=== PATIENT | male | born 1955 | race Caucasian/White ===

== ENCOUNTER 2018-10-23 10:44 | Outpatient (CLI) | payer MEDICAID, SELFPAY ==
[2018-10-23 11:58] LABS: Anion Gap 6.8 mmol/L (3-11); BUN 15 mg/dL (7-18); CO2 29.2 mmol/L (21.0-32.0); Calcium 9.1 mg/dL (8.5-10.1); Chloride 103 mmol/L (98-107); Cholesterol 147 mg/dL (50-200); Glucose 202 mg/dL (70-100); HDL Cholesterol 81 mg/dL (40-60); LDL CHOLESTEROL 53 mg/dL (<100); Potassium 4.8 mmol/L (3.5-5.1); Sodium 139 mmol/L (136-145); Triglyceride 98 mg/dL (30-150)
[2018-10-23 12:02] LABS: Microalb ug/mg Crea 32.7 ug/mg Cr
== END 2018-10-23 11:04 ==
PROVIDERS: PCP Internal Medicine; Visit Provider Internal Medicine
DX: I10 Essential (primary) hypertension (principal); E11.9 Type 2 diabetes mellitus without complications; E10.49 Type 1 diabetes mellitus with other diabetic neurological complication
CPT/HCPCS: 36415; 80048; 80061; 83721; 82043; 82570

== ENCOUNTER 2020-09-01 01:48 | Outpatient (CLI) | payer MEDICARE, MEDICAID, SELFPAY ==
[2020-09-01 08:40] LABS: COMMENT (LAB VIEW ONLY) 42.53 mg/dL; Microalb ug/mg Crea 20.2 ug/mg Cr
[2020-09-01 09:16] LABS: Anion Gap 5.6 mmol/L (3-11); BUN 16 mg/dL (7-18); CO2 28.4 mmol/L (21.0-32.0); CREATININE 0.9 mg/dL (0.70-1.30); Calcium 9.4 mg/dL (8.5-10.1); Calculated LDL 52 mg/dL (<100); Chloride 101 mmol/L (98-107); Cholesterol 150 mg/dL (<200); Glucose 320 mg/dL (74-106); HDL Cholesterol 84 mg/dL (40-60); Potassium 4.7 mmol/L (3.5-5.1); Sodium 135 mmol/L (136-145); Triglyceride 72 mg/dL (<150)
== END 2020-09-01 01:49 | disposition home or self-care (01) ==
LOC: LBO 01:48
PROVIDERS: PCP Internal Medicine; Visit Provider Internal Medicine
DX: E78.00 Pure hypercholesterolemia, unspecified (principal); E10.39 Type 1 diabetes mellitus with other diabetic ophthalmic complication; E10.49 Type 1 diabetes mellitus with other diabetic neurological complication; I10 Essential (primary) hypertension
CPT/HCPCS: 36415; 80048; 80061; 82043; 82570

== ENCOUNTER 2021-01-26 12:22 | Outpatient (REF) | payer MEDICARE, MEDICAID, SELFPAY | END 2021-01-26 12:23 | disposition home or self-care (01) | LOC: LBN 12:22 | PROVIDERS: PCP Internal Medicine; Visit Provider Family Medicine | DX: E11.621 Type 2 diabetes mellitus with foot ulcer (principal); L97.511 Non-pressure chronic ulcer of other part of right foot limited to breakdown of skin | CPT/HCPCS: 87070 ==

== ENCOUNTER 2021-02-02 11:25 | Inpatient (IN) | payer MEDICARE, MEDICAID, SELFPAY ==
[2021-02-02] VITALS (20 sets, daily range): BP systolic 158–168; BP diastolic 76–98; PULSE 75–86; RESP 18; TEMP 36–36.2; O2SAT 87–98
--- NOTE | 2021-02-02 | DI.MRI_ITS ---
Exam(s) MR LOWER EXTREMITY RT WO/W EXAM: MR LOWER EXTREMITY RT WO/W CLINICAL HISTORY: diabetic foot ulcer, necrotic 2nd digit. TECHNIQUE: Multiplanar multisequence MRI was performed. COMPARISON: CR XR FOOT LT COMPLETE from 02/02/2021 CR XR FOOT LT COMPLETE from 02/02/2021 FINDINGS: MR examination of the forefoot was performed according to the usual protocol with additional multipla jorden pre and post contrast T1 fat sat imaging. The patient reportedly has a necrotic 2nd digit. There is soft tissue edema of the 2nd toe and the distal toe ulceration adjacent to the distal phalan x tip. There is mildly abnormal signal in the distal phalanx on both T1 and PD fat sat imaging. The re is mild enhancement of the distal phalanx of the 2nd toe also noted on post contrast imaging, thes e findings are consistent with osteomyelitis of the distal phalanx of the 2nd toe. There are degenerative changes of the IP joints. No additional findings to suggest osteomyelitis. N o evidence of fracture or dislocation. No gross tendinous or ligamentous abnormality in the region s urveyed. IMPRESSION: Findings consistent with osteomyelitis of the distal phalanx of the 2nd toe as described above. DATA REPOSITORY:
--- NOTE | 2021-02-02 11:42 | DI.RAD_ITS ---
Exam(s) XR FOOT RT COMPLETE EXAM: XR FOOT RT COMPLETE CLINICAL HISTORY: necrotic toe 2nd/3rd. TECHNIQUE: 2D digital imaging was performed. COMPARISON: No exams were available for comparison FINDINGS: BONES: No acute fracture is present. No bony destructive lesion is seen. No radiographic evidence to suggest acute osteomyelitis. JOINTS: No dislocation present. SOFT TISSUE: There is generalized soft tissue swelling of the foot. Atherosclerosis. IMPRESSION: No radiographic findings to suggest acute osteomyelitis. DATA REPOSITORY: RADIATION DOSE DELIVERED:
--- NOTE | 2021-02-02 11:46 | DI.RAD_ITS ---
Exam(s) XR FOOT LT COMPLETE EXAM: XR FOOT LT COMPLETE CLINICAL HISTORY: left 3rd toe ulcer. TECHNIQUE: 2D digital imaging was performed. COMPARISON: No exams were available for comparison FINDINGS: BONES: No acute fracture is present. No bony destructive lesion is seen. No evidence of acute osteomy elitis. JOINTS: No dislocation present. SOFT TISSUE: Generalized soft tissue swelling of the foot. Extensive atherosclerosis. IMPRESSION: No evidence of acute osteomyelitis. DATA REPOSITORY: RADIATION DOSE DELIVERED:
[2021-02-02 12:12] LABS: Abs Immature Grans 0.02 10^3/uL (0.0-0.06); Absolute Basophil Count 0.07 10^3/uL (0.0-0.2); Absolute Eosinophil Count 0.33 10^3/uL (0.0-0.7); Absolute Lymphocyte Count 1.66 10^3/uL (1.2-3.4); Absolute Monocyte Count 0.68 10^3/uL (0.1-0.8); Absolute Neutrophil Count 4.45 10^3/uL (1.2-6.7); BE (Venous) 6 mmol/L (-2-3); Eosinophils % 4.6; HCO3 (Venous) 31 mmol/L (23-28); HCT 42.1 % (40.0-50.0); Immature Grans % 0.3; MCHC 33.3 % (32.0-36.0); MCV 96.1 fL (80-95); MPV 11.5 fL (8.0-11.0); Monocytes % 9.4; Neutrophils % 61.7; Nucleated RBC 0 %; O2 Sat (Venous) 77 %; Platelet Count 235 10^3/uL (130-400); RBC 4.38 10^6/uL (4.36-5.78); RDW 12.1 % (11.8-14.1); RDW-SD 42.9 fL; TCO2 (Venous) 28 mmol/L (24-29); WBC 7.21 10^3/uL (4.4-10.8); pCO2 (Venous) 52 mmHg (41-51); pH (Venous) 7.39 (7.31-7.41); pO2 (Venous) 41 mmHg
[2021-02-02 12:25] LABS: C-Reactive Protein 0.18 mg/dL (0.0-0.3)
--- NOTE | 2021-02-02 12:27 | ED.GENADUL_ITS ---
Discharge Plan Discharge Details Chief Complaint: Cellulitis Primary Care Provider: Gaby Ma ED Provider: Elis Dawn Home Meds and New Rx's Prescriptions: No Action losartan 100 mg tablet 100 mg PO DAILY Qty: 90 RF: 3 triamcinolone acetonide 0.1 % cream 1 applic topical TID PRN (Reason: itchy bite) Qty: 15 RF: 0 hydroxyzine HCl 10 mg tablet 10 - 20 mg PO BID PRN (Reason: itching) Qty: 10 RF: 0 Glucagon Emergency Kit (human) 1 mg recon soln 1 mg SC Q20M PRN (Reason: hypoglycemia) Qty: 1 RF: 2 Lac-Hydrin Five 5 % lotion 1 applic TP BID PRN (Reason: diabetic foot care) Qty: 226 RF: 5 sildenafil [Viagra] 100 mg tablet 100 mg PO DAILY PRN (Reason: sexual activity) Qty: 6 RF: 12 aspirin [Ecotrin Low Strength] 81 MG tablet,delayed release (DR/EC) 81 mg PO DAILY RF: 0 multivitamin [Daily Vitamin] 1 EACH tablet 1 ea PO DAILY RF: 0 docusate sodium 100 MG capsule 100 mg PO DAILY PRNRF: 0 polyethylene glycol 3350 [Miralax] 17 gram/dose powder 17 gm PO DAILY PRN (Reason: constipation) Qty: 1700 RF: 3 dorzolamide-timolol 22.3-6.8 mg/mL drops 1 drp ophthalmic (eye) BID RF: 0 Novolin N NPH U-100 Insulin 100 unit/mL suspension See Rx Instructions subcut .COMPLEX Qty: 6 RF: 4 Novolin R Regular U-100 Insuln 100 unit/mL solution See Rx Instructions Sub-Q .COMPLEX Qty: 6 RF: 4 (DME) BD Insulin Syringe 1 mL 26 x 1/2 syringe 1 syr Sub-Q 5x/day Qty: 300 RF: 4 (DME) OneTouch Ultra Blue Test Strip Strip See Dose Instructions .ROUTE .MEDSUPPLY Qty: 150 RF: 5 Medical Decision Making Patient is alert and oriented, quite pleasant, blood pressure stable and vitals otherwise stable, does not meet sepsis criteria Will need to be admitted for IV antibiotics and likely surgical intervention, discussed with Dr. Dos Santos, aerospace products sales engineer who will consult Discussed with admitting hospitalist, Dr. Bass No leukocytosis Also discussed with Dr. Mariscal, [facility] internal medicine who actually transfer the patient to the emergency room appropriately Patient agreeable to admission at this time Of note, he did become hypoglycemic at 53, he was given glucose and we will recheck blood sugar Mentating fine throughout this encounter and agreeable to plan for admission at this time Medical Records Medical records reviewed: Yes I reviewed the patient's medical records. Lab Data Lab results reviewed: Yes I reviewed the patient's lab results. HPI General Mode of arrival: ambulatory . Date/Time Provider Initiated Documentation: 02/02/21 11:42 . Limitations to Documentation: no limitations . Information obtained by: patient . HPI Narrative: This 65-year-old gentleman, poorly controlled diabetes history of insulin-dependent diabetic neuropathy and retinopathy presents with reported cellulitis and necrotic toe. Patient denies fever or chills. He states that he is on Augmentin for the past week and his symptoms have worsened. He states his A1c is 9. Blood sugar was 200 prior to arrival. He states he does not have any pain in the affected extremity but does have reported neuropathy. Denies chest pain, shortness of breath, nausea, vomiting, or any additional complaints at this time. Has been taking the Augmentin previously prescribed by his primary care physician as instructed Related Data Home Medications Medication Instructions Recorded Confirmed aspirin [Ecotrin] 81 mg PO DAILY tab-cap 09/21/12 02/02/21 multivitamin [Daily Vitamin] 1 ea PO DAILY 09/22/12 02/02/21 docusate sodium 100 mg PO DAILY PRN tab-cap 04/02/16 02/02/21 polyethylene glycol 3350 17 17 gm PO DAILY PRN #1700 gm 03/02/19 02/02/21 gram/dose oral powder dorzolamide 22.3 mg-timolol 6.8 1 drp OPHTHALMIC (EYE) BID 08/17/19 02/02/21 mg/mL eye drops glucagon (human recombinant) 1 mg 1 mg SC Q20M PRN #1 each 09/21/19 02/02/21 solution for injection ammonium lactate 5 % lotion 1 applic TP BID PRN #226 gm 12/28/19 02/02/21 sildenafil 100 mg tablet 100 mg PO DAILY PRN #6 t 12/28/19 02/02/21 losartan 100 mg tablet 100 mg PO DAILY #90 tab 09/19/20 02/02/21 blood sugar diagnostic #150 strip 11/06/20 02/02/21 insulin NPH isoph U-100 human 100 See Rx Instructions SUBCUT 11/06/20 02/02/21 unit/mL subcutaneous suspension .COMPLEX #6 vial insulin regular human 100 unit/mL See Rx Instructions SUB-Q .COMPLEX 11/06/20 02/02/21 injection solution #6 vial insulin syringe-needle U-100 1 mL #300 syringe 11/06/20 02/02/21 26 x 1/2 hydroxyzine HCl 10 mg tablet 10 - 20 mg PO BID PRN #10 tab 12/01/20 02/02/21 triamcinolone acetonide 0.1 % 1 applic TOPICAL TID PRN #15 g 12/01/20 02/02/21 topical cream Previous Rx's Medication Instructions Recorded polyethylene glycol 3350 17 17 gm PO DAILY PRN #1700 gm 03/02/19 gram/dose oral powder glucagon (human recombinant) 1 mg 1 mg SC Q20M PRN #1 each 09/21/19 solution for injection ammonium lactate 5 % lotion 1 applic TP BID PRN #226 gm 12/28/19 sildenafil 100 mg tablet 100 mg PO DAILY PRN #6 t 12/28/19 losartan 100 mg tablet 100 mg PO DAILY #90 tab 09/19/20 blood sugar diagnostic #150 strip 11/06/20 insulin NPH isoph U-100 human 100 See Rx Instructions SUBCUT 11/06/20 unit/mL subcutaneous suspension .COMPLEX #6 vial insulin regular human 100 unit/mL See Rx Instructions SUB-Q .COMPLEX 11/06/20 injection solution #6 vial insulin syringe-needle U-100 1 mL #300 syringe 11/06/20 26 x 1/2 hydroxyzine HCl 10 mg tablet 10 - 20 mg PO BID PRN #10 tab 12/01/20 triamcinolone acetonide 0.1 % 1 applic TOPICAL TID PRN #15 g 12/01/20 topical cream Allergies Allergy/AdvReac Type Severity Reaction Status Date / Time codeine Allergy Mild ITCHING Verified 02/02/21 11:33 lisinopril AdvReac Unknown HEADACHE Verified 02/02/21 11:33 SEXUAL DYS moexipril AdvReac Unknown FELT FUNNY Verified 02/02/21 11:33 General Stated Complaint: Cellulitis LOVE: 3 Review of Systems All systems reviewed & are unremarkable except as noted in HPI and below PFSH Medical History (Updated 01/26/21 @ 11:14 by Tyshawn Chapman DO) Bilateral diabetic retinopathy (09/10/11) 08/16/[address] both eyes. 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 What is your relationship status?: Panel score (0-1 are the most socially isolated patients): 1 What type of physical activity do you participate in: none Seatbelt use: always Drive intox or ride w/intox milk delivery driver: No Working smoke detector in home: Yes Fire extinguisher in home: Yes Carbon monox detector in home: Yes Exam Const General: cooperative and no acute distress HENMT Other: Moist mucous membranes Eyes Pupils: PERRL Chest Chest: normal inspection of the chest Resp Effort & Inspection: normal respiratory effort Auscultation: clear to auscultation bilaterally Cardio Rate: regular rate Rhythm: regular rhythm GI Other: Nontender abdominal exam Skin Other: Right second digit with ulceration and distal necrosis noted to second phalanx on foot with cellulitis extending up the dorsum of the foot without obvious lymphangitis past the ankle 2+ peripheral edema bilaterally, Doppler pulses obtained to the posterior tibialis and dorsalis pedis bilaterally No crepitus, blister noted to right third phalanx plan, blister noted to left s econd phalanx as well Diminished sensation consistent with peripheral neuropathy bilaterally Neuro General: patient alert and patient oriented x3 Extrem Other: Vascularly intact bilateral lower extremities Psych Appearance: well kempt Course Vital Signs Vital signs: Vital Signs Temperature 36.2 C L 02/02/21 11:30 Pulse 86 02/02/21 11:30 Respiratory Rate 18 02/02/21 11:30 Blood Pressure 167/80 H 02/02/21 11:30 Pulse Oximetry 98 02/02/21 11:30 Temperature 36.2 C L 02/02/21 11:30 Temperature Source Temporal Artery Scan 02/02/21 11:30 Pulse 86 02/02/21 11:30 Respiratory Rate 18 02/02/21 11:30 Respiratory Effort Non-Labored 02/02/21 11:38 Blood Pressure 167/80 H 02/02/21 11:30 Blood Pressure Position Sitting 02/02/21 11:30 Pulse Oximetry 98 02/02/21 11:30 Oxygen Delivery Method Room Air 02/02/21 11:30 Oxygen Flow Rate 0 02/02/21 11:30 Pain Level 2 02/02/21 11:30 Lab/Test Results Lab/Test Results: 02/02/21 12:00 Blood Blood Culture - Pending 02/02/21 11:46 Blood Blood Culture - Pending Laboratory Tests Range/Units 02/02/21 02/02/21 02/02/21 11:45 12:00 12:00 WBC (4.4-10.8) 10^3/uL 7.21 RBC (4.36-5.78) 10^6/uL 4.38 Hgb (13.5-17.5) g/dL 14.0 Hct (40.0-50.0) % 42.1 MCV (80-95) fL 96.1 H MCH (27.0-33.0) pg 32.0 MCHC (32.0-36.0) % 33.3 RDW (11.8-14.1) % 12.1 Plt Count (130-400) 10^3/uL 235 MPV (8.0-11.0) fL 11.5 H Immature Gran % 0.3 Neutrophils % 61.7 Lymphocytes % 23.0 Monocytes % 9.4 Eosinophils % 4.6 Basophils % 1.0 Nucleated RBC % % 0 Absolute Neutrophils (1.2-6.7) 10^3/uL 4.45 Absolute Lymphocytes (1.2-3.4) 10^3/uL 1.66 Absolute Monocytes (0.1-0.8) 10^3/uL 0.68 Absolute Eosinophils (0.0-0.7) 10^3/uL 0.33 Absolute Basophils (0.0-0.2) 10^3/uL 0.07 VBG pH (7.31-7.41) VBG pCO2 (41-51) mmHg VBG pO2 mmHg VBG HCO3 (23-28) mmol/L VBG Total CO2 (24-29) mmol/L VBG O2 Saturation % VBG Base Excess (-2-3) mmol/L VBG Lactate (0.6-1.4) mmol/L Magnesium Cancelled Troponin I Cancelled C-Reactive Protein (0.0-0.3) mg/dL 0.18 Range/Units 02/02/21 02/02/21 02/02/21 12:00 12:00 14:45 WBC (4.4-10.8) 10^3/uL RBC (4.36-5.78) 10^6/uL Hgb (13.5-17.5) g/dL Hct (40.0-50.0) % MCV (80-95) fL MCH (27.0-33.0) pg MCHC (32.0-36.0) % RDW (11.8-14.1) % Plt Count (130-400) 10^3/uL MPV (8.0-11.0) fL Immature Gran % Neutrophils % Lymphocytes % Monocytes % Eosinophils % Basophils % Nucleated RBC % % Absolute Neutrophils (1.2-6.7) 10^3/uL Absolute Lymphocytes (1.2-3.4) 10^3/uL Absolute Monocytes (0.1-0.8) 10^3/uL Absolute Eosinophils (0.0-0.7) 10^3/uL Absolute Basophils (0.0-0.2) 10^3/uL VBG pH (7.31-7.41) 7.39 VBG pCO2 (41-51) mmHg 52 H VBG pO2 mmHg 41 VBG HCO3 (23-28) mmol/L 31 H VBG Total CO2 (24-29) mmol/L 28 VBG O2 Saturation % 77 VBG Base Excess (-2-3) mmol/L 6 H VBG Lactate (0.6-1.4) mmol/L 1.0 Magnesium Troponin I Cancelled C-Reactive Protein (0.0-0.3) mg/dL
[2021-02-02 12:30] LABS: ALT 54 U/L (16-63); AST 32 U/L (15-37); Albumin 3.4 g/dL (3.4-5.0); Alkaline Phosphatase 74 U/L (46-116); Anion Gap 5.5 mmol/L (3-11); BUN 18 mg/dL (7-18); Bilirubin, Total 0.6 mg/dL (0.2-1.0); CO2 30.5 mmol/L (21.0-32.0); CREATININE 1.1 mg/dL (0.70-1.30); Calcium 8.9 mg/dL (8.5-10.1); Chloride 106 mmol/L (98-107); Glucose 92 mg/dL (74-106); Potassium 4.4 mmol/L (3.5-5.1); Sodium 142 mmol/L (136-145); Total Protein 7.3 g/dL (6.4-8.2)
[2021-02-02] MEDS: PIPERACILLIN/TAZO 4.5 GM in Normal Saline 100 ML IVPB (12:44)
[2021-02-02] MEDS: VANCOMYCIN/WATER (PEG) 2 GM/400 ML BAG IVPB (13:28)
[2021-02-02 14:11] LABS: Source Nasal/Nares
[2021-02-02 15:06] LABS: COVID-19 PCR Negative (Negative)
[2021-02-02] MEDS: Gadoterate meglumine 20 ML VIAL IVP (15:49)
[2021-02-02] MEDS: Normal Saline Flush 10 ML SYR IVP ×2 (15:49→17:13)
--- NOTE | 2021-02-02 17:10 | W.PM.HP.N ---
Date of service: 02/02/21 Time of Service: 16:45 Assessment and Plan Assessment and plan (1) Diabetic foot ulcer: Status: Acute Assessment and plan: Consult podiatry Admit with empiric vancomycin/zosyn. Anticipate possible surgery tomorrow - NPO after midnight and half the NPH in the morning. 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: Status: Acute Assessment and plan: Continue home regimen except half NPH tomorrow morning in anticipation of his procedure Qualifiers: Diabetes mellitus complication detail: with polyneuropathy Qualified Code(s): E10.42 - Type 1 diabetes mellitus with diabetic polyneuropathy (4) Essential hypertension: Status: Acute Assessment and plan: Continue losartan (5) DVT prophylaxis: Status: Acute Assessment and plan: TEDS/SCDs in anticipation of surgery (6) Discharge planning issues: Status: Acute Assessment and plan: Full code History of Present Illness History of Present Illness Chief Complaint: right 1st and 2nd toe infection Narrative: Mr Fall is a 65 year old male with PMHx of T1DM, as well as h/o diabetic retinopathy, neuropathy, ED, as well as hypertension, who stabbed his R foot onto a fan when walking around his house about a week ago. His PCP's office prescribed augmentin, which the patient took for 1 week, but despite this noticed worsening of the infection on the primarily 2nd but also first digits of his right foot. He saw his PCP today, who referred the patient to the ED. Here, he was felt to have necrotic diabetic foot infection of the 2nd digit of RLE. A blister was also noted on the 2nd digit of his LLE. Hospitalist admission was requested with podiatry seeing the patient in consult. Review of Systems All systems reviewed & are unremarkable except as noted in HPI and below [facility] Medical History (Updated 02/02/21 @ 18:47 by Dominga Bass MD) Bilateral diabetic retinopathy (09/10/11) [address] both eyes[address] 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 What is your relationship status?: Panel score (0-1 are the most socially isolated patients): 1 What type of physical activity do you participate in: none Seatbelt use: always Drive intox or ride w/intox bobtail driver: No Working smoke detector in home: Yes Fire extinguisher in home: Yes Carbon monox detector in home: Yes Meds Allergies and Home Medications Allergies Allergy/AdvReac Type Severity Reaction Status Date / Time codeine Allergy Mild ITCHING Verified 02/02/21 11:33 lisinopril AdvReac Unknown HEADACHE Verified 02/02/21 11:33 SEXUAL DYS moexipril AdvReac Unknown FELT FUNNY Verified 02/02/21 11:33 Home Medications Medication Instructions Recorded Confirmed Type aspirin [Ecotrin] 81 mg PO DAILY tab-cap 09/21/12 02/02/21 History multivitamin [Daily Vitamin] 1 ea PO DAILY 09/22/12 02/02/21 History docusate sodium 100 mg PO DAILY PRN tab-cap 04/02/16 02/02/21 History polyethylene glycol 3350 17 17 gm PO DAILY PRN #1700 gm 03/02/19 02/02/21 Rx gram/dose oral powder dorzolamide 22.3 mg-timolol 6.8 1 drp OPHTHALMIC (EYE) BID 08/17/19 02/02/21 History mg/mL eye drops glucagon (human recombinant) 1 mg 1 mg SC Q20M PRN #1 each 09/21/19 02/02/21 Rx solution for injection ammonium lactate 5 % lotion 1 applic TP BID PRN #226 gm 12/28/19 02/02/21 Rx sildenafil 100 mg tablet 100 mg PO DAILY PRN #6 t 12/28/19 02/02/21 Rx losartan 100 mg tablet 100 mg PO DAILY #90 tab 09/19/20 02/02/21 Rx blood sugar diagnostic #150 strip 11/06/20 02/02/21 Rx insulin NPH isoph U-100 human 100 See Rx Instructions SUBCUT 11/06/20 02/02/21 Rx unit/mL subcutaneous suspension .COMPLEX #6 vial insulin regular human 100 unit/mL See Rx Instructions SUB-Q .COMPLEX 11/06/20 02/02/21 Rx injection solution #6 vial insulin syringe-needle U-100 1 mL #300 syringe 11/06/20 02/02/21 Rx 26 x 1/2 hydroxyzine HCl 10 mg tablet 10 - 20 mg PO BID PRN #10 tab 12/01/20 02/02/21 Rx triamcinolone acetonide 0.1 % 1 applic TOPICAL TID PRN #15 g 12/01/20 02/02/21 Rx topical cream Exam Narrative Exam Narrative: General: Pleasant middle-aged male, ambulating in his room, A&Ox3, does not look toxic Neurological: A&Ox3, no focal deficits, slightly decreased sensation in B feet Psychiatric: Appropriate speech pattern and content Skin: 1st and 2nd digits RLE with areas of necrosis; slight blistering on 2nd digit LLE HEENT: Atraumatic, normocephalic, EOMI, MMM, clear oropharynx, no submandibular or cervical lymphadenopathy, no goiter or JVD Cardiovascular: RRR, no m/r/g Lungs: slight expiratory wheezing B Gastrointestinal: soft, nontender, nondistended Genitourinary: deferred Extremities: 1+ ankle edema BLE's, symmetric, 1+ B pedal pulses, no clubbing or cyanosis; see skin exam above Results Imaging Additional studies: XR B feet: No radiographic findings to suggest acute osteomyelitis. MRI RLE: 1. Findings consistent with cellulitis . 2. Skin ulcer at the tip of the 2nd toe extending to the distal phalanx terminal tuft. 3. Increased signal and enhancement of the 2nd toe distal phalanx consistent with osteomyelitis. Labs Result diagrams: 02/02/21 12:00 02/02/21 12:00 Labs: Laboratory Results - last 24 hr 02/02/21 02/02/21 02/02/21 11:45 12:00 12:00 WBC 7.21 RBC 4.38 Hgb 14.0 Hct 42.1 MCV 96.1 H MCH 32.0 MCHC 33.3 RDW 12.1 Plt Count 235 MPV 11.5 H Immature Gran % 0.3 Neutrophils % 61.7 Lymphocytes % 23.0 Monocytes % 9.4 Eosinophils % 4.6 Basophils % 1.0 Nucleated RBC % 0 Absolute Neutrophils 4.45 Absolute Lymphocytes 1.66 Absolute Monocytes 0.68 Absolute Eosinophils 0.33 Absolute Basophils 0.07 VBG pH VBG pCO2 VBG pO2 VBG HCO3 VBG Total CO2 VBG O2 Saturation VBG Base Excess VBG Lactate Sodium 142 Potassium 4.4 Chloride 106 Carbon Dioxide 30.5 Anion Gap 5.5 BUN 18 Creatinine 1.1 Estimated GFR/1.73 m2 >= 60.00 Glucose 92 Calcium 8.9 Magnesium Cancelled Total Bilirubin 0.6 AST 32 ALT 54 Alkaline Phosphatase 74 Troponin I Cancelled C-Reactive Protein Total Protein 7.3 Albumin 3.4 COVID-19 Source SARS-CoV-2 (PCR) 02/02/21 02/02/21 02/02/21 12:00 12:00 12:00 WBC RBC Hgb Hct MCV MCH MCHC RDW Plt Count MPV Immature Gran % Neutrophils % Lymphocytes % Monocytes % Eosinophils % Basophils % Nucleated RBC % Absolute Neutrophils Absolute Lymphocytes Absolute Monocytes Absolute Eosinophils Absolute Basophils VBG pH 7.39 VBG pCO2 52 H VBG pO2 41 VBG HCO3 31 H VBG Total CO2 28 VBG O2 Saturation 77 VBG Base Excess 6 H VBG Lactate 1.0 Sodium Potassium Chloride Carbon Dioxide Anion Gap BUN Creatinine Estimated GFR/1.73 m2 Glucose Calcium Magnesium Total Bilirubin AST ALT Alkaline Phosphatase Troponin I C-Reactive Protein 0.18 Total Protein Albumin COVID-19 Source SARS-CoV-2 (PCR) 02/02/21 02/02/21 14:05 14:45 WBC RBC Hgb Hct MCV MCH MCHC RDW Plt Count MPV Immature Gran % Neutrophils % Lymphocytes % Monocytes % Eosinophils % Basophils % Nucleated RBC % Absolute Neutrophils Absolute Lymphocytes Absolute Monocytes Absolute Eosinophils Absolute Basophils VBG pH VBG pCO2 VBG pO2 VBG HCO3 VBG Total CO2 VBG O2 Saturation VBG Base Excess VBG Lactate Sodium Potassium Chloride Carbon Dioxide Anion Gap BUN Creatinine Estimated GFR/1.73 m2 Glucose Calcium Magnesium Total Bilirubin AST ALT Alkaline Phosphatase Troponin I Cancelled C-Reactive Protein Total Protein Albumin COVID-19 Source Nasal/Nares SARS-CoV-2 (PCR) Negative Last Vital Signs Temp 36.2 C L 02/02/21 11:30 Pulse 75 02/02/21 15:01 Resp 18 02/02/21 11:30 BP 158/98 H 02/02/21 15:01 Pulse Ox 95 02/02/21 15:01
--- NOTE | 2021-02-02 17:14 | DI.VRAD_ITS ---
PROCEDURE INFORMATION: Exam: MR Right Lower Extremity Without and With Contrast; Forefoot Exam date and time: 02/02/2021 4:13 PM Age: 65 years old Clinical indication: Other: Diabetic foot ulcer, necrotic 2nd digit; Patient HX: Eval 2nd toe, type 1 diabetic TECHNIQUE: Imaging protocol: MR of the Right foot without and with intravenous contrast. Exam focused on the forefoot. Contrast material: DOTAREM; Contrast volume: 20 ml; Contrast route: INTRAVENOUS (IV); COMPARISON: CR XR FOOT RT COMPLETE 02/02/2021 1:08 PM FINDINGS: Swelling and fluid signal throughout the dorsal aspect of the forefoot is consistent with cellulitis in the proper clinical setting. No soft tissue abscess is identified. There is a superficial skin ulcer at the tip of the 2nd toe which extends to the surface of the distal phalanx terminal tuft. There is increased signal and enhancement of the 2nd toe distal phalanx consistent with osteomyelitis. There is severe arthritis of the 3rd distal interphalangeal joint. Bone marrow signal throughout the remainder of the forefoot is unremarkable. IMPRESSION: 1. Findings consistent with cellulitis . 2. Skin ulcer at the tip of the 2nd toe extending to the distal phalanx terminal tuft. 3. Increased signal and enhancement of the 2nd toe distal phalanx consistent with osteomyelitis. Dictated and Authenticated by: Sarkis Clemente MD. Ordering:JENNY Orr MD
[2021-02-02] MEDS: Insulin REGULAR-Human 100 UNITS/ML UNIT 24 UNITS SC (18:57)
[2021-02-02] MEDS: Insulin NPH-Human 300 UNITS/3 ML PEN 36 UNIT SC (22:08)
[2021-02-02] MEDS: Insulin Aspart 300 UNITS/3 ML PEN SC (22:10)
[2021-02-03] VITALS (7 sets, daily range): BP systolic 110–170; BP diastolic 69–95; PULSE 72–84; RESP 14–18; TEMP 35.7–36.6; O2SAT 94–98; BMI 29.0
[2021-02-03] MEDS: VANCOMYCIN/WATER (PEG) 1.25 GM/250 ML BAG IV ×2 (02:43→14:25)
[2021-02-03] MEDS: Normal Saline Flush 10 ML SYR IVP ×2 (02:43→22:44)
[2021-02-03 03:26] LABS: Abs Immature Grans 0.02 10^3/uL (0.0-0.06); Absolute Eosinophil Count 0.33 10^3/uL (0.0-0.7); Absolute Lymphocyte Count 2.13 10^3/uL (1.2-3.4); Absolute Monocyte Count 1.04 10^3/uL (0.1-0.8); Absolute Neutrophil Count 5.17 10^3/uL (1.2-6.7); Basophils % 1.1; Eosinophils % 3.8; HGB 15.1 g/dL (13.5-17.5); Immature Grans % 0.2; Lymphocytes % 24.2; MCH 31.6 pg (27.0-33.0); MCHC 32.8 % (32.0-36.0); MCV 96.2 fL (80-95); Monocytes % 11.8; Neutrophils % 58.9; Nucleated RBC 0 %; Platelet Count 246 10^3/uL (130-400); RBC 4.78 10^6/uL (4.36-5.78); RDW 11.9 % (11.8-14.1); RDW-SD 42.9 fL; WBC 8.79 10^3/uL (4.4-10.8)
[2021-02-03 03:34] LABS: Anion Gap 5.3 mmol/L (3-11); BUN 17 mg/dL (7-18); CO2 30.7 mmol/L (21.0-32.0); CREATININE 1.1 mg/dL (0.70-1.30); Calcium 9.2 mg/dL (8.5-10.1); Chloride 107 mmol/L (98-107); Magnesium 2.2 mg/dL (1.8-2.4); Sodium 143 mmol/L (136-145)
[2021-02-03 03:36] LABS: Glucose 47 mg/dL (74-106)
[2021-02-03 03:53] LABS: Prothrombin Time 10.3 sec (9.3-11.0)
--- NOTE | 2021-02-03 08:02 | POCOE_ITS ---
Date of service: 02/03/21 Time of Service: 08:02 History of Present Illness History of Present Illness Chief Complaint: Necrotic right second toe with osteomyelitis Narrative: 65-year-old white male who states that he stubbed his toe about 2 weeks ago and had progressive redness, necrosis of the second toe that brought him to the emergency room yesterday for evaluation. MRI reveals changes of the distal phalanx of the second toe consistent with osteomyelitis. [facility] Medical History Bilateral diabetic retinopathy (09/10/11) 08/16/[address] both eyes. 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 He responds to questions appropriately and asks proper q uestion. Peripheral pulses at the ankle are diminished but palpable, calves are soft to palpation, popliteal pulsations are noted behind the knee bilaterally. No peripheral edema is seen. He does indicate that he can walk as much as he wants without cramping in his legs. Muscle groups of 5 out of 5 bilaterally lower extremity Skeletal exam is remarkable for necrosis over the dorsal aspect of the right second toe extending from the PIPJ to the distal tip of the digit. Erythema is noted extending nursing home down the proximal phalanx but no active cellulitis noted at this time. He has dry blister formations affecting the distal and medial aspect of the right great toe and to a lesser extent the left first and second toes as well. There is no active sign of infections with those digit. C apillary return to the remaining toes appears physiologic. Neurologically he does display some diabetic neuropathy distally within his foot and he admits to a little tingling. Radiographs of his right foot were remarkable for degenerative joint disease but the MRI clearly identifies skin ulcer at the tip of the toe second digit with enhancement of the distal phalanx consistent with osteomyelitis. His vascular structures within the foot are calcified and easily reviewed on plain radiograph. Impressions: Insulin-dependent diabetic with diabetic ulcer of the right second toe due to trauma with osteomyelitis. Peripheral arterial disease Type 1 diabetes with neuropathy Plan: I reviewed with Tyshawn treatment options consisting of attempted salvage of the toe which would require 6 weeks of IV antibiotics, aggressive wound therapy which in all likelihood based on his diabetes and microvascular disease would ultimately fail and require a amputation of the digit. My recommendation was to debride the digit today back to healthy tissue and make an attempt at salvaging part of the toe to speed his recovery. He understands the permanency of an amputation, the potential risks and complications including pain, scarring, ongoing infection with additional loss of tissue requiring revisional procedures. All questions have been answered in detail he consents to use surgical debridement?amputation of the right second toe level to be determined intraoperatively. Informed consent has been obtained. Results Last Vital Signs Temp 36.3 C L 02/03/21 03:04 Pulse 84 02/03/21 03:04 Resp 14 02/03/21 03:04 BP 170/95 H 02/03/21 03:04 Pulse Ox 98 02/03/21 03:04 Labs Result diagrams: 02/03/21 03:20 02/03/21 03:20 Labs: Laboratory Results - last 24 hr 02/02/21 02/02/21 02/02/21 11:45 12:00 12:00 WBC 7.21 RBC 4.38 Hgb 14.0 Hct 42.1 MCV 96.1 H MCH 32.0 MCHC 33.3 RDW 12.1 Plt Count 235 MPV 11.5 H Immature Gran % 0.3 Neutrophils % 61.7 Lymphocytes % 23.0 Monocytes % 9.4 Eosinophils % 4.6 Basophils % 1.0 Nucleated RBC % 0 Absolute Neutrophils 4.45 Absolute Lymphocytes 1.66 Absolute Monocytes 0.68 Absolute Eosinophils 0.33 Absolute Basophils 0.07 PT INR VBG pH VBG pCO2 VBG pO2 VBG HCO3 VBG Total CO2 VBG O2 Saturation VBG Base Excess VBG Lactate Sodium 142 Potassium 4.4 Chloride 106 Carbon Dioxide 30.5 Anion Gap 5.5 BUN 18 Creatinine 1.1 Estimated GFR/1.73 m2 >= 60.00 Glucose 92 Calcium 8.9 Magnesium Cancelled Total Bilirubin 0.6 AST 32 ALT 54 Alkaline Phosphatase 74 Troponin I Cancelled C-Reactive Protein Total Protein 7.3 Albumin 3.4 COVID-19 Source SARS-CoV-2 (PCR) 02/02/21 02/02/21 02/02/21 12:00 12:00 12:00 WBC RBC Hgb Hct MCV MCH MCHC RDW Plt Count MPV Immature Gran % Neutrophils % Lymphocytes % Monocytes % Eosinophils % Basophils % Nucleated RBC % Absolute Neutrophils Absolute Lymphocytes Absolute Monocytes Absolute Eosinophils Absolute Basophils PT INR VBG pH 7.39 VBG pCO2 52 H VBG pO2 41 VBG HCO3 31 H VBG Total CO2 28 VBG O2 Saturation 77 VBG Base Excess 6 H VBG Lactate 1.0 Sodium Potassium Chloride Carbon Dioxide Anion Gap BUN Creatinine Estimated GFR/1.73 m2 Glucose Calcium Magnesium Total Bilirubin AST ALT Alkaline Phosphatase Troponin I C-Reactive Protein 0.18 Total Protein Albumin COVID-19 Source SARS-CoV-2 (PCR) 02/02/21 02/02/21 02/03/21 14:05 14:45 03:10 WBC RBC Hgb Hct MCV MCH MCHC RDW Plt Count MPV Immature Gran % Neutrophils % Lymphocytes % Monocytes % Eosinophils % Basophils % Nucleated RBC % Absolute Neutrophils Absolute Lymphocytes Absolute Monocytes Absolute Eosinophils Absolute Basophils PT INR VBG pH VBG pCO2 VBG pO2 VBG HCO3 VBG Total CO2 VBG O2 Saturation VBG Base Excess VBG Lactate Sodium Potassium Chloride Carbon Dioxide Anion Gap BUN Creatinine Estimated GFR/1.73 m2 Glucose Cancelled Calcium Magnesium Total Bilirubin AST ALT Alkaline Phosphatase Troponin I Cancelled C-Reactive Protein Total Protein Albumin COVID-19 Source Nasal/Nares SARS-CoV-2 (PCR) Negative 02/03/21 02/03/21 02/03/21 03:20 03:20 03:20 WBC 8.79 RBC 4.78 Hgb 15.1 Hct 46.0 MCV 96.2 H MCH 31.6 MCHC 32.8 RDW 11.9 Plt Count 246 MPV 11.0 Immature Gran % 0.2 Neutrophils % 58.9 Lymphocytes % 24.2 Monocytes % 11.8 Eosinophils % 3.8 Basophils % 1.1 Nucleated RBC % 0 Absolute Neutrophils 5.17 Absolute Lymphocytes 2.13 Absolute Monocytes 1.04 H Absolute Eosinophils 0.33 Absolute Basophils 0.10 PT 10.3 INR 1.0 VBG pH VBG pCO2 VBG pO2 VBG HCO3 VBG Total CO2 VBG O2 Saturation VBG Base Excess VBG Lactate Sodium 143 Potassium 4.0 Chloride 107 Carbon Dioxide 30.7 Anion Gap 5.3 BUN 17 Creatinine 1.1 Estimated GFR/1.73 m2 >= 60.00 Glucose 47 L* Calcium 9.2 Magnesium 2.2 Total Bilirubin AST ALT Alkaline Phosphatase Troponin I C-Reactive Protein Total Protein Albumin COVID-19 Source SARS-CoV-2 (PCR)
--- NOTE | 2021-02-03 08:19 | W.ANESPRE ---
General Info Date of Service Date Performed: 02/03/21 Height: 6 ft 0.05 in Weight: 97.4 kg Body Mass Index (BMI): 29.0 Meds Allergies and Home Medications Allergies Allergy/AdvReac Type Severity Reaction Status Date / Time codeine Allergy Mild ITCHING Verified 02/02/21 11:33 lisinopril AdvReac Unknown HEADACHE Verified 02/02/21 11:33 SEXUAL DYS moexipril AdvReac Unknown FELT FUNNY Verified 02/02/21 11:33 Home Medication Medication Instructions Recorded aspirin [Ecotrin] 81 mg PO DAILY tab-cap 09/21/12 multivitamin [Daily Vitamin] 1 ea PO DAILY 09/22/12 docusate sodium 100 mg PO DAILY PRN tab-cap 04/02/16 polyethylene glycol 3350 17 17 gm PO DAILY PRN #1700 gm 03/02/19 gram/dose oral powder dorzolamide 22.3 mg-timolol 6.8 1 drp OPHTHALMIC (EYE) BID 08/17/19 mg/mL eye drops glucagon (human recombinant) 1 mg 1 mg SC Q20M PRN #1 each 09/21/19 solution for injection ammonium lactate 5 % lotion 1 applic TP BID PRN #226 gm 12/28/19 sildenafil 100 mg tablet 100 mg PO DAILY PRN #6 t 12/28/19 losartan 100 mg tablet 100 mg PO DAILY #90 tab 09/19/20 blood sugar diagnostic #150 strip 11/06/20 insulin NPH isoph U-100 human 100 See Rx Instructions SUBCUT 11/06/20 unit/mL subcutaneous suspension .COMPLEX #6 vial insulin regular human 100 unit/mL See Rx Instructions SUB-Q .COMPLEX 11/06/20 injection solution #6 vial insulin syringe-needle U-100 1 mL #300 syringe 11/06/20 26 x 1/2 hydroxyzine HCl 10 mg tablet 10 - 20 mg PO BID PRN #10 tab 12/01/20 triamcinolone acetonide 0.1 % 1 applic TOPICAL TID PRN #15 g 12/01/20 topical cream Current Visit Medications: Current Medications Generic Name Dose Route Start Last Admin Trade Name Freq PRN Reason Stop Dose Admin Acetaminophen 0 mg 02/02/21 13:45 Acetaminophen 325 Mg Tab PO Q4H PRN PRN Al Hydrox/Mg Hydrox/Simethicone 30 ml 02/02/21 13:45 Mylanta Suspension 30 Ml Cup PO Q2H PRN PRN Albuterol Sulfate 0 puff 02/02/21 18:41 Albuterol Hfa 8 Gm 60 Puff Inh IH Q4H PRN PRN Ammonium Lactate 0 gm 02/02/21 13:54 Lachydrin 12% Lotion 225 Gm Btl TP BID PRN PRN diabetic foot care Aspirin 81 mg 02/03/21 08:30 Aspirin E.C. 81 Mg Tabec PO DAILY JOO Device 1 each 02/02/21 19:00 Inhaler, Assist Device MC DIRECTED JOO Dextrose 0 gm 02/02/21 13:56 02/03/21 02:49 Glucose 40% Oral Solution 15 Gm/37.5 Gm Tube PO 30 gm DIRECTED PRN Administration Dextrose/Water 0 gm 02/02/21 13:56 Dextrose 50%-Water 25 Gm/50 Ml Syr IVP DIRECTED PRN Dimethicone/Zinc Oxide 0 gm 02/02/21 13:45 Alfonso Protect Cream 142 Gm Tube TP PRN PRN Docusate Sodium 100 mg 02/02/21 13:45 Docusate Sodium 100 Mg Cap PO TID PRN PRN Dorzolamide/Timolol 0 ml 02/02/21 20:00 02/02/21 19:38 Dorzolamide/Timolol 10 Ml Btl OP 1 drp BID JOO Administration Gadoterate Meglumine 20 ml 02/02/21 16:00 02/02/21 15:49 Gadoterate Meglumine 20 Ml Vial IVP 03/04/21 23:59 20 ml DIRECTED JOO Administration Vancomycin/PEG/NADA/Lysine/Water 1.25 gm in 250 mls @ 0 mls/hr 02/03/21 02:00 02/03/21 02:43 Vancocin Injection IV 167 mls/hr Q12H JOO Administration Protocol Per Protocol Piperacillin/Tazobactam/Dextrose 3.375 gm in 50 mls @ 100 mls/hr 02/02/21 16:00 02/03/21 04:38 Zosyn IVPB 100 mls/hr Q6H JOO Administration Protocol Insulin Aspart 0 units 02/02/21 17:00 02/03/21 08:01 Insulin Aspart 300 Units/3 Ml Pen SC Not Given 0800,1200,1700,2200 JOO Protocol Insulin Human NPH 13 unit 02/03/21 08:30 Insulin Nph-Human 300 Units/3 Ml Pen SC QAM JOO Insulin Human NPH 36 unit 02/02/21 22:00 02/02/21 22:08 Insulin Nph-Human 300 Units/3 Ml Pen SC 36 units HS JOO Administration Insulin Human Regular 24 units 02/03/21 07:30 02/03/21 08:01 Insulin Regular-Human 100 Units/Ml Unit SC Not Given AC JOO Losartan Potassium 100 mg 02/03/21 08:30 Losartan 50 Mg Tab PO DAILY JOO Magnesium Hydroxide 30 ml 02/02/21 13:45 Milk Of Magnesia 30 Ml Cup PO DAILY PRN PRN Multivitamins 1 tab 02/03/21 08:30 Multivitamin Tab PO DAILY JOO Polyethylene Glycol 17 gm 02/02/21 13:54 Polyethylene Glycol 3350 17 Gm Packet PO DAILY PRN PRN constipation Sodium Chloride 10 ml 02/02/21 15:48 02/03/21 02:43 Normal Saline Flush 10 Ml Syr IVP 20 ml PRN PRN Administration PFSH Active Problems Active Problems: Problem Status Onset Code Discharge planning issues Z02.9 DVT prophylaxis Z29.9 Osteomyelitis of second toe of right foot M86.9 Nocturia more than twice per night R35.1 Essential hypertension 01/19/13 I10 Diabetic foot ulcer E11.621, L97.509 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 Surgical History Surgical History S/P cataract extraction and insertion of intraocular lens Status post glaucoma surgery Vasectomy Tobacco Smoking/Tobacco Use Status: Former Tobacco Use Alcohol Alcohol Intake: current Alcohol intake frequency: holidays/special occasions only Alcohol type: beer Substance Use Substance use: Never Substance use type: does not use Vital Signs and Lab Results Vital Signs Most Recent Vital Signs in EMR: Most Recent Vital Signs Temp Pulse Resp BP Pulse Ox 36.3 C L 84 14 170/95 H 98 02/03/21 03:04 02/03/21 03:04 02/03/21 03:04 02/03/21 03:04 02/03/21 03:04 Point of Care Results Point of Care Results: Finger Stick Blood Glucose 298 02/03/21 07:56 Lab Results Result Diagrams: 02/03/21 03:20 02/03/21 03:20 Blood Type / Crossmatch: No Data to Display Complete Blood Count: White Blood Count 8.79 10^3/uL (4.4-10.8) 02/03/21 03:20 02/03/21 Red Blood Count 4.78 10^6/uL (4.36-5.78) 02/03/21 03:20 02/03/21 Hemoglobin 15.1 g/dL (13.5-17.5) 02/03/21 03:20 02/03/21 Hematocrit 46.0 % (40.0-50.0) 02/03/21 03:20 02/03/21 Platelet Count 246 10^3/uL (130-400) 02/03/21 03:20 02/03/21 Venous Blood Lactate 1.0 mmol/L (0.6-1.4) 02/02/21 12:00 02/02/21 Complete Metabolic Panel: Sodium Level 143 mmol/L (136-145) 02/03/21 03:20 02/03/21 Potassium Level 4.0 mmol/L (3.5-5.1) 02/03/21 03:20 02/03/21 Chloride Level 107 mmol/L (98-107) 02/03/21 03:20 02/03/21 Carbon Dioxide Level 30.7 mmol/L (21.0-32.0) 02/03/21 03:20 02/03/21 Blood Urea Nitrogen 17 mg/dL (7-18) 02/03/21 03:20 02/03/21 Creatinine 1.1 mg/dL (0.70-1.30) 02/03/21 03:20 02/03/21 Estimated GFR/1.73 m2 >= 60.00 (mL/min/1.73m2) 02/03/21 03:20 02/03/21 Magnesium Level 2.2 mg/dL (1.8-2.4) 02/03/21 03:20 02/03/21 Calcium Level 9.2 mg/dL (8.5-10.1) 02/03/21 03:20 02/03/21 Albumin 3.4 g/dL (3.4-5.0) 02/02/21 12:00 02/02/21 Glucose Level 47 mg/dL (74-106) L* 02/03/21 03:20 02/03/21 C-Reactive Protein 0.18 mg/dL (0.0-0.3) 02/02/21 12:00 02/02/21 Liver Function Panel: Alanine Aminotransferase (ALT/SGPT) 54 U/L (16-63) 02/02/21 12:00 02/02/21 Aspartate Amino Transf (AST/SGOT) 32 U/L (15-37) 02/02/21 12:00 02/02/21 Coagulation Panel: INR International Normalized Ratio 1.0 (0.9-1.1) 02/03/21 03:20 02/03/21 Prothrombin Time 10.3 sec (9.3-11.0) 02/03/21 03:20 02/03/21 Cardiac Panel: No Data to Display Arterial Blood Gas: No Data to Display Venous Blood Gas: Venous Blood pH 7.39 (7.31-7.41) 02/02/21 12:00 02/02/21 Venous Blood Partial Pressure O2 41 mmHg 02/02/21 12:00 02/02/21 Venous Blood Partial Pressure CO2 52 mmHg (41-51) H 02/02/21 12:00 02/02/21 Venous Blood Oxygen Saturation 77 % 02/02/21 12:00 02/02/21 Venous Blood HCO3 31 mmol/L (23-28) H 02/02/21 12:00 02/02/21 Venous Blood Base Excess 6 mmol/L (-2-3) H 02/02/21 12:00 02/02/21 Venous Blood Total Carbon Dioxide 28 mmol/L (24-29) 02/02/21 12:00 02/02/21 Pancreas Panel: No Data to Display Thyroid Panel: No Data to Display Infectious Disease: Coronavirus (COVID-19)(PCR) Negative (Negative) 02/02/21 14:05 02/02/21 Coronavirus 2019 Source Nasal/Nares 02/02/21 14:05 02/02/21 Blood Cultures: No Data to Display Toxicology Panel: No Data to Display Anesthesia Assessment and Plan Anesthesia History Personal History: No History of Anesthesia Complications Family History: No Family History of Anesthesia Complications Exercise Tolerance Exercise Tolerance: Metabolic Equivalents>4 Cardiac & Pulmonary Exam Cardiac Exam: Normal S1/S2 Heart Sounds Pulmonary Exam: Clear Bilateral Breath Sounds Airway Exam Known Difficult Airway: No Mallampati Class: 2 Mouth Opening: Normal (> 3cm) Thyromental Distance: Greater than 3 cm Neck Range of Motion: Full ROM Neck Circumference: Normal Teeth Condition: Edentulous ASA Classification ASA Score: ASA 3 Emergency Case?: Yes NPO Status NPO Status: NPO Clear Liquids>2 hours and NPO Small Non-Fatty Meal >6 hours Anesthesia Plan Resuscitation Status: Full Code Anesthesia Technique: MAC Anesthesia Airway Planned: Natural Airway Monitors Used: Standard Monitors Preoperative Comments:: 65 yo male for toe amputation/debriement. Admitted for diabetic ulcer/osteo (on vanco/zosyn). history of DM1 with neuropathy/retinopathy (no insulin this AM, did have a BS of 47 at 03 and was given a small snack currently 290's -will given insulin intraop), HTN (losartan at home). Had zosyn at 0438, and vanco at 0243.
[2021-02-03] MEDS: Insulin REGULAR-Human 100 UNITS/ML UNIT 24 UNITS SC ×3 (09:00→16:55)
[2021-02-03] MEDS: Lactated Ringers 1,000 ML 30 ML IV (09:00)
[2021-02-03] MEDS: Bupivacaine 0.5% Pres-Free 30 ML VIAL (09:19)
[2021-02-03] MEDS: Lidocaine 1% Pres-Free 5 ML VIAL (09:19)
--- NOTE | 2021-02-03 09:30 | AMP_PTH ---
PATIENT: Tyshawn Fall LOC: U#:[id number] AGE/SX: 65/M ROOM: 230 RE02/02/[address]: Dominga Bass : 1955 BED: A DIS: 02/05/2021 SPEC #: [id number] RECD: 02/05/21 12:47 STATUS: JOSE MARIA REQ #: [id number] ESSIE: 02/03/21 09:[address]: Dominga Bass DEPT: Surgical Specimen RECD BY: Elis Sharp ENTERED: 02/05/21 12:48 SP TYPE: Amputation OTHR DR: Gaby Ma MD Tissues: 1 - AMPUTATION FINGERS/TOES(NOT TRAUMA) Procedures: GROSS AND MICRO LEVEL 4 DECALCIFICATION Comments: [id number]
--- NOTE | 2021-02-03 09:49 | W.PM.OP ---
Date of service: 02/03/21 Time of Service: 09:56 Operative Note Operative Note DATE OF PROCEDURE: 02/03/21 PRE-OP DIAGNOSIS: Diabetic ulcer with osteomyelitis right second toe PROCEDURE: Amputation right second toe through the proximal phalanx right second digit SURGEON: Priyank Sandoval ANESTHESIA TYPE: General:No Airway Refer to Anesthesia Record ESTIMATED BLOOD LOSS: 2 PATHOLOGY: other TOURNIQUET TIME: 0 COMPLICATIONS: None Patient was transported to: floor Patient's condition: stable Indications: 65-year-old white male who sustained an injury by tripping several weeks ago subsequently developed the breakdown of skin at the distal tip of the right second toe with MRI and clinical findings consistent with osteomyelitis affecting the distal phalanx soft tissue necrosis is noted dorsally over the toe to the base of the middle phalanx he is being brought to the OR for debridement and amputation of the right second toe he understands that the level of amputation is based on obtaining a level of good bleeding and healthy tissue. He understands that in spite of our best efforts the wound may dehisce the infection may persist requiring additional surgical interventions. No promises were made to the final outcome of surgery Procedure Description: Tyshawn was brought to the operative suite placed in the supine position with the right foot prepped and draped in usual sterile podiatric fashion. Timeout was performed for safe surgery. Anesthesia being achieved attention was directed to the right second toe. Dorsal and plantar flaps were designed so as to afford a primary closure through the proximal phalanx with dorsal incision was made the flap was raised dorsally the extensor tendon and joint capsules were severed no purulence was identified at this level. Bleeding was appreciated. The incision was then carried down medially laterally and plantarly going through the skin going through the flexor tendons and releasing the PIPJ plantarly. The distal portion of the second toe was removed cultures for aerobic and anaerobic specimens were obtained from the distal tip of the toe deep tissue level. A double-action bone cutting forcep was then used and the head of the proximal phalanx removed going back to about the level of the anatomic neck. Once again this bone felt hard white did not look infected at all. Hand rasp was used to remove all rough and bony edges. Copious irrigation with normal saline performed. The extensor and flexor tendons were shortened and repaired end-to-end with 3-0 Vicryl the skin was then coapted with 3-0 nylon with a combination of far near near far suture in simple interrupted suture. This incision was closed a little loose to allow for drainage if needed. No undue stress was noted on the incision good capillary return was noted throughout the tissue. Xeroform gauze fluff compression dressings were applied. Tyshawn left the OR with vital signs stable vascular status intact sharp and sponge counts were correct he will remain in-house for IV antibiotics bedrest today.
[2021-02-03] MEDS: Aspirin E.C. 81 MG TABEC PO (10:16)
[2021-02-03] MEDS: Losartan 50 MG TAB 100 MG PO (10:17)
[2021-02-03] MEDS: Insulin NPH-Human 300 UNITS/3 ML PEN 13 UNIT SC (10:17)
[2021-02-03] MEDS: Multivitamin TAB 1 TAB PO (10:17)
[2021-02-03] MEDS: Insulin Aspart 300 UNITS/3 ML PEN SC (10:19)
--- NOTE | 2021-02-03 11:00 | W.ANESPOSTOP ---
Postoperative Evaluation Date, Time and Location Date Performed: 02/03/21 Time Performed: 11:00 Patient Location: Med/Surg Vital Signs Most Recent Imported Vital Signs: Most Recent Vital Signs Temp Pulse Resp BP Pulse Ox 35.7 C L 78 18 132/72 97 02/03/21 10:02 02/03/21 10:02 02/03/21 10:02 02/03/21 10:02 02/03/21 10:02 Pain Score Most Recent Pain Score: Most Recent Pain Score Pain Level 0 02/03/21 10:02 Assessment Mental Status: Awake (Alert & Oriented to Patient Baseline) Airway and Respiratory Function: Patent airway with normal (patient baseline) respiratory exam Cardiovascular Function: Hemodynamically Stable Hydration Status: Adequately Hydrated Nausea & Vomiting: No Nausea or Vomiting Pain: Pt. Denies Any Pain Peripheral Nerve Block: Patient did not receive a nerve block
--- NOTE | 2021-02-03 16:58 | W.PM.PROGNOT ---
Date of Service Date of service: 02/03/21 Time of Service: 16:58 Assessment and Plan Assessment and plan (1) Osteomyelitis of second toe of right foot: Status: Acute Assessment and plan: cont. Vanco and Zosyn pending bone culture. post op care as per Dr. 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 cont. Regular insulin and Novolog sliding scale coverage Qualifiers: Diabetes mellitus complication detail: with polyneuropathy Qualified Code(s): E10.42 - Type 1 diabetes mellitus with diabetic polyneuropathy (3) Essential hypertension: Status: Acute Assessment and plan: Continue losartan (4) DVT prophylaxis: Status: Acute Assessment and plan: cont. AMILCAR/SCD and will discuss w/ Dr. Sandoval timing postop when he can start Lovenox (5) Discharge planning issues: Status: Acute Assessment and plan: Full code Subjective Subjective Interval history since last seen: Today the patient underwent resection of his right 2nd toe d/t osteomyelitis. This was done by Dr. Sandoval this morning. Patient had hypoglycemia spell last night w/ BS down to 31 after receiving his NPH 36 last night and patient was NPO last night. He is on Regular Insulin 24 units w/ meals and he usually take NPH twice a day w/ breakfast and supper taking 24 units in the morning w/ breakfast and 36 units w/ supper. However he has been getting his NPH at HS. As the patient is on a more regimented diet in the hospital, I think he does not need as aggressive treatment. I will decreae his dose to 24 units twice a day w/ breakfast and supper but continue his Regular insulin of 24 units w/ meals. If he continues w/ low glucose at night I will reduce evening NPH again and he may need reduction in his Regular. He also has Novolog for sliding scale coverage of high readings. He remains on Vancomycin and Zosyn for his osteomyelitis. He is afebrile and has no leukocytosis. Bone cultures were obtained at transection. His superficial wound cultures showed mixed gram positive adn gram negative ivonne. Exam Narrative Exam Narrative: Older white male who is sitting up in bed eating his dinner. No acute complaints. Lungs a few fine end expiratory wheezing; no rhonchi Heart: regular rate and rhythm Abdomen: soft, nontender right foot is dressed post op. I will wait until Dr. Sandoval rounds again to look at the wound. Objective Last Vital Signs Temp 35.7 C L 02/03/21 10:02 Pulse 78 02/03/21 10:02 Resp 18 02/03/21 10:02 BP 132/72 02/03/21 10:02 Pulse Ox 97 02/03/21 10:02 Laboratory Results - last 24 hr 02/03/21 02/03/21 02/03/21 03:10 03:20 03:20 WBC 8.79 RBC 4.78 Hgb 15.1 Hct 46.0 MCV 96.2 H MCH 31.6 MCHC 32.8 RDW 11.9 Plt Count 246 MPV 11.0 Immature Gran % 0.2 Neutrophils % 58.9 Lymphocytes % 24.2 Monocytes % 11.8 Eosinophils % 3.8 Basophils % 1.1 Nucleated RBC % 0 Absolute Neutrophils 5.17 Absolute Lymphocytes 2.13 Absolute Monocytes 1.04 H Absolute Eosinophils 0.33 Absolute Basophils 0.10 PT INR Sodium 143 Potassium 4.0 Chloride 107 Carbon Dioxide 30.7 Anion Gap 5.3 BUN 17 Creatinine 1.1 Estimated GFR/1.73 m2 >= 60.00 Glucose Cancelled 47 L* Calcium 9.2 Magnesium 2.2 02/03/21 03:20 WBC RBC Hgb Hct MCV MCH MCHC RDW Plt Count MPV Immature Gran % Neutrophils % Lymphocytes % Monocytes % Eosinophils % Basophils % Nucleated RBC % Absolute Neutrophils Absolute Lymphocytes Absolute Monocytes Absolute Eosinophils Absolute Basophils PT 10.3 INR 1.0 Sodium Potassium Chloride Carbon Dioxide Anion Gap BUN Creatinine Estimated GFR/1.73 m2 Glucose Calcium Magnesium
[2021-02-03] MEDS: Insulin NPH-Human 300 UNITS/3 ML PEN 24 UNIT SC (17:04)
[2021-02-03] MEDS: Timolol 0.5% 5 ML BTL OP (20:06)
[2021-02-03 21:56] LABS: Glucose 35 mg/dL (74-106)
[2021-02-03] MEDS: Acetaminophen 325 MG TAB PO (22:51)
[2021-02-04] MEDS: VANCOMYCIN/WATER (PEG) 1.25 GM/250 ML BAG IV (02:17)
[2021-02-04] MEDS: Normal Saline Flush 10 ML SYR IVP ×2 (02:17→17:32)
[2021-02-04 05:40] VITALS: TEMP 36.4
[2021-02-04 07:30] VITALS: BP 143/76; PULSE 82; RESP 17; TEMP 36.8; O2SAT 96
[2021-02-04 07:40] LABS: Abs Immature Grans 0.03 10^3/uL (0.0-0.06); Absolute Basophil Count 0.09 10^3/uL (0.0-0.2); Absolute Eosinophil Count 0.28 10^3/uL (0.0-0.7); Absolute Lymphocyte Count 1.48 10^3/uL (1.2-3.4); Absolute Monocyte Count 0.82 10^3/uL (0.1-0.8); Absolute Neutrophil Count 7.65 10^3/uL (1.2-6.7); Basophils % 0.9; Eosinophils % 2.7; HCT 43.9 % (40.0-50.0); HGB 14.7 g/dL (13.5-17.5); Immature Grans % 0.3; Lymphocytes % 14.3; MCH 31.5 pg (27.0-33.0); MCHC 33.5 % (32.0-36.0); MCV 94.2 fL (80-95); MPV 11.4 fL (8.0-11.0); Monocytes % 7.9; Neutrophils % 73.9; Nucleated RBC 0 %; Platelet Count 230 10^3/uL (130-400); RBC 4.66 10^6/uL (4.36-5.78); WBC 10.35 10^3/uL (4.4-10.8)
[2021-02-04 08:03] LABS: Anion Gap 4.5 mmol/L (3-11); BUN 14 mg/dL (7-18); C-Reactive Protein 0.08 mg/dL (0.0-0.3); CO2 31.5 mmol/L (21.0-32.0); Calcium 9.2 mg/dL (8.5-10.1); Chloride 104 mmol/L (98-107); Glucose 185 mg/dL (74-106); Potassium 4.4 mmol/L (3.5-5.1); Sodium 140 mmol/L (136-145)
[2021-02-04] MEDS: Losartan 50 MG TAB 100 MG PO (08:18)
[2021-02-04] MEDS: Acetaminophen 325 MG TAB PO (08:18)
[2021-02-04] MEDS: Multivitamin TAB 1 TAB PO (08:18)
[2021-02-04] MEDS: Aspirin E.C. 81 MG TABEC PO (08:18)
[2021-02-04] MEDS: Insulin NPH-Human 300 UNITS/3 ML PEN 24 UNIT SC (08:19)
[2021-02-04] MEDS: Insulin Aspart 300 UNITS/3 ML PEN SC ×4 (08:20→22:16)
[2021-02-04] MEDS: Timolol 0.5% 5 ML BTL OP ×2 (08:20→22:15)
[2021-02-04] MEDS: Mylanta Suspension 30 ML CUP PO (08:38)
[2021-02-04 13:27] LABS: Vancomycin, Trough 14.3 ug/mL (10.0-20.0)
[2021-02-04 14:49] VITALS: BP 115/68; PULSE 82; RESP 16; TEMP 36.4; O2SAT 94
--- NOTE | 2021-02-04 15:59 | PGE_ITS ---
Date of Service Date of service: 02/04/21 Time of Service: 15:59 Assessment and Plan Assessment and plan (1) Osteomyelitis of second toe of right foot: Status: Acute Assessment and plan: cont. Vanco and Zosyn pending bone culture. post op care as per Dr. 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 Incr. NPH and change Novolog back to R but use 2:10 insulin to carb ratio Qualifiers: Diabetes mellitus complication detail: with polyneuropathy Qualified Co de(s): E10.42 - Type 1 diabetes mellitus with diabetic polyneuropathy (3) Essential hypertension: Status: Acute Assessment and plan: Continue losartan (4) DVT prophylaxis: Status: Acute Assessment and plan: will resume enoxaparin tomorrow (5) Discharge planning issues: Status: Acute Assessment and plan: Full code Subjective Subjective Interval history since last seen: Patient states that he feels lousy. No appetite, nausea but no vomiting and no abdominal pains. He has been having BM's including today. He attributes his symptoms d/t use of Aspart insulin. Glucose readings have been high today despite eating very littel today. I reviewed his glucose readings. His bedtime glucose last night was 140 and he did not get any coverage since his NPH and Regular last night. This mornig I discontinued his scheduled Regular of 24 units w/ each meal but kept his NPH. I put him on CHO coverage along w/ SSI using Novolog w/ both. Since that time he says that he has not felt right d/t nausea and lack of appetite. His glucose at pre breakfast was 154 and he did not get any CHO coverage even though I had ordered it. He did get SSI w/ 2 units of Novolog and his NPH 24 units. At lunch he had glucose of 256 and received 6 units per SSI and 2 units per CHO coverage (1:10 ratio). I am going to change his meal coverage back to Regular but use insulin to CHO ratio of 2:10. We do not have a built sliding scale for R so we will have to continue Novolog to coverage highs. I have raised his NPH to 30 units in a.m. and 20 units in p.m. Exam Narrative Exam Narrative: Alert and oriented x 3, sitting up in bed talking w/ his Lungs: clear Heart: RRR Abdomen: obese, soft, mildly distended w/ normal bowel sounds; nontender Extremities: left great toe and 2nd toe w/ ecchymoses at tip of 2nd toe and under great toenail Right foot is bandaged which I did not unwrap but will wait until Dr. Sandoval follows up tomorrow to look at. Objective Last Vital Signs Temp 36.4 C L 02/04/21 14:49 Pulse 82 02/04/21 14:49 Resp 16 02/04/21 14:49 BP 115/68 02/04/21 14:49 Pulse Ox 94 02/04/21 14:49 Laboratory Results - last 24 hr 02/03/21 02/04/21 02/04/21 21:30 07:05 07:05 WBC 10.35 RBC 4.66 Hgb 14.7 Hct 43.9 MCV 94.2 MCH 31.5 MCHC 33.5 RDW 12.0 Plt Count 230 MPV 11.4 H Immature Gran % 0.3 Neutrophils % 73.9 Lymphocytes % 14.3 Monocytes % 7.9 Eosinophils % 2.7 Basophils % 0.9 Nucleated RBC % 0 Absolute Neutrophils 7.65 H Absolute Lymphocytes 1.48 Absolute Monocytes 0.82 H Absolute Eosinophils 0.28 Absolute Basophils 0.09 Sodium 140 Potassium 4.4 Chloride 104 Carbon Dioxide 31.5 Anion Gap 4.5 BUN 14 Creatinine 1.0 Estimated GFR/1.73 m2 >= 60.00 Glucose 35 L* 185 H D Calcium 9.2 C-Reactive Protein 0.08 Vancomycin Trough 02/04/21 13:07 WBC RBC Hgb Hct MCV MCH MCHC RDW Plt Count MPV Immature Gran % Neutrophils % Lymphocytes % Monocytes % Eosinophils % Basophils % Nucleated RBC % Absolute Neutrophils Absolute Lymphocytes Absolute Monocytes Absolute Eosinophils Absolute Basophils Sodium Potassium Chloride Carbon Dioxide Anion Gap BUN Creatinine Estimated GFR/1.73 m2 Glucose Calcium C-Reactive Protein Vancomycin Trough 14.3
[2021-02-04] MEDS: Insulin NPH-Human 300 UNITS/3 ML PEN 20 UNIT SC (17:25)
[2021-02-04] MEDS: Ondansetron 4 MG/2 ML VIAL IVP (17:28)
[2021-02-04 17:47] LABS: Anion Gap 4.8 mmol/L (3-11); BUN 15 mg/dL (7-18); CO2 30.2 mmol/L (21.0-32.0); Calcium 9.4 mg/dL (8.5-10.1); Chloride 102 mmol/L (98-107); Glucose 251 mg/dL (74-106); Potassium 4.4 mmol/L (3.5-5.1); Sodium 137 mmol/L (136-145)
[2021-02-04] MEDS: Insulin REGULAR-Human 100 UNITS/ML UNIT SC (18:02)
[2021-02-04 22:16] LABS: Bilirubin Negative (Negative); Blood Negative (Negative); Clarity Clear (Clear); Glucose 500 mg/dL (Negative); Ketones Negative (Negative); Leukocyte Esterase Negative (Negative); Nitrite Negative (Negative); Specific Gravity 1.015 (1.005-1.025); Urobilinogen 0.2 EU/dL (Up TO 0.2)
[2021-02-04 23:23] VITALS: BP 105/66; PULSE 77; RESP 19; TEMP 36.5; O2SAT 94
[2021-02-05] MEDS: Normal Saline Flush 10 ML SYR IVP ×3 (02:41→13:18)
[2021-02-05] MEDS: Hyaluronidase 150 UNITS VIAL 15 UNITS IJ (04:03)
--- NOTE | 2021-02-05 07:34 | PGE_ITS ---
Date of Service Date of service: 02/05/21 Time of Service: 07:34 Subjective Subjective Interval history since last seen: 48 hours status post amputation right second toe through the proximal phalanx. He is resting comfortably in bed and states he has no discomfort in his foot. He denies fever, chills or feelings of malaise. Exam Narrative Exam Narrative: Tyshawn is lying in bed comfortably. He is awake and alert responds appropriately. Dressings are intact on his right foot no strikethrough noted. Dressings are removed, the incision is well coapted, sutures are intact, with dorsal and plantar flaps pink with good capillary return. There is no erythema no cellulitis no bleeding or active drainage noted. There were no active signs of infection at this time. His foot is warm, calves are soft to palpation. Morning labs are pending. Impression: 48 hours status post amputation right second toe doing well Plan: The wound was painted with povidone iodine and dressed with Xeroform, fluffs, Kerlix rolls x2, stockinette and Brett wrap. Microbiology cultures have not detected any significant organism at this time and I will cover him with Augmentin 875 mg every 12 hours for the next 2 weeks.. He does understand that the antibiotic may change and the length of time increase depending on his final culture reports and clinical picture. I discussed the case with the hospitalist and Tyshawn will get discharged today and I will follow him in the office thereafter. Objective Last Vital Signs Temp 36.5 C 02/04/21 23:23 Pulse 77 02/04/21 23:23 Resp 19 02/04/21 23:23 BP 105/66 02/04/21 23:23 Pulse Ox 94 02/04/21 23:23 Laboratory Results - last 24 hr 02/04/21 02/04/21 02/04/21 07:05 07:05 13:07 WBC 10.35 RBC 4.66 Hgb 14.7 Hct 43.9 MCV 94.2 MCH 31.5 MCHC 33.5 RDW 12.0 Plt Count 230 MPV 11.4 H Immature Gran % 0.3 Neutrophils % 73.9 Lymphocytes % 14.3 Monocytes % 7.9 Eosinophils % 2.7 Basophils % 0.9 Nucleated RBC % 0 Absolute Neutrophils 7.65 H Absolute Lymphocytes 1.48 Absolute Monocytes 0.82 H Absolute Eosinophils 0.28 Absolute Basophils 0.09 Sodium 140 Potassium 4.4 Chloride 104 Carbon Dioxide 31.5 Anion Gap 4.5 BUN 14 Creatinine 1.0 Estimated GFR/1.73 m2 >= 60.00 Glucose 185 H D Calcium 9.2 C-Reactive Protein 0.08 Urine Color Urine Clarity Urine pH Ur Specific [place] Urine Protein Urine Ketones Urine Blood Urine Nitrite Urine Bilirubin Urine Urobilinogen Ur Leukocyte Esterase Urine Glucose Vancomycin Trough 14.3 02/04/21 02/04/21 17:30 22:00 WBC RBC Hgb Hct MCV MCH MCHC RDW Plt Count MPV Immature Gran % Neutrophils % Lymphocytes % Monocytes % Eosinophils % Basophils % Nucleated RBC % Absolute Neutrophils Absolute Lymphocytes Absolute Monocytes Absolute Eosinophils Absolute Basophils Sodium 137 Potassium 4.4 Chloride 102 Carbon Dioxide 30.2 Anion Gap 4.8 BUN 15 Creatinine 1.0 Estimated GFR/1.73 m2 >= 60.00 Glucose 251 H Calcium 9.4 C-Reactive Protein Urine Color Yellow Urine Clarity Clear Urine pH 7.0 Ur Specific [place] 1.015 Urine Protein Negative Urine Ketones Negative Urine Blood Negative Urine Nitrite Negative Urine Bilirubin Negative Urine Urobilinogen 0.2 Ur Leukocyte Esterase Negative Urine Glucose 500 H Vancomycin Trough
[2021-02-05 07:40] VITALS: BP 125/60; PULSE 76; RESP 12; TEMP 36.4; O2SAT 95
[2021-02-05] MEDS: Losartan 50 MG TAB 100 MG PO (08:22)
[2021-02-05] MEDS: Multivitamin TAB 1 TAB PO (08:22)
[2021-02-05] MEDS: Aspirin E.C. 81 MG TABEC PO (08:22)
[2021-02-05] MEDS: Enoxaparin 40 MG/0.4 ML SYR SC (08:22)
[2021-02-05] MEDS: Insulin REGULAR-Human 100 UNITS/ML UNIT SC ×2 (08:23→11:57)
[2021-02-05] MEDS: Insulin NPH-Human 300 UNITS/3 ML PEN 30 UNIT SC (08:23)
[2021-02-05] MEDS: Insulin Aspart 300 UNITS/3 ML PEN SC ×2 (08:25→11:57)
[2021-02-05] MEDS: Timolol 0.5% 5 ML BTL OP (08:27)
[2021-02-05 08:49] LABS: Hemoglobin A1C 8.5 % (<5.7)
--- NOTE | 2021-02-05 11:45 | W.INDIABCONS ---
Date of service: 02/05/21 Time of Service: 11:45 Diabetes Inpatient Consult DESCRIPTION/ASSESSMENT: 65 year old male admitted with ostomyelitis of second toe of right foot, s/p amputation. Most recent A1c: 8.5% indicating glycemic improvement over last 5 months (A1c: 10% 09/19/20). Tyshawn reports has had DM for last 40 years and has tried varies insulins/continuous glucose monitors and prefers using NPH insulin and finger sticks. Reviewed DM diet principles and provided literature and contact information if needs further information. INTERVENTION: Continue CHO diet Provided Dm literature including sick day management, CGM options/benefits, carb counting to insulin ratios PLAN: Tyshawn to follow up in outpatient setting if A1C goes > 8.5%. Time Spent in Nutritional Counseling and Treatment: 15
--- NOTE | 2021-02-05 15:00 | W.PM.DS.N ---
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 Patient advised to resume his home Regular and NPH and to follow up w/ Dr. Ma for further management (3) Essential hypertension: Status: Chronic Asessment and Plan: no change in BP meds. BP controlled at time of discharge (125/60) (4) Discharge planning issues: Status: Resolved Asessment and Plan: patient was ambulating w/ a postoperative shoe without loss of balance. he did not require any outpatient P.T. services or home nursing at this time. Discharge Plan Disposition Patient Disposition: HOME Condition: Improving Discharge Details Reason For Visit: Infected Diabetic Foot Ulcer, Celluitis R Foot Admit Date/Time: 02/02/21 16:27 Admit Provider: Dominga Bass Attending Provider: Dominga Bass Primary Care Provider: Gaby Ma Hospital Course Hospital Course: 65-year-old male with past medical history of type 1 diabetes mellitus complicated by diabetic retinopathy and peripheral neuropathy who is been dealing with diabetic wound infection involving his right second toe and has been failing outpatient oral antibiotic treatment. 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 He was admitted to the hospitalist service and empirically started on vancomycin and Zosyn. Podiatry consultation was obtained with Dr. Priyank Sandoval. MRI of the right foot showed osteomyelitis of the distal phalanx of the second toe. Patient was kept n.p.o. and on the following morning on February 03, 2021 Dr. Sandoval performed amputation of the right second toe through the proximal phalanx. Patient did well with surgery. Following morning he did have some nausea but no vomiting and no abdominal pain. His nausea was felt to be related to change in his insulin. Patient normally is on NPH and regular at home and was placed on NovoLog. This was changed back to over to NPH and regular insulin. He was placed on a sliding scale along with carbohydrate coverage with regular. Blood sugars were labile through his hospital course. During his first postoperative day he had some low blood sugar readings during the night. His NPH was moved back from bedtime to suppertime which resolved his nocturnal hypoglycemic spells but then he was having hypoglycemia post dinner this was corrected by adjustment in the dose of his regular given at mealtime. On a insulin to carbohydrate ratio of 2:10 blood sugars were still running high on the day of discharge. Fasting glucose was 176 and postprandial he had blood sugars up to 300. On the day of discharge she was feeling much better had no nausea no vomiting and he regained his appetite. He was desiring to return home and Dr. Sandoval felt that he could be discharged on a 2-week course of Augmentin. Patient was prescribed Augmentin 875 mg p.o. every 12 hours x2 weeks. Patient's wound was dressed with Xeroform fluffs and Kerlix rolls and stockinette and Brett wrap after the wound was inspected by Dr. Sandoval and painted with povidone iodine. Home Meds and New Rx's Prescriptions: New amoxicillin-pot clavulanate 875-125 mg tablet 1 ea PO BID AC Qty: 28 RF: 0 Continued losartan 100 mg tablet 100 mg PO DAILY Qty: 90 RF: 3 triamcinolone acetonide 0.1 % cream 1 applic topical TID PRN (Reason: itchy bite) Qty: 15 RF: 0 hydroxyzine HCl 10 mg tablet 10 - 20 mg PO BID PRN (Reason: itching) Qty: 10 RF: 0 Glucagon Emergency Kit (human) 1 mg recon soln 1 mg SC Q20M PRN (Reason: hypoglycemia) Qty: 1 RF: 2 Lac-Hydrin Five 5 % lotion 1 applic TP BID PRN (Reason: diabetic foot care) Qty: 226 RF: 5 sildenafil [Viagra] 100 mg tablet 100 mg PO DAILY PRN (Reason: sexual activity) Qty: 6 RF: 12 aspirin [Ecotrin Low Strength] 81 MG tablet,delayed release (DR/EC) 81 mg PO DAILY RF: 0 multivitamin [Daily Vitamin] 1 EACH tablet 1 ea PO DAILY RF: 0 docusate sodium 100 MG capsule 100 mg PO DAILY PRNRF: 0 polyethylene glycol 3350 [Miralax] 17 gram/dose powder 17 gm PO DAILY PRN (Reason: constipation) Qty: 1700 RF: 3 Novolin N NPH U-100 Insulin 100 unit/mL suspension See Rx Instructions subcut .COMPLEX Qty: 6 RF: 4 Novolin R Regular U-100 Insuln 100 unit/mL solution See Rx Instructions Sub-Q .COMPLEX Qty: 6 RF: 4 (DME) BD Insulin Syringe 1 mL 26 x 1/2 syringe 1 syr Sub-Q 5x/day Qty: 300 RF: 4 (DME) OneTouch Ultra Blue Test Strip Strip See Dose Instructions .ROUTE .MEDSUPPLY Qty: 150 RF: 5 timolol maleate 0.5 % drops 1 drp ophthalmic (eye) BID RF: 0 Discharge Instructions Instructions: Toe Amputation (DC) Additional Instructions: Wear your post operative shoe whenever you are walking or out of bed. When not walking prop your right leg higher than your chest, this will reduce the swelling in the operative site of your toe amputation. Report any fever, chills or wound drainage to Dr. Sandoval. Keep your follow up w/ Dr. Sandoval. Take all of your antibiotics until they are gone or until Dr. Sandoval tells you to discontinue them. Continue to monitor your blood sugars several times per day. If your blood sugar continue to run high i.e. fasting over 120 or other glucose readings over 180, call Dr. Ma to discuss adjustment of your insulin. Stand Alone Forms: Nursing Discharge Form Referrals: Priyank Sandoval DPM [[facility] STAFF PHYSICIAN] - 02/26/21 4:00 pm Activity:: Activity as Tolerated Equipment/Supplies:: No Equipment Needed Diet:: Carb Counting Discharge Orders Discharge Orders: Discharge Order (Routine); Ordered 02/05/21 Ordered By: Bar Moreno DS: Summary Time Spent with Patient providing and/or coordinating discharge services: Less than 30 minutes Status at Discharge Functional status at discharge: independent ambulation Overall status at discharge: patient is back to baseline Mental Status: mental status grossly normal Speech and Movement: speech and movement normal Mood: congruent mood Affect: normal affect Exam Narrative Exam Narrative: Middle aged white male, alert and oriented x 3 No acute complaints Lungs: clear Heart: RRR Abdomen: soft, normal bowel sounds, nondistended, nontender\ Extremities: chronic venous skin discoloration on his legs (bronze discoloration and pebbly skin texture), left foot w/ ecchymoses over great toe and 2nd toe; no petechiae. right foot is bandaged but no redness or swelling over ankle or proximal foot. I could not get a look at the toe amputation site as this had been bandaged by Dr. Sandoval earlier this morning. I did not unwrap it but read Dr. Sandoval's note. Patient says that there is no drainage and no pain. Psych Mental Status: mental status grossly normal Speech and Movement: speech and movement normal Mood: congruent mood Affect: normal affect DS: Data Vitals/I&O Vitals and I&O: Vital Signs Temperature 36.4 C L 02/05/21 07:40 Temperature Source Tympanic 02/05/21 07:40 Pulse 76 02/05/21 07:40 Pulse Rhythm Regular 02/05/21 07:40 Respiratory Rate 12 02/05/21 07:40 Respiratory Effort Non-Labored 02/05/21 07:40 Respiratory Depth Normal 02/05/21 07:40 Respiratory Pattern Normal 02/05/21 07:40 Blood Pressure 125/60 02/05/21 07:40 Blood Pressure Mean 110 02/02/21 15:01 Blood Pressure Position Sitting 02/02/21 11:30 Pulse Oximetry 95 02/05/21 07:40 Oxygen Delivery Method Room Air 02/05/21 07:40 Oxygen Flow Rate 0 02/05/21 07:40 Pain Level 1 02/05/21 07:40 Comment 02/04/21 14:49 Intake & Output 02/04/21 02/05/21 02/05/21 23:59 11:59 23:59 Intake Total 590 / 1190 360 / 720 360 / 720 Balance 590 / -935 360 / 720 360 / 720 Intake: IV 350 / 710 Oral 240 / 480 360 / 720 360 / 720 Other: Urine Color Yellow Urine Appearance Clear Comment voiding in urinal adequate amounts pt voided unknown amount and flushed. Data Completed and Pending Labs on day of discharge: Labs from last 24 hours 02/05/21 02/04/21 02/04/21 06:50 22:00 17:30 Sodium 137 Potassium 4.4 Chloride 102 Carbon Dioxide 30.2 Anion Gap 4.8 BUN 15 Creatinine 1.0 Estimated GFR/1.73 m2 >= 60.00 Glucose 251 H Hemoglobin A1c 8.5 H Calcium 9.4 Urine Color Yellow Urine Clarity Clear Urine pH 7.0 Ur Specific [place] 1.015 Urine Protein Negative Urine Ketones Negative Urine Blood Negative Urine Nitrite Negative Urine Bilirubin Negative Urine Urobilinogen 0.2 Ur Leukocyte Esterase Negative Urine Glucose 500 H 02/03/21 09:53 Toe - Right Second Digit Anaerobic Culture - Pending Preliminary micro results at discharge 02/02/21 12:15 Blood Culture - Preliminary Blood NO GROWTH 72 HOURS 02/02/21 12:00 Blood Culture - Preliminary Blood NO GROWTH 72 HOURS 02/03/21 09:30 Surgical Culture - Preliminary Toe - Right Second Digit 02/03/21 09:53 Anaerobic Culture - Pending Toe - Right Second Digit [facility] Medical History Bilateral diabetic retinopathy (09/10/11) 08/16/[address] both eyes. 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 Sister Diabetes Social History Smoking/Tobacco Use Status: Former Tobacco Use Smoking risk assessment performed?: Yes Alcohol Intake: current Alcohol Intake frequency: holidays/special occasions only Alcohol type: beer Drug use: Never Substance use type: does not use Household members: spouse Housing: house Communication Needs: None current occupation: [employer] What is your relationship status?: Panel score (0-1 are the most socially isolated patients): 1 What type of physical activity do you participate in: none Seatbelt use: always Drive intox or ride w/intox flatbed company driver: No Working smoke detector in home: Yes Fire extinguisher in home: Yes Carbon monox detector in home: Yes
== END 2021-02-05 15:33 | disposition home or self-care (01) | DRG 617 ==
LOC: ER 14:03 → MS 18:05
PROVIDERS: Family Medicine; Internal Medicine; Podiatrist; Admitting Provider Internal Medicine; Emergency Provider Physician Assistant; PCP Internal Medicine; Visit Provider Internal Medicine
PROC: 0Y6R0Z1 Detachment at Right 2nd Toe, High, Open Approach (ICD-10-PCS; CPT 28825; principal; 2021-02-03 08:20)
DX: E10.69 Type 1 diabetes mellitus with other specified complication (principal); M86.9 Osteomyelitis, unspecified; L97.514 Non-pressure chronic ulcer of other part of right foot with necrosis of bone; I10 Essential (primary) hypertension; R35.1 Nocturia; E10.319 Type 1 diabetes mellitus with unspecified diabetic retinopathy without macular edema; E10.649 Type 1 diabetes mellitus with hypoglycemia without coma; E10.621 Type 1 diabetes mellitus with foot ulcer; E10.42 Type 1 diabetes mellitus with diabetic polyneuropathy; Z87.891 Personal history of nicotine dependence
CPT/HCPCS: 28825; 36415; 36416; 80048; 80053; 82805; 82947; 82962; 87040; 87635; 88305; 96365; 96366; 96367; 99285; J1650; 73630; 73720; 80202; 81003; 83036; 83605; 83735; 84484; 85025; 85610; 86140; 87070; 87075; 87205; 88304; 88311; 99223; 99232; 99238; J2001; J2250; J2405; J2543; J3470

== ENCOUNTER 2022-05-20 16:32 | Outpatient (REF) | payer MEDICARE, MEDICAID, SELFPAY | END 2022-05-20 16:33 | disposition home or self-care (01) | LOC: LBN 16:32 | PROVIDERS: PCP Nurse Practitioner Adult Health; Visit Provider Family Medicine | DX: E11.621 Type 2 diabetes mellitus with foot ulcer (principal); L97.509 Non-pressure chronic ulcer of other part of unspecified foot with unspecified severity | CPT/HCPCS: 87077; 87070; 87186 ==

== ENCOUNTER → 2022-07-18 13:44 | Outpatient (BNVA) | payer MEDICARE, MEDICAID, SELFPAY | PROVIDERS: PCP Nurse Practitioner Adult Health; Referring Provider Nurse Practitioner Adult Health; Visit Provider Physical Therapy Assistant | DX: E13.51 Other specified diabetes mellitus with diabetic peripheral angiopathy without gangrene; L97.518 Non-pressure chronic ulcer of other part of right foot with other specified severity | CPT/HCPCS: 93922; 99202 ==

== ENCOUNTER 2022-08-28 11:44 | Outpatient (CLI) | payer MEDICARE, MEDICAID, SELFPAY ==
[2022-08-28 09:35] LABS: ESR 10 mm/hr (0-20)
[2022-08-28 09:38] LABS: Abs Immature Grans 0.04 10^3/uL (0.0-0.06); Absolute Lymphocyte Count 1.74 10^3/uL (1.2-3.4); Basophils % 0.7; Eosinophils % 2.9; HCT 43.3 % (40.0-50.0); HGB 14.5 g/dL (13.5-17.5); Immature Grans % 0.3; Lymphocytes % 14.2; MCH 31.8 pg (27.0-33.0); MCHC 33.5 % (32.0-36.0); MCV 95 fL (80-95); MPV 11.4 fL (8.0-11.0); Monocytes % 9.9; Platelet Count 243 10^3/uL (130-400); RBC 4.56 10^6/uL (4.36-5.78); RDW 12.4 % (11.8-14.1); RDW-SD 43.8 fL; WBC 12.28 10^3/uL (4.4-10.8)
[2022-08-28 09:40] LABS: Absolute Basophil Count 0.09 10^3/uL (0.0-0.2); Absolute Eosinophil Count 0.36 10^3/uL (0.0-0.7); Absolute Monocyte Count 1.22 10^3/uL (0.1-0.8); Absolute Neutrophil Count 8.84 10^3/uL (1.2-6.7)
[2022-08-28 10:33] LABS: Anion Gap 4.8 mmol/L (3-11); BUN 14 mg/dL (7-18); C-Reactive Protein 2.41 mg/dL (0.0-0.3); CO2 31.2 mmol/L (21.0-32.0); Calcium 9.6 mg/dL (8.5-10.1); Chloride 103 mmol/L (98-107); Estimated GFR 82.49 (mL/min/1.73m2); Glucose 213 mg/dL (74-106); Potassium 4.3 mmol/L (3.5-5.1); Sodium 139 mmol/L (136-145)
== END 2022-08-28 11:45 | disposition home or self-care (01) ==
LOC: LBO 11:46
PROVIDERS: PCP Nurse Practitioner Adult Health; Visit Provider Podiatrist Foot & Ankle Surgery
DX: E11.621 Type 2 diabetes mellitus with foot ulcer (principal); L97.518 Non-pressure chronic ulcer of other part of right foot with other specified severity; R79.82 Elevated C-reactive protein (CRP); M85.9 Disorder of bone density and structure, unspecified
CPT/HCPCS: 36415; 80048; 85652; 85025; 86140

== ENCOUNTER 2022-09-05 13:20 | Emergency (ER) | payer MEDICARE, MEDICAID, SELFPAY ==
[2022-09-05 13:25] VITALS: BP 86/53; PULSE 101; RESP 17; TEMP 36.3; O2SAT 96
--- NOTE | 2022-09-05 14:24 | NUR.NOTE ---
Nursing Note: Access called that the was at the window and wanted to know how long it would be. I stated that I do not have a time frame for when he would be seen but we are doing the best we can do.
--- NOTE | 2022-09-05 17:11 | NUR.NOTE ---
Nursing Note: 1528 pt stated to access that he did not want to wait.
== END 2022-09-05 15:28 | disposition left against medical advice (07) ==
PROVIDERS: PCP Nurse Practitioner Adult Health
DX: Z53.21 Procedure and treatment not carried out due to patient leaving prior to being seen by health care provider (principal)

== ENCOUNTER 2022-09-05 16:38 | Inpatient (IN) | payer MEDICARE, MEDICAID, SELFPAY ==
[2022-09-05] VITALS (28 sets, daily range): BP systolic 126–153; BP diastolic 62–118; PULSE 75–89; RESP 16; TEMP 36.7–37.5; O2SAT 85–100
--- NOTE | 2022-09-05 17:08 | ED.GENADUL_ITS ---
Discharge Plan Disposition Patient Disposition: Admit to [facility] Condition: Stable Discharge Details Chief Complaint: Cellulitis Clinical Impression: Infected blister of third toe of right foot, Osteomyelitis of third toe of right foot Primary Care Provider: Hien Keith ED Provider: Ena Thomas Home Meds and New Rx's Prescriptions: No Action Lac-Hydrin Five 5 % lotion 1 applic TP BID PRN (Reason: diabetic foot care) Qty: 226 5RF Rx Instructions: Apply thin film to affected areas of feet twice a day as needed. (DME) BD Insulin Syringe 1 mL 26 x 1/2 syringe 1 syr Sub-Q 5x/day Qty: 300 4RF Rx Instructions: use one 5 times a day for type 1 diabetes. Request BD Ultra-Fine 1cc syringe w/ 31G 5/16inch (8 mm) needle. dx: E10.39 Novolin N NPH U-100 Insulin 100 unit/mL suspension See Rx Instructions subcut .COMPLEX Qty: 6 4RF Dose Instruction: 26 units in AM; 30 units in PM subcut BID; 26 units in AM; 30 units in PM Rx Instructions: 26 units in AM; 36 units in PM subcut; Novolin R Regular U-100 Insuln 100 unit/mL solution See Rx Instructions Sub-Q .COMPLEX Qty: 6 4RF Rx Instructions: 24 units subcut 4x/day (with meals and at midnight) losartan 100 mg tablet 100 mg PO DAILY Qty: 90 3RF polyethylene glycol 3350 [Miralax] 17 gram/dose powder 17 g PO DAILY PRN (Reason: constipation) Qty: 1700 3RF (DME) Dexcom G6 Sensor Device See Rx Instructions .ROUTE .MEDSUPPLY Qty: 3 0RF Rx Instructions: As directed (DME) Dexcom G6 Car Wash Attendant Automatic Misc See Rx Instructions .Route Qty: 1 0RF Rx Instructions: As directed (DME) Dexcom G6 Transmitter Device See Rx Instructions .ROUTE .MEDSUPPLY Qty: 1 0RF Rx Instructions: As directed mupirocin 2 % ointment 1 applic topical TID Qty: 15 0RF aspirin [Ecotrin Low Strength] 81 MG tablet,delayed release (DR/EC) 81 mg PO DAILY multivitamin [Daily Vitamin] 1 EACH tablet 1 ea PO DAILY levofloxacin 500 mg tablet 500 mg PO DAILY 14 Days Qty: 14 0RF levofloxacin 500 mg tablet 500 mg PO DAILY 14 Days Qty: 14 0RF Medical Decision Making 1714 -- 66-year-old male with a history of type 1 diabetes, diabetic peripheral neuropathy and history of right second toe amputation secondary to osteomyelitis presents for right toe ulcer and infection being watched closely for the last month with podiatry and currently taking Levaquin presents for worsening pain and redness. His vitals are within normal limits. Patient appears comfortable and nontoxic. He has cellulitis of the right third toe with collection of pus at the base. He also has an open wound on the plantar surface of his right foot but this does not appear to be acutely infected. He does have diminished sensation to his right third and fourth toe. His right foot pulses are intact. As patient has clearly failed outpatient antibiotics, I feel that he needs admission for IV ant ibiotics. Will obtain screening labs and right foot x-ray. He has an MRI of the right foot scheduled for later this month. It would be beneficial to obtain this sooner if possible. He endorses nausea and vomiting with penicillin but no history of anaphylaxis. We will give a dose of IV vancomycin and IV ceftriaxone. 1899 -- Labs and imaging reviewed. White blood cell count 17.6. Lactate 1.5. CRP 3.63. Xray reviewed and notes: IMPRESSION: 1. ? Possible impacted fracture at the base of the 3rd digit as described. Correlate with physical examination findings. Of note, this fracture could also be secondary to osteopenia from possible infection in this region. 2. ? No joint dislocation. 3. ? Interval progression of distal interphalangeal joint degenerative changes in the 3rd digit. Case discussed with hospitalist who accepts patient for admission. Would like IV cefepime instead of IV ceftriaxone. 1929 --patient reassessed and he still has some pain. He has history of itching with codeine. We will give a dose of IV Dilaudid and hold on NSAIDs in case of potential surgery. Medical Records Medical records reviewed: Yes I reviewed the patient's medical records. Imaging Data Radiologic Study: Radiologist's impression: XR Right Foot Exam date and time: 09/05/2022 6:16 PM Age: 66 years old Clinical indication: R 3rd toe infected ulcer, R/O osteomyelitis TECHNIQUE: Imaging protocol: Radiologic exam of the right foot. Views: 3 or more views. COMPARISON: MR LOWER EXTREMITY RT WO/W 02/02/2021 3:24 PM FINDINGS: Bones/joints: The patient is status post osteotomy at the proximal phalanx of the 2nd digit. There is concern for an impacted fracture at the base of the proximal phalanx of the 3rd digit (image 1, series 2). There is redemonstration of significant degenerative changes at the distal interphalangeal joint of the 3rd digit with further joint space narrowing compared to the prior examination. Soft tissues: Vascular calcifications noted. IMPRESSION: 1. ? Possible impacted fracture at the base of the 3rd digit as described. Correlate with physical examination findings. Of note, this fracture could also be secondary to osteopenia from possible infection in this region. 2. ? No joint dislocation. 3. ? Interval progression of distal interphalangeal joint degenerative changes in the 3rd digit. Lab Data Lab results reviewed: Yes I reviewed the patient's lab results. Labs: Laboratory Tests Range/Units 09/05/22 09/05/22 09/05/22 18:59 18:59 18:59 WBC (4.4-10.8) 10^3/uL RBC (4.36-5.78) 10^6/uL Hgb (13.5-17.5) g/dL Hct (40.0-50.0) % MCV (80-95) fL MCH (27.0-33.0) pg MCHC (32.0-36.0) % RDW (11.8-14.1) % Plt Count (130-400) 10^3/uL MPV (8.0-11.0) fL Immature Gran % Neutrophils % Lymphocytes % Monocytes % Eosinophils % Basophils % Nucleated RBC % (0.0-0.3) % Absolute Neutrophils (1.2-6.7) 10^3/uL Absolute Lymphocytes (1.2-3.4) 10^3/uL Absolute Monocytes (0.1-0.8) 10^3/uL Absolute Eosinophils (0.0-0.7) 10^3/uL Absolute Basophils (0.0-0.2) 10^3/uL ESR (0-20) mm/hr 21 H VBG Lactate (0.6-1.4) mmol/L 1.5 H Sodium (136-145) mmol/L 138 Potassium (3.5-5.1) mmol/L 3.6 Chloride (98-107) mmol/L 101 Carbon Dioxide (21.0-32.0) mmol/L 27.8 Anion Gap (3-11) mmol/L 9.2 BUN (7-18) mg/dL 14 Creatinine (0.70-1.30) mg/dL 1.1 Est GFR (CKD-EPI 2020) (mL/min/1.73m2) 73.58 Glucose (74-106) mg/dL 149 H Calcium (8.5-10.1) mg/dL 8.5 Total Bilirubin (0.2-1.0) mg/dL 0.6 AST (15-37) U/L 27 ALT (16-63) U/L 32 Alkaline Phosphatase (46-116) U/L 155 H C-Reactive Protein (0.0-0.3) mg/dL 3.63 H Total Protein (6.4-8.2) g/dL 7.3 Albumin (3.4-5.0) g/dL 2.8 L Add-On Test Request Range/Units 09/05/22 09/05/22 18:59 19:14 WBC (4.4-10.8) 10^3/uL 17.61 H RBC (4.36-5.78) 10^6/uL 4.25 L Hgb (13.5-17.5) g/dL 13.3 L Hct (40.0-50.0) % 39.5 L MCV (80-95) fL 93 MCH (27.0-33.0) pg 31.3 MCHC (32.0-36.0) % 33.7 RDW (11.8-14.1) % 12.0 Plt Count (130-400) 10^3/uL 316 MPV (8.0-11.0) fL 10.4 Immature Gran % 0.6 Neutrophils % 83.7 Lymphocytes % 8.1 Monocytes % 6.5 Eosinophils % 0.7 Basophils % 0.4 Nucleated RBC % (0.0-0.3) % 0.0 Absolute Neutrophils (1.2-6.7) 10^3/uL 14.74 H Absolute Lymphocytes (1.2-3.4) 10^3/uL 1.43 Absolute Monocytes (0.1-0.8) 10^3/uL 1.14 H Absolute Eosinophils (0.0-0.7) 10^3/uL 0.12 Absolute Basophils (0.0-0.2) 10^3/uL 0.07 ESR (0-20) mm/hr VBG Lactate (0.6-1.4) mmol/L Sodium (136-145) mmol/L Potassium (3.5-5.1) mmol/L Chloride (98-107) mmol/L Carbon Dioxide (21.0-32.0) mmol/L Anion Gap (3-11) mmol/L BUN (7-18) mg/dL Creatinine (0.70-1.30) mg/dL Est GFR (CKD-EPI 2020) (mL/min/1.73m2) Glucose (74-106) mg/dL Calcium (8.5-10.1) mg/dL Total Bilirubin (0.2-1.0) mg/dL AST (15-37) U/L ALT (16-63) U/L Alkaline Phosphatase (46-116) U/L C-Reactive Protein (0.0-0.3) mg/dL Total Protein (6.4-8.2) g/dL Albumin (3.4-5.0) g/dL Add-On Test Request DONE ECG Data Attestation: I personally reviewed and interpreted this ECG (s) as follows: Interpretation: Sinus. Normal axis. RBBB. No STEMI. HPI General Mode of arrival: wheelchair . Date/Time Provider Initiated Documentation: 09/05/22 16:41 . Limitations to Documentation: no limitations . Information obtained by: patient . HPI Narrative: Patient is a 66-year-old male with a history of type 1 diabetes with peripheral neuropathy and history of right second toe amputation secondary to osteomyelitis in the last year presents for concern for worsening right foot infection. Patient states he has been followed by Dr. Ragland for his right third toe ulcer and infection for which she is currently taking Levaquin. Patient states over the past several days the redness and pain of the right third toe has gotten worse and now he has developed pus underneath the toe. He denies any known fever. He has been taking the Levaquin as prescribed. Patient states he was sent here by his PCP Dr. Keith for evaluation. Patient states he has most pain when ambulating on the foot. He states he has been using orthotic boots as recommended. Related Data Home Medications Medication Instructions Recorded Confirmed aspirin 81 mg tablet,delayed 81 mg PO DAILY 09/21/12 09/05/22 release (Ecotrin Low Strength) multivitamin (Daily Vitamin tablet) 1 ea PO DAILY 09/22/12 09/05/22 ammonium lactate 5 % lotion 1 applic topical BID PRN diabetic 10/17/21 09/05/22 (Lac-Hydrin Five) foot care #226 grams insulin syringe-needle U-100 1 mL #300 SYRGS 10/17/21 09/05/22 26 x 1/2 (BD Insulin Syringe) mupirocin 2 % topical ointment 1 applic topical TID #15 grams 11/06/21 09/05/22 blood-glucose meter,continuous #1 ea 03/18/22 09/05/22 (Dexcom G6 Car Wash Attendant Automatic) blood-glucose sensor (Dexcom G6 #3 ea 03/18/22 09/05/22 Sensor device) blood-glucose transmitter (Dexcom #1 ea 03/18/22 09/05/22 G6 Transmitter device) insulin NPH isoph U-100 human 100 See Rx Instructions subcut 03/18/22 09/05/22 unit/mL subcutaneous suspension .COMPLEX #6 vials (Novolin N NPH U-100 Insulin isophane) insulin regular human 100 unit/mL See Rx Instructions subcut 03/18/22 09/05/22 injection solution (Novolin R .COMPLEX #6 vials Regular U-100 Insulin) losartan 100 mg tablet 100 mg PO DAILY #90 tabs 03/18/22 09/05/22 polyethylene glycol 3350 17 17 g PO DAILY PRN constipation 03/18/22 09/05/22 gram/dose oral powder (Miralax) #1,700 grams levofloxacin 500 mg tablet 500 mg PO DAILY 14 days #14 tabs 08/28/22 09/05/22 levofloxacin 500 mg tablet 500 mg PO DAILY R foot ulcer 14 08/28/22 09/05/22 days #14 tabs Previous Rx's Medication Instructions Recorded ammonium lactate 5 % lotion 1 applic topical BID PRN diabetic 10/17/21 (Lac-Hydrin Five) foot care #226 grams insulin syringe-needle U-100 1 mL #300 SYRGS 10/17/21 26 x 1/2 (BD Insulin Syringe) mupirocin 2 % topical ointment 1 applic topical TID #15 grams 11/06/21 blood-glucose meter,continuous #1 ea 03/18/22 (Dexcom G6 Car Wash Attendant Automatic) blood-glucose sensor (Dexcom G6 #3 ea 03/18/22 Sensor device) blood-glucose transmitter (Dexcom #1 ea 03/18/22 G6 Transmitter device) insulin NPH isoph U-100 human 100 See Rx Instructions subcut 03/18/22 unit/mL subcutaneous suspension .COMPLEX #6 vials (Novolin N NPH U-100 Insulin isophane) insulin regular human 100 unit/mL See Rx Instructions subcut 03/18/22 injection solution (Novolin R .COMPLEX #6 vials Regular U-100 Insulin) losartan 100 mg tablet 100 mg PO DAILY #90 tabs 03/18/22 polyethylene glycol 3350 17 17 g PO DAILY PRN constipation 03/18/22 gram/dose oral powder (Miralax) #1,700 grams levofloxacin 500 mg tablet 500 mg PO DAILY 14 days #14 tabs 08/28/22 levofloxacin 500 mg tablet 500 mg PO DAILY R foot ulcer 14 08/28/22 days #14 tabs Allergies Allergy/AdvReac Type Severity Reaction Status Date / Time codeine Allergy Mild ITCHING Verified 09/05/22 16:53 lisinopril AdvReac Unknown HEADACHE Verified 09/05/22 16:53 SEXUAL DYS moexipril AdvReac Unknown FELT FUNNY Verified 09/05/22 16:53 amoxicillin potassium Allergy Severe Uncoded 09/05/22 16:53 General Stated Complaint: Cellulitis LOVE: 3 Review of Systems All systems reviewed & are unremarkable except as noted in HPI and below Constitutional Constitutional: Reports as per HPI, Denies chills and Denies fever(s) Eyes Eyes: Denies blurry vision ENT Ears, Nose, Mouth, and Throat: Denies dizziness, Denies sore throat and Denies throat swelling Cardiovascular Cardiovascular: Denies chest pain and Denies dyspnea Respiratory Respiratory: Denies cough and Denies dyspnea Gastrointestinal Gastrointestinal: Denies abdominal pain, Denies diarrhea and Denies vomiting Genitourinary Genitourinary: Denies hematuria and Denies dysuria Musculoskeletal Musculoskeletal: Denies back pain and Denies numbness Integumentary/Breasts Skin/Breast: Denies lesions and Denies rash Comments: Right third toe infection. Neurologic Neurologic: Denies dizziness, Denies localized weakness and Denies numbness Allergic/Immunologic Allergic/Immunologic: Denies throat swelling PFSH All Active Problems (Updated 09/05/22 @ 19:45 by Ena Thomas DO) Infected blister of third toe of right foot (Acute) Osteomyelitis of third toe of right foot (Acute) PAD (peripheral artery disease) (Acute) Hyperglycemia due to type 1 diabetes mellitus (Acute) Other specified diabetes mellitus with other circulatory complications (Acute) Type 1 diabetes mellitus with foot ulcer (Acute) Peripheral vascular disease due to secondary diabetes (Acute) 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 What is your relationship status?: Panel score (0-1 are the most socially isolated patients): 1 What type of physical activity do you participate in: none Seatbelt use: always Drive intox or ride w/intox 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 driver: No Working smoke detector in home: Yes Fire extinguisher in home: Yes Carbon monox detector in home: Yes Do you feel safe at home: Yes Do you feel safe in your relationship?: Yes Exam Const General: cooperative and no acute distress Orientation: alert, awake and oriented x3 HENMT Head: normal to inspection Mouth: oral mucosae normal Eyes General: appearance normal, both eyes and all related structures Neck Neck: normal visual inspection Resp Effort & Inspection: normal respiratory effort and able to speak in complete sentences Cardio Rate: regular rate Skin General skin exam: no rashes or lesions noted Neuro General: patient alert, patient awake and patient oriented x3 Motor: muscle tone normal throughout Extrem Ankle/foot/toe images: 1. There is edema and erythema of the right third toe. There is an area of yellow pus underneath the skin located on the medial third toe base. There is no drainage noted. No crepitus noted. 2. 2cm X 4 mm open wound with surrounding pink granulation tissue. There does not appear to be significant surrounding erythema or pus drainage. Psych Appearance: grossly normal Affect: normal affect Course Vital Signs Vital signs: Vital Signs Temperature 98.4 F 09/05/22 16:48 Pulse 89 09/05/22 16:48 Respiratory Rate 16 09/05/22 16:48 Blood Pressure 149/63 H 09/05/22 16:48 Pulse Oximetry 96 09/05/22 16:48 Temperature 98.4 F 09/05/22 16:48 Temperature Source Oral 09/05/22 16:48 Pulse 89 09/05/22 16:48 Respiratory Rate 16 09/05/22 16:48 Respiratory Effort Normal 09/05/22 16:52 Blood Pressure 149/63 H 09/05/22 16:48 Blood Pressure Position Sitting 09/05/22 16:48 Pulse Oximetry 96 09/05/22 16:48 Oxygen Delivery Method Room Air 09/05/22 16:48 Oxygen Flow Rate 0 09/05/22 16:48 Pain Level 7 09/05/22 16:48
--- NOTE | 2022-09-05 17:15 | DI.RAD_ITS ---
Exam(s) XR FOOT RT COMPLETE EXAM: XR FOOT RT COMPLETE CLINICAL HISTORY: R 3rd toe infected ulcer, r/o osteomyelitis. TECHNIQUE: 2D digital imaging was performed. COMPARISON: MR MR LOWER EXTREMITY RT WO/W from 02/02/2021 CR XR FOOT RT COMPLETE from 02/02/2021 CR XR FOOT LT COMPLETE from 02/02/2021 FINDINGS: 3 views Compared to 02/02/2021 there has been interval amputation of the phalanges of the 2nd toe at the leve l of the neck of the proximal phalanx. Vascular calcification in the foot is again noted. Dorsal so ft tissue swelling again noted. There is a fracture of the base of the proximal phalanx of the adjacent 3rd toe, with the fracture li ne involving the articular surface of the metatarsophalangeal joint. No other fractures identified i n the foot. No diastasis of the Lisfranc joint. Chronic degenerative changes in the DIP joint of th e 3rd toe again noted. Great toe metatarsophalangeal joint appears unremarkable. IMPRESSION: Mildly impacted fracture the base of the proximal phalanx of the 3rd toe. There is mild osteopenia a t the fracture site. Cannot exclude the possibly that this may be pathologic fracture secondary to o steomyelitis. No evidence of osteomyelitis at the resection site in the distal proximal phalanx of the 2nd toe. DATA REPOSITORY: RADIATION DOSE DELIVERED:
[2022-09-05] MEDS: cefTRIAXone 2 GM/50 ML BAG IVPB (17:40)
--- NOTE | 2022-09-05 19:01 | DI.VRAD_ITS ---
PROCEDURE INFORMATION: Exam: XR Right Foot Exam date and time: 09/05/2022 6:16 PM Age: 66 years old Clinical indication: R 3rd toe infected ulcer, R/O osteomyelitis TECHNIQUE: Imaging protocol: Radiologic exam of the right foot. Views: 3 or more views. COMPARISON: MR LOWER EXTREMITY RT WO/W 02/02/2021 3:24 PM FINDINGS: Bones/joints: The patient is status post osteotomy at the proximal phalanx of the 2nd digit. There is concern for an impacted fracture at the base of the proximal phalanx of the 3rd digit (image 1, series 2). There is redemonstration of significant degenerative changes at the distal interphalangeal joint of the 3rd digit with further joint space narrowing compared to the prior examination. Soft tissues: Vascular calcifications noted. IMPRESSION: 1. Possible impacted fracture at the base of the 3rd digit as described. Correlate with physical examination findings. Of note, this fracture could also be secondary to osteopenia from possible infection in this region. 2. No joint dislocation. 3. Interval progression of distal interphalangeal joint degenerative changes in the 3rd digit. Dictated and Authenticated by: Mary Alice Brennan MD. Ordering:NEMESIO Sutherland MD
[2022-09-05 19:05] LABS: Lactate 1.5 mmol/L (0.6-1.4)
[2022-09-05 19:06] LABS: Abs Immature Grans 0.11 10^3/uL (0.0-0.06); Absolute Basophil Count 0.07 10^3/uL (0.0-0.2); Basophils % 0.4; Eosinophils % 0.7; HCT 39.5 % (40.0-50.0); HGB 13.3 g/dL (13.5-17.5); Immature Grans % 0.6; Lymphocytes % 8.1; MCH 31.3 pg (27.0-33.0); MCHC 33.7 % (32.0-36.0); MCV 93 fL (80-95); MPV 10.4 fL (8.0-11.0); Monocytes % 6.5; Neutrophils % 83.7; Platelet Count 316 10^3/uL (130-400); RBC 4.25 10^6/uL (4.36-5.78); RDW-SD 41.4 fL; WBC 17.61 10^3/uL (4.4-10.8)
[2022-09-05 19:07] LABS: Absolute Eosinophil Count 0.12 10^3/uL (0.0-0.7); Absolute Lymphocyte Count 1.43 10^3/uL (1.2-3.4); Absolute Monocyte Count 1.14 10^3/uL (0.1-0.8); Absolute Neutrophil Count 14.74 10^3/uL (1.2-6.7); ESR 21 mm/hr (0-20)
[2022-09-05 19:27] LABS: ALT 32 U/L (16-63); AST 27 U/L (15-37); Albumin 2.8 g/dL (3.4-5.0); Alkaline Phosphatase 155 U/L (46-116); Anion Gap 9.2 mmol/L (3-11); BUN 14 mg/dL (7-18); Bilirubin, Total 0.6 mg/dL (0.2-1.0); C-Reactive Protein 3.63 mg/dL (0.0-0.3); CO2 27.8 mmol/L (21.0-32.0); CREATININE 1.1 mg/dL (0.70-1.30); Calcium 8.5 mg/dL (8.5-10.1); Chloride 101 mmol/L (98-107); Estimated GFR 73.58 (mL/min/1.73m2); Glucose 149 mg/dL (74-106); Potassium 3.6 mmol/L (3.5-5.1); Sodium 138 mmol/L (136-145); Total Protein 7.3 g/dL (6.4-8.2)
[2022-09-05 19:35] LABS: Lab Add On Test DONE
[2022-09-05 20:05] LABS: Procalcitonin 0.1 ng/mL
[2022-09-05] MEDS: HYDROmorphone 2 MG/ML SYR 0.5 MG IVP (20:28)
[2022-09-05] MEDS: VANCOMYCIN/WATER (PEG) 2 GM/400 ML BAG IV (20:28)
[2022-09-05] MEDS: Normal Saline 500 ML IV (20:29)
[2022-09-05 20:30] LABS: Source Nasal/Nares
[2022-09-05 21:15] LABS: COVID-19 PCR Negative (Negative)
[2022-09-05] MEDS: Mylanta Suspension 30 ML CUP PO (22:16)
[2022-09-05] MEDS: Mupirocin 2% Oint. 22 GM TUBE TP (22:16)
[2022-09-05] MEDS: Insulin NPH-Human 300 UNITS/3 ML PEN 36 UNIT SC (22:17)
[2022-09-05] MEDS: Insulin Aspart 300 UNITS/3 ML PEN SC (22:19)
[2022-09-05] MEDS: CEFEPIME 2 GM in Normal Saline 100 ML IVPB (22:20)
[2022-09-05] MEDS: Normal Saline Flush 10 ML SYR IVP (22:21)
[2022-09-05] MEDS: Heparin 5,000 UNITS/ML VIAL 5000 UNITS SC (22:23)
--- NOTE | 2022-09-05 23:54 | HPE_ITS ---
Date of service: 09/05/22 Time of Service: 23:54 Assessment and Plan Assessment and plan (1) Osteomyelitis of third toe of right foot: Status: Acute Assessment and plan: Continue empiric vancomycin/cefepime initiated in the ED. Trend CRP. Await podiatry consult. Will not make the patient NPO until firm surgical plans established. (2) Diabetic foot ulcer: Status: Acute Assessment and plan: As above (3) PAD (peripheral artery disease): Status: Acute Assessment and plan: The patient states he was [place] [facility] [place] no procedures were yet recommended. 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 Check A1C. C/s medical educator. Qualifiers: Diabetes mellitus complication detail: with polyneuropathy Qualified Code(s): E10.42 - Type 1 diabetes mellitus with diabetic polyneuropathy (5) GERD (gastroesophageal reflux disease): Status: Chronic Assessment and plan: Continue PPI (6) DVT prophylaxis: Status: Acute Assessment and plan: SC heparin (7) Discharge planning issues: Status: Acute Assessment and plan: Full code Admit to medical surgical status. History of Present Illness History of Present Illness Chief Complaint: Pain/redness/drainage from 3rd digit RLE Narrative: Mr Miller is a 66 year old male with PMHX of T1DM with neuropathy and retinopathy, on basal bolus insulin with NPH/regular insulin, PAD, HTN, who was undergoing outpatient treatment for a diabetic ulcer of right foot/osteomyelitis with levofloxacin per Dr Ragland, who presented to [facility] ED today noting that the 3rd digit of his right foot has gotten red, swollen, appears to be draining pus. He has also been nauseated today. He states his blood sugars have been mostly in 150s. In the ER, XR of his right foot revealed a possible impacted fracture at the base of the 3rd digit. (The Patient denies trauma to the foot). It also showed interval progression of the distal interphalangeal joint degenerative changes in the 3rd digit. He was started on vancomycin/cefepime. Denies fevers, endorses a chronic nonproductive cough, states the swelling in his right ankle is actually better than it used to be. Review of Systems All systems reviewed & are unremarkable except as noted in HPI and below PFSH All Active Problems (Updated 09/06/22 @ 00:48 by Dominga Bass MD) Discharge planning issues (Acute) GERD (gastroesophageal reflux disease) (Chronic) DVT prophylaxis (Acute) Diabetic foot ulcer (Acute) Infected blister of third toe of right foot (Acute) Osteomyelitis of third toe of right foot (Acute) PAD (peripheral artery disease) (Acute) Hyperglycemia due to type 1 diabetes mellitus (Acute) Other specified diabetes mellitus with other circulatory complications (Acute) Type 1 diabetes mellitus with foot ulcer (Acute) Peripheral vascular disease due to secondary diabetes (Acute) 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 [facility] Opthalmology Essential hypertension (Chronic 01/19/13) Primary open angle glaucoma (POAG) of both eyes (Chronic ~03/2015) S/P shunt surgery to reduce pressure OD Diabetic neuropathy (Acute 08/17/13) Medical History (Updated 09/06/22 @ 00:48 by Dominga Bass MD) Glaucoma suspect of left eye (03/21/15) Nocturia more than twice per night Osteomyelitis of second toe of right foot SARS-CoV-2 positive (~02/13/22) Visit for suture removal Surgical History (Updated 03/18/22 @ 13:58 by Hien Keith NP) Amputated toe of right foot (~2020) S/P cataract extraction and insertion of intraocular lens (02/03/21) Status post amputation of toe of right foot (~2020) s/p amputation of distal phalanx of right 2nd toe d/t osteomyelitis Status post glaucoma surgery b/l stents Vasectomy Family History Mother Heart disease Myocardial infarction Stroke Father Diabetes Self No problems noted. 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 What is your relationship status?: Panel score (0-1 are the most socially isolated patients): 1 What type of physical activity do you participate in: none Seatbelt use: always Drive intox or ride w/intox fuel truck driver: No Working smoke detector in home: Yes Fire extinguisher in home: Yes Carbon monox detector in home: Yes Do you feel safe at home: Yes Do you feel safe in your relationship?: Yes Meds Allergies and Home Medications Allergies Allergy/AdvReac Type Severity Reaction Status Date / Time codeine Allergy Mild ITCHING Verified 09/05/22 16:53 lisinopril AdvReac Unknown HEADACHE Verified 09/05/22 16:53 SEXUAL DYS moexipril AdvReac Unknown FELT FUNNY Verified 09/05/22 16:53 amoxicillin potassium Allergy Severe Uncoded 09/05/22 16:53 Home Medications Medication Instructions Recorded Confirmed Type aspirin 81 mg tablet,delayed 81 mg PO DAILY 09/21/12 09/05/22 History release (Ecotrin Low Strength) multivitamin (Daily Vitamin tablet) 1 ea PO DAILY 09/22/12 09/05/22 History ammonium lactate 5 % lotion 1 applic topical BID PRN diabetic 10/17/21 09/05/22 Rx (Lac-Hydrin Five) foot care #226 grams insulin syringe-needle U-100 1 mL #300 SYRGS 10/17/21 09/05/22 Rx 26 x 1/2 (BD Insulin Syringe) mupirocin 2 % topical ointment 1 applic topical TID #15 grams 11/06/21 09/05/22 Rx blood-glucose meter,continuous #1 ea 03/18/22 09/05/22 Rx (Dexcom G6 Jewelry Store Manager) blood-glucose sensor (Dexcom G6 #3 ea 03/18/22 09/05/22 Rx Sensor device) blood-glucose transmitter (Dexcom #1 ea 03/18/22 09/05/22 Rx G6 Transmitter device) insulin NPH isoph U-100 human 100 See Rx Instructions subcut 03/18/22 09/05/22 Rx unit/mL subcutaneous suspension .COMPLEX #6 vials (Novolin N NPH U-100 Insulin isophane) insulin regular human 100 unit/mL See Rx Instructions subcut 03/18/22 09/05/22 Rx injection solution (Novolin R .COMPLEX #6 vials Regular U-100 Insulin) losartan 100 mg tablet 100 mg PO DAILY #90 tabs 03/18/22 09/05/22 Rx polyethylene glycol 3350 17 17 g PO DAILY PRN constipation 03/18/22 09/05/22 Rx gram/dose oral powder (Miralax) #1,700 grams levofloxacin 500 mg tablet 500 mg PO DAILY 14 days #14 tabs 08/28/22 09/05/22 Rx levofloxacin 500 mg tablet 500 mg PO DAILY R foot ulcer 14 08/28/22 09/05/22 Rx days #14 tabs Exam Narrative Exam Narrative: General: Pleasant male who is sitting up at the edge of the bed, A &Ox3, NAD Neurological: A&Ox3, no focal deficits, has sensation to touch in B feet Psychiatric: Appropriate speech pattern/content Skin: R foot with erythema/swelling/purulent drainage R great toe, erythema/drainage of ulcer plantar surface right foot HEENT: Atraumatic, normocephalic, EOMI, dry MM, clear oropharynx, no submandibular or cervical lymphadenopathy, no JVD, ?goiter Cardiovascular: RRR, no m/r/g Lungs: coarse breath sounds clear with coughing; CTAB Gastrointestinal: soft, nontender, nondistended Genitourinary: deferred Extremities: edema R ankle with wrinkling of R foot; see skin exam above; s/p amputation 2nd digit R foot - healed well; L foot without lesions, dry skin, 1 + pedal pulses B feet, no c/c Results Imaging Additional studies: XR R foot: 1. ? Possible impacted fracture at the base of the 3rd digit as described. Correlate with physical examination findings. Of note, this fracture could also be secondary to osteopenia from possible infection in this region. 2. ? No joint dislocation. 3. ? Interval progression of distal interphalangeal joint degenerative changes in the 3rd digit. Labs 09/05/22 18:59 09/05/22 18:59 Labs: Laboratory Results - last 24 hr 09/05/22 09/05/22 09/05/22 18:59 18:59 18:59 WBC RBC Hgb Hct MCV MCH MCHC RDW Plt Count MPV Immature Gran % Neutrophils % Lymphocytes % Monocytes % Eosinophils % Basophils % Nucleated RBC % Absolute Neutrophils Absolute Lymphocytes Absolute Monocytes Absolute Eosinophils Absolute Basophils ESR 21 H VBG Lactate 1.5 H Sodium 138 Potassium 3.6 Chloride 101 Carbon Dioxide 27.8 Anion Gap 9.2 BUN 14 Creatinine 1.1 Est GFR (CKD-EPI 2020) 73.58 Glucose 149 H Calcium 8.5 Total Bilirubin 0.6 AST 27 ALT 32 Alkaline Phosphatase 155 H C-Reactive Protein 3.63 H Total Protein 7.3 Albumin 2.8 L Procalcitonin COVID-19 Source SARS-CoV-2 (PCR) Add-On Test Request 09/05/22 09/05/22 09/05/22 18:59 18:59 19:14 WBC 17.61 H RBC 4.25 L Hgb 13.3 L Hct 39.5 L MCV 93 MCH 31.3 MCHC 33.7 RDW 12.0 Plt Count 316 MPV 10.4 Immature Gran % 0.6 Neutrophils % 83.7 Lymphocytes % 8.1 Monocytes % 6.5 Eosinophils % 0.7 Basophils % 0.4 Nucleated RBC % 0.0 Absolute Neutrophils 14.74 H Absolute Lymphocytes 1.43 Absolute Monocytes 1.14 H Absolute Eosinophils 0.12 Absolute Basophils 0.07 ESR VBG Lactate Sodium Potassium Chloride Carbon Dioxide Anion Gap BUN Creatinine Est GFR (CKD-EPI 2020) Glucose Calcium Total Bilirubin AST ALT Alkaline Phosphatase C-Reactive Protein Total Protein Albumin Procalcitonin 0.1 COVID-19 Source SARS-CoV-2 (PCR) Add-On Test Request DONE 09/05/22 20:17 WBC RBC Hgb Hct MCV MCH MCHC RDW Plt Count MPV Immature Gran % Neutrophils % Lymphocytes % Monocytes % Eosinophils % Basophils % Nucleated RBC % Absolute Neutrophils Absolute Lymphocytes Absolute Monocytes Absolute Eosinophils Absolute Basophils ESR VBG Lactate Sodium Potassium Chloride Carbon Dioxide Anion Gap BUN Creatinine Est GFR (CKD-EPI 2020) Glucose Calcium Total Bilirubin AST ALT Alkaline Phosphatase C-Reactive Protein Total Protein Albumin Procalcitonin COVID-19 Source Nasal/Nares SARS-CoV-2 (PCR) Negative Add-On Test Request Last Vital Signs Temp 36.7 C 09/05/22 23:01 Pulse 79 09/05/22 23:01 Resp 16 09/05/22 23:01 BP 126/69 09/05/22 23:01 Pulse Ox 97 09/05/22 23:01 Time Spent Time spent with Patient: 40-54 minutes Time was spent: preparing to see the patient(eg.review tests), obtaining and/or reviewing separately otained hiistory, ordering medications,tests, procedures, r eferring, communicating with other health ambulatory care coordinator, indepentently interpreting results, counseling the patient and care coordination
[2022-09-06] MEDS: Pantoprazole 40 MG VIAL IVP (00:35)
[2022-09-06] MEDS: Melatonin 3 MG TAB PO ×2 (00:36→21:41)
[2022-09-06] MEDS: Normal Saline Flush 10 ML SYR IVP ×3 (00:36→21:42)
[2022-09-06 02:51] VITALS: BP 122/67; PULSE 72; RESP 16; TEMP 37; O2SAT 94
[2022-09-06] MEDS: Lactated Ringers 1,000 ML 150 ML IV (05:00)
[2022-09-06] MEDS: CEFEPIME 2 GM in Normal Saline 100 ML IVPB ×3 (05:12→21:45)
[2022-09-06] MEDS: Heparin 5,000 UNITS/ML VIAL 5000 UNITS SC ×3 (05:36→21:46)
[2022-09-06] MEDS: VANCOMYCIN/WATER (PEG) 1.25 GM/250 ML BAG IV ×2 (06:01→17:54)
[2022-09-06 06:47] LABS: Abs Immature Grans 0.09 10^3/uL (0.0-0.06); Absolute Basophil Count 0.06 10^3/uL (0.0-0.2); Absolute Eosinophil Count 0.16 10^3/uL (0.0-0.7); Absolute Lymphocyte Count 0.95 10^3/uL (1.2-3.4); Absolute Monocyte Count 1.28 10^3/uL (0.1-0.8); Absolute Neutrophil Count 12.33 10^3/uL (1.2-6.7); Basophils % 0.4; Eosinophils % 1.1; HCT 40.6 % (40.0-50.0); HGB 13.8 g/dL (13.5-17.5); Immature Grans % 0.6; Lymphocytes % 6.4; MCH 31.4 pg (27.0-33.0); MCV 92 fL (80-95); MPV 10.9 fL (8.0-11.0); Monocytes % 8.6; Neutrophils % 82.9; Platelet Count 293 10^3/uL (130-400); RDW 12.2 % (11.8-14.1); WBC 14.87 10^3/uL (4.4-10.8)
[2022-09-06 07:13] LABS: Anion Gap 9.1 mmol/L (3-11); BUN 14 mg/dL (7-18); C-Reactive Protein 3.62 mg/dL (0.0-0.3); CO2 23.9 mmol/L (21.0-32.0); CREATININE 0.9 mg/dL (0.70-1.30); Calcium 8.6 mg/dL (8.5-10.1); Chloride 103 mmol/L (98-107); Estimated GFR 93.61 (mL/min/1.73m2); Glucose 142 mg/dL (74-106); Magnesium 1.7 mg/dL (1.8-2.4); Potassium 3.9 mmol/L (3.5-5.1); Sodium 136 mmol/L (136-145)
[2022-09-06 07:36] LABS: Hemoglobin A1C 8.1 % (<5.7)
[2022-09-06] MEDS: Pantoprazole 40 MG TABCR PO (07:37)
[2022-09-06] MEDS: Aspirin E.C. 81 MG TABEC PO (07:38)
[2022-09-06] MEDS: Losartan 50 MG TAB 100 MG PO (07:38)
[2022-09-06] MEDS: Multivitamin TAB 1 TAB PO (07:38)
[2022-09-06] MEDS: Insulin REGULAR-Human 100 UNITS/ML UNIT 24 UNITS SC ×2 (07:39→13:11)
[2022-09-06] MEDS: Mupirocin 2% Oint. 22 GM TUBE TP ×3 (08:15→20:52)
[2022-09-06] MEDS: Insulin NPH-Human 300 UNITS/3 ML PEN 26 UNIT SC (08:16)
[2022-09-06] MEDS: Mylanta Suspension 30 ML CUP PO (08:20)
--- NOTE | 2022-09-06 08:40 | INITIAL_ITS ---
- If Service Date Differs Date of service: 09/06/22 Time of Service: 08:40 Care Management Initial Assess REASON FOR HOSPITALIZATION:: osteomyelitis of third toe of right foot PAST MEDICAL HISTORY/PAST SURGICAL HISTORY:: All Active Problems (Updated 09/06/22 @ 00:48 by Dominga Bass MD). Discharge planning issues (Acute). GERD (gastroesophageal reflux disease) (Chronic). DVT prophylaxis (Acute). Diabetic foot ulcer (Acute). Infected blister of third toe of right foot (Acute). Osteomyelitis of third toe of right foot (Acute). PAD (peripheral artery disease) (Acute). Hyperglycemia due to type 1 diabetes mellitus (Acute). Other specified diabetes mellitus with other circulatory complications (Acute). Type 1 diabetes mellitus with foot ulcer (Acute). Peripheral vascular disease due to secondary diabetes (Acute). 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 Type 1 diabetes mellitus with ophthalmic manifestation (Acute 12/23/12). Bilateral diabetic retinopathy (Acute 09/10/11). 08/16/[address] both eyes. [facility] Opthalmology. Essential hypertension (Chronic 01/19/13). Primary open angle glaucoma (POAG) of both eyes (Chronic ~03/2015). S/P shunt surgery to reduce pressure OD. Diabetic neuropathy (Acute 08/17/13). Medical History (Updated 09/06/22 @ 00:48 by Dominga Bass MD). Glaucoma suspect of left eye (03/21/15). Nocturia more than twice per night. Osteomyelitis of second toe of right foot. SARS-CoV-2 positive (~02/13/22). Visit for suture removal. Surgical History (Updated 03/18/22 @ 13:58 by Hien Keith NP). Amputated toe of right foot (~2020). S/P cataract extraction and insertion of intraocular lens (02/03/21). Status post amputation of toe of right foot (~2020). s/p amputation of distal phalanx of right 2nd toe d/t osteomyelitis. Status post glaucoma surgery. b/l stents. Vasectomy PREVIOUS FUNCTIONAL STATUS/SOCIAL/FAMILY SUPPORTS:: Chemo lives in a single family home in [facility] with his Mihaela. They have 4 children, all of whom live locally. Chemo is mostly retired. 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 Chemo is independent at baseline and does not receive any community services or use any assistive devices. CURRENT FUNCTIONAL STATUS:: Chemo was sitting up in bed when CM met with him. He was polite but not very talkative. When asked about his plan of care, Chemo expressed that he really is not sure. He understands that he may lose his toe, but does not know much beyond that. CM broached the subject of nursing home IV antibiotics and explained the various options for administration. At this point it is unknown if that will even be necessary. Chemo stated that if he does need prolonged therapy he would like to [facility] if that is an option. As more information becomes available and his treatment plan is further develpoped, additional discussions will be held. ADVANCE DIRECTIVES:: none on file Has patient been provided with info about the portal/API?: Yes Did the patient sign up for the portal?: No CODE STATUS:: Full Code INSURANCE COVERAGE / FINANCIAL ISSUES:: Medicare. Medicaid CURRENT HOME/COMMUNITY SERVICES/EQUIPMENT:: none currently PRIMARY CARE PHYSICIAN:: Hien Keith POTENTIAL DISCHARGE NEEDS:: follow up with Podiatry and PCP and plan of care PATIENT/FAMILY EDUCATION NEEDS:: Review of discharge instructions, limitations, activity, follow up plan, Ask Me Three TRANSPORTATION:: via private vehicle with family PLAN:: Anticipate Chemo will be discharged home when medically cleared by provider. If water filtration technician IV antibiotics are necessary, Chemo expressed a preferenc for coming to the [facility]. He will follow up with podiatry, his PCP and plan of care as prescribed and will transport with family. CM will support Chemo and assess for discharge needs.
[2022-09-06 08:45] VITALS: BP 164/76; PULSE 86; RESP 18; TEMP 37.2; O2SAT 97
[2022-09-06 11:56] VITALS: BP 143/78; PULSE 93; RESP 18; TEMP 38.5; O2SAT 98
--- NOTE | 2022-09-06 13:11 | W.INDIABCONS ---
Date of service: 09/06/22 Time of Service: 13:11 Diabetes Inpatient Consult Reason for Visit: dm1 DESCRIPTION/ASSESSMENT: Unable to meet with Tyshawn today as nursing was with him. Have been Tyshawn at previous admission. Admitted with osteo to 3rd right toe with PAD and neuropathy. He has had Dm1 x 40 years and monitors his blood sugars at times with a Dexcom 6 CGM and other times with finger sticks. Prefers using NPH. A1C: 8.1% at target. In view of comorbidities and age, A1C of less than 8.5% recommended. INTERVENTION: Will be available prn Time Spent in Nutritional Counseling and Treatment: 0
[2022-09-06] MEDS: Acetaminophen 325 MG TAB PO ×2 (14:18→14:42)
[2022-09-06] MEDS: Ibuprofen 600 MG TAB PO (14:42)
[2022-09-06 15:04] LABS: Lactate 1.3 mmol/L (0.6-1.4)
--- NOTE | 2022-09-06 16:47 | PGE_ITS ---
Date of Service Date of service: 09/06/22 Time of Service: 16:47 Assessment and Plan Assessment and plan (1) Osteomyelitis of third toe of right foot: Status: Acute Assessment and plan: Continue empiric vancomycin/cefepime initiated in the ED. Trend CRP. Await podiatry consult which will occur next week. (2) Diabetic foot ulcer: Status: Acute Assessment and plan: As above (3) PAD (peripheral artery disease): Status: Acute Assessment and plan: The patient states he was evaluated at [facility] and no procedures were yet recommended. 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 A1C 8.1 simulation educator consultation. Qualifiers: Diabetes mellitus complication detail: with polyneuropathy Qualified Code(s): E10.42 - Type 1 diabetes mellitus with diabetic polyneuropathy (5) GERD (gastroesophageal reflux disease): Status: Chronic Assessment and plan: Continue PPI (6) DVT prophylaxis: Status: Acute Assessment and plan: SC heparin (7) Discharge planning issues: Status: Acute Assessment and plan: Full code no anticipated discharge needs. discussed with DR Moreno Subjective Subjective Patient reports: tolerating liquids well, tolerating a regular diet and fever; denies shortness of breath Exam Const General: cooperative and no acute distress Orientation: alert, awake and oriented x3 HENMT Head: normal to inspection Mouth: oral mucosae normal Eyes General: appearance normal, both eyes and all related structures Neck Neck: normal visual inspection Resp Effort & Inspection: normal respiratory effort and able to speak in complete sentences Cardio Rate: regular rate Skin Lesions: lesion noted (dorsal aspect of 3rd toe, ulcer plantar aspect of right third) Rashes: rashes noted (righ 3rd toe, 2nd toe stump and part of forefoot. does not extend proximal) Neuro General: patient alert, patient awake and patient oriented x3 Motor: muscle tone normal throughout Psych Appearance: grossly normal Affect: normal affect Objective Last Vital Signs Temp 38.5 C H 09/06/22 11:56 Pulse 93 H 09/06/22 11:56 Resp 18 09/06/22 11:56 BP 143/78 H 09/06/22 11:56 Pulse Ox 98 09/06/22 11:56 Laboratory Results - last 24 hr 09/05/22 09/05/22 09/05/22 18:59 18:59 18:59 WBC RBC Hgb Hct MCV MCH MCHC RDW Plt Count MPV Immature Gran % Neutrophils % Lymphocytes % Monocytes % Eosinophils % Basophils % Nucleated RBC % Absolute Neutrophils Absolute Lymphocytes Absolute Monocytes Absolute Eosinophils Absolute Basophils ESR 21 H VBG Lactate 1.5 H Sodium 138 Potassium 3.6 Chloride 101 Carbon Dioxide 27.8 Anion Gap 9.2 BUN 14 Creatinine 1.1 Est GFR (CKD-EPI 2020) 73.58 Glucose 149 H Hemoglobin A1c Calcium 8.5 Magnesium Total Bilirubin 0.6 AST 27 ALT 32 Alkaline Phosphatase 155 H C-Reactive Protein 3.63 H Total Protein 7.3 Albumin 2.8 L Procalcitonin COVID-19 Source SARS-CoV-2 (PCR) Add-On Test Request 09/05/22 09/05/22 09/05/22 18:59 18:59 19:14 WBC 17.61 H RBC 4.25 L Hgb 13.3 L Hct 39.5 L MCV 93 MCH 31.3 MCHC 33.7 RDW 12.0 Plt Count 316 MPV 10.4 Immature Gran % 0.6 Neutrophils % 83.7 Lymphocytes % 8.1 Monocytes % 6.5 Eosinophils % 0.7 Basophils % 0.4 Nucleated RBC % 0.0 Absolute Neutrophils 14.74 H Absolute Lymphocytes 1.43 Absolute Monocytes 1.14 H Absolute Eosinophils 0.12 Absolute Basophils 0.07 ESR VBG Lactate Sodium Potassium Chloride Carbon Dioxide Anion Gap BUN Creatinine Est GFR (CKD-EPI 2020) Glucose Hemoglobin A1c Calcium Magnesium Total Bilirubin AST ALT Alkaline Phosphatase C-Reactive Protein Total Protein Albumin Procalcitonin 0.1 COVID-19 Source SARS-CoV-2 (PCR) Add-On Test Request DONE 09/05/22 09/06/22 09/06/22 20:17 06:30 06:30 WBC 14.87 H RBC 4.40 Hgb 13.8 Hct 40.6 MCV 92 MCH 31.4 MCHC 34.0 RDW 12.2 Plt Count 293 MPV 10.9 Immature Gran % 0.6 Neutrophils % 82.9 Lymphocytes % 6.4 Monocytes % 8.6 Eosinophils % 1.1 Basophils % 0.4 Nucleated RBC % 0.0 Absolute Neutrophils 12.33 H Absolute Lymphocytes 0.95 L Absolute Monocytes 1.28 H Absolute Eosinophils 0.16 Absolute Basophils 0.06 ESR VBG Lactate Sodium 136 Potassium 3.9 Chloride 103 Carbon Dioxide 23.9 Anion Gap 9.1 BUN 14 Creatinine 0.9 Est GFR (CKD-EPI 2020) 93.61 Glucose 142 H Hemoglobin A1c Calcium 8.6 Magnesium 1.7 L Total Bilirubin AST ALT Alkaline Phosphatase C-Reactive Protein 3.62 H Total Protein Albumin Procalcitonin COVID-19 Source Nasal/Nares SARS-CoV-2 (PCR) Negative Add-On Test Request 09/06/22 09/06/22 06:30 14:50 WBC RBC Hgb Hct MCV MCH MCHC RDW Plt Count MPV Immature Gran % Neutrophils % Lymphocytes % Monocytes % Eosinophils % Basophils % Nucleated RBC % Absolute Neutrophils Absolute Lymphocytes Absolute Monocytes Absolute Eosinophils Absolute Basophils ESR VBG Lactate 1.3 Sodium Potassium Chloride Carbon Dioxide Anion Gap BUN Creatinine Est GFR (CKD-EPI 2020) Glucose Hemoglobin A1c 8.1 H Calcium Magnesium Total Bilirubin AST ALT Alkaline Phosphatase C-Reactive Protein Total Protein Albumin Procalcitonin COVID-19 Source SARS-CoV-2 (PCR) Add-On Test Request Time Spent with Patient Time Spent with Patient: 35-49 minutes Time was spent: preparing to see the patient(eg.review tests), obtaining and/or reviewing separately otained hiistory, ordering medications,tests, procedures, referring, communicating with other health acute care certified nursing assistant, indepentently interpreting results and counseling the patient
[2022-09-06] MEDS: Insulin NPH-Human 300 UNITS/3 ML PEN 36 UNIT SC (20:52)
[2022-09-06 21:01] VITALS: BP 130/86; PULSE 74; RESP 18; TEMP 36.2; O2SAT 96
[2022-09-06] MEDS: Insulin Aspart 300 UNITS/3 ML PEN SC (21:46)
[2022-09-06 23:45] VITALS: BP 158/69; PULSE 74; RESP 19; TEMP 36.4; O2SAT 97
[2022-09-07 03:31] VITALS: BP 160/80; PULSE 87; RESP 19; TEMP 36.3; O2SAT 96
[2022-09-07] MEDS: Heparin 5,000 UNITS/ML VIAL 5000 UNITS SC ×3 (05:20→21:05)
[2022-09-07] MEDS: CEFEPIME 2 GM in Normal Saline 100 ML IVPB ×3 (05:20→21:06)
[2022-09-07] MEDS: Acetaminophen 325 MG TAB PO (05:20)
[2022-09-07] MEDS: Normal Saline Flush 10 ML SYR IVP (05:21)
[2022-09-07] MEDS: Mylanta Suspension 30 ML CUP PO ×2 (05:23→22:10)
[2022-09-07] MEDS: VANCOMYCIN/WATER (PEG) 1.25 GM/250 ML BAG IV ×2 (06:21→16:58)
[2022-09-07 06:36] LABS: Abs Immature Grans 0.08 10^3/uL (0.0-0.06); Absolute Basophil Count 0.07 10^3/uL (0.0-0.2); Absolute Lymphocyte Count 1.22 10^3/uL (1.2-3.4); Absolute Monocyte Count 1.54 10^3/uL (0.1-0.8); Basophils % 0.5; Eosinophils % 0.9; HCT 40.2 % (40.0-50.0); HGB 13.4 g/dL (13.5-17.5); Immature Grans % 0.6; Lymphocytes % 8.9; MCHC 33.3 % (32.0-36.0); MCV 93 fL (80-95); MPV 11.7 fL (8.0-11.0); Monocytes % 11.2; Neutrophils % 77.9; Platelet Count 254 10^3/uL (130-400); RBC 4.32 10^6/uL (4.36-5.78); WBC 13.74 10^3/uL (4.4-10.8)
[2022-09-07 06:50] LABS: Absolute Eosinophil Count 0.12 10^3/uL (0.0-0.7)
[2022-09-07 06:55] LABS: Anion Gap 8.7 mmol/L (3-11); BUN 14 mg/dL (7-18); CO2 23.3 mmol/L (21.0-32.0); CREATININE 0.9 mg/dL (0.70-1.30); Calcium 8.6 mg/dL (8.5-10.1); Chloride 104 mmol/L (98-107); Estimated GFR 93.61 (mL/min/1.73m2); Glucose 187 mg/dL (74-106); Sodium 136 mmol/L (136-145)
[2022-09-07 06:57] LABS: Diff Comment Agrees w/ Instrument; RBC Morphology Normal
[2022-09-07 07:01] LABS: Vancomycin, Trough 12.2 ug/mL (10.0-20.0)
[2022-09-07] MEDS: Losartan 50 MG TAB 100 MG PO (08:01)
[2022-09-07] MEDS: Pantoprazole 40 MG TABCR PO (08:01)
[2022-09-07] MEDS: Aspirin E.C. 81 MG TABEC PO (08:01)
[2022-09-07] MEDS: Multivitamin TAB 1 TAB PO (08:01)
[2022-09-07] MEDS: Insulin Aspart 300 UNITS/3 ML PEN SC ×3 (08:02→21:04)
[2022-09-07] MEDS: Insulin NPH-Human 300 UNITS/3 ML PEN 26 UNIT SC (08:03)
[2022-09-07] MEDS: Insulin REGULAR-Human 100 UNITS/ML UNIT 24 UNITS SC ×2 (08:04→12:17)
[2022-09-07] MEDS: Mupirocin 2% Oint. 22 GM TUBE TP ×2 (08:12→15:18)
--- NOTE | 2022-09-07 15:07 | PGE_ITS ---
Date of Service Date of service: 09/07/22 Time of Service: 15:07 Assessment and Plan Assessment and plan (1) Osteomyelitis of third toe of right foot: Status: Acute Assessment and plan: Continue empiric vancomycin/cefepime initiated in the ED. Trend CRP. Await podiatry consult which will occur next week. (2) Diabetic foot ulcer: Status: Acute Assessment and plan: As above (3) PAD (peripheral artery disease): Status: Acute Assessment and plan: The patient states he was evaluated at [facility] and no procedures were yet recommended. 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 A1C 8.1 breastfeeding educator consultation. Qualifiers: Diabetes mellitus complication detail: with polyneuropathy Qualified Code(s): E10.42 - Type 1 diabetes mellitus with diabetic polyneuropathy (5) GERD (gastroesophageal reflux disease): Status: Chronic Assessment and plan: Continue PPI (6) DVT prophylaxis: Status: Acute Assessment and plan: SC heparin (7) Discharge planning issues: Status: Acute Assessment and plan: Full code no anticipated discharge needs. discussed with DR Moreno Subjective Subjective Patient reports: no new complaints, tolerating liquids well, tolerating a regular diet and fever (max temp overnight 38.5) Exam Const General: cooperative and no acute distress Orientation: alert, awake and oriented x3 HENMT Head: normal to inspection Mouth: oral mucosae normal Eyes General: appearance normal, both eyes and all related structures Neck Neck: normal visual inspection Resp Effort & Inspection: normal respiratory effort and able to speak in complete sentences Cardio Rate: regular rate Skin Lesions: lesion noted (dorsal aspect of 3rd toe, ulcer plantar aspect of right third) Rashes: rashes noted (righ 3rd toe, 2nd toe stump and part of forefoot. does not extend proximal) Neuro General: patient alert, patient awake and patient oriented x3 Motor: muscle tone normal throughout Psych Appearance: grossly normal Affect: normal affect Objective Last Vital Signs Temp 36.3 C L 09/07/22 03:31 Pulse 87 09/07/22 03:31 Resp 19 09/07/22 03:31 BP 160/80 H 09/07/22 03:31 Pulse Ox 96 09/07/22 03:31 Laboratory Results - last 24 hr 09/07/22 09/07/22 09/07/22 05:51 05:51 05:51 WBC 13.74 H RBC 4.32 L Hgb 13.4 L Hct 40.2 MCV 93 MCH 31.0 MCHC 33.3 RDW 12.0 Plt Count 254 MPV 11.7 H Immature Gran % 0.6 Neutrophils % 77.9 Lymphocytes % 8.9 Monocytes % 11.2 Eosinophils % 0.9 Basophils % 0.5 Nucleated RBC % 0.0 Absolute Neutrophils 10.70 H Absolute Lymphocytes 1.22 Absolute Monocytes 1.54 H Absolute Eosinophils 0.12 Absolute Basophils 0.07 RBC Morphology Normal Sodium 136 Potassium 4.0 Chloride 104 Carbon Dioxide 23.3 Anion Gap 8.7 BUN 14 Creatinine 0.9 Est GFR (CKD-EPI 2020) 93.61 Glucose 187 H Calcium 8.6 Vancomycin Trough 12.2 Time Spent with Patient Time Spent with Patient: 25-34 minutes Time was spent: preparing to see the patient(eg.review tests), obtaining and/or reviewing separately otained hiistory, ordering medications,tests, procedures, indepentently interpreting results and care coordination (wound care)
--- NOTE | 2022-09-07 16:09 | WOUNDCONS ---
- If Service Date Differs Date of service: 09/07/22 Time of Service: 16:30 Wound Initial Evaluation Narrative: Patient is a 66 year old diabetic pt with a right foot ulcer lasting more than a month. States that Dr. Ragland has been following him in the office and treating him with po antibiotics, but she recommended that he come to the hospital for IV antibiotics. I was asked to consult on the pt in the absence of Dr. Ragland. Due to patient's diabetic status, I am limited to cleaning and dressing of the wound with recommendations. The patient has had the 2nd toe on the right foot amputated in the past. The stump does appear reddened. Xray of right foot Compared to 02/02/2021 there has been interval amputation of the phalanges of the 2nd toe at the level of the neck of the proximal phalanx. Vasc: lar calciCication in the foot is again noted. Dorsal soft tissue swelling again noted. There is a fracture of the base of the proximal phalanx of the adjacent 3rd toe, with the fracture line involving the articular surface of the metatarsophalangeal joint. No other fractures identified in the foot. No diastasis of the Lisfranc joint. Chronic degenerative changes in the DIP joint of the 3rd toe again noted. Great toe metatarsophalangeal joint appears unremarkable. IMPRESSION: Mildly impacted fracture the base of the proximal phalanx of the 3rd toe. There is mild osteopenia at the fracture site. Cannot exclude the possibly that this may be pathologic fracture secondary to osteomyelitis. No evidence of osteomyelitis at the resection site in the distal proximal phalanx of the 2nd toe. 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 Initial WBC 17.61 down to 13.74 lactate 1.5 down to 1.3 crp 3.63 down to 3.62 Blood cultures are pending. Pt's medications include Cefepime and Vancomycin, insulin, heparin. Body Four View: 1 - 3rd right toe. 2 - right plantar foot callous with open center - Wound Right plantar foot Wound Type: Maceration, Diabetic Ulcer Pressure Ulcer Stage: Eschar/Unstageable Wound General Appearance: Unapproximated, Other (Covered with slough) Wound Bed Greatest Portion: Yellow (Slough) Wound Surrounding Tissue Appearance: Blanched/Dull, Edges Rolled, Macerated, Other (calloused) Percent of Wound Bed Granulated/Red: 0 Percent of Wound Bed Slough/Yellow: 100 Percent of Wound Bed Eschar/Black: 0 Wound Length: 1.18 in (3cm) Wound Width: 0.79 in (2cm) Wound Depth: 0.16 in (0.4cm) Wound Drainage Amount: None Wound Drainage Odor: None/Absent Wound Drainage Description: No drainage Wound Topical Solution/Irrigant: Other (Anasept cleanser) Wound Debridement Method: Gauze Wound Debridement Result: Yellow Sloughing Remains Wound Debridement Amount of Tissue Removed: Minimal Right 3rd toe Wound Type: Diabetic Ulcer Pressure Ulcer Stage: Eschar/Unstageable Wound General Appearance: Reddened, Blackened, Draining, Bleeding, Unapproximated, Tunneling (At the base of the toe.) Wound Bed Greatest Portion: Shiny, Black (Eschar) Wound Bed Lesser Portion: Shiny, Dusky Red Wound Surrounding Tissue Appearance: Bright Red Percent of Wound Bed Granulated/Red: 5 Percent of Wound Bed Slough/Yellow: 35 Percent of Wound Bed Eschar/Black: 60 Wound Length: 1.38 in (3.5cm) Wound Width: 0.79 in (2cm) Wound Depth: 0.12 in (0.3cm) Wound Drainage Amount: Large Wound Drainage Odor: Foul Odor Wound Drainage Description: Bloody, Purulent, Brown Wound Topical Solution/Irrigant: Other (Anasept cleanser) Wound Debridement Method: Gauze, Other (debrisoft lolly) Wound Debridement Result: Yellow Sloughing Remains Wound Debridement Amount of Tissue Removed: Moderate - Circulation, Sensation, Motion Edema Degree: 2+ Peripheral Pulse Strength: Normal Capillary Refill: Greater than 3 seconds Sensation Description: Numbness Skin Temperature: Warm Skin Color: Chris - ROBERTO Comment:: Pt had vascular workup at [facility] [place]. - Pain Pain Level: 0 (Denies during wound care.) Pain Scale Used: Adult Pain Description: Achy Pain Duration/Frequency: With Weight Bearing The plantar portion of the fore-foot is calloused with and open area in the center that is covered with yellow slough. Slough is well adhered to the area. The surrounding area is macerated from all the drainage from the third toe. Area needs sharp debridement of non-viable tissue. May consider using Santyl if Dr. Ragland will be out for an extended period of time once the maceration is improved and the drainage from the toe decreases. This will help with enzymatic debridement. The base of the right 3rd toe is cracked open which is where the drainage is coming from. Slough was removed using a debrisoft lolly. - Photo Photo: - Treatment/Dressing Change Topicals/Ointments: Other (plantar foot painted with betadine 4x4 gauze for padding) Cleanse With: Anasept Dressing Types: Kerlix (Gauze Roll), Sterile Gauze, Other Dressing Comment: Actisorb Silver wrapped around 3rd toe. Then wrapped with 4x4 gauze, then weaved between remaining toes. Wrapped with kerlix gauze, covered with Elastic rentention netting. - Nutrition Education Reviewed Nutrition Education: Yes Note: Protein for wound healing. - Recomendation Recomendation:: Right foot 1. Cleanse the foot with Anasept wound cleanser, allow to dwell for 2 minutes. 2. Pat dry. 3. [place] the plantar area with betadine. Apply 2- 4x4 gauze to area for padding. 4. Wrap the 3rd toe with Actisorb Silver dressing. 5. Wrap 4x4 gauze around the 3rd toe. 6. Also use a 4x4 gauze to weave between the toes to aid in drainage containment and help prevent further maceration. 7. Wrap the entire area with a bulk kerlix dressing. 8. Cover with elastic retention netting. 9. Change daily and prn. Keep right foot elevated on pillows. Pt also instructed to use the walker for ambulation to help with balance and to decrease weight bearing on the right foot. Physcian/Nurse Practioner Notified: Yes Referrals: Dietary (for protein intake for wound healing) Treatment Time - Time Total Time Spent with Patient: 50 minutes - Patient Will be Seen Weekly Treatment: daily - For: For:: 3 weeks
[2022-09-07 19:20] VITALS: BP 113/66; PULSE 92; RESP 18; TEMP 37.5; O2SAT 94
[2022-09-07] MEDS: Melatonin 3 MG TAB PO (21:05)
[2022-09-07] MEDS: Insulin NPH-Human 300 UNITS/3 ML PEN 20 UNIT SC (21:42)
[2022-09-07 23:05] VITALS: BP 144/71; PULSE 77; RESP 18; TEMP 36.5; O2SAT 95
[2022-09-08] MEDS: VANCOMYCIN/WATER (PEG) 1.25 GM/250 ML BAG IV ×3 (01:04→21:35)
[2022-09-08] MEDS: Normal Saline Flush 10 ML SYR IVP ×4 (01:05→21:52)
[2022-09-08 03:00] VITALS: BP 154/73; PULSE 81; RESP 17; TEMP 36.3; O2SAT 97
[2022-09-08] MEDS: Acetaminophen 325 MG TAB PO ×2 (03:49→20:59)
[2022-09-08] MEDS: Mylanta Suspension 30 ML CUP PO ×2 (03:50→21:51)
[2022-09-08] MEDS: Heparin 5,000 UNITS/ML VIAL 5000 UNITS SC ×3 (05:07→21:24)
[2022-09-08] MEDS: CEFEPIME 2 GM in Normal Saline 100 ML IVPB ×3 (05:07→20:54)
[2022-09-08 06:20] VITALS: BP 113/70; PULSE 65; RESP 18; TEMP 36.6; O2SAT 96
[2022-09-08] MEDS: Pantoprazole 40 MG TABCR PO (07:17)
[2022-09-08] MEDS: Insulin Aspart 300 UNITS/3 ML PEN SC ×4 (08:02→21:25)
[2022-09-08] MEDS: Losartan 50 MG TAB 100 MG PO (08:02)
[2022-09-08] MEDS: Aspirin E.C. 81 MG TABEC PO (08:02)
[2022-09-08] MEDS: Multivitamin TAB 1 TAB PO (08:02)
[2022-09-08] MEDS: Insulin NPH-Human 300 UNITS/3 ML PEN 15 UNIT SC (08:03)
--- NOTE | 2022-09-08 09:46 | W.PM.PROGNOT ---
Date of Service Date of service: 09/08/22 Time of Service: 09:46 Assessment and Plan Assessment and plan (1) Osteomyelitis of third toe of right foot: Status: Acute Assessment and plan: Continue empiric vancomycin/cefepime initiated in the ED. Trend CRP. Await podiatry consult which will occur next week. (2) Diabetic foot ulcer: Status: Acute Assessment and plan: As above wound care was consulted, see daily dressing change instructions. (3) PAD (peripheral artery disease): Status: Acute Assessment and plan: The patient states he [place] [facility] no procedures were yet recommended. 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 blood sugar dropped yesterday afternoon to 44 but due to poor po intake a lunch. his insulin doses were adjusted last night and now that he's eating appropriately he's running in the 200's. will give extra 9 units of nph and 10 of aspart and resume home nph doses. increase sliding scale to resistant. he had a CGM and follows closely. will make further adjustments as needed. A1C 8.1 lead customer service representative consultation. Qualifiers: Diabetes mellitus complication detail: with polyneuropathy Qualified Code(s): E10.42 - Type 1 diabetes mellitus with diabetic polyneuropathy (5) GERD (gastroesophageal reflux disease): Status: Chronic Assessment and plan: Continue PPI (6) DVT prophylaxis: Status: Acute Assessment and plan: SC heparin (7) Discharge planning issues: Status: Acute Assessment and plan: Full code no anticipated discharge needs. discussed with DR Moreno Subjective Subjective Patient reports: tolerating liquids well, tolerating a regular diet, voiding w/o difficulty and afebrile Interval history since last seen: blood sugars running higher this morning after insulin doses decreased yesterday afternoon when blood sugar dropped to 44. states he hadn't eaten lunch cause he was interrupted so hes now not getting enough insulin. other no new c/o Exam Const General: cooperative and no acute distress Orientation: alert, awake and oriented x3 HENMT Head: normal to inspection Mouth: oral mucosae normal Eyes General: appearance normal, both eyes and all related structures Neck Neck: normal visual inspection Resp Effort & Inspection: normal respiratory effort and able to speak in complete sentences Cardio Rate: regular rate Skin Lesions: lesion noted and other (right foot, see wound care consult, bulky dressing intact, no red prox.) Neuro General: patient alert, patient awake and patient oriented x3 Motor: muscle tone normal throughout Psych Appearance: grossly normal Affect: normal affect Objective Last Vital Signs Temp 36.6 C 09/08/22 06:20 Pulse 65 09/08/22 06:20 Resp 18 09/08/22 06:20 BP 113/70 09/08/22 06:20 Pulse Ox 96 09/08/22 06:20 Time Spent with Patient Time Spent with Patient: 35-49 minutes Time was spent: preparing to see the patient(eg.review tests), obtaining and/or reviewing separately otained hiistory, ordering medications,tests, procedures, referring, communicating with other health skin care technician, indepentently interpreting results and counseling the patient
[2022-09-08] MEDS: Insulin NPH-Human 300 UNITS/3 ML PEN 9 UNIT SC (10:00)
[2022-09-08] MEDS: Insulin Aspart 300 UNITS/3 ML PEN 10 UNITS SC (10:01)
[2022-09-08 11:47] VITALS: BP 145/73; PULSE 73; RESP 18; TEMP 36.5; O2SAT 97
[2022-09-08] MEDS: Mupirocin 2% Oint. 22 GM TUBE TP (14:41)
[2022-09-08 15:56] VITALS: BP 154/74; PULSE 75; RESP 18; TEMP 36.6; O2SAT 98
[2022-09-08 19:30] VITALS: BP 148/73; PULSE 86; RESP 18; TEMP 37.3; O2SAT 95
[2022-09-08] MEDS: Insulin NPH-Human 300 UNITS/3 ML PEN 36 UNIT SC (21:26)
[2022-09-08] MEDS: Melatonin 3 MG TAB PO (21:27)
--- NOTE | 2022-09-08 22:19 | NUR.NOTE ---
Nursing Note: Pt alert, answering questions appropriately. Assessment completed meds given, New tubing set for vanc and Flush, new tubing will be needed for 6am cefepime. Pt requested mylanta-feeling kind of bloated , states he had this at home some and being on ABX makes it worse. All requests completed, pt repositioned, all meds given. Pt will ring for anything else needed.
[2022-09-08 23:00] VITALS: BP 146/76; PULSE 68; RESP 18; TEMP 36.6; O2SAT 98
--- NOTE | 2022-09-09 | DI.MRI_ITS ---
Exam(s) MR LOWER EXTREMITY RT WO/W EXAM: MR LOWER EXTREMITY RT WO/W CLINICAL HISTORY: osteomyelitis R foot. TECHNIQUE: Multiplanar multisequence MRI was performed. CONTRAST MATERIAL: IV Contrast: 18 mL of Dotarem contrast administered. COMPARISON: Plain films September 26 FINDINGS: There is been prior amputation at the midportion of the proximal phalanx of the 2nd toe. There is ab normal edema as well as post gadolinium enhancement with in the proximal phalangeal remnant. There i s also mild amount of increased signal within the head of the 2nd metatarsal. Abnormal Merry and enha ncement is also noted in the 3rd metatarsal head and the proximal and middle phalanges of the 3rd toe . Fracture is noted of the proximal phalanx of the 3rd toe. The 1st, 4th and 5th metatarsals and ph alanges show no abnormal signal. There is a large around of edema and fluid within the soft tissues surrounding the 2nd and 3rd toes as well as metatarsal heads. A few air bubbles are seen. IMPRESSION: Findings consistent with osteomyelitis involving the stump of the proximal phalanx of the 2nd toes, 2 nd metatarsal head, 3rd metatarsal head and 3rd toe. DATA REPOSITORY:
--- NOTE | 2022-09-09 | DI.US_ITS ---
Exam(s) US ABDOMEN LIMITED EXAM: US ABDOMEN LIMITED CLINICAL HISTORY: transamititis TECHNIQUE: Ultrasound abdomen performed using standard protocol. COMPARISON: No exams were available for comparison FINDINGS: GALLBLADDER: No evidence of cholelithiasis. No evidence of wall thickening. No pericholecystic fluid identified. MCKINLEY'S SIGN: Negative. BILIARY SYSTEM: No intrahepatic or extrahepatic biliary ductal dilation. RIGHT KIDNEY: Normal size. No evidence of renal calculi. No evidence of hydronephrosis. No suspicious renal mass. No cyst identified. PANCREAS: Normal where visualized. ABDOMINAL AORTA AND IVC: Visualized portions normal caliber. ASCITES: None seen. LIVER: Enlarged at 20 cm in length. Mild hepatic steatosis. No focal liver lesions are seen.. IMPRESSION: Enlarged liver with mild hepatic steatosis. DATA REPOSITORY:
[2022-09-09 03:15] VITALS: BP 144/76; PULSE 68; RESP 18; TEMP 36.7; O2SAT 97
[2022-09-09] MEDS: CEFEPIME 2 GM in Normal Saline 100 ML IVPB ×3 (05:33→21:17)
[2022-09-09] MEDS: Heparin 5,000 UNITS/ML VIAL 5000 UNITS SC ×3 (05:33→21:18)
[2022-09-09 06:43] LABS: ESR 25 mm/hr (0-20)
[2022-09-09 06:44] LABS: Abs Immature Grans 0.06 10^3/uL (0.0-0.06); Absolute Basophil Count 0.07 10^3/uL (0.0-0.2); Absolute Eosinophil Count 0.22 10^3/uL (0.0-0.7); Absolute Lymphocyte Count 1.64 10^3/uL (1.2-3.4); Absolute Neutrophil Count 6.97 10^3/uL (1.2-6.7); Basophils % 0.7; Eosinophils % 2.1; HCT 38.8 % (40.0-50.0); HGB 13.2 g/dL (13.5-17.5); Immature Grans % 0.6; MCH 31.6 pg (27.0-33.0); MCV 93 fL (80-95); MPV 10.1 fL (8.0-11.0); Monocytes % 12.7; Neutrophils % 67.9; Platelet Count 335 10^3/uL (130-400); RBC 4.18 10^6/uL (4.36-5.78); RDW 12.1 % (11.8-14.1); RDW-SD 40.8 fL; WBC 10.26 10^3/uL (4.4-10.8)
[2022-09-09 07:00] VITALS: BP 166/87; PULSE 72; RESP 18; TEMP 36.5; O2SAT 98
[2022-09-09] MEDS: Pantoprazole 40 MG TABCR PO (07:01)
[2022-09-09 07:15] LABS: Vancomycin, Trough 18.3 ug/mL (10.0-20.0)
[2022-09-09 07:25] LABS: ALT 102 U/L (16-63); AST 107 U/L (15-37); Albumin 2.5 g/dL (3.4-5.0); Alkaline Phosphatase 452 U/L (46-116); BUN 11 mg/dL (7-18); Bilirubin, Total 0.6 mg/dL (0.2-1.0); CREATININE 0.9 mg/dL (0.70-1.30); Calcium 8.8 mg/dL (8.5-10.1); Chloride 103 mmol/L (98-107); Estimated GFR 93.61 (mL/min/1.73m2); Glucose 123 mg/dL (74-106); Potassium 4.2 mmol/L (3.5-5.1); Sodium 135 mmol/L (136-145); Total Protein 6.9 g/dL (6.4-8.2)
[2022-09-09] MEDS: Aspirin E.C. 81 MG TABEC PO (08:43)
[2022-09-09] MEDS: Losartan 50 MG TAB 100 MG PO (08:44)
[2022-09-09] MEDS: Insulin NPH-Human 300 UNITS/3 ML PEN 26 UNIT SC (08:44)
[2022-09-09] MEDS: Multivitamin TAB 1 TAB PO (08:44)
[2022-09-09] MEDS: Insulin Aspart 300 UNITS/3 ML PEN SC ×4 (08:45→21:17)
[2022-09-09] MEDS: VANCOMYCIN/WATER (PEG) 1.25 GM/250 ML BAG IV ×2 (08:45→18:23)
--- NOTE | 2022-09-09 09:06 | PDOC.CMPRO ---
- If Service Date Differs Date of service: 09/09/22 Time of Service: 09:07 Care Management Progress Note S/O:Chemo was sitting up in a chair when CM met witrh him. He was open to conversation and pleasant in interaction. 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 He stated that when you love what you do you never have to work a day in your life. He went on to explain that one of his daughters, who is a twin, has helped him in the past. He shared that she got away from it for a while but has recently informed him that she may like to start up again. That would be helpful for Chemo as he needs to be off of his feet to allow his wounds to heal. He observed that he and Dr. Ragland did not agree on that point and that he now realizes she was right. Chemo also talked about his other 3 daughters. His youngest is attending [employer] and he admits to being very proud of her. Dr. Ragland has been unavailable for the past few days so Chemo's plan of care is uncertain at this time. It is understood that he will need IV antibiotics but the drug, frequency and duration is yet to be determined. A:Chemo is a 66 year old man admitted on 09/05/22 with osteomyelitis of the 3rd toe RLE P:Anticipate Chemo will be discharged home when medically cleared by provider. 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 He will follow up with podiatry, his PCP and plan of care as prescribed and will transport with family. CM will support Chemo and assess for discharge needs.
--- NOTE | 2022-09-09 12:02 | W.PM.PROGNOT ---
Date of Service Date of service: 09/09/22 Time of Service: 12:02 Assessment and Plan Assessment and plan (1) Osteomyelitis of third toe of right foot: Status: Acute Assessment and plan: Continue empiric vancomycin/cefepime initiated in the ED. Trend CRP. Await podiatry consult this week. (2) Transaminitis: Status: Acute Assessment and plan: liver ultrasound acute hepatitis panel stop apap (3) Diabetic foot ulcer: Status: Acute Assessment and plan: As above wound care was consulted, see daily dressing change instructions. (4) PAD (peripheral artery disease): Status: Acute Assessment and plan: The patient states he was evaluated at [facility] [place] and no procedures were yet recommended. 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 blood sugar dropped yesterday afternoon to 44 but due to poor po intake a lunch. his insulin doses were adjusted last night and now that he's eating appropriately he's running in the 200's. will give extra 9 units of nph and 10 of aspart and resume home nph doses. increase sliding scale to resistant. he had a CGM and follows closely. will make further adjustments as needed. A1C 8.1 special education paraeducator consultation. Qualifiers: Diabetes mellitus complication detail: with polyneuropathy Qualified Code(s): E10.42 - Type 1 diabetes mellitus with diabetic polyneuropathy (6) GERD (gastroesophageal reflux disease): Status: Chronic Assessment and plan: Continue PPI (7) DVT prophylaxis: Status: Acute Assessment and plan: SC heparin (8) Discharge planning issues: Status: Acute Assessment and plan: Full code no anticipated discharge needs. discussed with DR Moreno Objective Last Vital Signs Temp 36.5 C 09/09/22 07:00 Pulse 72 09/09/22 07:00 Resp 18 09/09/22 07:00 BP 166/87 H 09/09/22 07:00 Pulse Ox 98 09/09/22 07:00 Laboratory Results - last 24 hr 09/09/22 09/09/22 09/09/22 06:30 06:30 06:30 WBC 10.26 RBC 4.18 L Hgb 13.2 L Hct 38.8 L MCV 93 MCH 31.6 MCHC 34.0 RDW 12.1 Plt Count 335 MPV 10.1 Immature Gran % 0.6 Neutrophils % 67.9 Lymphocytes % 16.0 Monocytes % 12.7 Eosinophils % 2.1 Basophils % 0.7 Nucleated RBC % 0.0 Absolute Neutrophils 6.97 H Absolute Lymphocytes 1.64 Absolute Monocytes 1.30 H Absolute Eosinophils 0.22 Absolute Basophils 0.07 ESR 25 H Sodium 135 L Potassium 4.2 Chloride 103 Carbon Dioxide 30.0 Anion Gap 2.0 L BUN 11 Creatinine 0.9 Est GFR (CKD-EPI 2020) 93.61 Glucose 123 H Calcium 8.8 Total Bilirubin 0.6 Conjugated Bilirubin AST 107 H ALT 102 H Alkaline Phosphatase 452 H C-Reactive Protein 2.10 H Total Protein 6.9 Albumin 2.5 L Vancomycin Trough 09/09/22 09/09/22 06:30 11:28 WBC RBC Hgb Hct MCV MCH MCHC RDW Plt Count MPV Immature Gran % Neutrophils % Lymphocytes % Monocytes % Eosinophils % Basophils % Nucleated RBC % Absolute Neutrophils Absolute Lymphocytes Absolute Monocytes Absolute Eosinophils Absolute Basophils ESR Sodium Potassium Chloride Carbon Dioxide Anion Gap BUN Creatinine Est GFR (CKD-EPI 2020) Glucose Calcium Total Bilirubin Cancelled Conjugated Bilirubin Cancelled AST Cancelled ALT Cancelled Alkaline Phosphatase Cancelled C-Reactive Protein Total Protein Cancelled Albumin Cancelled Vancomycin Trough 18.3 Time Spent with Patient Time Spent with Patient: 25-34 minutes Time was spent: preparing to see the patient(eg.review tests), obtaining and/or reviewing separately otained hiistory, ordering medications,tests, procedures, indepentently interpreting results and counseling the patient
[2022-09-09] MEDS: Normal Saline Flush 10 ML SYR IVP ×2 (12:24→21:16)
[2022-09-09] MEDS: Gadoterate meglumine 20 ML VIAL 18 ML IVP (12:25)
[2022-09-09 13:44] VITALS: BP 127/72; PULSE 89; RESP 16; TEMP 36.2; O2SAT 99
[2022-09-09 15:35] VITALS: BP 164/72; PULSE 84; RESP 18; TEMP 36; O2SAT 98
--- NOTE | 2022-09-09 17:06 | W.PODCONSULT ---
Date of service: 09/09/22 Time of Service: 16:00 Assessment and Plan Assessment and plan (1) PAD (peripheral artery disease): Status: Acute (2) Osteomyelitis of third toe of right foot: Status: Acute Assessment and plan: The patient was evaluated and treated. MRI results were reviewed with him at bedside. Treatment options were reviewed, including IV Abx and/or surgical intervention (R 2/3 partial ray resections). The risks and possible complications of all treatment options were reviewed and the patient wishes to proceed with surgery, in addition to IV ABx. Surgery will be scheduled, likely Friday or morning, if at all possible, but entirely pending. Recommend cont'ed IV in the meantime. The risks of wound healing difficulty and delay were reviewed in detail with the patient, with his clinical signs of PAD (TBI on the R 0.43 but no intervention recommended by [facility] when evaluated 08/30, just over 1 week ago), and he expresses understanding and agreement. Other risks, including the risk for wounds elsewhere, non healing wounds, loss of more toes or foot were reviewed, as was the absolute need post-operatively for DM shoes and orthotics (Rx written 6 months ago),meticulous wound care, and limited activity. Bone cultures will be obtained intra-operatively to better direct IV Abx mariah-operatively if warranted (proximal margins will be sent for pathological evaluation). (3) Diabetic foot ulcer: Status: Acute (4) Osteomyelitis of second toe of right foot: History of Present Illness History of Present Illness Chief Complaint: R foot wounds, possible osteomyelitis Narrative: Mr. Fall is a 66 year old male with DM whom I've been asked to evaluate for a R foot wound and possible osteomyelitis. Pt was evaluated in my clinic 2 weeks ago, at which time concerns were present for osteomyelitis related to a plantar foot ulcer (elevated CRP, probe to bone, increased drainage, surrounding cellulitis). Labs were ordered, as was an MRI. The patient was prescribed oral Abx, a follow-up consultation scheduled with [facility] and emphasis was placed on DM shoes and limiting activity. Last week, the patient called clinic with concerns of increased green drainage and feeling ill, at which time he was instructed to present to the ED. He was admitted on Friday09/06/22 with concerns present for not only the intial plantar foot ulceration but now a new ulceration on his R 3rd digit with cellulitis and a R foot infection. MRI was obtained today. Pt was evaluated at bedside, and today reports a significant improvement in the redness and swelling since his admission Consults Consult date: 09/09/22 [facility] All Active Problems (Updated 09/09/22 @ 12:27 by Elvira Dowd NP) Transaminitis (Acute) Discharge planning issues (Acute) GERD (gastroesophageal reflux disease) (Chronic) DVT prophylaxis (Acute) Diabetic foot ulcer (Acute) Infected blister of third toe of right foot (Acute) Osteomyelitis of third toe of right foot (Acute) PAD (peripheral artery disease) (Acute) Hyperglycemia due to type 1 diabetes mellitus (Acute) Other specified diabetes mellitus with other circulatory complications (Acute) Type 1 diabetes mellitus with foot ulcer (Acute) Peripheral vascular disease due to secondary diabetes (Acute) 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 [facility] Opthalmology Essential hypertension (Chronic 01/19/13) Primary open angle glaucoma (POAG) of both eyes (Chronic ~03/2015) S/P shunt surgery to reduce pressure OD Diabetic neuropathy (Acute 08/17/13) Medical History (Updated 09/09/22 @ 12:27 by Elvira Dowd NP) Glaucoma suspect of left eye (03/21/15) Nocturia more than twice per night Osteomyelitis of second toe of right foot SARS-CoV-2 positive (~02/13/22) Visit for suture removal Surgical History (Updated 03/18/22 @ 13:58 by Hien Keith NP) Amputated toe of right foot (~2020) S/P cataract extraction and insertion of intraocular lens (02/03/21) Status post amputation of toe of right foot (~2020) s/p amputation of distal phalanx of right 2nd toe d/t osteomyelitis Status post glaucoma surgery b/l stents Vasectomy Family History Mother Heart disease Myocardial infarction Stroke Father Diabetes Self No problems noted. 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 Skin Other: In addition to the full thickness ulceration at the plantar R foot, a new full thickness wound is noted at the proximal medial aspect of the R 3rd digit, with necrotic tissue, serosanguinous drainage, and surrounding erythema R 3rd digit and R forefoot. No lymphangitis currently but with the foot edematous. No purulence drainage noted upon compression of the area, with no crepitus or fluctuance, or clinical signs of deep infection Neuro Other: Protective sensation absent previously via [place]ady Fannie 5.07 monofilament. Negative tinel?s sign. Muscle strength 5/5. No other neurological deficits Extrem Other: R 2nd digital amputation. Lesser digital deformities. Significant gastroc equinus with a decreased ROM of the ankle Results Last Vital Signs Temp 96.8 F L 09/09/22 15:35 Pulse 84 09/09/22 15:35 Resp 18 09/09/22 15:35 BP 164/72 H 09/09/22 15:35 Pulse Ox 98 09/09/22 15:35 Labs 09/09/22 06:30 09/09/22 06:30 Labs: Laboratory Results - last 24 hr 09/09/22 09/09/22 09/09/22 06:30 06:30 06:30 WBC 10.26 RBC 4.18 L Hgb 13.2 L Hct 38.8 L MCV 93 MCH 31.6 MCHC 34.0 RDW 12.1 Plt Count 335 MPV 10.1 Immature Gran % 0.6 Neutrophils % 67.9 Lymphocytes % 16.0 Monocytes % 12.7 Eosinophils % 2.1 Basophils % 0.7 Nucleated RBC % 0.0 Absolute Neutrophils 6.97 H Absolute Lymphocytes 1.64 Absolute Monocytes 1.30 H Absolute Eosinophils 0.22 Absolute Basophils 0.07 ESR 25 H Sodium 135 L Potassium 4.2 Chloride 103 Carbon Dioxide 30.0 Anion Gap 2.0 L BUN 11 Creatinine 0.9 Est GFR (CKD-EPI 2020) 93.61 Glucose 123 H Calcium 8.8 Total Bilirubin 0.6 Conjugated Bilirubin AST 107 H ALT 102 H Alkaline Phosphatase 452 H C-Reactive Protein 2.10 H Total Protein 6.9 Albumin 2.5 L Vancomycin Trough 09/09/22 09/09/22 06:30 11:28 WBC RBC Hgb Hct MCV MCH MCHC RDW Plt Count MPV Immature Gran % Neutrophils % Lymphocytes % Monocytes % Eosinophils % Basophils % Nucleated RBC % Absolute Neutrophils Absolute Lymphocytes Absolute Monocytes Absolute Eosinophils Absolute Basophils ESR Sodium Potassium Chloride Carbon Dioxide Anion Gap BUN Creatinine Est GFR (CKD-EPI 2020) Glucose Calcium Total Bilirubin Cancelled Conjugated Bilirubin Cancelled AST Cancelled ALT Cancelled Alkaline Phosphatase Cancelled C-Reactive Protein Total Protein Cancelled Albumin Cancelled Vancomycin Trough 18.3 Imaging Imaging Studies: R foot MRI: Bone marrow edema R 3rd proximal phalanx, base of the R 2nd proximal phalanx (s/p digital amputation), and 2nd and 3rd metatarsal heads. No evdence of deep abscess
[2022-09-09 19:43] VITALS: BP 156/75; PULSE 77; RESP 17; TEMP 36.5; O2SAT 97
[2022-09-09] MEDS: Mupirocin 2% Oint. 22 GM TUBE TP (19:57)
[2022-09-09] MEDS: Insulin NPH-Human 300 UNITS/3 ML PEN 36 UNIT SC (19:57)
[2022-09-09] MEDS: oxyCODONE 5 MG TAB PO (20:04)
[2022-09-09] MEDS: Melatonin 3 MG TAB PO (21:16)
[2022-09-09 22:05] VITALS: BP 135/71; PULSE 80; RESP 16; TEMP 36.2; O2SAT 97
[2022-09-10 02:44] VITALS: BP 144/67; PULSE 83; RESP 15; TEMP 36.7; O2SAT 97
[2022-09-10] MEDS: Normal Saline Flush 10 ML SYR IVP ×4 (03:35→21:36)
[2022-09-10] MEDS: VANCOMYCIN/WATER (PEG) 1.25 GM/250 ML BAG IV ×3 (03:36→23:33)
[2022-09-10] MEDS: CEFEPIME 2 GM in Normal Saline 100 ML IVPB ×3 (06:17→21:36)
[2022-09-10] MEDS: Heparin 5,000 UNITS/ML VIAL 5000 UNITS SC ×3 (06:18→21:37)
[2022-09-10] MEDS: Mylanta Suspension 30 ML CUP PO (06:22)
[2022-09-10 07:23] VITALS: BP 134/72; PULSE 82; TEMP 35.5; O2SAT 98
[2022-09-10] MEDS: Losartan 50 MG TAB 100 MG PO (07:52)
[2022-09-10] MEDS: Aspirin E.C. 81 MG TABEC PO (07:53)
[2022-09-10] MEDS: Pantoprazole 40 MG TABCR PO (07:53)
[2022-09-10] MEDS: Insulin Aspart 300 UNITS/3 ML PEN SC ×4 (07:54→21:37)
[2022-09-10] MEDS: Multivitamin TAB 1 TAB PO (07:54)
[2022-09-10] MEDS: Insulin NPH-Human 300 UNITS/3 ML PEN 26 UNIT SC (07:57)
[2022-09-10] MEDS: Ondansetron 4 MG/2 ML VIAL IVP (08:50)
[2022-09-10] MEDS: Ibuprofen 600 MG TAB PO ×2 (10:45→22:51)
[2022-09-10 11:25] VITALS: BP 158/79; PULSE 72; TEMP 35.5; O2SAT 98
--- NOTE | 2022-09-10 12:55 | PGE_ITS ---
Date of Service Date of service: 09/10/22 Time of Service: 12:55 Assessment and Plan Assessment and plan (1) Osteomyelitis of third toe of right foot: Status: Acute Assessment and plan: Continue empiric vancomycin/cefepime initiated in the ED. Trend CRP. Podiatry consulted and plan for OR tomorrow. (2) Transaminitis: Status: Acute Assessment and plan: liver ultrasound acute hepatitis panel pending will follow liver function stop apap (3) Diabetic foot ulcer: Status: Acute Assessment and plan: As above wound care was consulted, see daily dressing change instructions. (4) PAD (peripheral artery disease): Status: Acute Assessment and plan: The patient states he was [place] [facility] and no procedures were yet recommended. 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 blood sugar dropped yesterday afternoon to 44 but due to poor po intake a lunch. his insulin doses were adjusted last night and now that he's eating appropriately he's running in the 200's. will give extra 9 units of nph and 10 of aspart and resume home nph doses. increase sliding scale to resistant. he had a CGM and follows closely. will make further adjustments as needed. A1C 8.1 manager psychiatry consultation. Qualifiers: Diabetes mellitus complication detail: with polyneuropathy Qualified Code(s): E10.42 - Type 1 diabetes mellitus with diabetic polyneuropathy (6) GERD (gastroesophageal reflux disease): Status: Chronic Assessment and plan: Continue PPI (7) DVT prophylaxis: Status: Acute Assessment and plan: SC heparin (8) Discharge planning issues: Status: Acute Assessment and plan: Full code no anticipated discharge needs. will be NPO after midnight for OR at 7:30 am tomorrow. discussed with DR Moreno Subjective Subjective Patient reports: no new complaints, tolerating liquids well, tolerating a regular diet, voiding w/o difficulty and afebrile; denies shortness of breath Exam Const General: cooperative and no acute distress Orientation: alert, awake and oriented x3 HENMT Head: normal to inspection Mouth: oral mucosae normal Eyes General: appearance normal, both eyes and all related structures Neck Neck: normal visual inspection Resp Effort & Inspection: normal respiratory effort and able to speak in complete sentences Cardio Rate: regular rate Skin Lesions: lesion noted and other (right foot, see wound care consult, bulky dressing intact, no red prox.) Neuro General: patient alert, patient awake and patient oriented x3 Motor: muscle tone normal throughout Psych Appearance: grossly normal Affect: normal affect Objective Last Vital Signs Temp 35.5 C L 09/10/22 11:25 Pulse 72 09/10/22 11:25 Resp 15 09/10/22 02:44 BP 158/79 H 09/10/22 11:25 Pulse Ox 98 09/10/22 11:25 Time Spent with Patient Time Spent with Patient: 25-34 minutes Time was spent: preparing to see the patient(eg.review tests), obtaining and/or reviewing separately otained hiistory, ordering medications,tests, procedures, referring, communicating with other health home care nurse and indepentently interpreting results
[2022-09-10 13:27] LABS: Absolute Basophil Count 0.07 10^3/uL (0.0-0.2); Absolute Eosinophil Count 0.24 10^3/uL (0.0-0.7); Absolute Lymphocyte Count 1.86 10^3/uL (1.2-3.4); Absolute Monocyte Count 1.14 10^3/uL (0.1-0.8); Absolute Neutrophil Count 6.83 10^3/uL (1.2-6.7); Basophils % 0.7; Eosinophils % 2.3; HCT 38.9 % (40.0-50.0); HGB 13.1 g/dL (13.5-17.5); Lymphocytes % 18.2; MCH 31.4 pg (27.0-33.0); MCHC 33.7 % (32.0-36.0); MCV 93 fL (80-95); MPV 10.2 fL (8.0-11.0); Monocytes % 11.1; Neutrophils % 66.7; Platelet Count 356 10^3/uL (130-400); RBC 4.17 10^6/uL (4.36-5.78); RDW 12.3 % (11.8-14.1); RDW-SD 42.5 fL; WBC 10.24 10^3/uL (4.4-10.8)
[2022-09-10 13:42] LABS: ALT 144 U/L (16-63); AST 165 U/L (15-37); Albumin 2.6 g/dL (3.4-5.0); Alkaline Phosphatase 612 U/L (46-116); Anion Gap 4.1 mmol/L (3-11); BUN 13 mg/dL (7-18); Bilirubin, Total 0.7 mg/dL (0.2-1.0); CO2 28.9 mmol/L (21.0-32.0); Calcium 8.9 mg/dL (8.5-10.1); Chloride 99 mmol/L (98-107); Estimated GFR 82.49 (mL/min/1.73m2); Glucose 285 mg/dL (74-106); Potassium 4.5 mmol/L (3.5-5.1); Sodium 132 mmol/L (136-145); Total Protein 7.2 g/dL (6.4-8.2)
[2022-09-10 14:19] VITALS: BP 169/84; PULSE 77; RESP 18; TEMP 35.7; O2SAT 99
--- NOTE | 2022-09-10 15:48 | PDOC.CMPRO ---
- If Service Date Differs Date of service: 09/10/22 Time of Service: 15:48 Care Management Progress Note S/O: Podiatry consult completed yesterday; please refer to notes for specific information. Chemo will be made NPO after midnight for planned surgery tomorrow, 09/11/22@0730. Hospitalist reports Chemo will likely need IV antibiotics, awaiting cultures and sensitivities to determine but medication, frequency and duration, CM continues to follow. A:Chemo is a 66 year old man admitted on 09/05/22 with osteomyelitis of the 3rd toe RLE P: Surgery planned for tomorrow, 09/11/22@0730. Per Cooler Conveyor Loader anticipate post surgical IV ABX, wound care, DM shoes and orthotics, activity limitations. As well, bone cultures will be obtained intra operatively to inform of IV ABX needs. CM continues to follow. Anticipate Chemo will be discharged home when medically cleared by provider. If retirement IV antibiotics are necessary, Chemo expressed a preference for coming to [facility]. He will follow up with podiatry, his PCP and plan of care as prescribed and will transport with family. CM will support Chemo and assess for discharge needs.
--- NOTE | 2022-09-10 17:05 | POCOE_ITS ---
Date of service: 09/10/22 Time of Service: 16:00 Assessment and Plan Assessment and plan (1) PAD (peripheral artery disease): Status: Acute (2) Osteomyelitis of third toe of right foot: Status: Acute Assessment and plan: The patient was evaluated and treated. MRI results were reviewed with him and today with his Mihaela, as well. Treatment options were reviewed, including IV Abx and/or surgical intervention (R 2/3 partial ray resections). The risks an d possible complications of all treatment options were reviewed and the patient wishes to proceed with surgery, in addition to IV ABx. Surgery scheduled for tomorrow 09/11/22 at 730. The risks of wound healing difficulty and delay were reviewed in detail with the patient and his , with his clinical signs of PAD (TBI on the R 0.43 but no intervention recommended by [facility] when evaluated 08/30, just over 1 week ago), and he expresses understanding and agreement. Other risks, including the risk for wounds elsewhere, non healing wounds, loss of more toes or foot were reviewed, as was the absolute need post- operatively for DM shoes and orthotics,meticulous wound care, and limited activity. Bone cultures will be obtained intra-operatively to better direct IV Abx mariah-operatively if warranted (proximal margins will be sent for pathological evaluation). Call with any questions or concerns, (3) Diabetic foot ulcer: Status: Acute (4) Osteomyelitis of second toe of right foot: History of Present Illness History of Present Illness Chief Complaint: R foot osteomyelitis Narrative: Pt is a 66 year old male evaluated at bedside, with his Mihaela, for R foot osteomyelitis. MRI yesterday confirms osteomyelitis and surgery scheduled for tomorrow. He denies any changes since yesterday [facility] All Active Problems (Updated 09/09/22 @ 12:27 by Elvira Dowd NP) Transaminitis (Acute) Discharge planning issues (Acute) GERD (gastroesophageal reflux disease) (Chronic) DVT prophylaxis (Acute) Diabetic foot ulcer (Acute) Infected blister of third toe of right foot (Acute) Osteomyelitis of third toe of right foot (Acute) PAD (peripheral artery disease) (Acute) Hyperglycemia due to type 1 diabetes mellitus (Acute) Other specified diabetes mellitus with other circulatory complications (Acute) Type 1 diabetes mellitus with foot ulcer (Acute) Peripheral vascular disease due to secondary diabetes (Acute) 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 [facility] Opthalmology Essential hypertension (Chronic 01/19/13) Primary open angle glaucoma (POAG) of both eyes (Chronic ~03/2015) S/P shunt surgery to reduce pressure OD Diabetic neuropathy (Acute 08/17/13) Medical History (Updated 09/09/22 @ 12:27 by Elvira Dowd NP) Glaucoma suspect of left eye (03/21/15) Nocturia more than twice per night Osteomyelitis of second toe of right foot SARS-CoV-2 positive (~02/13/22) Visit for suture removal Surgical History (Updated 03/18/22 @ 13:58 by Hien Keith NP) Amputated toe of right foot (~2020) S/P cataract extraction and insertion of intraocular lens (02/03/21) Status post amputation of toe of right foot (~2020) s/p amputation of distal phalanx of right 2nd toe d/t osteomyelitis Status post glaucoma surgery b/l stents Vasectomy Family History Mother Heart disease Myocardial infarction Stroke Father Diabetes Self No problems noted. 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 Skin Other: In addition to the full thickness ulceration at the plantar R foot, a new full thickness wound is noted at the proximal medial aspect of the R 3rd digit, with necrotic tissue, serosanguinous drainage, and surrounding erythema R 3rd digit and R forefoot. No lymphangitis currently but with the foot edematous. No purulence drainage noted upon compression of the area, with no crepitus or fluctuance, or clinical signs of deep infection Neuro Other: Protective sensation absent previously via [place] Fannie 5.07 monofilament. Negative tinel?s sign. Muscle strength 5/5. No other neurological deficits Extrem Other: R 2nd digital amputation. Lesser digital deformities. Significant gastroc equinus with a decreased ROM of the ankle Results Last Vital Signs Temp 96.3 F L 09/10/22 14:19 Pulse 77 09/10/22 14:19 Resp 18 09/10/22 14:19 BP 169/84 H 09/10/22 14:19 Pulse Ox 99 09/10/22 14:19 Labs 09/10/22 13:20 09/10/22 13:20 Labs: Laboratory Results - last 24 hr 09/10/22 09/10/22 13:20 13:20 WBC 10.24 RBC 4.17 L Hgb 13.1 L Hct 38.9 L MCV 93 MCH 31.4 MCHC 33.7 RDW 12.3 Plt Count 356 MPV 10.2 Immature Gran % 1.0 Neutrophils % 66.7 Lymphocytes % 18.2 Monocytes % 11.1 Eosinophils % 2.3 Basophils % 0.7 Nucleated RBC % 0.0 Absolute Neutrophils 6.83 H Absolute Lymphocytes 1.86 Absolute Monocytes 1.14 H Absolute Eosinophils 0.24 Absolute Basophils 0.07 Sodium 132 L Potassium 4.5 Chloride 99 Carbon Dioxide 28.9 Anion Gap 4.1 BUN 13 Creatinine 1.0 Est GFR (CKD-EPI 2020) 82.49 Glucose 285 H Calcium 8.9 Total Bilirubin 0.7 AST 165 H ALT 144 H Alkaline Phosphatase 612 H Total Protein 7.2 Albumin 2.6 L
[2022-09-10 19:46] VITALS: BP 177/87; PULSE 73; RESP 18; TEMP 36.4; O2SAT 97
[2022-09-10] MEDS: Insulin NPH-Human 300 UNITS/3 ML PEN 36 UNIT SC (21:34)
[2022-09-10] MEDS: Melatonin 3 MG TAB PO (21:35)
[2022-09-10 23:03] VITALS: BP 144/76; PULSE 76; RESP 16; TEMP 36.2; O2SAT 98
[2022-09-11] VITALS (9 sets, daily range): BP systolic 105–182; BP diastolic 62–91; PULSE 71–81; RESP 15–18; TEMP 36–36.9; O2SAT 97–99; BMI 27.8
[2022-09-11] MEDS: CEFEPIME 2 GM in Normal Saline 100 ML IVPB ×3 (05:51→21:11)
--- NOTE | 2022-09-11 07:02 | W.ANESPRE ---
General Info Date of Service Date Performed: 09/11/22 Height: 5 ft 11 in Weight: 90.718 kg Body Mass Index (BMI): 27.8 Surgical Procedure: Operation Date: 09/11/22 07:40 Proposed Procedure Side Surgeon p Toe Amputation, 2nd & 3rd Partial Ray Resections Right Jyothi RaglandJOELLE Meds Allergies and Home Medications Allergies Allergy/AdvReac Type Severity Reaction Status Date / Time codeine Allergy Mild ITCHING Verified 09/05/22 16:53 lisinopril AdvReac Unknown HEADACHE Verified 09/05/22 16:53 SEXUAL DYS moexipril AdvReac Unknown FELT FUNNY Verified 09/05/22 16:53 amoxicillin potassium Allergy Severe Uncoded 09/05/22 16:53 Home Medication Medication Instructions Recorded aspirin 81 mg tablet,delayed 81 mg PO DAILY 09/21/12 release (Ecotrin Low Strength) multivitamin (Daily Vitamin tablet) 1 ea PO DAILY 09/22/12 ammonium lactate 5 % lotion 1 applic topical BID PRN diabetic 10/17/21 (Lac-Hydrin Five) foot care #226 grams insulin syringe-needle U-100 1 mL #300 SYRGS 10/17/21 26 x 1/2 (BD Insulin Syringe) mupirocin 2 % topical ointment 1 applic topical TID #15 grams 11/06/21 blood-glucose meter,continuous #1 ea 03/18/22 (Dexcom G6 [employer] Char[employer] Burner) blood-glucose sensor (Dexcom G6 #3 ea 03/18/22 Sensor device) blood-glucose transmitter (Dexcom #1 ea 03/18/22 G6 Transmitter device) insulin NPH isoph U-100 human 100 See Rx Instructions subcut 03/18/22 unit/mL subcutaneous suspension .COMPLEX #6 vials (Novolin N NPH U-100 Insulin isophane) insulin regular human 100 unit/mL See Rx Instructions subcut 03/18/22 injection solution (Novolin R .COMPLEX #6 vials Regular U-100 Insulin) losartan 100 mg tablet 100 mg PO DAILY #90 tabs 03/18/22 polyethylene glycol 3350 17 17 g PO DAILY PRN constipation 03/18/22 gram/dose oral powder (Miralax) #1,700 grams levofloxacin 500 mg tablet 500 mg PO DAILY 14 days #14 tabs 08/28/22 levofloxacin 500 mg tablet 500 mg PO DAILY R foot ulcer 14 08/28/22 days #14 tabs Current Visit Medications: Current Medications Generic Name Dose Route Start Last Admin Trade Name Freq PRN Reason Stop Dose Admin Al Hydrox/Mg Hydrox/Simethicone 30 ml 09/05/22 19:14 09/10/22 06:22 Mylanta Suspension 30 Ml Cup PO 30 ml Q2H PRN PRN Administration Ammonium Lactate 0 gm 09/06/22 07:30 Lachydrin 12% Lotion 225 Gm Btl TP BID PRN PRN diabetic foot care Aspirin 81 mg 09/06/22 08:30 09/10/22 07:53 Aspirin E.C. 81 Mg Tabec PO 81 mg DAILY JOO Administration Dextrose 0 gm 09/05/22 19:21 Glucose Oral Gel 15 Gm/37.5 Gm Tube PO DIRECTED PRN Dextrose/Water 0 gm 09/05/22 19:21 Dextrose 50%-Water 25 Gm/50 Ml Syr IVP DIRECTED PRN Dimethicone/Zinc Oxide 0 gm 09/05/22 19:14 Alfonso Protect Cream 142 Gm Tube TP PRN PRN Docusate Sodium 100 mg 09/05/22 19:14 Docusate Sodium 100 Mg Cap PO TID PRN PRN Heparin Sodium (Porcine) 5,000 units 09/05/22 22:00 09/10/22 21:37 Heparin 5,000 Units/Ml Vial SC 5,000 units Q8H JOO Administration Cefepime HCl 2 gm/ Sodium 100 mls @ 200 mls/hr 09/06/22 06:00 09/11/22 05:51 Chloride IVPB 200 mls/hr Q8H JOO Administration Vancomycin/PEG/NADA/Lysine/Water 1.25 gm in 250 mls @ 166.667 mls/hr 09/07/22 16:00 09/10/22 23:33 Vancocin Injection IV 166.667 mls/hr Q10H [facility] Administration Protocol IV Miscellaneous Supplies 1 each 09/05/22 17:30 Iv Access IV DIRECTED [facility] Ibuprofen 600 mg 09/06/22 14:33 09/10/22 22:51 Ibuprofen 600 Mg Tab PO 600 mg QID PRN PRN Administration Insulin Aspart 0 units 09/05/22 22:00 09/10/22 21:37 Insulin Aspart 300 Units/3 Ml Pen SC 3 unit 0800,1200,1700,2200 [facility] Administration Protocol Insulin Human NPH 26 unit 09/09/22 08:30 09/10/22 07:57 Insulin Nph-Human 300 Units/3 Ml Pen SC 26 units QAM JOO Administration Insulin Human NPH 36 unit 09/08/22 20:00 09/10/22 21:34 Insulin Nph-Human 300 Units/3 Ml Pen SC 36 units QPM JOO Administration Losartan Potassium 100 mg 09/06/22 08:30 09/10/22 07:52 Losartan 50 Mg Tab PO 100 mg DAILY JOO Administration Magnesium Hydroxide 30 ml 09/05/22 19:14 Milk Of Magnesia 30 Ml Cup PO DAILY PRN PRN Melatonin 3 mg 09/06/22 22:00 09/10/22 21:35 Melatonin 3 Mg Tab PO 3 mg HS [facility] Administration Multivitamins 1 tab 09/06/22 08:30 09/10/22 07:54 Multivitamin Tab PO 1 tab DAILY [facility] Administration Mupirocin 0 gm 09/05/22 20:00 09/10/22 21:34 Mupirocin 2% Oint. 22 Gm Tube TP 1 applic TID [facility] Administration Ondansetron HCl 4 mg 09/06/22 00:14 09/10/22 08:50 Ondansetron 4 Mg/2 Ml Vial IVP 4 mg Q6H PRN PRN Administration Oxycodone HCl 5 mg 09/09/22 17:03 09/09/22 20:04 Oxycodone 5 Mg Tab PO 5 mg Q6H PRN PRN Administration Pantoprazole Sodium 40 mg 09/06/22 07:30 09/10/22 07:53 Pantoprazole 40 Mg Tabcr PO 40 mg DAILY@0730 [facility] Administration Polyethylene Glycol 17 gm 09/06/22 07:30 Polyethylene Glycol 3350 17 Gm Packet PO DAILY PRN PRN constipation Sodium Chloride 0 ml 09/05/22 17:28 09/10/22 21:36 Normal Saline Flush 10 Ml Syr IVP 10 ml PRN PRN Administration PFS Active Problems Active Problems: Problem Status Onset Code Transaminitis R74.01 Discharge planning issues Z02.9 GERD (gastroesophageal reflux disease) K21.9 DVT prophylaxis Z29.9 Diabetic foot ulcer E11.621, L97.509 Infected blister of third toe of right foot S90.424A, L08.9 Osteomyelitis of third toe of right foot M86.9 PAD (peripheral artery disease) I73.9 Hyperglycemia due to type 1 diabetes mellitus E10.65 Other specified diabetes mellitus with other circulatory complications E13.59 Type 1 diabetes mellitus with foot ulcer E10.621, L97.509 Peripheral vascular disease due to secondary diabetes E13.51 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 E10.49 Type 1 diabetes mellitus with ophthalmic manifestation 12/23/12 E10.39 Bilateral diabetic retinopathy 09/10/11 E11.319 Essential hypertension 01/19/13 I10 Primary open angle glaucoma (POAG) of both eyes ~03/2015 H40.1130 Diabetic neuropathy 08/17/13 E11.40 Medical History Medical History (Updated 09/09/22 @ 12:27 by Elvira Dowd NP) Glaucoma suspect of left eye (03/21/15) Nocturia more than twice per night Osteomyelitis of second toe of right foot SARS-CoV-2 positive (~02/13/22) Visit for suture removal Surgical History Surgical History (Updated 03/18/22 @ 13:58 by Hien Keith NP) Amputated toe of right foot (~2020) S/P cataract extraction and insertion of intraocular lens (02/03/21) Status post amputation of toe of right foot (~2020) s/p amputation of distal phalanx of right 2nd toe d/t osteomyelitis Status post glaucoma surgery b/l stents Vasectomy Tobacco Smoking/Tobacco Use Status: Former Tobacco Use Alcohol Alcohol Intake: current Alcohol intake frequency: holidays/special occasions only Alcohol type: beer Substance Use Substance use: Never Substance use type: does not use Vital Signs and Lab Results Vital Signs Most Recent Vital Signs in EMR: Most Recent Vital Signs Temp Pulse Resp BP Pulse Ox 36.0 C L 74 16 154/87 H 97 09/11/22 02:20 09/11/22 02:20 09/11/22 02:20 09/11/22 02:20 09/11/22 02:20 Point of Care Results Point of Care Results: Finger Stick Blood Glucose 162 09/10/22 21:37 Lab Results 09/10/22 13:20 09/10/22 13:20 Blood Type / Crossmatch: No Data to Display Complete Blood Count: White Blood Count 10.24 10^3/uL (4.4-10.8) 09/10/22 13:20 Red Blood Count 4.17 10^6/uL (4.36-5.78) L 09/10/22 13:20 Hemoglobin 13.1 g/dL (13.5-17.5) L 09/10/22 13:20 Hematocrit 38.9 % (40.0-50.0) L 09/10/22 13:20 Platelet Count 356 10^3/uL (130-400) 09/10/22 13:20 Venous Blood Lactate 1.3 mmol/L (0.6-1.4) 09/06/22 14:50 Complete Metabolic Panel: Sodium 132 mmol/L (136-145) L 09/10/22 13:20 Potassium 4.5 mmol/L (3.5-5.1) 09/10/22 13:20 Chloride 99 mmol/L (98-107) 09/10/22 13:20 Carbon Dioxide 28.9 mmol/L (21.0-32.0) 09/10/22 13:20 BUN 13 mg/dL (7-18) 09/10/22 13:20 Creatinine 1.0 mg/dL (0.70-1.30) 09/10/22 13:20 Est GFR (CKD-EPI 2020) 82.49 (mL/min/1.73m2) 09/10/22 13:20 Magnesium 1.7 mg/dL (1.8-2.4) L 09/06/22 06:30 Calcium 8.9 mg/dL (8.5-10.1) 09/10/22 13:20 Albumin 2.6 g/dL (3.4-5.0) L 09/10/22 13:20 Glucose 285 mg/dL (74-106) H 09/10/22 13:20 Hemoglobin A1c 8.1 % (<5.7) H 09/06/22 06:30 C-Reactive Protein 2.10 mg/dL (0.0-0.3) H 09/09/22 06:30 Liver Function Panel: Alanine Aminotransferase (ALT/SGPT) 144 U/L (16-63) H 09/10/22 13:20 Aspartate Amino Transf (AST/SGOT) 165 U/L (15-37) H 09/10/22 13:20 Coagulation Panel: No Data to Display Cardiac Panel: No Data to Display Arterial Blood Gas: No Data to Display Venous Blood Gas: No Data to Display Pancreas Panel: No Data to Display Thyroid Panel: No Data to Display Infectious Disease: Coronavirus (COVID-19)(PCR) Negative (Negative) 09/05/22 20:17 Coronavirus 2019 Source Nasal/Nares 09/05/22 20:17 Hepatitis B Surface Antigen Pending 09/10/22 05:45 Hepatitis C Antibody Pending 09/10/22 05:45 Blood Cultures: No Data to Display Toxicology Panel: No Data to Display Anesthesia Assessment and Plan Anesthesia History Personal History: No History of Anesthesia Complications Family History: No Family History of Anesthesia Complications Exercise Tolerance Exercise Tolerance: Metabolic Equivalents>4 Pertinent Negatives Pertinent Negatives: No Major Cardiovascular Symptoms or Complaints and No Major Pulmonary Symptoms or Complaints Cardiac & Pulmonary Exam Cardiac Exam: Normal S1/S2 Heart Sounds Pulmonary Exam: Clear Bilateral Breath Sounds Implantable Cardiac Device Does patient have a Pacemaker or an ICD?: No Airway Exam Known Difficult Airway: No Mallampati Class: 2 Mouth Opening: Normal (> 3cm) Thyromental Distance: Greater than 3 cm Neck Range of Motion: Full ROM Neck Circumference: Normal Teeth Condition: Edentulous ASA Classification ASA Score: ASA 3 Emergency Case?: No NPO Status NPO Status: NPO Clears >2 hours, Solids >8 hours Anesthesia Plan Resuscitation Status: Full Code Anesthesia Technique: MAC Anesthesia Airway Planned: Natural Airway Monitors Used: Standard Monitors
[2022-09-11] MEDS: Lactated Ringers 1,000 ML 80 ML IV (07:31)
[2022-09-11] MEDS: Bupivacaine 0.5% Pres-Free 30 ML VIAL (07:49)
--- NOTE | 2022-09-11 08:05 | BONE_PTH ---
PATIENT: Tyshawn Fall LOC: U#:[id number] AGE/SX: 67/M ROOM: 226 RE09/05/[address]: Dominga Bass : 1955 BED: A DIS: 09/17/2022 SPEC #: [id number] RECD: 09/11/22 12:47 STATUS: JOSE MARIA REJoseph #: [id number] ESSIE: 09/11/22 08:[address]: Dominga Bass DEPT: Surgical Specimen RECD BY: Elis Sharp ENTERED: 09/11/22 12:48 SP TYPE: Bone OTHR DR: Angelina Pimentel Sabina Esther Barnes Jessica MacLeod, APRN Tissues: 1 - BONE BX/CURRETTE NOT PATH FRACTURE 2 - BONE BX/CURRETTE NOT PATH FRACTURE Procedures: GROSS AND MICRO LEVEL 3 DECALCIFICATION Comments: [id number]
--- NOTE | 2022-09-11 09:12 | W.PM.OP ---
Date of service: 09/11/22 Time of Service: 07:30 Operative Note Operative Note DATE OF PROCEDURE: 09/11/22 PRE-OP DIAGNOSIS: R foot infection, R foot osteomyelitis POST-OP DIAGNOSIS: same R foot I&D, R 2nd partial ray resection, R 3rd partial ray resection, Bone debridement and biopsy SURGEON: Jyothi Ragland ANESTHESIA TYPE: Local By Surgeon and MAC Refer to Anesthesia Record ESTIMATED BLOOD LOSS: 30 PATHOLOGY: other (R 2nd metatarsal and R 3rd metatarsal, assess proximal margin for osteomyelitis. R 2nd toe (remaining) bone also sent for microbiological evaluation to direct IV Abx if warranted) COMPLICATIONS: None Patient was transported to: PACU Indications: R foot infection, R foot osteomyelitis Findings: Purulence noted deep in the R midfoot plantarly, and as such, a decision was made to not close the wound. Pt will require a 2nd surgery, delayed closure with further debridement, if not Friday Procedure Description: The patient was brought into the operating room and placed on the operating table in the supine position. After induction with general anesthesia, the right foot was anesthetized using 20 cc of 0.5% Marcaine plain. The foot was scrubbed, prepped, draped using the usual usual aseptic manner and using Betadine scrub. Attention was then directed to the right foot where immediate identification of the increased purulence and fluctuance was noted, particularly with compression and palpation of the patient's right arch plantarly. Upon compression of this area, a significant amount of purulent drainage was admitted from the plantar foot wound in the area of the third digit wound. Attention was directed to the dorsal aspect of the patient's right foot where a linear longitudinal incision was made about the dorsal right second intermetatarsal space. The incision was deepened through skin and subcutaneous tissue, identification of the second and third metatarsals was achieved. With the incision being deepened to the capsular structures at the area of the metatarsal heads, a large abscess was immediately identified at the 2rd intermetarsal space plantarly. Aerobic and anaerobic cultures were obtained. Care was then taken to disarticulate the right third digit as well as what remained of the right second digit, the residual proximal phalanx. Considering the necrotic grayish discoloration present, and nonviable appearance of the remainder of the right second digit, this was sent for microbiological evaluation and bone cultures. Attention was then directed to the dorsal aspect of the right second and thirdmetatarsals. A sagittal bone saw was used to resect the right second metatarsal head. The viability of the bone at the initial resection was noted to be soft and with questionable integrity and therefore more proximal resection was performed, with approximately 1/2 of the metatarsal being resecting. The proximal bone resection of right second metatarsal was sent for pathological evaluation, with specific instructions to assess the proximal margin for osteomyelitis. Attention was then directed to the right third ray where the right third metatarsal head was resected, again using a sagittal saw, and sent for pathological evaluation, with assessment of the proximal margin for osteomyelitis. The viability of the third ray was better than that of the second. Attempts were made to resect to viable proximal margins. The wound was irrigated with 3 L of sterile normal saline. It must be noted that upon compression the patient's arch, purulence was admitted prior to irrigation. For this reason, the decision was made to not primarily closed the wound today but instead place retention stitches, with the intention for delayed primary closure in 2 to 5 days, depending on the presence or absence of residual purulence. As noted the wound was irrigated with copious amounts of sterile normal saline, and to summarize the right second and third metatarsals were sent for pathological evaluation, specifically the proximal margins, the right second digit bone was sent for microbiological evaluation to direct IV antibiotics if warranted and both aerobic and anaerobic cultures were obtained of the purulence emitted from the patient's foot. Retention sutures were placed about the patient's incision site. Specifically 3-0 nylon was utilized and the skin edges were reapproximated and coapted. A roby drain was placed to allow for continued drainage about the plantar foot wound. The wound was dressed with Xeroform, dry sterile dressing, and well-padded Brett wrap and the patient was transferred to the PACU with vital signs stable and vascular status intact. Following a period of postoperative monitoring he will be discharged to the floor. The dressing is to be left intact and changed only by myself. He is to ambulate with assistance for transferring to the bathroom and shower only and with use of the postop Darco shoe at all times. A second surgery will be scheduled, possibly to if not up to 5 days, depending on the presence or absence of parents postoperatively. He is to continue with medical management and IV antibiotics in the meantime.
[2022-09-11] MEDS: oxyCODONE 5 MG TAB PO (09:26)
--- NOTE | 2022-09-11 10:00 | W.ANESPOSTOP ---
Postoperative Evaluation Date, Time and Location Date Performed: 09/11/22 Time Performed: 08:45 Patient Location: Med/Surg Vital Signs Most Recent Imported Vital Signs: Most Recent Vital Signs Temp Pulse Resp BP Pulse Ox 36.4 C L 72 15 182/91 H 98 09/11/22 09:35 09/11/22 09:35 09/11/22 09:35 09/11/22 09:35 09/11/22 09:35 Pain Score Most Recent Pain Score: Most Recent Pain Score Pain Level [Right Foot] 6 09/10/22 08:30 Pain Level [Generalized] 0 09/06/22 16:41 Pain Level 7 09/11/22 09:26 Assessment Mental Status: Awake (Alert & Oriented to Patient Baseline) Airway and Respiratory Function: Patent airway with normal (patient baseline) respiratory exam Cardiovascular Function: Hemodynamically Stable Hydration Status: Adequately Hydrated Nausea & Vomiting: No Nausea or Vomiting Pain: Pt. Denies Any Pain Peripheral Nerve Block: Regional nerve block not resolved at time of post operative discharge (Per Surgeon)
[2022-09-11] MEDS: Multivitamin TAB 1 TAB PO (10:24)
[2022-09-11] MEDS: Docusate Sodium 100 MG CAP PO (10:24)
[2022-09-11] MEDS: Aspirin E.C. 81 MG TABEC PO (10:24)
[2022-09-11] MEDS: Losartan 50 MG TAB 100 MG PO (10:24)
[2022-09-11] MEDS: Pantoprazole 40 MG TABCR PO (10:25)
[2022-09-11] MEDS: Insulin NPH-Human 300 UNITS/3 ML PEN 26 UNIT SC (10:32)
--- NOTE | 2022-09-11 10:46 | NUR.NOTE ---
Nursing Note: @[id number] spoke with pharmacy for vanc trough. pharmacist states she will place lab order and reschedule antibiotic
[2022-09-11 11:41] LABS: Hepatitis A Antibody IgM Negative (Negative); Hepatitis B Core Antibody Positive (Negative); Hepatitis B surface Ag Negative (Negative); Hepatitis C Ab w Rflx HCV PCR Reactive (Negative)
[2022-09-11 12:00] LABS: Vancomycin, Trough 18.3 ug/mL (10.0-20.0)
--- NOTE | 2022-09-11 12:31 | NUR.NOTE ---
Nursing Note:@ [phone] notified by charge nurse that would like pt to remain in the bed for the next couple days until wound heals slightly. dr mitchell states that she will round to explain more to pt
--- NOTE | 2022-09-11 12:50 | W.PM.PROGNOT ---
Date of Service Date of service: 09/11/22 Time of Service: 12:50 Assessment and Plan Assessment and plan (1) Osteomyelitis of third toe of right foot: Status: Acute Assessment and plan: OR today with Dr Ragland (2) Transaminitis: Status: Acute Assessment and plan: liver ultrasound acute hepatitis panel pending will follow liver function stop apap (3) Diabetic foot ulcer: Status: Acute Assessment and plan: OR today (4) PAD (peripheral artery disease): Status: Acute Assessment and plan: The patient states he was evaluated at [facility] and no procedures were yet recommended. 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 will make further adjustments as needed. A1C 8.1 perioperative educator consultation. Qualifiers: Diabetes mellitus complication detail: with polyneuropathy Qualified Code(s): E10.42 - Type 1 diabetes mellitus with diabetic polyneuropathy (6) GERD (gastroesophageal reflux disease): Status: Chronic Assessment and plan: Continue PPI (7) DVT prophylaxis: Status: Acute Assessment and plan: SC heparin (8) Discharge planning issues: Status: Acute Assessment and plan: Full code no anticipated discharge needs. will be NPO after midnight for OR at 7:30 am tomorrow. discussed with Dr Moreno Subjective Subjective Patient reports: no new complaints, pain is less, tolerating a regular diet, bowel movement and afebrile; denies diarrhea, vomiting or shortness of breath Interval history since last seen: Tyshawn is comfortable, sitting semi-fowlers in bed, wound dsg in place, clean and dry Exam Const General: cooperative and no acute distress Orientation: alert, awake and oriented x3 HENMT Head: normal to inspection Mouth: oral mucosae normal Eyes General: appearance normal, both eyes and all related structures Neck Neck: normal visual inspection Resp Effort & Inspection: normal respiratory effort and able to speak in complete sentences Cardio Rate: regular rate Skin Lesions: lesion noted and other (right foot, see wound care consult, bulky dressing intact, no red prox.) Neuro General: patient alert, patient awake and patient oriented x3 Motor: muscle tone normal throughout Psych Appearance: grossly normal Affect: normal affect Objective Last Vital Signs Temp 36 C L 09/11/22 12:31 Pulse 72 09/11/22 12:31 Resp 16 09/11/22 12:31 BP 115/68 03/08/23 12:31 Pulse Ox 98 09/11/22 12:31 Laboratory Results - last 24 hr 09/10/22 09/10/22 09/11/22 13:20 13:20 11:05 WBC 10.24 RBC 4.17 L Hgb 13.1 L Hct 38.9 L MCV 93 MCH 31.4 MCHC 33.7 RDW 12.3 Plt Count 356 MPV 10.2 Immature Gran % 1.0 Neutrophils % 66.7 Lymphocytes % 18.2 Monocytes % 11.1 Eosinophils % 2.3 Basophils % 0.7 Nucleated RBC % 0.0 Absolute Neutrophils 6.83 H Absolute Lymphocytes 1.86 Absolute Monocytes 1.14 H Absolute Eosinophils 0.24 Absolute Basophils 0.07 Sodium 132 L Potassium 4.5 Chloride 99 Carbon Dioxide 28.9 Anion Gap 4.1 BUN 13 Creatinine 1.0 Est GFR (CKD-EPI 2020) 82.49 Glucose 285 H Calcium 8.9 Total Bilirubin 0.7 AST 165 H ALT 144 H Alkaline Phosphatase 612 H Total Protein 7.2 Albumin 2.6 L Vancomycin Trough 18.3 Time Spent with Patient Time Spent with Patient: 25-34 minutes Time was spent: preparing to see the patient(eg.review tests), obtaining and/or reviewing separately otained hiistory, ordering medications,tests, procedures, referring, communicating with other health career technical education teacher, indepentently interpreting results, counseling the patient and care coordination
[2022-09-11] MEDS: VANCOMYCIN/WATER (PEG) 1.25 GM/250 ML BAG IV (13:24)
[2022-09-11] MEDS: Insulin Aspart 300 UNITS/3 ML PEN SC ×3 (13:41→21:10)
--- NOTE | 2022-09-11 14:37 | PDOC.CMPRO ---
- If Service Date Differs Date of service: 09/11/22 Time of Service: 14:37 Care Management Progress Note S/O: Tyshawn continues to be closely monitored post surgically. Hospitalist reports Chemo will likely need IV antibiotics, awaiting cultures and sensitivities to determine but medication, frequency and duration, CM continues to follow. A:Chemo is a 66 year old man admitted on 09/05/22 with osteomyelitis of the 3rd toe RLE P: Surgery completed 09/11/22@0730. Per Administrative Assistant anticipate post surgical IV ABX, wound care, DM shoes and orthotics, activity limitations. As well, bone cultures will be obtained intra operatively to inform of IV ABX needs. CM continues to follow. Anticipate Chemo will be discharged home when medically cleared by provider. 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 He will follow up with podiatry, his PCP and plan of care as prescribed and will transport with family. CM will support Chemo and assess for discharge needs.
[2022-09-11] MEDS: Ibuprofen 600 MG TAB PO (15:44)
[2022-09-11] MEDS: Insulin NPH-Human 300 UNITS/3 ML PEN 36 UNIT SC (19:46)
[2022-09-11] MEDS: Normal Saline Flush 10 ML SYR IVP (21:11)
[2022-09-11] MEDS: Melatonin 3 MG TAB PO (21:11)
[2022-09-12] MEDS: Docusate Sodium 100 MG CAP PO
[2022-09-12] MEDS: VANCOMYCIN/WATER (PEG) 1.25 GM/250 ML BAG IV ×2 (01:14→15:37)
[2022-09-12] MEDS: Normal Saline Flush 10 ML SYR IVP ×5 (01:14→22:19)
[2022-09-12 03:42] VITALS: BP 144/71; PULSE 72; RESP 17; TEMP 36.5; O2SAT 97
[2022-09-12] MEDS: Ibuprofen 600 MG TAB PO ×2 (03:46→22:17)
[2022-09-12] MEDS: CEFEPIME 2 GM in Normal Saline 100 ML IVPB ×3 (05:39→22:16)
[2022-09-12 06:39] LABS: Abs Immature Grans 0.13 10^3/uL (0.0-0.06); Absolute Monocyte Count 1.31 10^3/uL (0.1-0.8); Absolute Neutrophil Count 8.28 10^3/uL (1.2-6.7); Basophils % 0.6; Eosinophils % 2.8; HCT 38.5 % (40.0-50.0); Immature Grans % 1.1; Lymphocytes % 17.8; MCH 31.6 pg (27.0-33.0); MCHC 33.8 % (32.0-36.0); MCV 94 fL (80-95); MPV 10.9 fL (8.0-11.0); Monocytes % 10.6; Neutrophils % 67.1; Platelet Count 386 10^3/uL (130-400); RBC 4.11 10^6/uL (4.36-5.78); RDW 12.5 % (11.8-14.1); RDW-SD 43.4 fL; WBC 12.34 10^3/uL (4.4-10.8)
[2022-09-12 07:01] LABS: Absolute Basophil Count 0.07 10^3/uL (0.0-0.2); Absolute Eosinophil Count 0.35 10^3/uL (0.0-0.7); Anion Gap 8.1 mmol/L (3-11); BUN 16 mg/dL (7-18); C-Reactive Protein 1.21 mg/dL (0.0-0.3); CO2 27.9 mmol/L (21.0-32.0); CREATININE 0.9 mg/dL (0.70-1.30); Calcium 9.1 mg/dL (8.5-10.1); Chloride 101 mmol/L (98-107); Estimated GFR 93.61 (mL/min/1.73m2); Glucose 146 mg/dL (74-106); Magnesium 2.1 mg/dL (1.8-2.4); Potassium 4.5 mmol/L (3.5-5.1); Sodium 137 mmol/L (136-145)
[2022-09-12 07:48] VITALS: BP 117/67; PULSE 71; RESP 16; TEMP 36.4; O2SAT 97
[2022-09-12] MEDS: Pantoprazole 40 MG TABCR PO (09:09)
[2022-09-12] MEDS: Aspirin E.C. 81 MG TABEC PO (09:10)
[2022-09-12] MEDS: Multivitamin TAB 1 TAB PO (09:10)
[2022-09-12] MEDS: Losartan 50 MG TAB 100 MG PO (09:10)
[2022-09-12] MEDS: Insulin NPH-Human 300 UNITS/3 ML PEN 26 UNIT SC (09:10)
--- NOTE | 2022-09-12 10:54 | PDOC.CMPRO ---
- If Service Date Differs Date of service: 09/12/22 Time of Service: 10:54 Care Management Progress Note S/O: Chemo was sitting up in bed when CM met with him. He expressed concerns about his current blood sugar which was over 200. He he informed CM that he takes more insulin at home and is more active and that his blood sugar is better controlled. He did not understand the sliding scale and parameters used at [facility] and when it was explained to him by his nurse, the issues was resolved. CM met with him again later in the afternoon and he was in much better spirits. He stated that he had a better understanding of our process for glucose management and feels much better about the situation. Chemo has been told that he will need to have another surgical procedure. He expected it to be tomorrow but just learned that it will be on Friday. A:Chemo is a 66 year old man admitted on 09/05/22 with osteomyelitis of the 3rd toe RLE P: Anticipate Chemo will be discharged home when medically cleared by provider. 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 He will follow up with podiatry, his PCP and plan of care as prescribed and will transport with family. CM will support Chemo and assess for discharge needs.
[2022-09-12] MEDS: Insulin Aspart 300 UNITS/3 ML PEN SC ×3 (12:25→22:16)
[2022-09-12 13:59] VITALS: BP 119/61; PULSE 75; RESP 16; TEMP 36.6; O2SAT 96
--- NOTE | 2022-09-12 19:28 | W.PM.PROGNOT ---
Date of Service Date of service: 09/12/22 Time of Service: 11:00 Assessment and Plan Assessment and plan (1) Osteomyelitis of third toe of right foot: Status: Acute Assessment and plan: See Dr Ragland note (2) Transaminitis: Status: Acute Assessment and plan: liver ultrasound acute hepatitis panel Positive hep B core total AB and reactive hepatitis C antibody will follow liver function stop apap refered to GI (3) Diabetic foot ulcer: Status: Acute Assessment and plan: see above (4) PAD (peripheral artery disease): Status: Acute Assessment and plan: The patient [place] [facility] [place] yet [place]. 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 Qualifiers: Diabetes mellitus complication detail: with polyneuropathy Qualified Code(s): E10.42 - Type 1 diabetes mellitus with diabetic polyneuropathy (6) GERD (gastroesophageal reflux disease): Status: Chronic Assessment and plan: Continue PPI (7) DVT prophylaxis: Status: Acute Assessment and plan: SC heparin (8) Discharge planning issues: Status: Acute Assessment and plan: Full code will be discharged to home when medically stable no anticipated discharge needs. discussed with Dr Delgadillo Subjective Subjective Patient reports: no new complaints, feels better, pain is less, tolerating a regular diet, voiding w/o difficulty, bowel movement and afebrile; denies nausea Interval history since last seen: States he is feeling well, continues to have high glucose and is concerned that he is not receiving enough insulin. Exam Const General: cooperative and no acute distress Orientation: alert, awake and oriented x3 HENSC Head: normal to inspection Mouth: oral mucosae normal Eyes General: appearance normal, both eyes and all related structures Neck Neck: normal visual inspection Resp Effort & Inspection: normal respiratory effort and able to speak in complete sentences Cardio Rate: regular rate Skin Lesions: lesion noted and other (right foot, see wound care consult, bulky dressing intact, no red prox.) Neuro General: patient alert, patient awake and patient oriented x3 Motor: muscle tone normal throughout Psych Appearance: grossly normal Affect: normal affect Objective Last Vital Signs Temp 36.6 C 09/12/22 13:59 Pulse 75 09/12/22 13:59 Resp 16 09/12/22 13:59 BP 119/61 09/12/22 13:59 Pulse Ox 96 09/12/22 13:59 Laboratory Results - last 24 hr 09/12/22 09/12/22 05:40 05:40 WBC 12.34 H RBC 4.11 L Hgb 13.0 L Hct 38.5 L MCV 94 MCH 31.6 MCHC 33.8 RDW 12.5 Plt Count 386 MPV 10.9 Immature Gran % 1.1 Neutrophils % 67.1 Lymphocytes % 17.8 Monocytes % 10.6 Eosinophils % 2.8 Basophils % 0.6 Nucleated RBC % 0.0 Absolute Neutrophils 8.28 H Absolute Lymphocytes 2.20 Absolute Monocytes 1.31 H Absolute Eosinophils 0.35 Absolute Basophils 0.07 Sodium 137 Potassium 4.5 Chloride 101 Carbon Dioxide 27.9 Anion Gap 8.1 BUN 16 Creatinine 0.9 Est GFR (CKD-EPI 2020) 93.61 Glucose 146 H Calcium 9.1 Magnesium 2.1 C-Reactive Protein 1.21 H Time Spent with Patient Time Spent with Patient: 25-34 minutes Time was spent: preparing to see the patient(eg.review tests), obtaining and/or reviewing separately otained hiistory, ordering medications,tests, procedures, referring, communicating with other health residential care officer, indepentently interpreting results, counseling the patient and care coordination
[2022-09-12 20:16] VITALS: BP 144/76; PULSE 74; RESP 20; TEMP 36.7; O2SAT 96
[2022-09-12] MEDS: Insulin NPH-Human 300 UNITS/3 ML PEN 36 UNIT SC (20:23)
[2022-09-12] MEDS: Melatonin 3 MG TAB PO (22:19)
[2022-09-12 23:46] VITALS: BP 129/68; PULSE 72; RESP 18; TEMP 36.9; O2SAT 95
[2022-09-13] MEDS: VANCOMYCIN/WATER (PEG) 1.25 GM/250 ML BAG IV ×2 (02:00→13:58)
[2022-09-13 03:35] VITALS: BP 153/74; PULSE 68; RESP 18; TEMP 36.2; O2SAT 94
--- NOTE | 2022-09-13 05:21 | POCOE_ITS ---
Date of service: 09/12/22 Time of Service: 16:00 Assessment and Plan Assessment and plan (1) Osteomyelitis of third toe of right foot: Status: Acute Assessment and plan: The patient was evaluated and treated at bedside. The dressing was changed. Upon compression of the arch and forefoot, no further purulence emitted today. The foot was packed and re-dressed with 4x4s and a kerlix. Recommend continued IV Abx per hospitalist service and surgery (delayed primary closure) on Friday at 9AM. His asks about the [place] [facility] [place] Chemo has been diagnosed with Hepatitis, and recommendations were made for her to relay all questions regarding this to the hospitalist team. Call with any questions, (2) Foot infection: Status: Acute History of Present Illness History of Present Illness Chief Complaint: R foot infection, osteomyelitis Narrative: Pt is a 66 year old male with DM, evaluated at bedside 09/12/22 s/p 1 day R foot I&D and 2nd and 3rd partial ray resections for the management of osteomyelitis. With the extent of purulence observed intra-operatively, the foot was not closed primarily and will require a 2nd surgery (scheduled for Friday, delayed primary closure). He reports he feels better today than yesterday and started feeling better yesterday after his surgery. He notes less arch pain than prior to his surgery, when asked, and denies N/V/C/NS/F. When asked he reports he has been having arch pain for upto 1 week prior to presenting to the ED. He was sitting upright in his chair when evaluated, with his foot propped on 2 pillows. COUNTS INCLUDE 234 BEDS AT THE [facility] All Active Problems (Updated 09/13/22 @ 05:29 by Jyothi Ragland DPM) Foot infection (Acute) Transaminitis (Acute) Discharge planning issues (Acute) GERD (gastroesophageal reflux disease) (Chronic) DVT prophylaxis (Acute) Diabetic foot ulcer (Acute) Infected blister of third toe of right foot (Acute) Osteomyelitis of third toe of right foot (Acute) PAD (peripheral artery disease) (Acute) Hyperglycemia due to type 1 diabetes mellitus (Acute) Other specified diabetes mellitus with other circulatory complications (Acute) Type 1 diabetes mellitus with foot ulcer (Acute) Peripheral vascular disease due to secondary diabetes (Acute) 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 [facility] Opthalmology Essential hypertension (Chronic 01/19/13) Primary open angle glaucoma (POAG) of both eyes (Chronic ~03/2015) S/P shunt surgery to reduce pressure OD Diabetic neuropathy (Acute 08/17/13) Medical History (Updated 09/13/22 @ 05:29 by Jyothi Ragland DPM) Glaucoma suspect of left eye (03/21/15) Nocturia more than twice per night Osteomyelitis of second toe of right foot SARS-CoV-2 positive (~02/13/22) Visit for suture removal Surgical History (Updated 03/18/22 @ 13:58 by Hien Keith NP) Amputated toe of right foot (~2020) S/P cataract extraction and insertion of intraocular lens (02/03/21) Status post amputation of toe of right foot (~2020) s/p amputation of distal phalanx of right 2nd toe d/t osteomyelitis Status post glaucoma surgery b/l stents Vasectomy Family History Mother Heart disease Myocardial infarction Stroke Father Diabetes Self No problems noted. 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 Skin Other: Some strikethrough on the dressing, serosanguinous, both plantarly and dorsally. R foot with sutures in tact, and skin edges well approximated. Upon compression of the arch (area of previous purulence), minimial purulence emitted today, only serous drainage. No futher fluctuance, lymphangitis, crepitus or signs of deep infection. Decreased erythema and edema, but with continued calor. L foot is cool. Neuro Other: Protective sensation absent previously via [place] Fannie 5.07 monofilament. Negative tinel?s sign. Muscle strength 5/5. No other neurological deficits Extrem Other: R 2nd digital amputation. Lesser digital deformities. Significant gastroc equ inus with a decreased ROM of the ankle Results Last Vital Signs Temp 97.2 F L 09/13/22 03:35 Pulse 68 09/13/22 03:35 Resp 18 09/13/22 03:35 BP 153/74 H 09/13/22 03:35 Pulse Ox 94 09/13/22 03:35 Labs 09/12/22 05:40 09/12/22 05:40 Labs: Laboratory Results - last 24 hr 09/12/22 09/12/22 05:40 05:40 WBC 12.34 H RBC 4.11 L Hgb 13.0 L Hct 38.5 L MCV 94 MCH 31.6 MCHC 33.8 RDW 12.5 Plt Count 386 MPV 10.9 Immature Gran % 1.1 Neutrophils % 67.1 Lymphocytes % 17.8 Monocytes % 10.6 Eosinophils % 2.8 Basophils % 0.6 Nucleated RBC % 0.0 Absolute Neutrophils 8.28 H Absolute Lymphocytes 2.20 Absolute Monocytes 1.31 H Absolute Eosinophils 0.35 Absolute Basophils 0.07 Sodium 137 Potassium 4.5 Chloride 101 Carbon Dioxide 27.9 Anion Gap 8.1 BUN 16 Creatinine 0.9 Est GFR (CKD-EPI 2020) 93.61 Glucose 146 H Calcium 9.1 Magnesium 2.1 C-Reactive Protein 1.21 H
[2022-09-13] MEDS: CEFEPIME 2 GM in Normal Saline 100 ML IVPB ×3 (06:02→21:46)
[2022-09-13 06:44] LABS: Abs Immature Grans 0.26 10^3/uL (0.0-0.06); Absolute Basophil Count 0.07 10^3/uL (0.0-0.2); Absolute Lymphocyte Count 1.92 10^3/uL (1.2-3.4); Absolute Monocyte Count 1.06 10^3/uL (0.1-0.8); Absolute Neutrophil Count 7.23 10^3/uL (1.2-6.7); Basophils % 0.6; Eosinophils % 2.8; HCT 38.5 % (40.0-50.0); HGB 12.8 g/dL (13.5-17.5); Immature Grans % 2.4; Lymphocytes % 17.7; MCH 31.1 pg (27.0-33.0); MCHC 33.2 % (32.0-36.0); MCV 94 fL (80-95); Monocytes % 9.8; Neutrophils % 66.7; RBC 4.11 10^6/uL (4.36-5.78); RDW 12.6 % (11.8-14.1); RDW-SD 43.7 fL; WBC 10.84 10^3/uL (4.4-10.8)
[2022-09-13 06:56] LABS: Anion Gap 7.2 mmol/L (3-11); BUN 18 mg/dL (7-18); CO2 25.8 mmol/L (21.0-32.0); CREATININE 0.8 mg/dL (0.70-1.30); Calcium 8.8 mg/dL (8.5-10.1); Chloride 102 mmol/L (98-107); Glucose 136 mg/dL (74-106); Magnesium 1.9 mg/dL (1.8-2.4); Potassium 4.6 mmol/L (3.5-5.1); Sodium 135 mmol/L (136-145)
[2022-09-13 07:14] LABS: Diff Comment Diff Reviewed; RBC Morphology Normal
[2022-09-13 07:53] VITALS: BP 160/84; PULSE 75; RESP 16; TEMP 36.4; O2SAT 98
[2022-09-13] MEDS: Losartan 50 MG TAB 100 MG PO (08:18)
[2022-09-13] MEDS: Pantoprazole 40 MG TABCR PO (08:18)
[2022-09-13] MEDS: Aspirin E.C. 81 MG TABEC PO (08:18)
[2022-09-13] MEDS: Multivitamin TAB 1 TAB PO (08:18)
[2022-09-13] MEDS: Insulin NPH-Human 300 UNITS/3 ML PEN 26 UNIT SC (08:19)
--- NOTE | 2022-09-13 09:50 | CMPROGNOTE_ITS ---
- If Service Date Differs Date of service: 09/13/22 Time of Service: 09:50 Care Management Progress Note S/O: Chemo was sitting up in bed when CM met with him. He appeared to be in good spirits today and stated that he is feeling well. He informed CM that Dr. Ragland told him that she would take him to the OR on Friday to close his wound. Chemo's wound cultures from surgery all grew carloz albicans. The provider informed CM that she planned to discuss the findings with Dr. Ragland to determine the significance of the findings. Chemo remains afebrile and his vital signs are stable. A:Chemo is a 66 year old man admitted on 09/05/22 with osteomyelitis of the 3rd toe RLE P: Anticipate Chemo will be discharged home when medically cleared by provider. If group home IV antibiotics are necessary, Chemo expressed a preference for [facility]. He will follow up with podiatry, his PCP and plan of care as prescribed and will transport with family. CM will support Chemo and assess for discharge needs.
[2022-09-13 11:26] VITALS: BP 152/79; PULSE 69; RESP 16; TEMP 36.3; O2SAT 97
[2022-09-13] MEDS: Insulin Aspart 300 UNITS/3 ML PEN SC ×4 (12:29→17:01)
[2022-09-13 13:47] LABS: Vancomycin, Trough 15.1 ug/mL (10.0-20.0)
--- NOTE | 2022-09-13 14:21 | CHAPLAIN ---
Tyshawn was up in the recliner when I visited yesterday. He was pleasant and reserved. I introduced myself and explained my role. Tyshawn responded that he's fine. He did not seem interested in further conversation.
--- NOTE | 2022-09-13 14:28 | W.PM.PROGNOT ---
Date of Service Date of service: 09/13/22 Time of Service: 14:28 Assessment and Plan Assessment and plan (1) Osteomyelitis of third toe of right foot: Status: Acute Assessment and plan: status post R foot I&D and 2nd and 3rd partial ray resections day 2 by podiatry, plan for OR on Friday For delayed primary closure, Scheduled for 9 AM inflammatory markers being followed and have been slowly trending downward continue antibiotics cefepime and vanco, add diflucan (2) Transaminitis: Status: Acute Assessment and plan: liver ultrasound acute hepatitis panel Positive hep B core total AB and reactive hepatitis C antibody will follow liver function stop apap refer to GI (3) Diabetic foot ulcer: Status: Acute Assessment and plan: see above (4) PAD (peripheral artery disease): Status: Acute Assessment and plan: The patient states [place] [facility] [place] procedures were yet recommended. 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 will make further adjustments as needed. 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 Qualifiers: Diabetes mellitus complication detail: with polyneuropathy Qualified Code(s): E10.42 - Type 1 diabetes mellitus with diabetic polyneuropathy (6) GERD (gastroesophageal reflux disease): Status: Chronic Assessment and plan: Continue PPI (7) DVT prophylaxis: Status: Acute Assessment and plan: SC heparin (8) Discharge planning issues: Status: Acute Assessment and plan: Full code will be discharged to home when medically stable no anticipated discharge needs. discussed with Dr Delgadillo Subjective Subjective Patient reports: no new complaints, tolerating liquids well, tolerating a regular diet and afebrile Interval history since last seen: blood sugars poorly management , was 120 in am and 281 before lunch Exam Const General: cooperative and no acute distress Orientation: alert, awake and oriented x3 HENMT Head: normal to inspection Mouth: oral mucosae normal Eyes General: appearance normal, both eyes and all related structures Neck Neck: normal visual inspection Resp Effort & Inspection: normal respiratory effort and able to speak in complete sentences Cardio Rate: regular rate Skin Lesions: lesion noted and other (right foot, see wound care consult, bulky dressing intact, no red prox.) Neuro General: patient alert, patient awake and patient oriented x3 Motor: muscle tone normal throughout Psych Appearance: grossly normal Affect: normal affect Objective Last Vital Signs Temp 36.3 C L 09/13/22 11:26 Pulse 69 09/13/22 11:26 Resp 16 09/13/22 11:26 BP 152/79 H 09/13/22 11:26 Pulse Ox 97 09/13/22 11:26 Laboratory Results - last 24 hr 09/10/22 09/13/22 09/13/22 05:45 06:25 06:25 WBC 10.84 H RBC 4.11 L Hgb 12.8 L Hct 38.5 L MCV 94 MCH 31.1 MCHC 33.2 RDW 12.6 Plt Count MPV Immature Gran % 2.4 Neutrophils % 66.7 Lymphocytes % 17.7 Monocytes % 9.8 Eosinophils % 2.8 Basophils % 0.6 Nucleated RBC % 0.0 Absolute Neutrophils 7.23 H Absolute Lymphocytes 1.92 Absolute Monocytes 1.06 H Absolute Eosinophils 0.30 Absolute Basophils 0.07 RBC Morphology Normal Sodium 135 L Potassium 4.6 Chloride 102 Carbon Dioxide 25.8 Anion Gap 7.2 BUN 18 Creatinine 0.8 Est GFR (CKD-EPI 2020) 97.00 Glucose 136 H Calcium 8.8 Magnesium 1.9 Vancomycin Trough Hep B Core IgM Ab Cancelled HCV RNA Qual (PCR) Cancelled Hepatitis C RNA Quant Cancelled 09/13/22 13:05 WBC RBC Hgb Hct MCV MCH MCHC RDW Plt Count MPV Immature Gran % Neutrophils % Lymphocytes % Monocytes % Eosinophils % Basophils % Nucleated RBC % Absolute Neutrophils Absolute Lymphocytes Absolute Monocytes Absolute Eosinophils Absolute Basophils RBC Morphology Sodium Potassium Chloride Carbon Dioxide Anion Gap BUN Creatinine Est GFR (CKD-EPI 2020) Glucose Calcium Magnesium Vancomycin Trough 15.1 Hep B Core IgM Ab HCV RNA Qual (PCR) Hepatitis C RNA Quant Time Spent with Patient Time Spent with Patient: 25-34 minutes Time was spent: preparing to see the patient(eg.review tests), obtaining and/or reviewing separately otained hiistory, ordering medications,tests, procedures and indepentently interpreting results
[2022-09-13] MEDS: Fluconazole 100 MG TAB 400 MG PO (14:46)
[2022-09-13 15:57] VITALS: BP 167/88; PULSE 72; RESP 97; TEMP 36.3; O2SAT 16
[2022-09-13 19:32] VITALS: BP 157/79; PULSE 74; RESP 16; TEMP 36.6; O2SAT 99
[2022-09-13] MEDS: Insulin NPH-Human 300 UNITS/3 ML PEN 36 UNIT SC (19:45)
[2022-09-13] MEDS: Ibuprofen 600 MG TAB PO (19:49)
[2022-09-13] MEDS: Melatonin 3 MG TAB PO (21:46)
[2022-09-13] MEDS: Docusate Sodium 100 MG CAP PO (21:46)
[2022-09-13 22:51] VITALS: BP 124/69; PULSE 69; RESP 16; TEMP 36; O2SAT 97
[2022-09-14] VITALS (7 sets, daily range): BP systolic 92–189; BP diastolic 55–94; PULSE 64–76; RESP 16–18; TEMP 36–36.7; O2SAT 96–99
[2022-09-14] MEDS: VANCOMYCIN/WATER (PEG) 1.25 GM/250 ML BAG IV ×2 (01:39→15:23)
[2022-09-14] MEDS: CEFEPIME 2 GM in Normal Saline 100 ML IVPB ×3 (05:25→21:41)
[2022-09-14] MEDS: Pantoprazole 40 MG TABCR PO (08:22)
[2022-09-14] MEDS: Multivitamin TAB 1 TAB PO (08:22)
[2022-09-14] MEDS: Fluconazole 100 MG TAB 400 MG PO (08:22)
[2022-09-14] MEDS: Aspirin E.C. 81 MG TABEC PO (08:22)
[2022-09-14] MEDS: Losartan 50 MG TAB 100 MG PO (08:22)
[2022-09-14] MEDS: Insulin NPH-Human 300 UNITS/3 ML PEN 26 UNIT SC (10:41)
[2022-09-14] MEDS: Insulin Aspart 300 UNITS/3 ML PEN SC ×4 (12:02→17:10)
--- NOTE | 2022-09-14 14:01 | PGE_ITS ---
Date of Service Date of service: 09/14/22 Time of Service: 14:01 Assessment and Plan Assessment and plan (1) Osteomyelitis of third toe of right foot: Status: Acute Assessment and plan: See Dr Ragland note (2) Transaminitis: Status: Acute Assessment and plan: liver ultrasound acute hepatitis panel Positive hep B core total AB and reactive hepatitis C antibody will follow liver function stop apap refered to GI (3) Diabetic foot ulcer: Status: Acute Assessment and plan: see above (4) PAD (peripheral artery disease): Status: Acute Assessment and plan: The patient states [place] [facility] [place] procedures were yet recommended. 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 Qualifiers: Diabetes mellitus complication detail: with polyneuropathy Qualified Code(s): E10.42 - Type 1 diabetes mellitus with diabetic polyneuropathy (6) GERD (gastroesophageal reflux disease): Status: Chronic Assessment and plan: Continue PPI (7) DVT prophylaxis: Status: Acute Assessment and plan: SC heparin (8) Discharge planning issues: Status: Acute Assessment and plan: Full code will be discharged to home when medically stable no anticipated discharge needs. discussed with Dr Delgadillo Subjective Subjective Patient reports: no new complaints, feels better, tolerating a regular diet, voiding w/o difficulty, bowel movement and afebrile; denies flatus, diarrhea, nausea or vomiting Interval history since last seen: No complaints today, states foot is feeling better - glucose continues to be 200's according to his monitor and confirmed with finger sticks. Exam Const General: cooperative and no acute distress Orientation: alert, awake and oriented x3 HENMT Head: normal to inspection Mouth: oral mucosae normal Eyes General: appearance normal, both eyes and all related structures Neck Neck: normal visual inspection Resp Effort & Inspection: normal respiratory effort and able to speak in complete sentences Cardio Rate: regular rate Skin Lesions: lesion noted and other (right foot, see wound care consult, bulky dressing intact, no red prox.) Neuro General: patient alert, patient awake and patient oriented x3 Motor: muscle tone normal throughout Psych Appearance: grossly normal Affect: normal affect Objective Last Vital Signs Temp 36.1 C L 09/14/22 11:45 Pulse 76 03/11/23 11:45 Resp 18 09/14/22 11:45 BP 189/94 H 09/14/22 11:45 Pulse Ox 96 09/14/22 11:45 Time Spent with Patient Time Spent with Patient: 25-34 minutes Time was spent: preparing to see the patient(eg.review tests), obtaining and/or reviewing separately otained hiistory, ordering medications,tests, procedures, referring, communicating with other health nurse behavioral health care, indepentently interpreting results, counseling the patient and care coordination
--- NOTE | 2022-09-14 15:24 | NUR.NOTE ---
Nursing Note: this technical document writer entered pts room and explained that the dressing on his foot was due to be changed today, pt stated that Dr. Ragland said last night that she is the one who will be doing his dressing changes however she wouldn't be in today. pt explained that he feels more comfortable leaving dressing changes to the provider. dressing is c/d/i at this time, no shadowing noted.
--- NOTE | 2022-09-14 18:41 | W.PODCONSULT ---
Date of service: 09/13/22 Time of Service: 17:30 Assessment and Plan Assessment and plan (1) Osteomyelitis of third toe of right foot: Status: Acute Assessment and plan: The patient was evaluated and treated at bedside 09/13/22. The dressing was changed. Upon compression of the arch and forefoot, no further purulence emitted today. The foot was irrgated with sterile normal saline using a 60 cc syrine, packed with 4x4s, and re-dressed with 4x4s and a kerlix. Recommend continued IV Abx per hospitalist service and surgery (delayed primary closure) on Friday at 9AM. Continued IV Abx and diflucan her hospitalist team (cultures + for diflucan). Still awaiting pathology results of 2nd and 3rd metatarsal proximal margins. Call with any questions, (2) Foot infection: Status: Acute History of Present Illness History of Present Illness Chief Complaint: R foot infection, osteomyelitis Narrative: Pt is a 66 year old male with DM, evaluated at bedside 09/13/22 s/p 2 days R foot I&D and 2nd and 3rd partial ray resections for the management of osteomyelitis. He reports he feels better today than yesterday, and better each day. He denies N/V/C/NS/F. He was sitting upright in his bed when evaluated, with his foot propped on 2 pillows. Consults Consult date: 09/13/22 [facility] All Active Problems (Updated 09/13/22 @ 05:29 by Jyothi Ragland DPM) Foot infection (Acute) Transaminitis (Acute) Discharge planning issues (Acute) GERD (gastroesophageal reflux disease) (Chronic) DVT prophylaxis (Acute) Diabetic foot ulcer (Acute) Infected blister of third toe of right foot (Acute) Osteomyelitis of third toe of right foot (Acute) PAD (peripheral artery disease) (Acute) Hyperglycemia due to type 1 diabetes mellitus (Acute) Other specified diabetes mellitus with other circulatory complications (Acute) Type 1 diabetes mellitus with foot ulcer (Acute) Peripheral vascular disease due to secondary diabetes (Acute) 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 [facility] Opthalmology Essential hypertension (Chronic 01/19/13) Primary open angle glaucoma (POAG) of both eyes (Chronic ~03/2015) S/P shunt surgery to reduce pressure OD Diabetic neuropathy (Acute 08/17/13) Medical History (Updated 09/13/22 @ 05:29 by Jyothi Ragland DPM) Glaucoma suspect of left eye (03/21/15) Nocturia more than twice per night Osteomyelitis of second toe of right foot SARS-CoV-2 positive (~02/13/22) Visit for suture removal Surgical History (Updated 03/18/22 @ 13:58 by Hien Keith NP) Amputated toe of right foot (~2020) S/P cataract extraction and insertion of intraocular lens (02/03/21) Status post amputation of toe of right foot (~2020) s/p amputation of distal phalanx of right 2nd toe d/t osteomyelitis Status post glaucoma surgery b/l stents Vasectomy Family History Mother Heart disease Myocardial infarction Stroke Father Diabetes Self No problems noted. 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 Skin Other: Some strikethrough on the dressing, serosanguinous, both plantarly and dorsally, decreased. R foot with sutures in tact, and skin edges well approximated. Upon compression of the arch (area of previous purulence), minimial purulence emitted today, only serous drainage. Nonetheless, the wound was irrigated with sterile normal saline. No futher fluctuance, lymphangitis, crepitus or signs of deep infection. Decreased erythema and edema, but with continued calor. L foot is cool. Neuro Other: Protective sensation absent previously via [place] Fannie 5.07 monofilament. Negative tinel?s sign. Muscle strength 5/5. No other neurological deficits Extrem Other: R 2nd digital amputation. Lesser digital deformities. Significant gastroc equinus with a decreased ROM of the ankle Results Last Vital Signs Temp 97.0 F L 09/14/22 14:26 Pulse 74 09/14/22 14:26 Resp 18 09/14/22 14:26 BP 145/75 H 09/14/22 14:26 Pulse Ox 99 09/14/22 14:26 Labs 09/13/22 06:25 09/13/22 06:25
[2022-09-14] MEDS: Insulin NPH-Human 300 UNITS/3 ML PEN 36 UNIT SC (19:51)
[2022-09-14] MEDS: Ibuprofen 600 MG TAB PO (21:41)
[2022-09-14] MEDS: Melatonin 3 MG TAB PO (21:42)
[2022-09-14] MEDS: Docusate Sodium 100 MG CAP PO (21:42)
[2022-09-15] MEDS: VANCOMYCIN/WATER (PEG) 1.25 GM/250 ML BAG IV ×2 (01:30→15:23)
[2022-09-15 03:15] VITALS: BP 111/60; PULSE 71; RESP 18; TEMP 36; O2SAT 96
[2022-09-15] MEDS: CEFEPIME 2 GM in Normal Saline 100 ML IVPB ×3 (05:09→21:14)
[2022-09-15 07:21] LABS: HCT 37.7 % (40.0-50.0); HGB 12.6 g/dL (13.5-17.5); MCHC 33.4 % (32.0-36.0); MCV 93 fL (80-95); MPV 10.9 fL (8.0-11.0); Platelet Count 425 10^3/uL (130-400); RBC 4.06 10^6/uL (4.36-5.78); RDW-SD 44.2 fL; WBC 11.63 10^3/uL (4.4-10.8)
[2022-09-15 07:28] VITALS: BP 149/75; PULSE 74; RESP 18; TEMP 36.5; O2SAT 98
[2022-09-15] MEDS: Pantoprazole 40 MG TABCR PO (07:29)
[2022-09-15 07:31] LABS: Anion Gap 8.6 mmol/L (3-11); BUN 25 mg/dL (7-18); CO2 24.4 mmol/L (21.0-32.0); Calcium 8.9 mg/dL (8.5-10.1); Chloride 101 mmol/L (98-107); Estimated GFR 81.98 (mL/min/1.73m2); Glucose 290 mg/dL (74-106); Magnesium 2.1 mg/dL (1.8-2.4); Potassium 4.7 mmol/L (3.5-5.1); Sodium 134 mmol/L (136-145)
[2022-09-15] MEDS: Fluconazole 100 MG TAB 400 MG PO (07:55)
[2022-09-15] MEDS: Multivitamin TAB 1 TAB PO (07:56)
[2022-09-15] MEDS: Insulin Aspart 300 UNITS/3 ML PEN SC ×5 (07:56→17:02)
[2022-09-15] MEDS: Aspirin E.C. 81 MG TABEC PO (07:56)
[2022-09-15] MEDS: Insulin NPH-Human 300 UNITS/3 ML PEN 26 UNIT SC (09:00)
[2022-09-15] MEDS: Normal Saline Flush 10 ML SYR IVP (09:00)
[2022-09-15] MEDS: Docusate Sodium 100 MG CAP PO (09:04)
[2022-09-15] MEDS: Polyethylene Glycol 3350 17 GM PACKET PO (09:04)
[2022-09-15 11:23] VITALS: BP 164/90; PULSE 69; RESP 17; TEMP 36.1; O2SAT 99
[2022-09-15 14:53] VITALS: BP 109/65; PULSE 69; RESP 16; TEMP 36.2; O2SAT 96
--- NOTE | 2022-09-15 14:55 | PGE_ITS ---
Date of Service Date of service: 09/15/22 Time of Service: 14:55 Assessment and Plan Assessment and plan (1) Osteomyelitis of third toe of right foot: Status: Acute Assessment and plan: See Dr Ragland note returning to OR tomorrow for closure. ? need for antibiotics if osteo resected. currently on vanco/cefepime and diflucan as cultures grew <10k yeast, ? superinfection. will discuss with podiatry after closure (2) Transaminitis: Status: Acute Assessment and plan: liver ultrasound acute hepatitis panel Positive hep B core total AB and reactive hepatitis C antibody will follow liver function stop apap refered to GI (3) Diabetic foot ulcer: Status: Acute Assessment and plan: see above (4) PAD (peripheral artery disease): Status: Acute Assessment and plan: The patient states he was evaluated at [facility] and no procedures were yet recommen ded. 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 A1C 8.1 sanitation technician consultation. Qualifiers: Diabetes mellitus complication detail: with polyneuropathy Qualified Code(s): E10.42 - Type 1 diabetes mellitus with diabetic polyneuropathy (6) GERD (gastroesophageal reflux disease): Status: Chronic Assessment and plan: Continue PPI (7) DVT prophylaxis: Status: Deleted Assessment and plan: SC heparin (8) Discharge planning issues: Status: Deleted Assessment and plan: Full code will be discharged to home when medically stable no anticipated discharge needs. discussed with Dr Delgadillo Subjective Subjective Patient reports: no new complaints, tolerating liquids well, tolerating a regular diet, voiding w/o difficulty and afebrile Exam Const General: cooperative and no acute distress Orientation: alert, awake and oriented x3 HENMT Head: normal to inspection Mouth: oral mucosae normal Eyes General: appearance normal, both eyes and all related structures Neck Neck: normal visual inspection Resp Effort & Inspection: normal respiratory effort and able to speak in complete sentences Cardio Rate: regular rate Skin Lesions: lesion noted and other (right foot, see wound care consult, bulky dressing intact, no red prox.) Neuro General: patient alert, patient awake and patient oriented x3 Motor: muscle tone normal throughout Psych Appearance: grossly normal Affect: normal affect Objective Last Vital Signs Temp 36.1 C L 09/15/22 11:23 Pulse 69 09/15/22 11:23 Resp 17 09/15/22 11:23 BP 164/90 H 09/15/22 11:23 Pulse Ox 99 09/15/22 11:23 Laboratory Results - last 24 hr 09/15/22 09/15/22 06:35 06:35 WBC 11.63 H RBC 4.06 L Hgb 12.6 L Hct 37.7 L MCV 93 MCH 31.0 MCHC 33.4 RDW 13.0 Plt Count 425 H MPV 10.9 Sodium 134 L Potassium 4.7 Chloride 101 Carbon Dioxide 24.4 Anion Gap 8.6 BUN 25 H Creatinine 1.0 Est GFR (CKD-EPI 2020) 81.98 Glucose 290 H Calcium 8.9 Magnesium 2.1 Time Spent with Patient Time Spent with Patient: 25-34 minutes Time was spent: preparing to see the patient(eg.review tests), ordering medications,tests, procedures, referring, communicating with other health neonatal intensive care nurse, indepentently interpreting results and counseling the patient
--- NOTE | 2022-09-15 17:56 | DM INPTCON_ITS ---
Date of service: 09/15/22 Time of Service: 17:56 Diabetes Inpatient Consult Reason for Visit: diabetes education and management consult DESCRIPTION/ASSESSMENT: Mr. Fall is admitted with a foot ulcer. He has type 1 diabetes with neuropathy, PAD, and HTN. He is on a carbohydrate consistent low sodium nutrition therapy. His PO intake is excellent. His BMI is 27.4 kg/m2 which is WNL for his age. His blood sugars have been above target. He is on NPH day and night and regular insulin on a 1:10 CHO ratio. His A1C is 8.1 which is above target for glycemic management for him. INTERVENTION: Mr. Fall looks to be quite insulin resistant based on his doses of NPH and his need for regular insulin for someone with type 1 diabetes only. I wonder if he has type 1 and is developing type 2. Would there a benefit to adding a GLP- 1 or and SGLT-2 to his regimen for tighter glycemic management. Will offer Mr. Fall some Kings supplements for his foot ulcers. PLAN: 1. Will monitor weight, PO, and blood sugars. 2. Will monitor acceptance of Kings supplements. 3. Will meet with Mr. Fall to assess his diabetes education needs and plan outpatient follow up as well. 3. Will evaluate nutrition and diabetes care plan ongoing and adjust as needed. Time Spent in Nutritional Counseling and Treatment: 0
[2022-09-15 19:45] VITALS: BP 147/89; PULSE 77; RESP 14; TEMP 36; O2SAT 99
[2022-09-15] MEDS: Insulin NPH-Human 300 UNITS/3 ML PEN 36 UNIT SC (21:13)
[2022-09-15] MEDS: Melatonin 3 MG TAB PO (21:17)
[2022-09-15 23:15] VITALS: BP 127/76; PULSE 76; RESP 20; TEMP 36.3; O2SAT 97
[2022-09-16] VITALS (11 sets, daily range): BP systolic 90–166; BP diastolic 53–84; PULSE 64–82; RESP 10–20; TEMP 36–36.9; O2SAT 94–99; BMI 26.8
[2022-09-16] MEDS: VANCOMYCIN/WATER (PEG) 1.25 GM/250 ML BAG IV ×2 (01:59→14:32)
[2022-09-16] MEDS: Ibuprofen 600 MG TAB PO ×3 (03:26→21:41)
[2022-09-16] MEDS: CEFEPIME 2 GM in Normal Saline 100 ML IVPB ×3 (06:30→21:40)
--- NOTE | 2022-09-16 08:39 | ANES.PREOP_ITS ---
General Info Date of Service Date Performed: 09/16/22 Height: 5 ft 11 in Weight: 87.3 kg Body Mass Index (BMI): 26.8 Surgical Procedure: Operation Date: 09/11/22 07:40 Proposed Procedure Side Surgeon p Toe Amputation, 2nd & 3rd Partial Ray Resections Right Jyothi Ragland DPM Actual Procedure Side Surgeon p Toe Amputation, RIGHT 3RD AND REMAINING PART OF 2ND TOE Right Jyothi Ragland DPM Pre-Op Diagnosis Post-Op Diagnosis PAD, OSTEOMYELITIS OF RIGHT 2ND AND 3RD DIGITS, DIABETIC FOOT ULCER PAD, OSTEOMYELITIS OF RIGHT 2ND AND 3RD DIGITS, DIABETIC FOOT ULCER Operation Date: 09/16/22 09:10 Proposed Procedure Side Surgeon p Delayed Primary Closure Rt Foot w/Possible Further Bone Debridement Right Esth er JOELLE Ragland Meds Allergies and Home Medications Allergies Allergy/AdvReac Type Severity Reaction Status Date / Time codeine Allergy Mild ITCHING Verified 09/05/22 16:53 lisinopril AdvReac Unknown HEADACHE Verified 09/05/22 16:53 SEXUAL DYS moexipril AdvReac Unknown FELT FUNNY Verified 09/05/22 16:53 amoxicillin potassium Allergy Severe Uncoded 09/05/22 16:53 Home Medication Medication Instructions Recorded aspirin 81 mg tablet,delayed 81 mg PO DAILY 09/21/12 release (Ecotrin Low Strength) multivitamin (Daily Vitamin tablet) 1 ea PO DAILY 09/22/12 ammonium lactate 5 % lotion 1 applic topical BID PRN diabetic 10/17/21 (Lac-Hydrin Five) foot care #226 grams insulin syringe-needle U-100 1 mL #300 SYRGS 10/17/21 26 x 1/2 (BD Insulin Syringe) mupirocin 2 % topical ointment 1 applic topical TID #15 grams 11/06/21 blood-glucose meter,continuous #1 ea 03/18/22 (Dexcom G6 Circuit Breaker Assembler) blood-glucose sensor (Dexcom G6 #3 ea 03/18/22 Sensor device) blood-glucose transmitter (Dexcom #1 ea 03/18/22 G6 Transmitter device) insulin NPH isoph U-100 human 100 See Rx Instructions subcut 03/18/22 unit/mL subcutaneous suspension .COMPLEX #6 vials (Novolin N NPH U-100 Insulin isophane) insulin regular human 100 unit/mL See Rx Instructions subcut 03/18/22 injection solution (Novolin R .COMPLEX #6 vials Regular U-100 Insulin) losartan 100 mg tablet 100 mg PO DAILY #90 tabs 03/18/22 polyethylene glycol 3350 17 17 g PO DAILY PRN constipation 03/18/22 gram/dose oral powder (Miralax) #1,700 grams levofloxacin 500 mg tablet 500 mg PO DAILY 14 days #14 tabs 08/28/22 levofloxacin 500 mg tablet 500 mg PO DAILY R foot ulcer 14 08/28/22 days #14 tabs Current Visit Medications: Current Medications Generic Name Dose Route Start Last Admin Trade Name Freq PRN Reason Stop Dose Admin Al Hydrox/Mg Hydrox/Simethicone 30 ml 09/05/22 19:14 09/10/22 06:22 Mylanta Suspension 30 Ml Cup PO 30 ml Q2H PRN PRN Administration Ammonium Lactate 0 gm 09/06/22 07:30 Lachydrin 12% Lotion 225 Gm Btl TP BID PRN PRN diabetic foot care Aspirin 81 mg 09/06/22 08:30 09/15/22 07:56 Aspirin E.C. 81 Mg Tabec PO 81 mg DAILY JOO Administration Dextrose 0 gm 09/12/22 18:17 Glucose Oral Gel 15 Gm/37.5 Gm Tube PO DIRECTED PRN Dextrose/Water 0 gm 09/12/22 18:17 Dextrose 50%-Water 25 Gm/50 Ml Syr IVP DIRECTED PRN Dimethicone/Zinc Oxide 0 gm 09/05/22 19:14 Alfonso Protect Cream 142 Gm Tube TP PRN PRN Docusate Sodium 100 mg 09/05/22 19:14 09/15/22 09:04 Docusate Sodium 100 Mg Cap PO 100 mg TID PRN PRN Administration Fluconazole 400 mg 09/13/22 13:55 09/15/22 07:55 Fluconazole 100 Mg Tab PO 400 mg DAILY JOO Administration Heparin Sodium (Porcine) 5,000 units 09/05/22 22:00 09/10/22 21:37 Heparin 5,000 Units/Ml Vial SC 5,000 units Q8H JOO Administration Cefepime HCl 2 gm/ Sodium 100 mls @ 200 mls/hr 09/06/22 06:00 09/16/22 07:08 Chloride IVPB Infused Q8H JOO Infusion Vancomycin/PEG/NADA/Lysine/Water 1.25 gm in 250 mls @ 166.667 mls/hr 09/12/22 02:00 09/16/22 07:08 Vancocin Injection IV Infused Q12H [facility] Infusion Protocol Dextrose/Lactated Ringer's 1,000 mls @ 125 mls/hr 09/16/22 08:45 Dextrose 5%-Lr IV INFUSION [facility] IV Miscellaneous Supplies 1 each 09/05/22 17:30 Iv Access IV DIRECTED [facility] Ibuprofen 600 mg 09/06/22 14:33 09/16/22 03:26 Ibuprofen 600 Mg Tab PO 600 mg QID PRN PRN Administration Insulin Aspart 0 units 09/05/22 22:00 09/16/22 07:54 Insulin Aspart 300 Units/3 Ml Pen SC Not Given 0800,1200,1700,2200 [facility] Protocol Insulin Aspart 0 units 09/12/22 22:00 09/16/22 07:54 Insulin Aspart 300 Units/3 Ml Pen SC Not Given 0800,1200,1700,2200 [facility] Insulin Human NPH 26 unit 09/09/22 08:30 09/15/22 09:00 Insulin Nph-Human 300 Units/3 Ml Pen SC 26 units QAM [facility] Administration Insulin Human NPH 36 unit 09/08/22 20:00 09/15/22 21:13 Insulin Nph-Human 300 Units/3 Ml Pen SC 36 units QPM [facility] Administration Losartan Potassium 100 mg 09/06/22 08:30 09/15/22 07:56 Losartan 50 Mg Tab PO Not Given DAILY [facility] Magnesium Hydroxide 30 ml 09/05/22 19:14 Milk Of Magnesia 30 Ml Cup PO DAILY PRN PRN Melatonin 3 mg 09/06/22 22:00 09/15/22 21:17 Melatonin 3 Mg Tab PO 3 mg HS [facility] Administration Multivitamins 1 tab 09/06/22 08:30 09/16/22 07:55 Multivitamin Tab PO Not Given DAILY [facility] Mupirocin 0 gm 09/05/22 20:00 09/16/22 07:55 Mupirocin 2% Oint. 22 Gm Tube TP Not Given TID [facility] Ondansetron HCl 4 mg 09/06/22 00:14 09/10/22 08:50 Ondansetron 4 Mg/2 Ml Vial IVP 4 mg Q6H PRN PRN Administration Pantoprazole Sodium 40 mg 09/06/22 07:30 09/15/22 07:29 Pantoprazole 40 Mg Tabcr PO 40 mg DAILY@0730 JOO Administration Polyethylene Glycol 17 gm 09/06/22 07:30 09/15/22 09:04 Polyethylene Glycol 3350 17 Gm Packet PO 17 gm DAILY PRN PRN Administration constipation Sodium Chloride 0 ml 09/05/22 17:28 09/15/22 09:00 Normal Saline Flush 10 Ml Syr IVP 20 ml PRN PRN Administration PFSH Active Problems Active Problems: Problem Status Onset Code Foot infection L08.9 Transaminitis R74.01 Discharge planning issues Z02.9 GERD (gastroesophageal reflux disease) K21.9 DVT prophylaxis Z29.9 Diabetic foot ulcer E11.621, L97.509 Infected blister of third toe of right foot S90.424A, L08.9 Osteomyelitis of third toe of right foot M86.9 PAD (peripheral artery disease) I73.9 Hyperglycemia due to type 1 diabetes mellitus E10.65 Other specified diabetes mellitus with other circulatory complications E13.59 Type 1 diabetes mellitus with foot ulcer E10.621, L97.509 Peripheral vascular disease due to secondary diabetes E13.51 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 E10.49 Type 1 diabetes mellitus with ophthalmic manifestation 12/23/12 E10.39 Bilateral diabetic retinopathy 09/10/11 E11.319 Essential hypertension 01/19/13 I10 Primary open angle glaucoma (POAG) of both eyes ~03/2015 H40.1130 Diabetic neuropathy 08/17/13 E11.40 Medical History Medical History (Updated 09/13/22 @ 05:29 by Jyothi Ragland DPM) Glaucoma suspect of left eye (03/21/15) Nocturia more than twice per night Osteomyelitis of second toe of right foot SARS-CoV-2 positive (~02/13/22) Visit for suture removal Surgical History Surgical History (Updated 03/18/22 @ 13:58 by Hien Keith NP) Amputated toe of right foot (~2020) S/P cataract extraction and insertion of intraocular lens (02/03/21) Status post amputation of toe of right foot (~2020) s/p amputation of distal phalanx of right 2nd toe d/t osteomyelitis Status post glaucoma surgery b/l stents Vasectomy Tobacco Smoking/Tobacco Use Status: Former Tobacco Use Alcohol Alcohol Intake: current Alcohol intake frequency: holidays/special occasions only Alcohol type: beer Substance Use Substance use: Never Substance use type: does not use Vital Signs and Lab Results Vital Signs Most Recent Vital Signs in EMR: Most Recent Vital Signs Temp Pulse Resp BP Pulse Ox 36 C L 74 16 138/75 99 09/16/22 07:06 09/16/22 07:06 09/16/22 07:06 09/16/22 07:06 09/16/22 07:06 Point of Care Results Point of Care Results: Finger Stick Blood Glucose 150 09/16/22 07:54 Lab Results 09/15/22 06:35 09/15/22 06:35 Blood Type / Crossmatch: No Data to Display Complete Blood Count: White Blood Count 12.62 10^3/uL (4.4-10.8) H 09/16/22 08:45 Red Blood Count 4.03 10^6/uL (4.36-5.78) L 09/16/22 08:45 Hemoglobin 12.7 g/dL (13.5-17.5) L 09/16/22 08:45 Hematocrit 37.9 % (40.0-50.0) L 09/16/22 08:45 Platelet Count 429 10^3/uL (130-400) H 09/16/22 08:45 Venous Blood Lactate 1.3 mmol/L (0.6-1.4) 09/06/22 14:50 Complete Metabolic Panel: Sodium 134 mmol/L (136-145) L 09/15/22 06:35 Potassium 4.7 mmol/L (3.5-5.1) 09/15/22 06:35 Chloride 101 mmol/L (98-107) 09/15/22 06:35 Carbon Dioxide 24.4 mmol/L (21.0-32.0) 09/15/22 06:35 BUN 25 mg/dL (7-18) H 09/15/22 06:35 Creatinine 1.0 mg/dL (0.70-1.30) 09/15/22 06:35 Est GFR (CKD-EPI 2020) 81.98 (mL/min/1.73m2) 09/15/22 06:35 Magnesium 2.1 mg/dL (1.8-2.4) 09/15/22 06:35 Calcium 8.9 mg/dL (8.5-10.1) 09/15/22 06:35 Albumin 2.6 g/dL (3.4-5.0) L 09/10/22 13:20 Glucose 290 mg/dL (74-106) H 09/15/22 06:35 Hemoglobin A1c 8.1 % (<5.7) H 09/06/22 06:30 C-Reactive Protein 1.21 mg/dL (0.0-0.3) H 09/12/22 05:40 Liver Function Panel: Alanine Aminotransferase (ALT/SGPT) 144 U/L (16-63) H 09/10/22 13:20 Aspartate Amino Transf (AST/SGOT) 165 U/L (15-37) H 09/10/22 13 :20 Coagulation Panel: No Data to Display Cardiac Panel: No Data to Display Arterial Blood Gas: No Data to Display Venous Blood Gas: No Data to Display Pancreas Panel: No Data to Display Thyroid Panel: No Data to Display Infectious Disease: Coronavirus (COVID-19)(PCR) Negative (Negative) 09/05/22 20:17 Coronavirus 2019 Source Nasal/Nares 09/05/22 20:17 Hepatitis B Surface Antigen Negative (Negative) 09/10/22 05:45 Hepatitis C Antibody Reactive (Negative) A 09/10/22 05:45 Blood Cultures: No Data to Display Toxicology Panel: No Data to Display Anesthesia Assessment and Plan Anesthesia History Personal History: No History of Anesthesia Complications Family History: No Family History of Anesthesia Complications Exercise Tolerance Exercise Tolerance: Metabolic Equivalents>4 Pertinent Negatives Pertinent Negatives: No Major Cardiovascular Symptoms or Complaints, No Major Pulmonary Symptoms or Complaints and No History of CVA/TIA Cardiac & Pulmonary Exam Cardiac Exam: Normal S1/S2 Heart Sounds Pulmonary Exam: Clear Bilateral Breath Sounds Implantable Cardiac Device Does patient have a Pacemaker or an ICD?: No Airway Exam Known Difficult Airway: No Mallampati Class: 2 Mouth Opening: Normal (> 3cm) Thyromental Distance: Greater than 3 cm Neck Range of Motion: Full ROM Neck Circumference: Normal Teeth Condition: Edentulous ASA Classification ASA Score: ASA 3 Emergency Case?: No NPO Status NPO Status: NPO Clears >2 hours, Solids >8 hours Anesthesia Plan Resuscitation Status: Full Code Anesthesia Technique: General Anesthesia Airway Planned: Natural Airway Monitors Used: Standard Monitors Preoperative Comments:: Request from hospitalist for patient to remain on D5LR for case, I am concerned this might lead toward higher BGLs and due to short duration and potential for fluid boluses during the anesthetic I am swapping him back to plain LR. Patient appropriate at this time last BGL 150, no insulin given, will reassess BGL in PACU.
--- NOTE | 2022-09-16 08:41 | PDOC.CMPRO ---
- If Service Date Differs Date of service: 09/16/22 Time of Service: 08:41 Care Management Progress Note S/O: Chemo was sitting up in bed when CM met with him. He had just returned from surgery and was still a little sleepy, as he had general anesthesia. He had delayed primary closure of the wound on his right foot with further bone debridement and culture. He informed CM that everything had gone well and that he was not having much pain at that time. Chemo's bone cultures from 09/11/22 grew Nia Albicans and Diflucan P.O. was added to his antimicrobial regimen. It is not clear what will be ordered at discharge or where or how his medications will be administered. CM met with Chemo again this afternoon when his Mihaela was visiting. CM was able to answer questions about discharge planning options and will coordinate any needed services. A:Chemo is a 66 year old man admitted on 09/05/22 with osteomyelitis of the 3rd toe RLE P: Anticipate Chemo will be discharged home when medically cleared by provider. If [facility] IV antibiotics are necessary, Chemo expressed a preference for [facility]. He will follow up with podiatry, his PCP and plan of care as prescribed and will transport with family. CM will support Chemo and assess for discharge needs.
[2022-09-16 08:55] LABS: Absolute Basophil Count 0.13 10^3/uL (0.0-0.2); Absolute Eosinophil Count 0.27 10^3/uL (0.0-0.7); Absolute Monocyte Count 1.09 10^3/uL (0.1-0.8); Absolute Neutrophil Count 9.04 10^3/uL (1.2-6.7); Eosinophils % 2.1; HCT 37.9 % (40.0-50.0); HGB 12.7 g/dL (13.5-17.5); Immature Grans % 3.2; Lymphocytes % 13.5; MCH 31.5 pg (27.0-33.0); MCHC 33.5 % (32.0-36.0); MCV 94 fL (80-95); MPV 10.4 fL (8.0-11.0); Monocytes % 8.6; Neutrophils % 71.6; Platelet Count 429 10^3/uL (130-400); RBC 4.03 10^6/uL (4.36-5.78); RDW 13.2 % (11.8-14.1); RDW-SD 45.3 fL; WBC 12.62 10^3/uL (4.4-10.8)
[2022-09-16 09:03] LABS: Prothrombin Time 9.9 sec (9.3-11.0)
[2022-09-16 09:08] LABS: Anion Gap 5.3 mmol/L (3-11); BUN 27 mg/dL (7-18); C-Reactive Protein 0.28 mg/dL (0.0-0.3); CO2 26.7 mmol/L (21.0-32.0); Calcium 9.3 mg/dL (8.5-10.1); Chloride 102 mmol/L (98-107); Estimated GFR 81.98 (mL/min/1.73m2); Glucose 160 mg/dL (74-106); Magnesium 2.1 mg/dL (1.8-2.4); Potassium 4.9 mmol/L (3.5-5.1); Sodium 134 mmol/L (136-145)
[2022-09-16] MEDS: Lactated Ringers 1,000 ML 30 ML IV (09:20)
[2022-09-16] MEDS: Bupivacaine 0.5% Pres-Free 30 ML VIAL (09:47)
--- NOTE | 2022-09-16 10:37 | ROE_ITS ---
Date of service: 09/16/22 Time of Service: 09:00 Operative Note Operative Note DATE OF PROCEDURE: 09/11/22 PRE-OP DIAGNOSIS: R foot infection, osteomyelitis POST-OP DIAGNOSIS: same PROCEDURE: R foot delayed primary closure with further bone debridement (sent for microbiological evaluation / quantitative culture) SURGEON: Jyothi Ragland ANESTHESIA TYPE: Local By Surgeon and MAC Refer to Anesthesia Record ESTIMATED BLOOD LOSS: 5 PATHOLOGY: other (R 3rd metatarsal bone, proximal margin, sent for microbiological evaluation) COMPLICATIONS: None Patient was transported to: PACU Indications: R foot infection Procedure Description: The patient was brought into the operating room and placed on the operating table in the supine position. Following general anesthesia, local anesthetic block was performed about the patient's right dorsal foot, specifically the right second intermetatarsal space, using 10 cc of 0.5% Marcaine plain. The foot was then scrubbed, prepped, draped using the usual aseptic manner. Attention was directed to the dorsal aspect of the patient's right foot where the retention sutures were removed. Compression of the patient's foot revealed no further purulence, fluctuance, crepitus, or signs of residual deep infection. Some nonviable tissue was excised, specifically the nonfunctional tendinous structures and other nonviable necrotic tissues. The wound was irrigated with copious amounts of sterile normal saline, specifically 3 L. Attention was then directed to the residual aspect of the right third metatarsal with the distal aspect resected and debrided with a bone roungeour and bone cutting forceps and with bone sent for microbiological evaluation. All further nonviable necrotic tissue was sharply excised. Deep tissue was reapproximated coapted utilizing 3- 0 Vicryl and skin was reapproximated coapted combination of 3-0 and 4-0 nylon using simple, as well as horizontal and vertical mattress interrupted suture technique. The wound was dressed with Xeroform, dry sterile dressing, kerlix, the plantar foot wound was packed with 4 x 4's, and a well-padded Brett wrap applied. He is to be transferred to the PACU with vital signs stable and vascular status intact. Following Postoperative monitoring he will be admitted to the floor for continued intravenous antibiotic and for discharge planning. Recommend home health care if patient is not able to perform dressing changes himself, specifically right plantar foot wound packing.
[2022-09-16] MEDS: Losartan 50 MG TAB 100 MG PO (11:04)
[2022-09-16] MEDS: Fluconazole 100 MG TAB 400 MG PO (11:04)
[2022-09-16] MEDS: Pantoprazole 40 MG TABCR PO (11:04)
--- NOTE | 2022-09-16 11:05 | NUR.NOTE ---
pt back from OR. [facility]. Nursing Note:
--- NOTE | 2022-09-16 11:09 | W.PM.PROGNOT ---
Date of Service Date of service: 09/16/22 Time of Service: 11:09 Assessment and Plan Assessment and plan (1) Osteomyelitis of third toe of right foot: Status: Acute Assessment and plan: See Dr Ragland note Message out to Dr Ragland re ? need for antibiotics if osteo resected. currently on vanco/cefepime and diflucan as cultures grew <10k yeast, ? superinfection. Message out to podiatry regarding plan for discharge (2) Transaminitis: Status: Acute Assessment and plan: liver ultrasound acute hepatitis panel Positive hep B core total AB and reactive hepatitis C antibody will follow liver function stop apap refered to GI (3) Diabetic foot ulcer: Status: Acute Assessment and plan: see above (4) PAD (peripheral artery disease): Status: Acute Assessment and plan: The patient states he was evaluated at [facility] and no procedures were yet recommended. 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 A1C 8.1 critical care educator consultation. Qualifiers: Diabetes mellitus complication detail: with polyneuropathy Qualified Code(s): E10.42 - Type 1 diabetes mellitus with diabetic polyneuropathy (6) GERD (gastroesophageal reflux disease): Status: Chronic Assessment and plan: Continue PPI (7) DVT prophylaxis: Status: Acute Assessment and plan: SC heparin (8) Discharge planning issues: Status: Acute Assessment and plan: Full code will be discharged to home when medically stable Discharge needs dependent on Dr Ragland discussed with Dr Bass Subjective Subjective Patient reports: no new complaints, pain is less, tolerating a regular diet, voiding w/o difficulty, bowel movement and afebrile; denies diarrhea, nausea, vomiting or shortness of breath Interval history since last seen: Returned to the OR today for continued surgical intervention - see Dr Ragland note. Tyshawn reports feeling well and anxious to go home. His visited. Exam Narrative Exam Narrative: Semi-fowlers in bed with leg elevated with ice pack on it. Bandage clear, dry, intact. Const General: cooperative and no acute distress Orientation: alert, awake and oriented x3 HENMT Head: normal to inspection Mouth: oral mucosae normal Eyes General: appearance normal, both eyes and all related structures Neck Neck: normal visual inspection Resp Effort & Inspection: normal respiratory effort and able to speak in complete sentences Cardio Rate: regular rate Skin Lesions: lesion noted and other (right foot, see wound care consult, bulky dressing intact, no red prox.) Neuro General: patient alert, patient awake and patient oriented x3 Motor: muscle tone normal throughout Psych Appearance: grossly normal Affect: normal affect Objective Last Vital Signs Temp 36.2 C L 09/16/22 10:56 Pulse 64 09/16/22 10:56 Resp 16 09/16/22 10:56 BP 166/80 H 09/16/22 10:56 Pulse Ox 97 09/16/22 10:56 Laboratory Results - last 24 hr 09/16/22 09/16/22 09/16/22 08:45 08:45 08:45 WBC 12.62 H RBC 4.03 L Hgb 12.7 L Hct 37.9 L MCV 94 MCH 31.5 MCHC 33.5 RDW 13.2 Plt Count 429 H MPV 10.4 Immature Gran % 3.2 Neutrophils % 71.6 Lymphocytes % 13.5 Monocytes % 8.6 Eosinophils % 2.1 Basophils % 1.0 Nucleated RBC % 0.0 Absolute Neutrophils 9.04 H Absolute Lymphocytes 1.70 Absolute Monocytes 1.09 H Absolute Eosinophils 0.27 Absolute Basophils 0.13 PT 9.9 INR 1.0 Sodium 134 L Potassium 4.9 Chloride 102 Carbon Dioxide 26.7 Anion Gap 5.3 BUN 27 H Creatinine 1.0 Est GFR (CKD-EPI 2020) 81.98 Glucose 160 H Calcium 9.3 Magnesium 2.1 C-Reactive Protein 0.28 Time Spent with Patient Time Spent with Patient: 25-34 minutes Time was spent: preparing to see the patient(eg.review tests), obtaining and/or reviewing separately otained hiistory, ordering medications,tests, procedures, referring, communicating with other health director of home care hospice, indepentently interpreting results, counseling the patient and care coordination
--- NOTE | 2022-09-16 11:19 | W.ANESPOSTOP ---
Postoperative Evaluation Date, Time and Location Date Performed: 09/16/22 Time Performed: 11:19 Patient Location: PACU Vital Signs Most Recent Imported Vital Signs: Most Recent Vital Signs Temp Pulse Resp BP Pulse Ox 36.2 C L 64 16 166/80 H 97 09/16/22 10:56 09/16/22 10:56 09/16/22 10:56 09/16/22 10:56 09/16/22 10:56 Most Recent Vital Signs Temp Pulse Resp BP Pulse Ox 36.4 C L 72 15 182/91 H 98 09/11/22 09:35 09/11/22 09:35 09/11/22 09:35 09/11/22 09:35 09/11/22 09:35 Pain Score Most Recent Pain Score: Most Recent Pain Score Pain Level [Lower Back] 2 09/11/22 10:47 Pain Level [Right Foot] 6 09/10/22 08:30 Pain Level [Generalized] 0 09/06/22 16:41 Pain Level 0 09/16/22 10:56 Assessment Mental Status: Awake (Alert & Oriented to Patient Baseline) Airway and Respiratory Function: Patent airway with normal (patient baseline) respiratory exam Cardiovascular Function: Hemodynamically Stable Hydration Status: Adequately Hydrated Nausea & Vomiting: No Nausea or Vomiting Pain: Pt. Denies Any Pain Peripheral Nerve Block: Patient did not receive a nerve block Postoperative Comments:: Seen earlier today and patient was appropriate for discharge
[2022-09-16] MEDS: Insulin Aspart 300 UNITS/3 ML PEN SC ×5 (11:53→21:41)
[2022-09-16] MEDS: Insulin NPH-Human 300 UNITS/3 ML PEN 26 UNIT SC (11:55)
[2022-09-16] MEDS: Normal Saline Flush 10 ML SYR IVP ×2 (13:55→21:40)
[2022-09-16] MEDS: oxyCODONE 5 mg/Acetaminophen 325 mg TAB 1 TAB PO (16:41)
[2022-09-16] MEDS: Insulin NPH-Human 300 UNITS/3 ML PEN 36 UNIT SC (18:57)
[2022-09-16] MEDS: Mupirocin 2% Oint. 22 GM TUBE TP (18:58)
[2022-09-16] MEDS: Melatonin 3 MG TAB PO (21:42)
--- NOTE | 2022-09-16 23:55 | NUR.NOTE ---
Pt asked for something to eat and drink, as he took his blood sugar through his Dexcom and it showed reading of 119. Pt just felt he needed something to eat. This nurse made him a PB&J sandwich and gave him a small grape juice to drink. Will continue to monitor
[2022-09-17] MEDS: Glucose Oral Gel 15 GM/37.5 GM TUBE PO (00:28)
[2022-09-17] MEDS: VANCOMYCIN/WATER (PEG) 1.25 GM/250 ML BAG IV (01:47)
[2022-09-17 03:02] VITALS: BP 122/69; PULSE 72; RESP 20; TEMP 36.8; O2SAT 97
[2022-09-17] MEDS: CEFEPIME 2 GM in Normal Saline 100 ML IVPB ×2 (06:06→14:22)
[2022-09-17 06:16] LABS: Abs Immature Grans 0.21 10^3/uL (0.0-0.06); Absolute Lymphocyte Count 1.67 10^3/uL (1.2-3.4); Absolute Monocyte Count 1.16 10^3/uL (0.1-0.8); Basophils % 0.8; Eosinophils % 2.3; HCT 38.1 % (40.0-50.0); HGB 12.5 g/dL (13.5-17.5); Immature Grans % 1.6; Lymphocytes % 12.5; MCH 31.4 pg (27.0-33.0); MCHC 32.8 % (32.0-36.0); MCV 96 fL (80-95); MPV 10.8 fL (8.0-11.0); Monocytes % 8.7; Neutrophils % 74.1; Platelet Count 410 10^3/uL (130-400); RBC 3.98 10^6/uL (4.36-5.78); RDW 13.2 % (11.8-14.1); RDW-SD 47.1 fL; WBC 13.33 10^3/uL (4.4-10.8)
[2022-09-17 06:23] LABS: Absolute Basophil Count 0.11 10^3/uL (0.0-0.2); Absolute Eosinophil Count 0.31 10^3/uL (0.0-0.7); Absolute Neutrophil Count 9.88 10^3/uL (1.2-6.7)
[2022-09-17 06:34] LABS: Anion Gap 8.7 mmol/L (3-11); BUN 30 mg/dL (7-18); C-Reactive Protein 0.24 mg/dL (0.0-0.3); CO2 24.3 mmol/L (21.0-32.0); CREATININE 1.1 mg/dL (0.70-1.30); Calcium 9.1 mg/dL (8.5-10.1); Chloride 102 mmol/L (98-107); Estimated GFR 73.12 (mL/min/1.73m2); Glucose 271 mg/dL (74-106); Magnesium 2.3 mg/dL (1.8-2.4); Potassium 4.6 mmol/L (3.5-5.1); Sodium 135 mmol/L (136-145)
[2022-09-17 07:49] VITALS: BP 156/84; PULSE 74; RESP 18; TEMP 35.6; O2SAT 99
--- NOTE | 2022-09-17 08:02 | POCOE_ITS ---
Date of service: 09/17/22 Time of Service: 07:15 Assessment and Plan Assessment and plan (1) Osteomyelitis of third toe of right foot: Status: Acute Assessment and plan: The patient was evaluated and treated at bedside. The dressing was changed. No futher purulence needed. Still awaiting pathology results of 2nd and 3rd metatarsal proximal margin. Since undetermined when this would be finalized, re commend IV Abx + diflucan at least under confirmation of clean proximal margins. IV Abx could be discontinued at that time if warranted. Dressings to be left intact, unchanged. Pt to limit activity, use walker for assistance with ambulation (order placed for PT), as well as use of post-op shoe at all times. Pt to follow up with myself 09/23/22 at 845 (call office if this time does not work). Call with any questions, . (2) Foot infection: Status: Acute History of Present Illness History of Present Illness Chief Complaint: s/p 1 day delayed primary closure R foot (R foot infection I&D last week) Narrative: Pt is a 66 year old male with DM, evaluated at bedside 09/13/22 s/p 1 day R delayed closure, and s/p 6 days R foot I&D and 2nd and 3rd partial ray resections for the management of osteomyelitis. He reports he feels better today than yesterday, and better each day. He denies N/V/C/NS/F. He was walking around, using the facilities, without the post-op shoe when I entered the room. He reports that there was significant strike through yesterday and his dressing was reinforced by a nurse Consults Consult date: 09/17/22 [facility] All Active Problems (Updated 09/13/22 @ 05:29 by Jyothi Ragland DPM) Foot infection (Acute) Transaminitis (Acute) Discharge planning issues (Acute) GERD (gastroesophageal reflux disease) (Chronic) DVT prophylaxis (Acute) Diabetic foot ulcer (Acute) Infected blister of third toe of right foot (Acute) Osteomyelitis of third toe of right foot (Acute) PAD (peripheral artery disease) (Acute) Hyperglycemia due to type 1 diabetes mellitus (Acute) Other specified diabetes mellitus with other circulatory complications (Acute) Type 1 diabetes mellitus with foot ulcer (Acute) Peripheral vascular disease due to secondary diabetes (Acute) 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 [facility] Opthalmology Essential hypertension (Chronic 01/19/13) Primary open angle glaucoma (POAG) of both eyes (Chronic ~03/2015) S/P shunt surgery to reduce pressure OD Diabetic neuropathy (Acute 08/17/13) Medical History (Updated 09/13/22 @ 05:29 by Jyothi Ragland DPM) Glaucoma suspect of left eye (03/21/15) Nocturia more than twice per night Osteomyelitis of second toe of right foot SARS-CoV-2 positive (~02/13/22) Visit for suture removal Surgical History (Updated 03/18/22 @ 13:58 by Hien Keith NP) Amputated toe of right foot (~2020) S/P cataract extraction and insertion of intraocular lens (02/03/21) Status post amputation of toe of right foot (~2020) s/p amputation of distal phalanx of right 2nd toe d/t osteomyelitis Status post glaucoma surgery b/l stents Vasectomy Family History Mother Heart disease Myocardial infarction Stroke Father Diabetes Self No problems noted. 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 Skin Other: Some strikethrough on the dressing, hematogenous, both plantarly and dorsally, decreased. R foot with sutures in tact, and skin edges well approximated. No futher fluctuance, lymphangitis, crepitus or signs of deep infection. Decreased erythema, edema, and calor. Full thickness wound remains plantarly, but without purulence. Neuro Other: Protective sensation absent previously via [place] Fannie 5.07 monofilament. Negative tinel?s sign. Muscle strength 5/5. No other neurological deficits Extrem Other: R 2nd digital amputation. Lesser digital deformities. Significant gastroc equinus with a decreased ROM of the ankle Results Last Vital Signs Temp 96.1 F L 09/17/22 07:49 Pulse 74 09/17/22 07:49 Resp 18 09/17/22 07:49 BP 156/84 H 09/17/22 07:49 Pulse Ox 99 09/17/22 07:49 Labs 09/17/22 05:35 09/17/22 05:35 Labs: Laboratory Results - last 24 hr 09/16/22 09/16/22 09/16/22 08:45 08:45 08:45 WBC 12.62 H RBC 4.03 L Hgb 12.7 L Hct 37.9 L MCV 94 MCH 31.5 MCHC 33.5 RDW 13.2 Plt Count 429 H MPV 10.4 Immature Gran % 3.2 Neutrophils % 71.6 Lymphocytes % 13.5 Monocytes % 8.6 Eosinophils % 2.1 Basophils % 1.0 Nucleated RBC % 0.0 Absolute Neutrophils 9.04 H Absolute Lymphocytes 1.70 Absolute Monocytes 1.09 H Absolute Eosinophils 0.27 Absolute Basophils 0.13 PT 9.9 INR 1.0 Sodium 134 L Potassium 4.9 Chloride 102 Carbon Dioxide 26.7 Anion Gap 5.3 BUN 27 H Creatinine 1.0 Est GFR (CKD-EPI 2020) 81.98 Glucose 160 H Calcium 9.3 Magnesium 2.1 C-Reactive Protein 0.28 09/17/22 09/17/22 05:35 05:35 WBC 13.33 H RBC 3.98 L Hgb 12.5 L Hct 38.1 L MCV 96 H MCH 31.4 MCHC 32.8 RDW 13.2 Plt Count 410 H MPV 10.8 Immature Gran % 1.6 Neutrophils % 74.1 Lymphocytes % 12.5 Monocytes % 8.7 Eosinophils % 2.3 Basophils % 0.8 Nucleated RBC % 0.0 Absolute Neutrophils 9.88 H Absolute Lymphocytes 1.67 Absolute Monocytes 1.16 H Absolute Eosinophils 0.31 Absolute Basophils 0.11 PT INR Sodium 135 L Potassium 4.6 Chloride 102 Carbon Dioxide 24.3 Anion Gap 8.7 BUN 30 H Creatinine 1.1 Est GFR (CKD-EPI 2020) 73.12 Glucose 271 H Calcium 9.1 Magnesium 2.3 C-Reactive Protein 0.24
[2022-09-17] MEDS: Aspirin E.C. 81 MG TABEC PO (08:19)
[2022-09-17] MEDS: Fluconazole 100 MG TAB 400 MG PO (08:19)
[2022-09-17] MEDS: Insulin Aspart 300 UNITS/3 ML PEN SC ×4 (08:20→12:39)
[2022-09-17] MEDS: Insulin NPH-Human 300 UNITS/3 ML PEN 26 UNIT SC (08:22)
[2022-09-17] MEDS: Losartan 50 MG TAB 100 MG PO (08:22)
[2022-09-17] MEDS: Multivitamin TAB 1 TAB PO (08:24)
[2022-09-17] MEDS: Pantoprazole 40 MG TABCR PO (08:25)
[2022-09-17] MEDS: Normal Saline Flush 10 ML SYR IVP ×2 (08:26→14:20)
--- NOTE | 2022-09-17 08:48 | PDOC.CMPRO ---
- If Service Date Differs Date of service: 09/17/22 Time of Service: 08:48 Care Management Progress Note Care Management Progress Note S/O: Chemo was sitting up in bed when CM met with him. He remains pleasant and cooperative and engages well with CM. Chemo will transition to SB-1 today to complete his course of IV antibiotics. A:Chemo is a 66 year old man admitted on 09/05/22 with osteomyelitis of the 3rd toe RLE P: Anticipate Chemo will be discharged home when medically cleared by provider. he will transition to SB-1 today to complete the course. He will follow up with podiatry, his PCP and plan of care as prescribed and will transport with family. CM will support Chemo and assess for discharge needs.
[2022-09-17 11:01] VITALS: BP 133/71; PULSE 73; RESP 18; TEMP 35.8; O2SAT 93
[2022-09-17] MEDS: Insulin NPH-Human 300 UNITS/3 ML PEN 6 UNIT SC (12:38)
[2022-09-17 14:15] LABS: Vancomycin, Trough 21.4 ug/mL (10.0-20.0)
[2022-09-17] MEDS: Ibuprofen 600 MG TAB PO (14:20)
--- NOTE | 2022-09-17 14:26 | W.PM.DS.N ---
Date of service: 09/17/22 Time of Service: 14:26 DS: Diagnosis Discharge Diagnosis (1) Osteomyelitis of third toe of right foot: Status: Acute (2) Foot infection: Status: Acute Discharge Plan Disposition Patient Disposition: Swing Bed(Skilled,SB1) Condition: Stable Discharge Details Reason For Visit: Osteomyelitis 3rd Digit RLE Admit Date/Time: 09/05/22 19:15 Admit Provider: Dominga Bass Attending Provider: Dominga Bass Primary Care Provider: Hien Keith Hospital Course Hospital Course: Mr Miller is a 66 year old male with PMHX of T1DM with neuropathy and retinopathy, on basal bolus insulin with NPH/regular insulin,? PAD, HTN, who was undergoing outpatient treatment for a diabetic ulcer of right foot/osteomyelitis with levofloxacin per Dr Ragland, who presented to [facility] ED today noting that the 3rd digit of his right foot has gotten red, swollen, appears to be draining pus. He was started on cefepime and vancomycin and admitted to the medical surgical unit for further management. He was followed by Dr. Ragland while hospitalized and on September 11 underwent a right foot I&D right second partial ray resection right third partial ray resection bone debridement and biopsy. Cultures did grow less than 10,000 colony of Nia. Diflucan was added. He went back to the OR on September 16 for further debridement and closure. His inflammatory markers have normalized and have remained within normal limits. He has been afebrile hemodynamically stable with no complaints. His blood sugars have been poorly managed and we have been adjusting insulin accordingly. We are awaiting final biopsies/pathology to ensure all wound edges have been successfully resected until those results are available he will remain on IV antibiotics. He will be discharged to swing [facility] status for antibiotics until the results are available. Discharge is discussed with Dr. Bass Home Meds and New Rx's Prescriptions: No Action Lac-Hydrin Five 5 % lotion 1 applic TP BID PRN (Reason: diabetic foot care) Qty: 226 5RF Rx Instructions: Apply thin film to affected areas of feet twice a day as needed. (DME) BD Insulin Syringe 1 mL 26 x 1/2 syringe 1 syr Sub-Q 5x/day Qty: 300 4RF Rx Instructions: use one 5 times a day for type 1 diabetes. Request BD Ultra-Fine 1cc syringe w/ 31G 5/16inch (8 mm) needle. dx: E10.39 Novolin N NPH U-100 Insulin 100 unit/mL suspension See Rx Instructions subcut .COMPLEX Qty: 6 4RF Dose Instruction: 26 units in AM; 30 units in PM subcut BID; 26 units in AM; 30 units in PM Rx Instructions: 26 units in AM; 36 units in PM subcut; Novolin R Regular U-100 Insuln 100 unit/mL solution See Rx Instructions Sub-Q .COMPLEX Qty: 6 4RF Rx Instructions: 24 units subcut 4x/day (with meals and at midnight) losartan 100 mg tablet 100 mg PO DAILY Qty: 90 3RF polyethylene glycol 3350 [Miralax] 17 gram/dose powder 17 g PO DAILY PRN (Reason: constipation) Qty: 1700 3RF (DME) Dexcom G6 Sensor Device See Rx Instructions .ROUTE .MEDSUPPLY Qty: 3 0RF Rx Instructions: As directed (DME) Dexcom G6 Balance And Hairspring Assembler Misc See Rx Instructions .Route Qty: 1 0RF Rx Instructions: As directed (DME) Dexcom G6 Transmitter Device See Rx Instructions .ROUTE .MEDSUPPLY Qty: 1 0RF Rx Instructions: As directed mupirocin 2 % ointment 1 applic topical TID Qty: 15 0RF aspirin [Ecotrin Low Strength] 81 MG tablet,delayed release (DR/EC) 81 mg PO DAILY multivitamin [Daily Vitamin] 1 EACH tablet 1 ea PO DAILY levofloxacin 500 mg tablet 500 mg PO DAILY 14 Days Qty: 14 0RF levofloxacin 500 mg tablet 500 mg PO DAILY 14 Days Qty: 14 0RF Discharge Instructions Activity:: Activity as Tolerated Equipment/Supplies:: No Equipment Needed Diet:: Carb Counting Discharge Orders Discharge Orders: Discharge Order (Routine); Ordered 09/17/22 Ordered By: Elvira Dowd Discharge Data Discharge Date/Time-TO BE ENTERED AT DEPARTURE: 09/17/22 15:20 DS: Summary Time Spent with Patient providing and/or coordinating discharge services: Greater than 30 minutes Status at Discharge Functional status at discharge: uses cane/walker Overall status at discharge: patient is not back to baseline Mental Status: mental status grossly normal Speech and Movement: speech and movement normal Mood: congruent mood Affect: normal affect Exam Const General: cooperative and no acute distress Orientation: alert, awake and oriented x3 HENMT Head: normal to inspection Mouth: oral mucosae normal Eyes General: appearance normal, both eyes and all related structures Neck Neck: normal visual inspection Resp Effort & Inspection: normal respiratory effort and able to speak in complete sentences Cardio Rate: regular rate Skin Lesions: lesion noted and other (right foot, see wound care consult, bulky dressing intact, no red prox.) Neuro General: patient alert, patient awake and patient oriented x3 Motor: muscle tone normal throughout Psych Appearance: grossly normal Mental Status: mental status grossly normal Speech and Movement: speech and movement normal Mood: congruent mood Affect: normal affect DS: Data Vitals/I&O Vitals and I&O: Vital Signs Temperature 35.8 C L 09/17/22 11:01 Temperature Source Tympanic 09/17/22 11:01 Pulse 73 09/17/22 11:01 Pulse Rhythm Regular 09/17/22 08:15 Respiratory Rate 18 09/17/22 11:01 Respiratory Effort Normal 09/17/22 08:15 Respiratory Depth Normal 09/17/22 08:15 Respiratory Pattern Normal 09/17/22 08:15 Blood Pressure 133/71 09/17/22 11:01 Blood Pressure Mean 86 09/05/22 20:31 Blood Pressure Position Sitting 09/05/22 16:48 Pulse Oximetry 93 09/17/22 11:01 Respiratory End-tidal CO2 32 09/16/22 10:25 Oxygen Delivery Method Room Air 09/17/22 11:01 Oxygen Flow Rate 0 09/17/22 11:01 Pain Level 3 09/17/22 14:20 Comment RN informed of BP 09/17/22 07:49 Intake & Output 09/16/22 09/17/22 09/17/22 23:59 11:59 23:59 Intake Total 630 / 1500 580 / 1060 480 / 1060 Output Total 1250 / 1950 1100 / 1600 500 / 1600 Balance -620 / -450 -520 / -540 -20 / -540 Weight 88.9 kg Intake: IV 450 / 1100 100 / 100 Oral 180 / 400 480 / 960 480 / 960 Output: Urine 1250 / 1950 1100 / 1600 500 / 1600 Other: Urine Color [place] Light [place] Yellow Diaz Urine Appearance Clear Clear Clear Urine Odor Foul Normal Voiding Methods Urinal Urinal Urinal Data Completed and Pending Labs on day of discharge: Labs from last 24 hours 09/17/22 09/17/22 09/17/22 13:30 05:35 05:35 WBC 13.33 H RBC 3.98 L Hgb 12.5 L Hct 38.1 L MCV 96 H MCH 31.4 MCHC 32.8 RDW 13.2 Plt Count 410 H MPV 10.8 Immature Gran % 1.6 Neutrophils % 74.1 Lymphocytes % 12.5 Monocytes % 8.7 Eosinophils % 2.3 Basophils % 0.8 Nucleated RBC % 0.0 Absolute Neutrophils 9.88 H Absolute Lymphocytes 1.67 Absolute Monocytes 1.16 H Absolute Eosinophils 0.31 Absolute Basophils 0.11 Sodium 135 L Potassium 4.6 Chloride 102 Carbon Dioxide 24.3 Anion Gap 8.7 BUN 30 H Creatinine 1.1 Est GFR (CKD-EPI 2020) 73.12 Glucose 271 H Calcium 9.1 Magnesium 2.3 C-Reactive Protein 0.24 Vancomycin Trough 21.4 H* 09/16/22 09:43 Bone - Right Third Digit Anaerobic Culture - Pending Preliminary micro results at discharge 09/16/22 09:43 Surgical Culture - Preliminary Foot - Right 09/11/22 08:22 Anaerobic Culture - Preliminary Bone - Right Second Digit 09/11/22 07:49 Anaerobic Culture - Preliminary Foot - Right 09/11/22 07:49 Surgical Culture - Preliminary Foot - Right Nia Albicans 09/11/22 08:22 Surgical Culture - Preliminary Bone - Right Second Digit Nia Albicans 09/16/22 09:43 Anaerobic Culture - Pending Bone - Right Third Digit PFSH All Active Problems (Updated 09/18/22 @ 00:11 by MERRICK TERRAZAS) Foot infection (Acute) Transaminitis (Acute) GERD (gastroesophageal reflux disease) (Chronic) Diabetic foot ulcer (Acute) Infected blister of third toe of right foot (Acute) Osteomyelitis of third toe of right foot (Acute) PAD (peripheral artery disease) (Acute) Hyperglycemia due to type 1 diabetes mellitus (Acute) Other specified diabetes mellitus with other circulatory complications (Acute) Type 1 diabetes mellitus with foot ulcer (Acute) Peripheral vascular disease due to secondary diabetes (Acute) 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 [facility] Opthalmology Essential hypertension (Chronic 07/16/13) Primary open angle glaucoma (POAG) of both eyes (Chronic ~03/2015) S/P shunt surgery to reduce pressure OD Diabetic neuropathy (Acute 08/17/13) Medical History (Updated 09/18/22 @ 00:11 by MERRICK TERRAZAS) Glaucoma suspect of left eye (03/21/15) Nocturia more than twice per night Osteomyelitis of second toe of right foot SARS-CoV-2 positive (~02/13/22) Visit for suture removal Surgical History (Updated 03/18/22 @ 13:58 by Hien Keith NP) Amputated toe of right foot (~2020) S/P cataract extraction and insertion of intraocular lens (02/03/21) Status post amputation of toe of right foot (~2020) s/p amputation of distal phalanx of right 2nd toe d/t osteomyelitis Status post glaucoma surgery b/l stents Vasectomy Family History Mother Heart disease Myocardial infarction Stroke Father Diabetes Self No problems noted. 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 What is your relationship status?: Panel score (0-1 are the most socially isolated patients): 1 What type of physical activity do you participate in: none Seatbelt use: always Drive intox or ride w/intox 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
[2022-09-17 14:41] VITALS: BP 189/79; PULSE 77; RESP 18; TEMP 36.2; O2SAT 98
[2022-09-17 15:21] VITALS: BP 138/70
== END 2022-09-17 15:20 | disposition swing bed (61) | DRG 617 ==
LOC: ER 19:45 → MS 20:40
PROVIDERS: Family Medicine; Internal Medicine; Nurse Practitioner Acute Care; Nurse Practitioner Family; Podiatrist Foot & Ankle Surgery; Admitting Provider Internal Medicine; Emergency Provider Physician Assistant; PCP Nurse Practitioner Adult Health; Visit Provider Internal Medicine
PROC: 0Y6R0Z0 Detachment at Right 2nd Toe, Complete, Open Approach (ICD-10-PCS; CPT 28810; principal; 2022-09-11 07:30)
PROC: 0QBN0ZZ Excision of Right Metatarsal, Open Approach (ICD-10-PCS; CPT 13160; principal; 2022-09-16 09:00)
DX: L97.418 Non-pressure chronic ulcer of right heel and midfoot with other specified severity (principal); M86.171 Other acute osteomyelitis, right ankle and foot; E10.69 Type 1 diabetes mellitus with other specified complication; L97.518 Non-pressure chronic ulcer of other part of right foot with other specified severity; E10.621 Type 1 diabetes mellitus with foot ulcer; E10.42 Type 1 diabetes mellitus with diabetic polyneuropathy; K21.9 Gastro-esophageal reflux disease without esophagitis; E10.319 Type 1 diabetes mellitus with unspecified diabetic retinopathy without macular edema; I10 Essential (primary) hypertension; E10.65 Type 1 diabetes mellitus with hyperglycemia; E10.51 Type 1 diabetes mellitus with diabetic peripheral angiopathy without gangrene; Z87.891 Personal history of nicotine dependence; S92.511A Displaced fracture of proximal phalanx of right lesser toe(s), initial encounter for closed fracture; X58.XXXA Exposure to other specified factors, initial encounter; R74.01 Elevation of levels of liver transaminase levels; M89.8X7 Other specified disorders of bone, ankle and foot
CPT/HCPCS: 28810 ×2; 10061; 13160; 11044; 01480; 36415; 80048; 80053; 80076; 84145; 85027; 85652; 86704; 86709; 86803; 87040; 87340; 87522; 87635; 96365; 96375; 99285; 73630; 73720; 76705; 80202; 83036; 83605; 83735; 85025; 85610; 86140; 86705; 87070; 87075; 87205; 88304; 88311; 99223; 99232; 99233; 99239; J1170; J1644; J2250; J2405; J2704; J3490

== ENCOUNTER 2022-09-17 14:30 | Inpatient (IN) | payer MEDICARE, MEDICAID, SELFPAY ==
--- NOTE | 2022-09-17 15:23 | CMSA_ITS ---
- If Service Date Differs Date of service: 09/17/22 Time of Service: 15:23 SB Psychosocial/Act.Assessment - Hospital Admission Admission Date: 09/05/22 Admission From:: ED Diagnosis:: osteomyelitis - Swing Bed Admission Swing Bed Admit Date:: 09/17/22 Swing Bed Level of Care: Level 1/SNF - Social Supports PREVIOUS FUNCTIONAL STATUS/SOCIAL/FAMILY SUPPORTS:: Chemo lives in a single family home in [place] [facility] [place] with his Mihaela. They have 4 children, all of whom live locally. Chemo is mostly retired. 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 Chemo is independent at baseline and does not receive any community services or use any assistive devices. 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 - : No 's Spouse: No - Benefits Financial: Medicare - Sabianist Active Faith Member:: No - Advance Directives for Healthcare If no AD, do you want more information:: Yes - Interests Hobbies:: fishing, painting, mowing lawn Crafts:: painting Sports:: football fan - [employer] Music:: classic rock, newer country and classical music TV/Movies:: action movies and old westerns like [employer] Outdoor Activities:: fishing, swimming and boating Reading:: infformational - Present Functional Status Physical Abilities:: Chemo is generally active and independent but is currently limited by foot infection and surgery Cognitive:: good Communication:: good communication skills Sensory Systems: wears glasses Behavior:: appropriate - Medical History PAST MEDICAL HISTORY/PAST SURGICAL HISTORY:: All Active Problems (Updated 09/06/22 @ 00:48 by Dominga Bass MD). Discharge planning issues (Acute). GERD (gastroesophageal reflux disease) (Chronic). DVT prophylaxis (Acute). Diabetic foot ulcer (Acute). Infected blister of third toe of right foot (Acute). Osteomyelitis of third toe of right foot (Acute). PAD (peripheral artery disease) (Acute). Hyperglycemia due to type 1 diabetes mellitus (Acute). Other specified diabetes mellitus with other circulatory complications (Acute). Type 1 diabetes mellitus with foot ulcer (Acute). Peripheral vascular disease due to secondary diabetes (Acute). 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 Type 1 diabetes mellitus with ophthalmic manifestation (Acute 12/23/12). Bilateral diabetic retinopathy (Acute 09/10/11). 08/16/[address] both eyes. [facility] Opthalmology. Essential hypertension (Chronic 01/19/13). Primary open angle glaucoma (POAG) of both eyes (Chronic ~03/2015). S/P shunt surgery to reduce pressure OD. Diabetic neuropathy (Acute 08/17/13). Medical History (Updated 09/06/22 @ 00:48 by Dominga Bass MD). Glaucoma suspect of left eye (03/21/15). Nocturia more than twice per night. Osteomyelitis of second toe of right foot. SARS-CoV-2 positive (~02/13/22). Visit for suture removal. Surgical History (Updated 03/18/22 @ 13:58 by Hien Keith NP). Amputated toe of right foot (~2020). S/P cataract extraction and insertion of intraocular lens (02/03/21). Status post amputation of toe of right foot (~2020). s/p amputation of distal phalanx of right 2nd toe d/t osteomyelitis. Status post glaucoma surgery. b/l stents. Vasectomy General Health:: good except for diabetes - Admission Data Reason for Swing Bed Admission:: IV antibiotics Discharge Plan:: Anticipate Chemo will be discharged home when his course of IV antibiotics has been completed. He will follow up with podiatry, his PCP and plan of care as prescribed and will transport with family. cc: Assessment: Chemo is a pleasant 67 year old man admitted to [facility] with osteomyelitis of his toe requiring amputation. He will require 6 weeks of IV antibiotics and was transitioned to SB-1 to complete the course. Embossing Calender Operator: Dixie Gomez Date Assessment was completed:: 09/17/22
--- NOTE | 2022-09-17 15:24 | CM.SWINGPC ---
- If Service Date Differs Date of service: 09/17/22 Time of Service: 15:24 Swingbed Plan of Care Plan of care: SWING BED PROGRAM ACTIVITIES/DISCHARGE PLAN OF CARE ACTIVITIES PLAN Date:09/17/22 Identified Need:Individualized activity plan Intervention/Plan:Chemo enjoys watching television and visiting with family and friends. Chemo also likes listening to music and would enjoy music therapy and pet therapy if they are available. Initials [facility] DISCHARGE PLAN Date:09/17/22 Identified Need:Safe discharge plan Intervention/Plan:Chemo will discharge home when his IV antibiotic course is completed. He may benefit from home health services for dressing changes and /or PT, depending on the length of his stay. Chemo will follow up with his community providers and plan of care and transport with his . Initials [facility]
--- NOTE | 2022-09-17 15:31 | HPE_ITS ---
Date of service: 09/17/22 Time of Service: 15:31 Assessment and Plan Assessment and plan (1) Osteomyelitis of third toe of right foot: Status: Acute Assessment and plan: s/p amputation 3rd right toe Currently on vanco/cefepime and diflucan as cultures grew <10k yeast, ? superinfection, awaiting pathology reports. dressing to be changed by podiatry only podiatry following (2) Transaminitis: Status: Acute Assessment and plan: liver ultrasound acute hepatitis panel Positive hep B core total AB and reactive hepatitis C antibody will follow liver function stop apap refered to GI (3) Diabetic foot ulcer: Status: Acute Assessment and plan: see above (4) PAD (peripheral artery disease): Status: Acute Assessment and plan: The patient states he was evaluated at [facility] and no procedures were yet recommended. 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 Qualifiers: Diabetes mellitus complication detail: with polyneuropathy Qualified Code(s): E10.42 - Type 1 diabetes mellitus with diabetic polyneuropathy (6) GERD (gastroesophageal reflux disease): Status: Chronic Assessment and plan: Continue PPI (7) DVT prophylaxis: Status: Deleted Assessment and plan: SC heparin (8) Discharge planning issues: Status: Deleted Assessment and plan: Full code will be discharged to home when medically stable Discharge needs dependent on Dr Ragland discussed with Dr Bass History of Present Illness History of Present Illness Chief Complaint: diabetic foot infection Narrative: This is a 67-year-old diabetic male patient who was followed outpatient with podiatry for a diabetic foot ulcer found to have osteomyelitis of his third right toe. He was brought into the emergency department and admitted to the medical surgical unit for further management. He was initiated on vancomycin and cefepime. Diflucan was added at his cultures did grow Nia. He underwent amputation of his toe and wound was left open. He was brought back to the OR on September 16 for further revision and closure of the area. We are awaiting pathology to determine if his osteomyelitis has been completely resected. He will remain on IV antibiotics until we get these results. He will stay here on the medical surgical unit under swing level status for IV antibiotics Review of Systems All systems reviewed & are unremarkable except as noted in HPI and below PFSH All Active Problems (Updated 09/18/22 @ 00:11 by MERRICK TERRAZAS) Foot infection (Acute) Transaminitis (Acute) GERD (gastroesophageal reflux disease) (Chronic) Diabetic foot ulcer (Acute) Infected blister of third toe of right foot (Acute) Osteomyelitis of third toe of right foot (Acute) PAD (peripheral artery disease) (Acute) Hyperglycemia due to type 1 diabetes mellitus (Acute) Other specified diabetes mellitus with other circulatory complications (Acute) Type 1 diabetes mellitus with foot ulcer (Acute) Peripheral vascular disease due to secondary diabetes (Acute) 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 [facility] Opthalmology Essential hypertension (Chronic 01/19/13) Primary open angle glaucoma (POAG) of both eyes (Chronic ~03/2015) S/P shunt surgery to reduce pressure OD Diabetic neuropathy (Acute 08/17/13) Medical History (Updated 09/18/22 @ 00:11 by MERRICK TERRAZAS) Glaucoma suspect of left eye (03/21/15) Nocturia more than twice per night Osteomyelitis of second toe of right foot SARS-CoV-2 positive (~02/13/22) Visit for suture removal Surgical History (Updated 03/18/22 @ 13:58 by Hien Keith NP) Amputated toe of right foot (~2020) S/P cataract extraction and insertion of intraocular lens (02/03/21) Status post amputation of toe of right foot (~2020) s/p amputation of distal phalanx of right 2nd toe d/t osteomyelitis Status post glaucoma surgery b/l stents Vasectomy Family History Mother Heart disease Myocardial infarction Stroke Father Diabetes Self No problems noted. 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 What is your relationship status?: Panel score (0-1 are the most socially isolated patients): 1 What type of physical activity do you participate in: none Seatbelt use: always Drive intox or ride w/intox airport driver: No Working smoke detector in home: Yes Fire extinguisher in home: Yes Carbon monox detector in home: Yes Do you feel safe at home: Yes Do you feel safe in your relationship?: Yes Meds Allergies and Home Medications Allergies Allergy/AdvReac Type Severity Reaction Status Date / Time codeine Allergy Mild ITCHING Verified 09/05/22 16:53 lisinopril AdvReac Unknown HEADACHE Verified 09/05/22 16:53 SEXUAL DYS moexipril AdvReac Unknown FELT FUNNY Verified 09/05/22 16:53 amoxicillin potassium Allergy Severe Uncoded 09/05/22 16:53 Home Medications Medication Instructions Recorded Confirmed Type aspirin 81 mg tablet,delayed 81 mg PO DAILY 09/21/12 09/17/22 History release (Ecotrin Low Strength) multivitamin (Daily Vitamin tablet) 1 ea PO DAILY 09/22/12 09/17/22 History ammonium lactate 5 % lotion 1 applic topical BID PRN diabetic 10/17/21 09/17/22 Rx (Lac-Hydrin Five) foot care #226 grams insulin syringe-needle U-100 1 mL #300 SYRGS 10/17/21 09/17/22 Rx 26 x 1/2 (BD Insulin Syringe) mupirocin 2 % topical ointment 1 applic topical TID #15 grams 11/06/21 09/17/22 Rx blood-glucose meter,continuous #1 ea 03/18/22 09/17/22 Rx (Dexcom G6 Centerpuncher) blood-glucose sensor (Dexcom G6 #3 ea 03/18/22 09/17/22 Rx Sensor device) blood-glucose transmitter (Dexcom #1 ea 03/18/22 09/17/22 Rx G6 Transmitter device) insulin NPH isoph U-100 human 100 See Rx Instructions subcut 03/18/22 09/17/22 Rx unit/mL subcutaneous suspension .COMPLEX #6 vials (Novolin N NPH U-100 Insulin isophane) insulin regular human 100 unit/mL See Rx Instructions subcut 03/18/22 09/17/22 Rx injection solution (Novolin R .COMPLEX #6 vials Regular U-100 Insulin) losartan 100 mg tablet 100 mg PO DAILY #90 tabs 03/18/22 09/17/22 Rx polyethylene glycol 3350 17 17 g PO DAILY PRN constipation 03/18/22 09/17/22 Rx gram/dose oral powder (Miralax) #1,700 grams levofloxacin 500 mg tablet 500 mg PO DAILY 14 days #14 tabs 08/28/22 09/17/22 Rx levofloxacin 500 mg tablet 500 mg PO DAILY R foot ulcer 14 08/28/22 09/17/22 Rx days #14 tabs Exam Const General: cooperative and no acute distress Orientation: alert, awake and oriented x3 HENMT Head: normal to inspection Mouth: oral mucosae normal Eyes General: appearance normal, both eyes and all related structures Neck Neck: normal visual inspection Resp Effort & Inspection: normal respiratory effort and able to speak in complete sentences Cardio Rate: regular rate Skin Lesions: lesion noted and other (right foot, see wound care consult, bulky dressing intact, no red prox.) Neuro General: patient alert, patient awake and patient oriented x3 Motor: muscle tone normal throughout Psych Appearance: grossly normal Affect: normal affect Results Labs 09/18/22 07:50 09/18/22 07:50 Time Spent Time spent with Patient: 40-54 minutes Time was spent: preparing to see the patient(eg.review tests), obtaining and/or reviewing separately otained hiistory, ordering medications,tests, procedures, referring, communicating with other health wound care rn, indepentently i nterpreting results, counseling the patient and care coordination
[2022-09-17] MEDS: Polyethylene Glycol 3350 17 GM PACKET PO (15:38)
[2022-09-17] MEDS: Docusate Sodium 100 MG CAP PO (15:38)
[2022-09-17] MEDS: VANCOMYCIN/WATER (PEG) 1.25 GM/250 ML BAG IV (15:58)
[2022-09-17] MEDS: Normal Saline Flush 10 ML SYR IVP (16:00)
[2022-09-17] MEDS: Heparin 5,000 UNITS/ML VIAL 5000 UNITS SC ×2 (16:05→23:44)
--- NOTE | 2022-09-17 16:12 | NUR.NOTE ---
Nursing Note: pt transferred to swing bed status.
--- NOTE | 2022-09-17 17:35 | IN_ITS ---
Date of service: 09/17/22 Time of Service: 10:20 PT Notes Visit Reasons: SWING BED Physical Therapy Inpatient Initial Evaluation Date: 09/17/2022 Referring Doctor: Jyothi Ragland DPM PT Orders: PT CONSULT: WB with walker and post-op, up to 40 steps at a time fo llowed by foot elevation Precautions: Fall. Standard. WBAT on R LE with FWW and post-op shoe. Patient Profile/Admitting Diagnosis: Tyshawn is a 61-year-old male with diagnosis of osteomyelitis of the right third toe and is status post right foot I&D, second partial ray resection, and right third partial ray resection with bone debridement and biopsy on postoperative day 5. He is also status post right foot delayed primary closure with further wound debridement on postoperative day 1. PMHX: All Active Problems?(Updated 09/13/22 @ 05:29 by Jyothi Ragland DPM) Foot infection (Acute) Transaminitis (Acute) Discharge planning issues (Acute) GERD (gastroesophageal reflux disease) (Chronic) DVT prophylaxis (Acute) Diabetic foot ulcer (Acute) Infected blister of third toe of right foot (Acute) Osteomyelitis of third toe of right foot (Acute) PAD (peripheral artery disease) (Acute) Hyperglycemia due to type 1 diabetes mellitus (Acute) Other specified diabetes mellitus with other circulatory complications (Acute) Type 1 diabetes mellitus with foot ulcer (Acute) Peripheral vascular disease due to secondary diabetes (Acute) 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 [facility] Opthalmology Essential hypertension (Chronic 01/19/13) Primary open angle glaucoma (POAG) of both eyes (Chronic ~03/2015) S/P shunt surgery to reduce pressure OD Diabetic neuropathy (Acute 08/17/13) Medical History?(Updated 09/13/22 @ 05:29 by Jyothi Ragland DPM) Glaucoma suspect of left eye (03/21/15) Nocturia more than twice per night Osteomyelitis of second toe of right foot SARS-CoV-2 positive (~02/13/22) Visit for suture removal Surgical History?(Updated 03/18/22 @ 13:58 by Hien Keith NP) Amputated toe of right foot (~2020) S/P cataract extraction and insertion of intraocular lens (02/03/21) Status post amputation of toe of right foot (~2020) s/p amputation of distal phalanx of right 2nd toe d/t osteomyelitis Status post glaucoma surgery b/l stents Vasectomy Social History/Home Situation: Independent with all aspects of ADLs prior to surgery. Equipment Owned/DME: None Subjective: Agreeable to use of FWW in order to facilitate healing of R foot surgeries. Reports 3/10 pain in the R foot with weight bearing. States thathe has been walking to and fron the bathroom without an assistive device however he understands the importance of off-loading R LE to allow for healing of wound. Objective: General Observation: Seated on chair. Dressing and KEENA wrap on R foot. Post-op to R foot. Mental Status: Alert and oriented as to person, place, time, and purpose. Able to pay attention, focus, and respond appropriately. Pain: 3-4/10 in R foot with weight bearing Vital Signs: WNL ROM: Right Lower Extremity: Hip flexion WFL. Hip abduction WFL. Knee flexion WFL. Ankle dorsiflexion NT. Ankle plantarflexion WFL. Left Lower Extremity: Hip flexion WFL. Hip abduction WFL. Knee flexion WFL. Ankle dorsiflexion WFL. Ankle plantarflexion WFL. Strength: Right Lower Extremity: Hip flexors 5/5. Hip abductors 5/5. Knee flexors 5/5. Knee extensors 4/5. Ankle dorsiflexors NT. Ankle plantarflexors NT. Left Lower Extremity: Hip flexors 5/5. Hip abductors 5/5. Knee flexors 5/5. Knee extensors 5/5. Ankle dorsiflexors 5/5. Ankle plantarflexors 5/5. Bed Mobility/Transfers: Rolling independent Supine to sit independent Sit to supine independent Sit to stand independent Stand to sit independent Bed to reclining chair independent Reclining chair to bed independent Gait: Instructed patient with level surface ambulation of 20 feet requiring FWW assist. Meg independently. DF on the R decreased. Provided patient with another post-op shoe on the L to prevent leg length discrepancy and undue weight bearing on the R LE. Patient did not bring own footwear and he is unsure when could come to bring his shoes. Balance: Static Sitting: Normla Dynamic Sitting: Normal Static Standing: Fair Dynamic Standing: Fair Special Tests: Mobility Limitations Standardized Measure [facility] AM-PAC 6 clicks Basic Mobility Inpatient Short Form: Raw Score: 23 CMS Score: 11% deficit Informed Consent/Education: Patient was instructed in purpose of PT consult and plan of care. Agreeable to proceed with established PT POC to achieve personal goals. THERA EX: AKTC while reclinde on chair x 10 every 2-3 hours Quads sets x 10 hwile seated on chair every 2-3 hours Assessment: Patient presents with clinical signs and symptoms consistent with current/admitting diagnoses that have resulted to mobility limitations, gait instability, generalized weakness, and overall ADL decline as demonstrated by the following impairment level findings: 1. Decreased strength to R ankel major muscle groups 2. Impaired standing balance 3. Impaired activity tolerance 4. Limitation of joint range of motion in R ankle 5. Pain in R ankle Impairments are contributing to the following functional limitations: 1. Difficulty with ambulation without assistive device 2. Increased completion time for mobility ADL performance Patient is assessed as a [id number] complexity based on the following: History: 67-year-old male with past medical history as indicated above Examination: Demonstrable impairment in strength, balance, and mobility level with underlying impairments and functional limitations as exhibited above as well as deficit score of 11% utilizing the [facility] Mobility Inpatient Short Form Presentation: Stable Decision Makin low complexity Goals: Goals X1 week 1. Patient will present with consistent use of FWW and B post-op shoes for level surface ambulation of up to 40 feet to allow for maximal healing of R foot wound. 2. Patient will negotiate 5 steps while holding onto B rails for support using correct technique with modified independence. 3. Patient will show 100% mastery of strengthening exercise progression to B LE Plan of Care/Treatment Plan: 1x/day, 1-2 days/week x 2 week. Plan of care has been reviewed with the DECATOR OPERATOR providing the service under Physical Therapy direction. Initiate Physical Therapy intervention for pain management as needed, strengthening, bed mobility, transfers, gait, stairs, balance training, and use of assistive device. DISCHARGE RECOMMENDATIONS: [X] Home with no services. [] Home with services [specify] [] Home with outpatient PT [] [] SNF for continued rehabilitation [] [] [facility] [] [] SNF versus LTC based on ability to participate and progress [] TREATMENT CODE/TIME: 30648 x 15 minutes, 27822 x 15 minutes beginning at 10:20 AM. Thank you for the opportunity to participate in the care of this patient. Sammi White PT, DPT, CLT [facility] [place], [place]
[2022-09-17] MEDS: Insulin Aspart 300 UNITS/3 ML PEN SC ×2 (17:41→17:43)
[2022-09-17] MEDS: Insulin NPH-Human 300 UNITS/3 ML PEN 36 UNIT SC (20:02)
[2022-09-17] MEDS: CEFEPIME 2 GM in Normal Saline 100 ML IVPB (22:28)
[2022-09-17] MEDS: Melatonin 3 MG TAB PO (22:29)
[2022-09-17] MEDS: Ibuprofen 600 MG TAB PO (22:29)
[2022-09-17 23:04] VITALS: BP 159/74; PULSE 76; RESP 16; TEMP 36.9; O2SAT 98
[2022-09-18] MEDS: Insulin Aspart 300 UNITS/3 ML PEN SC ×7 (04:55→20:41)
[2022-09-18] MEDS: Normal Saline Flush 10 ML SYR IVP ×3 (05:28→15:51)
[2022-09-18] MEDS: CEFEPIME 2 GM in Normal Saline 100 ML IVPB ×3 (05:29→21:12)
[2022-09-18] MEDS: VANCOMYCIN/WATER (PEG) 1.25 GM/250 ML BAG IV ×2 (06:35→19:31)
[2022-09-18 07:56] VITALS: BP 147/89; PULSE 80; RESP 18; TEMP 35.6; O2SAT 99
[2022-09-18 07:58] LABS: Abs Immature Grans 0.14 10^3/uL (0.0-0.06); Absolute Basophil Count 0.12 10^3/uL (0.0-0.2); Absolute Eosinophil Count 0.25 10^3/uL (0.0-0.7); Absolute Lymphocyte Count 2.15 10^3/uL (1.2-3.4); Absolute Monocyte Count 0.88 10^3/uL (0.1-0.8); Absolute Neutrophil Count 5.64 10^3/uL (1.2-6.7); Basophils % 1.3; Eosinophils % 2.7; HCT 41.9 % (40.0-50.0); HGB 13.4 g/dL (13.5-17.5); Immature Grans % 1.5; Lymphocytes % 23.4; MCH 30.9 pg (27.0-33.0); MCV 97 fL (80-95); MPV 10.6 fL (8.0-11.0); Monocytes % 9.6; Neutrophils % 61.5; Platelet Count 387 10^3/uL (130-400); RBC 4.34 10^6/uL (4.36-5.78); RDW 13.1 % (11.8-14.1); RDW-SD 46.9 fL; WBC 9.18 10^3/uL (4.4-10.8)
[2022-09-18] MEDS: Fluconazole 100 MG TAB 400 MG PO (08:01)
[2022-09-18] MEDS: Losartan 50 MG TAB 100 MG PO (08:02)
[2022-09-18] MEDS: Pantoprazole 40 MG TABCR PO (08:03)
[2022-09-18] MEDS: Aspirin E.C. 81 MG TABEC PO (08:03)
[2022-09-18] MEDS: Multivitamin TAB 1 TAB PO (08:03)
[2022-09-18] MEDS: Insulin NPH-Human 300 UNITS/3 ML PEN 36 UNIT SC (08:06)
[2022-09-18] MEDS: Heparin 5,000 UNITS/ML VIAL 5000 UNITS SC ×3 (08:07→23:04)
[2022-09-18 08:08] LABS: Anion Gap 5.5 mmol/L (3-11); BUN 31 mg/dL (7-18); CO2 25.5 mmol/L (21.0-32.0); Calcium 9.2 mg/dL (8.5-10.1); Chloride 99 mmol/L (98-107); Estimated GFR 81.98 (mL/min/1.73m2); Glucose 259 mg/dL (74-106); Magnesium 2.1 mg/dL (1.8-2.4); Sodium 130 mmol/L (136-145)
[2022-09-18 08:11] LABS: C-Reactive Protein 0.24 mg/dL (0.0-0.3)
[2022-09-18] MEDS: Docusate Sodium 100 MG CAP PO (10:11)
[2022-09-18] MEDS: Polyethylene Glycol 3350 17 GM PACKET PO (10:11)
[2022-09-18 15:12] VITALS: BP 148/82; PULSE 79; RESP 17; TEMP 36.3; O2SAT 97
[2022-09-18] MEDS: Ibuprofen 600 MG TAB PO ×2 (15:24→21:11)
[2022-09-18] MEDS: Insulin NPH-Human 300 UNITS/3 ML PEN 42 UNIT SC (20:41)
[2022-09-18] MEDS: Melatonin 3 MG TAB PO (21:11)
[2022-09-18 22:45] VITALS: BP 145/85; PULSE 80; RESP 16; TEMP 36.7; O2SAT 98
[2022-09-19] MEDS: CEFEPIME 2 GM in Normal Saline 100 ML IVPB ×3 (05:44→21:13)
[2022-09-19 06:19] LABS: Abs Immature Grans 0.08 10^3/uL (0.0-0.06); Absolute Basophil Count 0.11 10^3/uL (0.0-0.2); Absolute Lymphocyte Count 1.87 10^3/uL (1.2-3.4); Absolute Monocyte Count 0.94 10^3/uL (0.1-0.8); Absolute Neutrophil Count 5.24 10^3/uL (1.2-6.7); Basophils % 1.3; Eosinophils % 2.4; HCT 38.4 % (40.0-50.0); HGB 12.3 g/dL (13.5-17.5); Immature Grans % 0.9; Lymphocytes % 22.2; MCH 30.6 pg (27.0-33.0); MCV 96 fL (80-95); MPV 10.7 fL (8.0-11.0); Monocytes % 11.1; Neutrophils % 62.1; Platelet Count 402 10^3/uL (130-400); RBC 4.02 10^6/uL (4.36-5.78); RDW 12.9 % (11.8-14.1); RDW-SD 45.2 fL; WBC 8.44 10^3/uL (4.4-10.8)
[2022-09-19 06:42] LABS: Anion Gap 6.9 mmol/L (3-11); BUN 36 mg/dL (7-18); C-Reactive Protein 0.17 mg/dL (0.0-0.3); CO2 24.1 mmol/L (21.0-32.0); Calcium 9.5 mg/dL (8.5-10.1); Chloride 103 mmol/L (98-107); Estimated GFR 81.98 (mL/min/1.73m2); Glucose 164 mg/dL (74-106); Magnesium 2.1 mg/dL (1.8-2.4); Potassium 4.7 mmol/L (3.5-5.1); Sodium 134 mmol/L (136-145)
[2022-09-19 07:31] VITALS: BP 132/76; PULSE 77; RESP 16; TEMP 36; O2SAT 98
[2022-09-19] MEDS: Losartan 50 MG TAB 100 MG PO (08:04)
[2022-09-19] MEDS: Fluconazole 100 MG TAB 400 MG PO (08:04)
[2022-09-19] MEDS: Pantoprazole 40 MG TABCR PO (08:05)
[2022-09-19] MEDS: Aspirin E.C. 81 MG TABEC PO (08:05)
[2022-09-19] MEDS: Multivitamin TAB 1 TAB PO (08:06)
[2022-09-19] MEDS: Insulin Aspart 300 UNITS/3 ML PEN SC ×8 (08:07→22:12)
[2022-09-19] MEDS: Normal Saline Flush 10 ML SYR IVP ×2 (08:08→13:53)
[2022-09-19] MEDS: Heparin 5,000 UNITS/ML VIAL 5000 UNITS SC ×3 (08:09→23:36)
[2022-09-19] MEDS: Insulin NPH-Human 300 UNITS/3 ML PEN 46 UNIT SC (08:09)
[2022-09-19 09:36] LABS: Vancomycin, Trough 17.1 ug/mL (10.0-20.0)
[2022-09-19] MEDS: VANCOMYCIN/WATER (PEG) 1.25 GM/250 ML BAG IV ×2 (10:29→23:36)
[2022-09-19 15:22] VITALS: BP 136/75; PULSE 75; RESP 14; TEMP 36.2; O2SAT 98
[2022-09-19] MEDS: Insulin NPH-Human 300 UNITS/3 ML PEN 42 UNIT SC (19:00)
[2022-09-19] MEDS: Ibuprofen 600 MG TAB PO (22:11)
[2022-09-19] MEDS: Melatonin 3 MG TAB PO (22:12)
[2022-09-19 23:47] VITALS: BP 117/69; PULSE 77; RESP 16; TEMP 36.7; O2SAT 97
[2022-09-20] MEDS: CEFEPIME 2 GM in Normal Saline 100 ML IVPB ×3 (05:37→22:06)
[2022-09-20] MEDS: Pantoprazole 40 MG TABCR PO (07:00)
[2022-09-20 07:34] VITALS: BP 118/72; PULSE 74; RESP 16; TEMP 36.3; O2SAT 98
[2022-09-20] MEDS: Fluconazole 100 MG TAB 400 MG PO (08:37)
[2022-09-20] MEDS: Insulin Aspart 300 UNITS/3 ML PEN SC ×6 (08:37→17:24)
[2022-09-20] MEDS: Aspirin E.C. 81 MG TABEC PO (08:37)
[2022-09-20] MEDS: Multivitamin TAB 1 TAB PO (08:37)
[2022-09-20] MEDS: Losartan 50 MG TAB 100 MG PO (08:37)
[2022-09-20] MEDS: Insulin NPH-Human 300 UNITS/3 ML PEN 46 UNIT SC (08:39)
[2022-09-20] MEDS: Heparin 5,000 UNITS/ML VIAL 5000 UNITS SC ×3 (08:40→23:02)
--- NOTE | 2022-09-20 09:59 | CMPROGNOTE_ITS ---
- If Service Date Differs Date of service: 09/20/22 Time of Service: 09:59 Care Management Progress Note S/O:Chemo was sitting up in a chair when CM met with him. He verbalized that he remains concerned about his high blood sugars but understands that the [facility] protocols are different than what he is used to. Clinically he is doing well and has no other issues. Chemo has been up in the chair watching TV and visiting with staff and family. He had a PT evaluation and was given exercises for strengt hening, which he has been doing. A: Chemo is a 67 year old man admitted with osteomyelitis on 09/05/22 P:Anticipate Chemo will discharge home when medically cleared by provider. He will follow up with Podiatry and his PCP and plan of care. CM will follow and support discharge needs.
[2022-09-20] MEDS: VANCOMYCIN/WATER (PEG) 1.25 GM/250 ML BAG IV (14:56)
[2022-09-20 15:21] VITALS: BP 119/72; PULSE 69; RESP 14; TEMP 36.4; O2SAT 96
[2022-09-20] MEDS: Normal Saline Flush 10 ML SYR IVP (17:25)
--- NOTE | 2022-09-20 20:55 | PGE_ITS ---
Date of Service Date of service: 09/20/22 Time of Service: 20:55 Subjective Subjective Interval history since last seen: Discussed pathology results with Dr Ragland. Pathology from 09/11/22 demonstrates that the right 3rd metatarsal and t ransmetatarsal amputation specimen shows acute osteomyelitis involving resection margin. Discussed antibiotic plan: will continue IV abx + fluconazole x 2 weeks from resection, then continue 4 weeks of PO abx (plan is for levafloxacin + fluconazole). ID consult was recommended. Bone culture is showed a few GPCs on gram stain. Objective Last Vital Signs Temp 36.4 C L 09/20/22 15:21 Pulse 69 09/20/22 15:21 Resp 14 09/20/22 15:21 BP 119/72 09/20/22 15:21 Pulse Ox 96 09/20/22 15:21 Time Spent with Patient Time Spent with Patient: <25 minutes Time was spent: obtaining and/or reviewing separately otained hiistory, referring, communicating with other health child care provider, indepentently interpreting results and care coordination
[2022-09-20] MEDS: Ibuprofen 600 MG TAB PO (22:06)
[2022-09-20] MEDS: Melatonin 3 MG TAB PO (22:06)
[2022-09-20 23:05] VITALS: BP 118/69; PULSE 87; RESP 20; TEMP 36.8; O2SAT 96
[2022-09-21] MEDS: VANCOMYCIN/WATER (PEG) 1.25 GM/250 ML BAG IV ×2 (03:32→18:36)
[2022-09-21] MEDS: CEFEPIME 2 GM in Normal Saline 100 ML IVPB ×3 (05:14→21:02)
[2022-09-21 06:45] VITALS: BP 135/73; PULSE 69; RESP 21; TEMP 36.2; O2SAT 99
[2022-09-21] MEDS: Insulin NPH-Human 300 UNITS/3 ML PEN 46 UNIT SC (08:07)
[2022-09-21] MEDS: Insulin Aspart 300 UNITS/3 ML PEN SC ×7 (08:08→21:04)
[2022-09-21] MEDS: Multivitamin TAB 1 TAB PO (08:11)
[2022-09-21] MEDS: Fluconazole 100 MG TAB 400 MG PO (08:11)
[2022-09-21] MEDS: Losartan 50 MG TAB 100 MG PO (08:12)
[2022-09-21] MEDS: Pantoprazole 40 MG TABCR PO (08:12)
[2022-09-21] MEDS: Heparin 5,000 UNITS/ML VIAL 5000 UNITS SC ×3 (08:12→23:10)
[2022-09-21] MEDS: Aspirin E.C. 81 MG TABEC PO (08:16)
[2022-09-21 17:11] LABS: Glucose 547 mg/dL (74-106)
[2022-09-21] MEDS: Insulin NPH-Human 300 UNITS/3 ML PEN 50 UNIT SC (17:50)
[2022-09-21 17:58] LABS: Anion Gap 7.4 mmol/L (3-11); BUN 39 mg/dL (7-18); C-Reactive Protein 0.14 mg/dL (0.0-0.3); CO2 23.6 mmol/L (21.0-32.0); CREATININE 1.2 mg/dL (0.70-1.30); Calcium 9.4 mg/dL (8.5-10.1); Chloride 95 mmol/L (98-107); Estimated GFR 65.87 (mL/min/1.73m2); Sodium 126 mmol/L (136-145)
[2022-09-21 18:01] LABS: Potassium 5.8 mmol/L (3.5-5.1)
[2022-09-21 18:05] LABS: Abs Immature Grans 0.02 10^3/uL (0.0-0.06); Absolute Basophil Count 0.08 10^3/uL (0.0-0.2); Absolute Lymphocyte Count 1.43 10^3/uL (1.2-3.4); Absolute Monocyte Count 0.63 10^3/uL (0.1-0.8); Absolute Neutrophil Count 4.11 10^3/uL (1.2-6.7); Basophils % 1.2; Eosinophils % 3.1; HGB 12.3 g/dL (13.5-17.5); Immature Grans % 0.3; Lymphocytes % 22.1; MCH 31.1 pg (27.0-33.0); MCHC 32.4 % (32.0-36.0); MCV 96 fL (80-95); MPV 11.3 fL (8.0-11.0); Monocytes % 9.7; Neutrophils % 63.6; Platelet Count 329 10^3/uL (130-400); RBC 3.96 10^6/uL (4.36-5.78); RDW 12.8 % (11.8-14.1); RDW-SD 45.4 fL; WBC 6.47 10^3/uL (4.4-10.8)
[2022-09-21 18:38] LABS: Procalcitonin 0.2 ng/mL
--- NOTE | 2022-09-21 19:21 | NUR.NOTE ---
Clarified with pharmacy on vanco trough prior to administration of vancomycin. Plan for vanc trough tomorrow. Nursing note
[2022-09-21] MEDS: Lactated Ringers 1,000 ML 1000 ML IV (19:35)
[2022-09-21 20:28] LABS: Anion Gap 5.3 mmol/L (3-11); BUN 43 mg/dL (7-18); CO2 24.7 mmol/L (21.0-32.0); CREATININE 1.1 mg/dL (0.70-1.30); Calcium 9.1 mg/dL (8.5-10.1); Chloride 96 mmol/L (98-107); Estimated GFR 73.12 (mL/min/1.73m2); Glucose 435 mg/dL (74-106); Sodium 126 mmol/L (136-145)
--- NOTE | 2022-09-21 20:30 | PGE_ITS ---
Date of Service Date of service: 09/21/22 Time of Service: 20:30 Assessment and Plan Assessment and plan (1) Osteomyelitis of third toe of right foot: Status: Acute Assessment and plan: s/p amputation 3rd right toe Currently on vanco/cefepime and diflucan as cultures grew <10k yeast, ? superinfection, awaiting pathology reports. dressing to be changed by podiatry only podiatry following (2) Transaminitis: Status: Acute Assessment and plan: liver ultrasound acute hepatitis panel Positive hep B core total AB and reactive hepatitis C antibody will follow liver function stop apap refered to GI (3) Diabetic foot ulcer: Status: Acute Assessment and plan: see above (4) PAD (peripheral artery disease): Status: Acute Assessment and plan: The patient states he was evaluated at [facility] and no procedures were yet recommended. 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 Qualifiers: Diabetes mellitus complication detail: with polyneuropathy Qualified Code(s): E10.42 - Type 1 diabetes mellitus with diabetic polyneuropathy (6) GERD (gastroesophageal reflux disease): Status: Chronic Assessment and plan: Continue PPI (7) DVT prophylaxis: Status: Deleted Assessment and plan: SC heparin (8) Discharge planning issues: Status: Deleted Assessment and plan: Full code will be discharged to home when medically stable Discharge needs dependent on Dr Ragland discussed with Dr Moreno Subjective Subjective Patient reports: no new complaints Interval history since last seen: Refused NPH insulin last sterling; today glucose has been very high and we discussed that he has to take his NPH and explained how it is not short acting, he said he understands and will not refuse his insulin again. Exam Const General: cooperative and no acute distress Orientation: alert, awake and oriented x3 HENMT Head: normal to inspection Mouth: oral mucosae normal Eyes General: appearance normal, both eyes and all related structures Neck Neck: normal visual inspection Resp Effort & Inspection: normal respiratory effort and able to speak in complete sentences Cardio Rate: regular rate Skin Lesions: lesion noted and other (right foot, see wound care consult, bulky dressing intact, no red prox.) Neuro General: patient alert, patient awake and patient oriented x3 Motor: muscle tone normal throughout Psych Appearance: grossly normal Affect: normal affect Objective Last Vital Signs Temp 36.2 C L 09/21/22 06:45 Pulse 69 09/21/22 06:45 Resp 21 09/21/22 06:45 BP 135/73 09/21/22 06:45 Pulse Ox 99 09/21/22 06:45 Laboratory Results - last 24 hr 09/21/22 09/21/22 09/21/22 16:47 16:47 16:47 WBC RBC Hgb Hct MCV MCH MCHC RDW Plt Count MPV Immature Gran % Neutrophils % Lymphocytes % Monocytes % Eosinophils % Basophils % Nucleated RBC % Absolute Neutrophils Absolute Lymphocytes Absolute Monocytes Absolute Eosinophils Absolute Basophils Sodium 126 L Potassium 5.8 H D Chloride 95 L Carbon Dioxide 23.6 Anion Gap 7.4 BUN 39 H Creatinine 1.2 Est GFR (CKD-EPI 2020) 65.87 Glucose 547 H* Calcium 9.4 C-Reactive Protein 0.14 Procalcitonin 0.2 09/21/22 17:54 WBC 6.47 RBC 3.96 L Hgb 12.3 L Hct 38.0 L MCV 96 H MCH 31.1 MCHC 32.4 RDW 12.8 Plt Count 329 MPV 11.3 H Immature Gran % 0.3 Neutrophils % 63.6 Lymphocytes % 22.1 Monocytes % 9.7 Eosinophils % 3.1 Basophils % 1.2 Nucleated RBC % 0.0 Absolute Neutrophils 4.11 Absolute Lymphocytes 1.43 Absolute Monocytes 0.63 Absolute Eosinophils 0.20 Absolute Basophils 0.08 Sodium Potassium Chloride Carbon Dioxide Anion Gap BUN Creatinine Est GFR (CKD-EPI 2020) Glucose Calcium C-Reactive Protein Procalcitonin Time Spent with Patient Time Spent with Patient: 25-34 minutes Time was spent: ordering medications,tests, procedures, indepentently interpreting results and counseling the patient
[2022-09-21 20:47] VITALS: BP 168/87; PULSE 82; RESP 18; TEMP 36.6; O2SAT 97
[2022-09-21] MEDS: Melatonin 3 MG TAB PO (21:03)
[2022-09-21] MEDS: Ibuprofen 600 MG TAB PO (21:03)
[2022-09-21] MEDS: Lactated Ringers 1,000 ML 125 ML IV (21:56)
[2022-09-22 03:38] VITALS: BP 116/63; PULSE 73; RESP 20; TEMP 36.2; O2SAT 97
[2022-09-22] MEDS: CEFEPIME 2 GM in Normal Saline 100 ML IVPB ×3 (05:10→21:18)
[2022-09-22] MEDS: Normal Saline Flush 10 ML SYR IVP (05:16)
[2022-09-22 06:39] VITALS: BP 128/70; PULSE 69; RESP 19; TEMP 36.2; O2SAT 98
[2022-09-22 06:42] LABS: Abs Immature Grans 0.04 10^3/uL (0.0-0.06); Absolute Basophil Count 0.09 10^3/uL (0.0-0.2); Absolute Eosinophil Count 0.27 10^3/uL (0.0-0.7); Absolute Lymphocyte Count 1.54 10^3/uL (1.2-3.4); Absolute Monocyte Count 0.85 10^3/uL (0.1-0.8); Absolute Neutrophil Count 4.81 10^3/uL (1.2-6.7); Basophils % 1.2; Eosinophils % 3.6; HCT 33.6 % (40.0-50.0); HGB 11.3 g/dL (13.5-17.5); Immature Grans % 0.5; Lymphocytes % 20.3; MCH 31.2 pg (27.0-33.0); MCHC 33.6 % (32.0-36.0); MCV 93 fL (80-95); MPV 11.1 fL (8.0-11.0); Monocytes % 11.2; Neutrophils % 63.2; Platelet Count 302 10^3/uL (130-400); RBC 3.62 10^6/uL (4.36-5.78); RDW 12.4 % (11.8-14.1); RDW-SD 42.7 fL
[2022-09-22 06:58] LABS: Estimated GFR 81.98 (mL/min/1.73m2)
[2022-09-22 07:03] LABS: Anion Gap 7.3 mmol/L (3-11); BUN 36 mg/dL (7-18); CO2 24.7 mmol/L (21.0-32.0); CREATININE 0.9 mg/dL (0.70-1.30); Calcium 9.6 mg/dL (8.5-10.1); Chloride 104 mmol/L (98-107); Estimated GFR 93.03 (mL/min/1.73m2); Glucose 93 mg/dL (74-106); Magnesium 2.3 mg/dL (1.8-2.4); Potassium 4.6 mmol/L (3.5-5.1); Sodium 136 mmol/L (136-145)
[2022-09-22 07:12] LABS: Vancomycin, Trough 21.8 ug/mL (10.0-20.0)
[2022-09-22] MEDS: Losartan 50 MG TAB 100 MG PO (08:06)
[2022-09-22] MEDS: Fluconazole 100 MG TAB 400 MG PO (08:06)
[2022-09-22] MEDS: Multivitamin TAB 1 TAB PO (08:06)
[2022-09-22] MEDS: Aspirin E.C. 81 MG TABEC PO (08:06)
[2022-09-22] MEDS: Pantoprazole 40 MG TABCR PO (08:06)
[2022-09-22] MEDS: Insulin NPH-Human 300 UNITS/3 ML PEN 50 UNIT SC ×2 (08:07→21:18)
[2022-09-22] MEDS: Insulin Aspart 300 UNITS/3 ML PEN SC ×5 (08:15→16:56)
[2022-09-22] MEDS: Heparin 5,000 UNITS/ML VIAL 5000 UNITS SC ×2 (08:15→16:54)
[2022-09-22] MEDS: Lactated Ringers 1,000 ML 125 ML IV (08:34)
[2022-09-22] MEDS: VANCOMYCIN/WATER (PEG) 1 GM/200 ML BAG IV (12:35)
--- NOTE | 2022-09-22 14:18 | PHA.REVIEW2 ---
Pharmacy Admission Review - Admission Clinical Review (Last Updated 06/26/22 @ 15:03 by Henrietta Boyd) Transaminitis (Acute) Diabetic foot ulcer (Acute) Osteomyelitis of third toe of right foot (Acute) PAD (peripheral artery disease) (Acute) codeine Allergy (Mild, Verified 09/05/22 16:53) ITCHING lisinopril Adverse Reaction (Unknown, Verified 09/05/22 16:53) HEADACHE SEXUAL DYS moexipril Adverse Reaction (Unknown, Verified 09/05/22 16:53) FELT FUNNY amoxicillin potassium Allergy (Severe, Uncoded 09/05/22 16:53) Resuscitation Status Full Code Height 5 ft 11 in Weight 88.9 kg - Renal Dosing Renal Dosing: BUN 36 mg/dL (7-18) H 09/22/22 06:25 Creatinine 0.9 mg/dL (0.70-1.30) 09/22/22 06:25 Creatinine 1.0 mg/dL (0.70-1.30) 09/22/22 06:25 Medications needing adjustments: Reviewed - Anticoagulation Anticoagulation: Hgb 11.3 g/dL (13.5-17.5) L 09/22/22 06:25 Hct 33.6 % (40.0-50.0) L 09/22/22 06:25 Plt Count 302 10^3/uL (130-400) 09/22/22 06:25 Creatinine 0.9 mg/dL (0.70-1.30) 09/22/22 06:25 Creatinine 1.0 mg/dL (0.70-1.30) 09/22/22 06:25 DVT Prophylaxis: Reviewed Medications: Enoxaparin - Opiate Usage Evaluate Pain Scale/Pains Meds: N/A - Relevant Labs Sodium 136 mmol/L (136-145) D 09/22/22 06:25 Potassium 4.6 mmol/L (3.5-5.1) 09/22/22 06:25 Chloride 104 mmol/L (98-107) 09/22/22 06:25 Magnesium 2.3 mg/dL (1.8-2.4) 09/22/22 06:25 C-Reactive Protein 0.14 mg/dL (0.0-0.3) 09/21/22 16:47 Electrolytes, C-Reactive P, ESR: Reviewed - DM Control DM Control: Glucose 93 mg/dL (74-106) 09/22/22 06:25 Finger Stick Blood Glucose 231 Finger Stick Blood Glucose 231 Finger Stick Blood Glucose 231 Finger Stick Blood Glucose 231 Finger Stick Blood Glucose 64 Finger Stick Blood Glucose 64 Finger Stick Blood Glucose 64 Finger Stick Blood Glucose 64 Finger Stick Blood Glucose 64 DM Control: Reviewed (Current regimen = NPH 50u BID plus aspart per a sliding scale, patient has been refusing some preet doses) - Cardiac Review BP, HR, EF%: Reviewed - Qtc Review QTc: N/A - IV to PO Switch IV Medications: Reviewed - Home Meds Home Med List reviewed: Reviewed Relevent Home Meds Not ordered & why?: all ordered - Current meds Current Medication Order Review: Reviewed
[2022-09-22 16:47] VITALS: BP 135/75; PULSE 75; RESP 16; TEMP 36.5; O2SAT 98
[2022-09-22] MEDS: Melatonin 3 MG TAB PO (21:17)
[2022-09-22] MEDS: Ibuprofen 600 MG TAB PO (21:17)
[2022-09-22 23:08] VITALS: BP 132/78; PULSE 70; RESP 16; TEMP 36.8; O2SAT 97
[2022-09-23] MEDS: VANCOMYCIN/WATER (PEG) 1 GM/200 ML BAG IV ×2 (01:12→16:14)
[2022-09-23] MEDS: Heparin 5,000 UNITS/ML VIAL 5000 UNITS SC ×4 (01:12→23:34)
[2022-09-23] MEDS: CEFEPIME 2 GM in Normal Saline 100 ML IVPB ×3 (06:00→22:39)
[2022-09-23 06:40] VITALS: BP 134/77; PULSE 72; RESP 16; TEMP 36.6; O2SAT 97
[2022-09-23 07:13] VITALS: BP 108/68; PULSE 85; RESP 17; TEMP 35.8; O2SAT 98
[2022-09-23] MEDS: Losartan 50 MG TAB 100 MG PO (08:19)
[2022-09-23] MEDS: Pantoprazole 40 MG TABCR PO (08:19)
[2022-09-23] MEDS: Aspirin E.C. 81 MG TABEC PO (08:19)
[2022-09-23] MEDS: Fluconazole 100 MG TAB 400 MG PO (08:19)
[2022-09-23] MEDS: Multivitamin TAB 1 TAB PO (08:19)
[2022-09-23] MEDS: Insulin Aspart 300 UNITS/3 ML PEN SC ×5 (08:21→17:19)
[2022-09-23] MEDS: Insulin NPH-Human 300 UNITS/3 ML PEN 50 UNIT SC (08:25)
--- NOTE | 2022-09-23 08:38 | POCOE_ITS ---
Date of service: 09/23/22 Time of Service: 07:30 Assessment and Plan Assessment and plan (1) Osteomyelitis of third toe of right foot: Status: Acute Assessment and plan: The patient was evaluated and treated at bedside. The dressing was changed. No further purulence noted. Pathology confirms the presence of proximal margin + for osteomyelitis R 3rd metatarsal (negative 2nd). Treatment options were reviewed in detail with the patient, including further resection and/or [place] [facility] (at least 6 weeks) Abx. Considering the viability noted with surgical resection of the bone (hard bone at margin), [place] [facility] Abx an option. The risks of both were reviewed, including the risk of a minimally functional and high risk foot with further resection (high likelihood of ulcerations elsewhere), and the risks of infection spreading, risk for further surgery, and/or further amputation, with both options. The patient wishes to proceed with antibiotic management. In the meantime, the dressing was changed. A DSD was reapplied. Dressings to be left intact, unchanged. Pt to limit activity, use walker for assistance with ambulation (order placed for PT), as well as use of post-op shoe at all times. Recommend ID consult but if not possible, at least 2 weeks IV Abx followed by 4 weeks oral Abx, as well as continued diflucan. Recommend pt keep follow up appt with vascular as directed by vascular, and if any intervention should be warranted, to follow through with this as if any further amputation is necessary in the future (TMA if not more proximal), maximal perfusion would be ideal. I will follow up in 1 week, in clinic if pt d/c'ed and in house if still in house. Call with any questions, . (2) Foot infection: Status: Acute History of Present Illness History of Present Illness Chief Complaint: R foot infection, osteomyelitis, s/p 12 days R I&D and s/p 7 d ays R DPC Narrative: Chemo Fall is a 67 year old male who was evaluated at bedside today s/p 12 days R foot I&D for severe foot infection and s/p 7 days for delayed primary closure with bone biopsy. Pathology results on 09/20 confirmed a clean proximal margin on the 2nd metatarsal but confirmed presence of findings consistent with acute osteomyelitiis on the R 3rd metatarsal proximal margin. Cultures (most recently with bone culture, delayed primary closure performed on 09/16 positive for Carloz, as have all other cultures. The patient reports to feeling much better and trying to limit activity as directed, transferring to the bathroom only, he reports. He reports that the dried blood noted on the dressing he observed on Friday, a day after his dressing was changed. He has been trying to limit activity since Consults Consult date: 09/23/22 [facility] All Active Problems Foot infection (Acute) Transaminitis (Acute) GERD (gastroesophageal reflux disease) (Chronic) Diabetic foot ulcer (Acute) Infected blister of third toe of right foot (Acute) Osteomyelitis of third toe of right foot (Acute) PAD (peripheral artery disease) (Acute) Hyperglycemia due to type 1 diabetes mellitus (Acute) Other specified diabetes mellitus with other circulatory complications (Acute) Type 1 diabetes mellitus with foot ulcer (Acute) Peripheral vascular disease due to secondary diabetes (Acute) 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 [facility] Opthalmology Essential hypertension (Chronic 01/19/13) Primary open angle glaucoma (POAG) of both eyes (Chronic ~03/2015) S/P shunt surgery to reduce pressure OD Diabetic neuropathy (Acute 08/17/13) Medical History Glaucoma suspect of left eye (03/21/15) Nocturia more than twice per night Osteomyelitis of second toe of right foot SARS-CoV-2 positive (~02/13/22) Visit for suture removal Surgical History Amputated toe of right foot (~2020) S/P cataract extraction and insertion of intraocular lens (02/03/21) Status post amputation of toe of right foot (~2020) s/p amputation of distal phalanx of right 2nd toe d/t osteomyelitis 09/2022-s/p amputation third toe R foot d/t osteomyelitis-Dr Ragland Status post glaucoma surgery b/l stents Vasectomy Family History Mother Heart disease Myocardial infarction Stroke Father Diabetes Self No problems noted. 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 Skin Other: Some strikethrough on the dressing, hematogenous, both plantarly and dorsally, decreased. R foot with sutures intact, and skin edges well approximated. No futher fluctuance, lymphangitis, crepitus or signs of deep infection. Resolution of previously present erythema, edema, and calor. Full thickness wound remains plantarly, but without purulence. Surrounding hyperkeratotic skin noted. Neuro Other: Protective sensation absent previously via [place] Fanine 5.07 monofilament. Negative tinel?s sign. Muscle strength 5/5. No other neurological deficits Extrem Other: R 2nd digital amputation. Lesser digital deformities. Significant gastroc equinus with a decreased ROM of the ankle Results Last Vital Signs Temp 96.4 F L 09/23/22 07:13 Pulse 85 09/23/22 07:13 Resp 17 09/23/22 07:13 BP 108/68 09/23/22 07:13 Pulse Ox 98 09/23/22 07:13 Labs 09/22/22 06:25 09/22/22 06:25 Imaging Additional studies: Pathology: 3rd metatarsal with signs of acute osteomyelitis Microbiology: + rare GPC and carloz, bone, proximal margin R 3rd metatarsal
[2022-09-23 11:42] LABS: ESR 34 mm/hr (0-20)
[2022-09-23 12:06] LABS: C-Reactive Protein 0.21 mg/dL (0.0-0.3)
[2022-09-23] MEDS: Normal Saline Flush 10 ML SYR IVP ×2 (14:35→16:15)
[2022-09-23 15:02] VITALS: BP 143/78; PULSE 71; RESP 17; TEMP 35.6; O2SAT 97
[2022-09-23] MEDS: Ibuprofen 600 MG TAB PO ×2 (15:06→23:34)
[2022-09-23 15:59] VITALS: BP 151/73; PULSE 71; RESP 18; TEMP 35.6; O2SAT 99
--- NOTE | 2022-09-23 17:35 | PT.INDS ---
Date of service: 09/23/22 PT Notes Visit Reasons: osteomyelitis Physical Therapy Inpatient Initial Evaluation Date: 09/18/2022 Referring Doctor:? Jyothi Ragland DPM PT Orders: PT CONSULT: WB with walker and post-op, up to 40 steps at a time followed by foot elevation Precautions: Fall. Standard. WBAT on R LE with FWW and post-op shoe. Patient Profile/Admitting Diagnosis:? Patient converted to swing bed level I as of 09/18/2022. Tyshawn is a 61-year-old male with diagnosis of osteomyelitis of the right third toe and is status post right foot I&D, second partial ray resection, and right third partial ray resection with bone debridement and biopsy on postoperative day 5.? He is also status post right foot delayed primary closure with further wound debridement on postoperative day 2. PMHX: All Active Problems?(Updated 09/13/22 @ 05:29 by Jyothi Ragland DPM) Foot infection (Acute) Transaminitis (Acute) Discharge planning issues (Acute) GERD (gastroesophageal reflux disease) (Chronic) DVT prophylaxis (Acute) Diabetic foot ulcer (Acute) Infected blister of third toe of right foot (Acute) Osteomyelitis of third toe of right foot (Acute) PAD (peripheral artery disease) (Acute) Hyperglycemia due to type 1 diabetes mellitus (Acute) Other specified diabetes mellitus with other circulatory complications (Acute) Type 1 diabetes mellitus with foot ulcer (Acute) Peripheral vascular disease due to secondary diabetes (Acute) 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 [facility] Opthalmology Essential hypertension (Chronic 01/19/13) Primary open angle glaucoma (POAG) of both eyes (Chronic ~03/2015) S/P shunt surgery to reduce pressure OD Diabetic neuropathy (Acute 08/17/13) Medical History?(Updated 09/13/22 @ 05:29 by Jyothi Ragland DPM) Glaucoma suspect of left eye (03/21/15) Nocturia more than twice per night Osteomyelitis of second toe of right foot SARS-CoV-2 positive (~02/13/22) Visit for suture removal Surgical History?(Updated 03/18/22 @ 13:58 by Hien Keith NP) Amputated toe of right foot (~2020) S/P cataract extraction and insertion of intraocular lens (02/03/21) Status post amputation of toe of right foot (~2020) s/p amputation of distal phalanx of right 2nd toe d/t osteomyelitis Status post glaucoma surgery b/l stents Vasectomy Social History/Home Situation: Independent with all aspects of ADLs prior to surgery. Equipment Owned/DME: None Subjective: NT. See most recent DEDICATED TRUCK DRIVER notes. Objective: General Observation: NT. See most recent DEDICATED TRUCK DRIVER notes. Mental Status: NT. See most recent DEDICATED TRUCK DRIVER notes. Pain: NT. See most recent DEDICATED TRUCK DRIVER notes. Vital Signs: NT. See most recent DEDICATED TRUCK DRIVER notes. ROM: Right Lower Extremity: Hip flexion WFL. Hip abduction WFL. Knee flexion WFL. Ankle dorsiflexion NT. Ankle plantarflexion WFL. Left Lower Extremity: Hip flexion WFL. Hip abduction WFL. Knee flexion WFL. Ankle dorsiflexion WFL. Ankle plantarflexion WFL. Strength: Right Lower Extremity: Hip flexors 5/5. Hip abductors 5/5. Knee flexors 5/5. Knee extensors 4/5. Ankle dorsiflexors NT. Ankle plantarflexors NT. Left Lower Extremity: Hip flexors 5/5. Hip abductors 5/5. Knee flexors 5/5. Knee extensors 5/5. Ankle dorsiflexors 5/5. Ankle plantarflexors 5/5. Bed Mobility/Transfers: Rolling independent Supine to sit independent Sit to supine independent Sit to stand independent Stand to sit independent Bed to reclining chair independent Reclining chair to bed independent Gait: Instructed patient with level surface ambulation of 20 feet requiring FWW assist, modified independent. Meg independently. DF on the R decreased.? Provided patient with another post-op shoe on the L to prevent leg length discrepancy and undue weight bearing on the R LE.? Patient did not bring own footwear and he is unsure when could come to bring his shoes.? Balance: Static Sitting: Normal Dynamic Sitting: Normal Static Standing: Fair Dynamic Standing: Fair Special Tests: Mobility Limitations Standardized Measure [facility] 6 clicks Basic Mobility Inpatient Short Form: Raw Score: 23? CMS Score: 11% deficit? ? ? THERA EX: AKTC while reclined on chair x 10 every 2-3 hours Quads sets x 10 hwile seated on chair every 2-3 hours Assessment: Patient understands the improtance of usinf FWW for up to 40 feet in order o promote healing of foot wound. No skilled services are needed at this time as patient is independent with all mobility ADLs using his FWW. Goals: Goals X1 week 1.? Patient will present with consistent use of FWW and B post-op shoes for level surface ambulation of up to 40 feet? to allow for maximal healing of R foot wound. MET 2.? Patient will negotiate 5 steps while holding onto B rails for support using correct technique with modified independence. MET 3.? Patient will show 100% mastery of strengthening exercise progression to B LE MET DISCHARGE RECOMMENDATIONS: [X] ? Home with no services. [] ? Home with services [specify] [] ? Home with outpatient PT [] [] ? SNF for continued rehabilitation [] [] ? Assisted Living Coordinator Care [] [] ? SNF versus LTC based on ability to participate and progress [] TREATMENT CODE/TIME: GA Thank you for the opportunity to participate in the care of this patient. Sammi White PT, DPT, CLT [facility] [place], [place]
--- NOTE | 2022-09-23 19:11 | PGE_ITS ---
Date of Service Date of service: 09/23/22 Time of Service: 14:00 Assessment and Plan Assessment and plan (1) Osteomyelitis of third toe of right foot: Status: Acute Assessment and plan: s/p amputation 3rd right toe Currently on vanco/cefepime and diflucan as cultures grew <10k yeast, ? superinfection, awaiting pathology reports. dressing to be changed by podiatry only podiatry following - OK to discharge per Dr Ellyn bowers follow up in 1 week at her office Will need ID consult @ [facility] prior to discharge to determine length/method of continued abx tx. He has chosen abx tx at this time vs more surgery. (2) Transaminitis: Status: Acute Assessment and plan: liver ultrasound acute hepatitis panel Positive hep B core total AB and reactive hepatitis C antibody will follow liver function stop apap refered to GI (3) Diabetic foot ulcer: Status: Acute Assessment and plan: see above (4) PAD (peripheral artery disease): Status: Acute Assessment and plan: The patient states he was evaluated at [facility] and no procedures were yet recommended. He does have a follow up appt (5) 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: Status: Chronic Assessment and plan: Continue home basal bolus insulin w/ NPH + regular insulin, changed carb coverage to 2:10 will make further adjustments as needed, increasing NPH in am to 50 units and PM down to 30 units A1C 8.1 elementary educator consultation. Qualifiers: Diabetes mellitus complication detail: with polyneuropathy Qualified Code(s): E10.42 - Type 1 diabetes mellitus with diabetic polyneuropathy (6) GERD (gastroesophageal reflux disease): Status: Chronic Assessment and plan: Continue PPI (7) DVT prophylaxis: Status: Deleted Assessment and plan: SC heparin (8) Discharge planning issues: Status: Deleted Assessment and plan: Full code will be discharged to home when medically stable - will need further abx tx Discharge OK per Dr Ragland discussed with Dr Moreno Subjective Subjective Patient reports: no new complaints, pain is less, tolerating a regular diet, voiding w/o difficulty, bowel movement and afebrile; denies diarrhea, nausea, vomiting or shortness of breath Interval history since last seen: Tyshawn is awake, alert sitting in a chair with both lower extr elevated. Seen by Dr Ragland today. Exam Const General: cooperative and no acute distress Orientation: alert, awake and oriented x3 HENMT Head: normal to inspection Mouth: oral mucosae normal Eyes General: appearance normal, both eyes and all related structures Neck Neck: normal visual inspection Resp Effort & Inspection: normal respiratory effort and able to speak in complete sentences Cardio Rate: regular rate Skin Lesions: lesion noted and other (right foot, see wound care consult, bulky dres sing intact, no red prox.) Neuro General: patient alert, patient awake and patient oriented x3 Motor: muscle tone normal throughout Psych Appearance: grossly normal Affect: normal affect Objective Last Vital Signs Temp 35.6 C L 09/23/22 15:59 Pulse 71 09/23/22 15:59 Resp 18 09/23/22 15:59 BP 151/73 H 09/23/22 15:59 Pulse Ox 99 09/23/22 15:59 Laboratory Results - last 24 hr 09/23/22 09/23/22 11:25 11:25 ESR 34 H C-Reactive Protein 0.21 Time Spent with Patient Time Spent with Patient: 25-34 minutes Time was spent: preparing to see the patient(eg.review tests), ordering medications,tests, procedures, referring, communicating with other health healthcare market consultant, indepentently interpreting results, counseling the patient and care coordination
[2022-09-23] MEDS: Insulin NPH-Human 300 UNITS/3 ML PEN 30 UNIT SC (20:34)
[2022-09-23 23:14] VITALS: BP 144/77; PULSE 77; RESP 21; TEMP 36.2; O2SAT 97
[2022-09-23] MEDS: Melatonin 3 MG TAB PO (23:34)
[2022-09-24] MEDS: CEFEPIME 2 GM in Normal Saline 100 ML IVPB ×3 (05:23→23:10)
[2022-09-24] MEDS: VANCOMYCIN/WATER (PEG) 1 GM/200 ML BAG IV ×2 (06:16→19:28)
[2022-09-24 07:02] LABS: Abs Immature Grans 0.02 10^3/uL (0.0-0.06); Absolute Basophil Count 0.07 10^3/uL (0.0-0.2); Absolute Eosinophil Count 0.28 10^3/uL (0.0-0.7); Absolute Lymphocyte Count 1.42 10^3/uL (1.2-3.4); Absolute Monocyte Count 0.68 10^3/uL (0.1-0.8); Absolute Neutrophil Count 3.38 10^3/uL (1.2-6.7); Basophils % 1.2; Eosinophils % 4.8; HCT 34.8 % (40.0-50.0); HGB 11.6 g/dL (13.5-17.5); Immature Grans % 0.3; Lymphocytes % 24.3; MCH 31.4 pg (27.0-33.0); MCHC 33.3 % (32.0-36.0); MCV 94 fL (80-95); MPV 11.3 fL (8.0-11.0); Monocytes % 11.6; Neutrophils % 57.8; Platelet Count 246 10^3/uL (130-400); RDW 12.7 % (11.8-14.1); RDW-SD 44.2 fL; WBC 5.85 10^3/uL (4.4-10.8)
[2022-09-24 07:11] LABS: Anion Gap 5.9 mmol/L (3-11); BUN 27 mg/dL (7-18); C-Reactive Protein 0.22 mg/dL (0.0-0.3); CO2 26.1 mmol/L (21.0-32.0); CREATININE 0.8 mg/dL (0.70-1.30); Calcium 9.2 mg/dL (8.5-10.1); Chloride 104 mmol/L (98-107); Glucose 165 mg/dL (74-106); Magnesium 2.1 mg/dL (1.8-2.4); Potassium 4.6 mmol/L (3.5-5.1); Sodium 136 mmol/L (136-145)
[2022-09-24 07:13] VITALS: BP 133/74; PULSE 71; RESP 16; TEMP 35.3; O2SAT 96
[2022-09-24] MEDS: Normal Saline Flush 10 ML SYR IVP ×2 (08:06→14:50)
[2022-09-24] MEDS: Heparin 5,000 UNITS/ML VIAL 5000 UNITS SC ×3 (08:08→23:09)
[2022-09-24] MEDS: Pantoprazole 40 MG TABCR PO (08:10)
[2022-09-24] MEDS: Aspirin E.C. 81 MG TABEC PO (08:11)
[2022-09-24] MEDS: Multivitamin TAB 1 TAB PO (08:11)
[2022-09-24] MEDS: Losartan 50 MG TAB 100 MG PO (08:11)
[2022-09-24] MEDS: Fluconazole 100 MG TAB 400 MG PO (08:12)
[2022-09-24] MEDS: Insulin NPH-Human 300 UNITS/3 ML PEN 50 UNIT SC (08:15)
[2022-09-24] MEDS: Insulin Aspart 300 UNITS/3 ML PEN SC ×6 (08:17→23:17)
[2022-09-24 14:24] VITALS: BP 157/84; PULSE 74; RESP 16; TEMP 36.3; O2SAT 99
[2022-09-24] MEDS: Insulin NPH-Human 300 UNITS/3 ML PEN 30 UNIT SC (19:28)
[2022-09-24] MEDS: Ibuprofen 600 MG TAB PO (23:09)
[2022-09-24] MEDS: Melatonin 3 MG TAB PO (23:09)
[2022-09-24 23:12] VITALS: BP 162/76; PULSE 79; RESP 18; TEMP 36.6; O2SAT 96
[2022-09-25] MEDS: CEFEPIME 2 GM in Normal Saline 100 ML IVPB ×2 (05:43→15:04)
[2022-09-25] MEDS: Normal Saline Flush 10 ML SYR IVP (05:44)
[2022-09-25 07:23] VITALS: BP 148/80; PULSE 75; RESP 18; TEMP 35.9; O2SAT 99
[2022-09-25] MEDS: Losartan 50 MG TAB 100 MG PO (07:45)
[2022-09-25] MEDS: Aspirin E.C. 81 MG TABEC PO (07:45)
[2022-09-25] MEDS: Multivitamin TAB 1 TAB PO (07:45)
[2022-09-25] MEDS: Heparin 5,000 UNITS/ML VIAL 5000 UNITS SC ×3 (07:45→23:38)
[2022-09-25] MEDS: Fluconazole 100 MG TAB 400 MG PO (07:45)
[2022-09-25] MEDS: Pantoprazole 40 MG TABCR PO (07:45)
[2022-09-25] MEDS: Insulin Aspart 300 UNITS/3 ML PEN SC ×6 (07:59→17:08)
[2022-09-25] MEDS: Insulin NPH-Human 300 UNITS/3 ML PEN 50 UNIT SC (08:04)
--- NOTE | 2022-09-25 08:50 | PDOC.CMPRO ---
- If Service Date Differs Date of service: 09/25/22 Time of Service: 08:50 Care Management Progress Note S/O: A: Chemo is a 67 year old man admitted with osteomyelitis on 09/05/22 P:Anticipate Chemo will discharge home when medically cleared by provider. He will follow up with Podiatry and his PCP and plan of care. CM will follow and support discharge needs.
[2022-09-25] MEDS: VANCOMYCIN/WATER (PEG) 1 GM/200 ML BAG IV (09:56)
[2022-09-25] MEDS: Milk of Magnesia 30 ML CUP PO (10:18)
[2022-09-25] MEDS: Docusate Sodium 100 MG CAP PO (10:18)
--- NOTE | 2022-09-25 11:45 | PGE_ITS ---
Date of Service Date of service: 09/25/22 Time of Service: 12:00 Assessment and Plan Assessment and plan (1) Osteomyelitis of third toe of right foot: Status: Acute Assessment and plan: s/p amputation 3rd right toe Currently on vanco/cefepime and diflucan as cultures grew <10k yeast, ? superinfection, awaiting pathology reports. dressing to be changed by podiatry only podiatry following - OK to discharge per Dr Ellyn bowers follow up in 1 week at her office Consult with ID; Dr Horvath recommends Ertapenem 1 gm daily for at least 2 weeks and Diflucan 400 mg daily also for at least 2 weeks then review with them at that point to determine continuation. We will keep him one more night and give him Ertapenem in the morning tomorrow; schedule outpt infusions - he will follow up with Dr Ragland, Podiatry for his foot wound. (2) Transaminitis: Status: Acute Assessment and plan: liver ultrasound acute hepatitis panel Positive hep B core total AB and reactive hepatitis C antibody will follow liver function stop apap refered to GI (3) Diabetic foot ulcer: Status: Acute Assessment and plan: see above (4) PAD (peripheral artery disease): Status: Acute Assessment and plan: The patient states he was evaluated at [facility] and no procedures were yet recommended. 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 Qualifiers: Diabetes mellitus complication detail: with polyneuropathy Qualified Code(s): E10.42 - Type 1 diabetes mellitus with diabetic polyneuropathy (6) GERD (gastroesophageal reflux disease): Status: Chronic Assessment and plan: Continue PPI (7) DVT prophylaxis: Status: Deleted Assessment and plan: SC heparin (8) Discharge planning issues: Status: Deleted Assessment and plan: Full code Will be discharged to home when medically stable - will need further abx tx; set up with outpt infusion clinic for at least 2 weeks to be reevaluated by ID and PCP will follow labs Discharge OK per Dr Ragland, she will follow wound discussed with Dr Moreno Subjective Subjective Patient reports: no new complaints, pain is less, tolerating a regular diet, voiding w/o difficulty, bowel movement and afebrile; denies nausea, vomiting or shortness of breath Interval history since last seen: Tyshawn is doing well, eager to go home. He agrees with out patient infusion and to a PICC line. Exam Const General: cooperative and no acute distress Orientation: alert, awake and oriented x3 HENMT Head: normal to inspection Mouth: oral mucosae normal Eyes General: appearance normal, both eyes and all related structures Neck Neck: normal visual inspection Resp Effort & Inspection: normal respiratory effort and able to speak in complete sentences Cardio Rate: regular rate Skin Lesions: lesion noted and other (right foot, see wound care consult, bulky dressing intact, no red prox.) Neuro General: patient alert, patient awake and patient oriented x3 Motor: muscle tone normal throughout Psych Appearance: grossly normal Affect: normal affect Objective Last Vital Signs Temp 36.5 C 09/26/22 07:27 Pulse 70 09/26/22 07:27 Resp 18 09/26/22 07:27 BP 118/75 09/26/22 07:27 Pulse Ox 100 09/26/22 07:27 Laboratory Results - last 24 hr 09/26/22 09/26/22 09/26/22 05:30 05:30 05:30 WBC 7.19 RBC 3.59 L Hgb 11.4 L Hct 34.0 L MCV 95 MCH 31.8 MCHC 33.5 RDW 12.9 Plt Count 252 MPV 12.8 H Immature Gran % 0.3 Neutrophils % 61.9 Lymphocytes % 22.4 Monocytes % 10.6 Eosinophils % 3.8 Basophils % 1.0 Nucleated RBC % 0.0 Absolute Neutrophils 4.46 Absolute Lymphocytes 1.61 Absolute Monocytes 0.76 Absolute Eosinophils 0.27 Absolute Basophils 0.07 Sodium 135 L Potassium 4.9 Chloride 103 Carbon Dioxide 25.6 Anion Gap 6.4 BUN 31 H Creatinine 1.1 Est GFR (CKD-EPI 2020) 73.12 Glucose 285 H Calcium 9.4 Magnesium 2.2 Total Bilirubin Conjugated Bilirubin AST ALT Alkaline Phosphatase Total Protein Albumin Add-On Test Request DONE 09/26/22 05:30 WBC RBC Hgb Hct MCV MCH MCHC RDW Plt Count MPV Immature Gran % Neutrophils % Lymphocytes % Monocytes % Eosinophils % Basophils % Nucleated RBC % Absolute Neutrophils Absolute Lymphocytes Absolute Monocytes Absolute Eosinophils Absolute Basophils Sodium Potassium Chloride Carbon Dioxide Anion Gap BUN Creatinine Est GFR (CKD-EPI 2020) Glucose Calcium Magnesium Total Bilirubin 0.8 Conjugated Bilirubin 0.5 H AST 139 H ALT 202 H Alkaline Phosphatase 689 H Total Protein 7.1 Albumin 2.8 L Add-On Test Request Time Spent with Patient Time Spent with Patient: 35-49 minutes Time was spent: preparing to see the patient(eg.review tests), ordering medications,tests, procedures, referring, communicating with other health cardiac care unit nurse, indepentently interpreting results, counseling the patient and care coordination
[2022-09-25 11:48] VITALS: BP 155/75; PULSE 74; RESP 18; TEMP 36; O2SAT 99
--- NOTE | 2022-09-25 12:43 | W.PODCONSULT ---
Date of service: 09/25/22 Time of Service: 12:10 Assessment and Plan Assessment and plan (1) Osteomyelitis of third toe of right foot: Status: Acute Assessment and plan: The patient was evaluated and treated at bedside, alongside nurse Rossana and student Hien, as concerns were expressed to me by the PHARMACEUTICAL ENGINEER of the foot appearing lawson. No further purulence or signs of infection noted. As noted previously, Pathology confirms the presence of proximal margin + for osteomyelitis R 3rd metatarsal (negative 2nd). Treatment options were reviewed in detail with the patient, including further resection and/or retirement (at least 6 weeks) Abx / Antifungal. Considering the viability noted with surgical resection of the bone (hard bone at margin), retirement Abx / antifungal an option. The risks of both were reviewed, including the risk of a minimally functional and high risk foot with further resection (high likelihood of ulcerations elsewhere), and the risks of infection spreading, risk for further surgery, and/or further amputation, with both options. The patient wishes to proceed with antibiotic / antifungal management. In the meantime, the dressing was changed. A DSD was reapplied. Dressings to be left intact, unchanged. Pt to limit activity, use walker for assistance with ambulation (order placed for PT), as well as use of post-op shoe at all times. Time was taken the last 2 days to request consultation with [facility]. Appts have been made for ID consultation as well as vascular (pt seen previously). Recommend pt keep follow up appt with vascular as directed by vascular, and if any intervention should be warranted, to follow through with this as if any further amputation is necessary in the future (TMA if not more proximal), maximal perfusion would be ideal. In the meantime, the hyperkeratotic skin at the plantar foot surrounding the area of the initial ulceration was pared with a 15-blade, and the dressing was changed and incision site is clean with skin edges well approximated. I will follow up in 1 week, in clinic if pt d/c'ed and in house if still in house. Call with any questions, ; I will be happy to organize a dressing change with anyone interested. (2) Foot infection: Status: Acute History of Present Illness History of Present Illness Chief Complaint: R foot infection, osteomyelitis, s/p 14 days R I&D and s/p 9 days R DPC Narrative: Chemo Fall is a 67 year old male who was evaluated at bedside today, alongside nurse Rossana and student Hien, s/p 14 days R foot I&D for severe foot infection and s/p 9 days for delayed primary closure with bone biopsy. Pt reports that the dressing has remained intact since it was changed by myself on Friday. Pathology results on 09/20 confirmed a clean proximal margin on the 2nd metatarsal but confirmed presence of findings consistent with acute osteomyelitiis on the R 3rd metatarsal proximal margin. Cultures (most recently with bone culture, delayed primary closure performed on 09/16 positive for Nia, as have all other cultures. The patient reports to feeling much better and trying to limit activity as directed, transferring to the bathroom only, he reports. He reports that he received a call from [facility] and an appt was scheduled with vascular for 10/04 and ID on 10/23 Consults Consult date: 09/23/22 PFS All Active Problems Foot infection (Acute) Transaminitis (Acute) GERD (gastroesophageal reflux disease) (Chronic) Diabetic foot ulcer (Acute) Infected blister of third toe of right foot (Acute) Osteomyelitis of third toe of right foot (Acute) PAD (peripheral artery disease) (Acute) Hyperglycemia due to type 1 diabetes mellitus (Acute) Other specified diabetes mellitus with other circulatory complications (Acute) Type 1 diabetes mellitus with foot ulcer (Acute) Peripheral vascular disease due to secondary diabetes (Acute) 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 [facility] Opthalmology Essential hypertension (Chronic 01/19/13) Primary open angle glaucoma (POAG) of both eyes (Chronic ~03/2015) S/P shunt surgery to reduce pressure OD Diabetic neuropathy (Acute 08/17/13) Medical History Glaucoma suspect of left eye (03/21/15) Nocturia more than twice per night Osteomyelitis of second toe of right foot SARS-CoV-2 positive (~02/13/22) Visit for suture removal Surgical History Amputated toe of right foot (~2020) S/P cataract extraction and insertion of intraocular lens (02/03/21) Status post amputation of toe of right foot (~2020) s/p amputation of distal phalanx of right 2nd toe d/t osteomyelitis 09/2022-s/p amputation third toe R foot d/t osteomyelitis-Dr Ragland Status post glaucoma surgery b/l stents Vasectomy Family History Mother Heart disease Myocardial infarction Stroke Father Diabetes Self No problems noted. 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 Skin Other: Some strikethrough on the dressing, hematogenous, both plantarly and dorsally, decreased. R foot with sutures intact, and skin edges well approximated. No purulence emitted upon compression of the foot or arch, area of previous concern. Plantar foot wound decreased in size, with surrounding hyperkeratotic skin. No futher fluctuance, lymphangitis, crepitus or signs of deep infection. Resolution of previously present erythema, edema, and calor Neuro Other: Protective sensation absent previously via Jackson Fannie 5.07 monofilament. Negative tinel?s sign. Muscle strength 5/5. No other neurological deficits Extrem Other: R 2nd digital amputation. Lesser digital deformities. Significant gastroc equinus with a decreased ROM of the ankle Results Last Vital Signs Temp 96.8 F L 09/25/22 11:48 Pulse 74 09/25/22 11:48 Resp 18 09/25/22 11:48 BP 155/75 H 09/25/22 11:48 Pulse Ox 99 09/25/22 11:48 Labs 09/24/22 06:50 09/24/22 06:50
[2022-09-25 15:19] VITALS: BP 106/63; PULSE 70; RESP 18; TEMP 36.2; O2SAT 99
--- NOTE | 2022-09-25 19:12 | NUR.NOTE ---
Nursing Note: report to waqas rn for shift change, notified of new midline placement
--- NOTE | 2022-09-25 20:00 | DI.RAD_ITS ---
Exam(s) XR PORTABLE CHEST AP POST LINE EXAM: XR PORTABLE CHEST AP POST LINE CLINICAL HISTORY: picc line placement TECHNIQUE: 2D digital imaging was performed of the chest. One image was obtained. An AP view was ob tained. COMPARISON: No exams were available for comparison FINDINGS: MEDIASTINUM: Normal. HEART: Upper limits of normal. PULMONARY VASCULATURE: Normal. LUNGS: Clear. PLEURAL SPACE: No pleural effusion or pneumothorax. BONE:Within normal limits for the patient's age. OTHER FINDINGS:The tip of the right PICC line is in good position at the cavoatrial junction. IMPRESSION: Tip of the right PICC line is in good position at the cavoatrial junction. DATA REPOSITORY: RADIATION DOSE DELIVERED:
--- NOTE | 2022-09-25 20:45 | DI.VRAD_ITS ---
PROCEDURE INFORMATION: Exam: XR Chest Exam date and time: 09/25/2022 7:53 PM Age: 67 years old Clinical indication: Other: Picc line placement TECHNIQUE: Imaging protocol: Radiologic exam of the chest. Views: 1 view. COMPARISON: No relevant prior studies available. FINDINGS: Right PICC line tip at the cavoatrial junction Lungs: Unremarkable. No consolidation. Pleural spaces: Unremarkable. No pleural effusion. No pneumothorax. Heart/Mediastinum: Mild cardiomegaly. Bones/joints: Unremarkable. IMPRESSION: Right PICC line tip at the cavoatrial junction No acute findings. Dictated and Authenticated by: Scott Seymour MD. Ordering:ACE Vazquez MD
[2022-09-25 22:00] VITALS: BP 132/87; PULSE 72; RESP 16; TEMP 36.6; O2SAT 96
[2022-09-25] MEDS: Melatonin 3 MG TAB PO (22:00)
[2022-09-25] MEDS: Insulin NPH-Human 300 UNITS/3 ML PEN 36 UNIT SC (22:48)
[2022-09-26 06:25] LABS: Abs Immature Grans 0.02 10^3/uL (0.0-0.06); Absolute Basophil Count 0.07 10^3/uL (0.0-0.2); Absolute Eosinophil Count 0.27 10^3/uL (0.0-0.7); Absolute Lymphocyte Count 1.61 10^3/uL (1.2-3.4); Absolute Monocyte Count 0.76 10^3/uL (0.1-0.8); Absolute Neutrophil Count 4.46 10^3/uL (1.2-6.7); Eosinophils % 3.8; HGB 11.4 g/dL (13.5-17.5); Immature Grans % 0.3; Lymphocytes % 22.4; MCH 31.8 pg (27.0-33.0); MCHC 33.5 % (32.0-36.0); MCV 95 fL (80-95); MPV 12.8 fL (8.0-11.0); Monocytes % 10.6; Neutrophils % 61.9; Platelet Count 252 10^3/uL (130-400); RBC 3.59 10^6/uL (4.36-5.78); RDW 12.9 % (11.8-14.1); RDW-SD 44.9 fL; WBC 7.19 10^3/uL (4.4-10.8)
[2022-09-26 06:53] LABS: Anion Gap 6.4 mmol/L (3-11); BUN 31 mg/dL (7-18); CO2 25.6 mmol/L (21.0-32.0); CREATININE 1.1 mg/dL (0.70-1.30); Calcium 9.4 mg/dL (8.5-10.1); Chloride 103 mmol/L (98-107); Estimated GFR 73.12 (mL/min/1.73m2); Glucose 285 mg/dL (74-106); Magnesium 2.2 mg/dL (1.8-2.4); Potassium 4.9 mmol/L (3.5-5.1); Sodium 135 mmol/L (136-145)
[2022-09-26 07:27] VITALS: BP 118/75; PULSE 70; RESP 18; TEMP 36.5; O2SAT 100
[2022-09-26] MEDS: Fluconazole 100 MG TAB 400 MG PO (08:14)
[2022-09-26] MEDS: Aspirin E.C. 81 MG TABEC PO (08:14)
[2022-09-26] MEDS: Heparin 5,000 UNITS/ML VIAL 5000 UNITS SC (08:15)
[2022-09-26] MEDS: Insulin Aspart 300 UNITS/3 ML PEN SC ×2 (08:15→08:16)
[2022-09-26] MEDS: Insulin NPH-Human 300 UNITS/3 ML PEN 50 UNIT SC (08:17)
[2022-09-26] MEDS: Losartan 50 MG TAB 100 MG PO (08:18)
[2022-09-26] MEDS: Normal Saline Flush 10 ML SYR IVP (08:18)
[2022-09-26] MEDS: Multivitamin TAB 1 TAB PO (08:18)
[2022-09-26] MEDS: Pantoprazole 40 MG TABCR PO (08:18)
[2022-09-26] MEDS: ERTAPENEM 1 GM in Normal Saline 50 ML IVPB (08:33)
[2022-09-26 10:06] LABS: Lab Add On Test DONE
[2022-09-26 10:21] LABS: ALT 202 U/L (16-63); AST 139 U/L (15-37); Albumin 2.8 g/dL (3.4-5.0); Alkaline Phosphatase 689 U/L (46-116); Bilirubin, Direct 0.5 mg/dL (0.0-0.2); Bilirubin, Total 0.8 mg/dL (0.2-1.0); Total Protein 7.1 g/dL (6.4-8.2)
--- NOTE | 2022-09-26 11:42 | W.PM.DS.N ---
Date of service: 09/25/22 Time of Service: 11:42 DS: Diagnosis Discharge Diagnosis (1) Osteomyelitis of third toe of right foot: Status: Acute (2) Foot infection: Status: Acute Discharge Plan Disposition Patient Disposition: Home Condition: Improving Discharge Details Reason For Visit: Osteomyelitis Admit Date/Time: 09/17/22 14:30 Admit Provider: Dominga Bass Attending Provider: Dominga Bass Primary Care Provider: Hien Keith Hospital Course Hospital Course: This is a 67-year-old diabetic male patient who was followed outpatient with podiatry for a diabetic foot ulcer found to have osteomyelitis of his third right toe.? He was brought into the emergency department and admitted to the medical surgical unit for further management.? He was initiated on vancomycin and cefepime.? Diflucan was added at his cultures did grow Nia.? He underwent amputation of his toe and wound was left open.? He was brought back to the OR on September 16 for further revision and closure of the area.? He was followed by Podiatry, Dr Ragland.? She did all of the dressing changes. On 09/25/2022 he received a PICC line for outpatient IV antibiotics.? He was cleared by podiatry to go home.? Consult with [facility] ID recommended Ertapenem IV for 2-8 weeks, and Diflucan 400 mg orally per day.? Tyshawn was in agreement of being discharged and following up with podiatry as recommended as well as going to the infusion clinic at the hospital until the antibiotic course is completed (TBA).? He will follow up with Dr Ragland regarding his dressings and his foot in general.? He was discharged to home with stable vital signs.? He may require more surgery, this will be determined by Dr Ragland.? Labs have been ordered with results to PCP and Dr Ragland for review.? Recommend PCP follow up with consult to [facility] ID department for further guidance of treatment. Discussed with Dr. Moreno Home Meds and New Rx's Prescriptions: New fluconazole 100 mg Tablet 400 mg PO DAILY Qty: 20 0RF ertapenem 1 gram Recon Soln 1 g IVPB Q24H Qty: 0 0RF pantoprazole 40 mg Tablet,Delayed Release (Dr/Ec) 40 mg PO DAILY@0730 Qty: 30 0RF Continued Lac-Hydrin Five 5 % lotion 1 applic TP BID PRN (Reason: diabetic foot care) Qty: 226 5RF Rx Instructions: Apply thin film to affected areas of feet twice a day as needed. (DME) BD Insulin Syringe 1 mL 26 x 1/2 syringe 1 syr Sub-Q 5x/day Qty: 300 4RF Rx Instructions: use one 5 times a day for type 1 diabetes. Request BD Ultra-Fine 1cc syringe w/ 31G 5/16inch (8 mm) needle. dx: E10.39 Novolin N NPH U-100 Insulin 100 unit/mL suspension See Rx Instructions subcut .COMPLEX Qty: 6 4RF Dose Instruction: 26 units in AM; 30 units in PM subcut BID; 26 units in AM; 30 units in PM Rx Instructions: 26 units in AM; 36 units in PM subcut; Novolin R Regular U-100 Insuln 100 unit/mL solution See Rx Instructions Sub-Q .COMPLEX Qty: 6 4RF Rx Instructions: 24 units subcut 4x/day (with meals and at midnight) losartan 100 mg tablet 100 mg PO DAILY Qty: 90 3RF polyethylene glycol 3350 [Miralax] 17 gram/dose powder 17 g PO DAILY PRN (Reason: constipation) Qty: 1700 3RF (DME) Dexcom G6 Sensor Device See Rx Instructions .ROUTE .MEDSUPPLY Qty: 3 0RF Rx Instructions: As directed (DME) Dexcom G6 Team Lead Misc See Rx Instructions .Route Qty: 1 0RF Rx Instructions: As directed (DME) Dexcom G6 Transmitter Device See Rx Instructions .ROUTE .MEDSUPPLY Qty: 1 0RF Rx Instructions: As directed mupirocin 2 % ointment 1 applic topical TID Qty: 15 0RF aspirin [Ecotrin Low Strength] 81 MG tablet,delayed release (DR/EC) 81 mg PO DAILY multivitamin [Daily Vitamin] 1 EACH tablet 1 ea PO DAILY Discharge Instructions Instructions: Fluconazole (By mouth), Ertapenem (By injection), PICC (Peripherally Inserted Central Catheter) (DC) Additional Instructions: Daily infusions will be managed with the infusion center @ [facility]; they will contact you with times for your infusion. They will also manage your PICC line. It will stay in place until the end of treatment, which at this point is going to be anywhere from at least two to as long as [address] Ragland will do your dressings and any treatment required related to your osteomyelitis out patient. You have an appointment with her 10/03/2022 at 9:15 am. The infusion center will monitor your labs weekly, with your PCP and infectious disease, they will also change the PICC line dressing. Keep a good eye on your glucose and adjust insulin accordingly. Stand Alone Forms: Nursing Discharge Form Referrals: Chel Gallagher [REGISTERED NURSE] - (INFUSION SERVICES- [phone] Second Floor at [facility]) Jyothi Ragland DPM [DPM [facility] STAFF PHYSICIAN] - 09/30/22 9:30 am Tyshawn Chapman DO [OSTEOPATHIC DOCTOR] - 10/03/22 9:15 am Activity:: Activity as Tolerated Equipment/Supplies:: Blood Glucose Monitor Diet:: Carb Counting Discharge Orders Discharge Orders: Discharge Order (Routine); Ordered 09/26/22 Ordered By: Taylor Samuels Discharge Data Discharge Date/Time-TO BE ENTERED AT DEPARTURE: 09/26/22 13:34 DS: Summary Time Spent with Patient providing and/or coordinating discharge services: Greater than 30 minutes Status at Discharge Functional status at discharge: uses cane/walker Overall status at discharge: patient is progressing back to baseline Mental Status: mental status grossly normal Speech and Movement: speech and movement normal Mood: congruent mood Affect: normal affect Exam Const General: cooperative and no acute distress Orientation: alert, awake and oriented x3 HENMT Head: normal to inspection Mouth: oral mucosae normal Eyes General: appearance normal, both eyes and all related structures Neck Neck: normal visual inspection Resp Effort & Inspection: normal respiratory effort and able to speak in complete sentences Cardio Rate: regular rate Skin Lesions: lesion noted and other (right foot, see wound care consult, bulky dressing intact, no red prox.) Neuro General: patient alert, patient awake and patient oriented x3 Motor: muscle tone normal throughout Psych Appearance: grossly normal Mental Status: mental status grossly normal Speech and Movement: speech and movement normal Mood: congruent mood Affect: normal affect DS: Data Vitals/I&O Vitals and I&O: Vital Signs Temperature 36.5 C 09/26/22 07:27 Temperature Source Tympanic 09/26/22 07:27 Pulse 70 09/26/22 07:27 Pulse Rhythm Regular 09/26/22 08:00 Respiratory Rate 18 09/26/22 07:27 Respiratory Effort Normal 09/26/22 08:00 Respiratory Depth Normal 09/26/22 08:00 Respiratory Pattern Normal 09/26/22 08:00 Blood Pressure 118/75 09/26/22 07:27 Pulse Oximetry 100 09/26/22 07:27 Oxygen Delivery Method Room Air 09/26/22 07:27 Oxygen Flow Rate 0 09/26/22 07:27 Pain Level 0 09/26/22 07:27 Comment RN informed BP 09/24/22 14:24 Intake & Output 09/25/22 09/25/22 09/26/22 11:59 23:59 11:59 Intake Total 400 / 1420 1020 / 1420 Output Total 350 / 1500 1150 / 1500 Balance 50 / -80 -130 / -80 Intake: IV 400 / 700 300 / 700 Oral 720 / 720 Output: Urine 350 / 1500 1150 / 1500 Other: Urine Color Light Farzaneh Yellow Urine Appearance Clear Clear Cloudy Urine Odor Normal None Comment Pt ambulates and voids independently unable to assess Voiding Methods Urinal Urinal Toilet Data Completed and Pending Labs on day of discharge: Labs from last 24 hours 09/26/22 09/26/22 09/26/22 05:30 05:30 05:30 WBC 7.19 RBC 3.59 L Hgb 11.4 L Hct 34.0 L MCV 95 MCH 31.8 MCHC 33.5 RDW 12.9 Plt Count 252 MPV 12.8 H Immature Gran % 0.3 Neutrophils % 61.9 Lymphocytes % 22.4 Monocytes % 10.6 Eosinophils % 3.8 Basophils % 1.0 Nucleated RBC % 0.0 Absolute Neutrophils 4.46 Absolute Lymphocytes 1.61 Absolute Monocytes 0.76 Absolute Eosinophils 0.27 Absolute Basophils 0.07 Sodium Potassium Chloride Carbon Dioxide Anion Gap BUN Creatinine Est GFR (CKD-EPI 2020) Glucose Calcium Magnesium Total Bilirubin 0.8 Conjugated Bilirubin 0.5 H AST 139 H ALT 202 H Alkaline Phosphatase 689 H Total Protein 7.1 Albumin 2.8 L Add-On Test Request DONE 09/26/22 05:30 WBC RBC Hgb Hct MCV MCH MCHC RDW Plt Count MPV Immature Gran % Neutrophils % Lymphocytes % Monocytes % Eosinophils % Basophils % Nucleated RBC % Absolute Neutrophils Absolute Lymphocytes Absolute Monocytes Absolute Eosinophils Absolute Basophils Sodium 135 L Potassium 4.9 Chloride 103 Carbon Dioxide 25.6 Anion Gap 6.4 BUN 31 H Creatinine 1.1 Est GFR (CKD-EPI 2020) 73.12 Glucose 285 H Calcium 9.4 Magnesium 2.2 Total Bilirubin Conjugated Bilirubin AST ALT Alkaline Phosphatase Total Protein Albumin Add-On Test Request [facility] All Active Problems Foot infection (Acute) Transaminitis (Acute) GERD (gastroesophageal reflux disease) (Chronic) Diabetic foot ulcer (Acute) Infected blister of third toe of right foot (Acute) Osteomyelitis of third toe of right foot (Acute) PAD (peripheral artery disease) (Acute) Hyperglycemia due to type 1 diabetes mellitus (Acute) Other specified diabetes mellitus with other circulatory complications (Acute) Type 1 diabetes mellitus with foot ulcer (Acute) Peripheral vascular disease due to secondary diabetes (Acute) 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 [facility] Opthalmology Essential hypertension (Chronic 01/19/13) Primary open angle glaucoma (POAG) of both eyes (Chronic ~03/2015) S/P shunt surgery to reduce pressure OD Diabetic neuropathy (Acute 08/17/13) Medical History Glaucoma suspect of left eye (03/21/15) Nocturia more than twice per night Osteomyelitis of second toe of right foot SARS-CoV-2 positive (~02/13/22) Visit for suture removal Surgical History Amputated toe of right foot (~2020) S/P cataract extraction and insertion of intraocular lens (02/03/21) Status post amputation of toe of right foot (~2020) s/p amputation of distal phalanx of right 2nd toe d/t osteomyelitis 09/2022-s/p amputation third toe R foot d/t osteomyelitis-Dr Ragland Status post glaucoma surgery b/l stents Vasectomy Family History Mother Heart disease Myocardial infarction Stroke Father Diabetes Self No problems noted. 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
--- NOTE | 2022-09-26 14:21 | PDOC.CMDIS ---
- If Service Date Differs Date of service: 09/26/22 Time of Service: 14:21 LACE Index Scoring Tool - Questions: Length of Stay (in days): 14 or more Acuity (Admit via E.D.?): Yes Comorbidities: Diabetes w/o Complication E.D. Visits: 2 - Answers: Total Score: 13 Risk of Readmission: High Risk Care Management Discharge Reason for Hospitalization: osteomyelitis Discharge Plan: Chemo will be discharged home with no new services. He will follow up with Dr. Ragland and his PCP and discharge plan of care as prescribed. Chemo will come to the Infusion Center daily to complete his course of IV antibiotics. It is unclear how long the course will be. That determination will be made in collaboration with [place] at [facility] Chemo will transport with his . Patient/Family Education Needs: Review of discharge instructions, limitations, activity, follow up plan, Ask Me Three Services Needed at Discharge: Infusion Therapy
== END 2022-09-26 13:34 | disposition home or self-care (01) | DRG 560 ==
PROVIDERS: Internal Medicine; Nurse Practitioner Acute Care; Nurse Practitioner Family; Podiatrist Foot & Ankle Surgery; Admitting Provider Internal Medicine; PCP Nurse Practitioner Adult Health; Visit Provider Internal Medicine
DX: Z47.81 Encounter for orthopedic aftercare following surgical amputation (principal); M86.171 Other acute osteomyelitis, right ankle and foot; E10.69 Type 1 diabetes mellitus with other specified complication; E10.621 Type 1 diabetes mellitus with foot ulcer; E10.42 Type 1 diabetes mellitus with diabetic polyneuropathy; I73.9 Peripheral vascular disease, unspecified; E10.65 Type 1 diabetes mellitus with hyperglycemia; E10.51 Type 1 diabetes mellitus with diabetic peripheral angiopathy without gangrene; E10.319 Type 1 diabetes mellitus with unspecified diabetic retinopathy without macular edema; I10 Essential (primary) hypertension; Z89.421 Acquired absence of other right toe(s); H40.1130 Primary open-angle glaucoma, bilateral, stage unspecified; K21.9 Gastro-esophageal reflux disease without esophagitis; R74.01 Elevation of levels of liver transaminase levels
CPT/HCPCS: 36415; 36569; 71045; 80048; 80076; 82947; 84145; 85652; 97110; 97161; 99306; 99307; 99316; 80202; 82565; 83735; 85025; 86140; 99232; 99308; J1335; J1644

== ENCOUNTER 2022-10-05 00:08 | Outpatient (RCR) | payer MEDICARE, MEDICAID, SELFPAY ==
[2022-09-27] MEDS: ERTAPENEM 1 GM in Normal Saline 50 ML IVPB (13:00)
[2022-09-27] MEDS: Normal Saline Flush 10 ML SYR IVP (13:03)
[2022-09-28] MEDS: ERTAPENEM 1 GM in Normal Saline 50 ML IVPB (13:11)
[2022-09-28] MEDS: Normal Saline Flush 10 ML SYR IVP (13:12)
[2022-09-29] MEDS: ERTAPENEM 1 GM in Normal Saline 50 ML IVPB (13:03)
[2022-09-29] MEDS: Normal Saline Flush 10 ML SYR IVP (13:03)
[2022-09-30] MEDS: Normal Saline Flush 10 ML SYR IVP (12:59)
[2022-09-30] MEDS: ERTAPENEM 1 GM in Normal Saline 50 ML IVPB (12:59)
[2022-09-30 13:25] LABS: Abs Immature Grans 0.02 10^3/uL (0.0-0.06); Absolute Basophil Count 0.08 10^3/uL (0.0-0.2); Absolute Eosinophil Count 0.32 10^3/uL (0.0-0.7); Absolute Lymphocyte Count 2.19 10^3/uL (1.2-3.4); Absolute Monocyte Count 0.74 10^3/uL (0.1-0.8); Absolute Neutrophil Count 5.12 10^3/uL (1.2-6.7); Basophils % 0.9; Eosinophils % 3.8; HCT 37.8 % (40.0-50.0); HGB 12.4 g/dL (13.5-17.5); Immature Grans % 0.2; Lymphocytes % 25.9; MCH 31.2 pg (27.0-33.0); MCHC 32.8 % (32.0-36.0); MCV 95 fL (80-95); MPV 11.6 fL (8.0-11.0); Monocytes % 8.7; Neutrophils % 60.5; Platelet Count 308 10^3/uL (130-400); RBC 3.98 10^6/uL (4.36-5.78); RDW 12.8 % (11.8-14.1); RDW-SD 44.8 fL; WBC 8.47 10^3/uL (4.4-10.8)
[2022-09-30 13:28] LABS: ESR 37 mm/hr (0-20)
[2022-09-30 13:42] LABS: ALT 140 U/L (16-63); AST 57 U/L (15-37); Albumin 3.1 g/dL (3.4-5.0); Alkaline Phosphatase 575 U/L (46-116); Anion Gap 5.8 mmol/L (3-11); BUN 21 mg/dL (7-18); Bilirubin, Total 0.6 mg/dL (0.2-1.0); CO2 27.2 mmol/L (21.0-32.0); CREATININE 0.9 mg/dL (0.70-1.30); Calcium 8.8 mg/dL (8.5-10.1); Chloride 104 mmol/L (98-107); Estimated GFR 93.03 (mL/min/1.73m2); Glucose 159 mg/dL (74-106); Sodium 137 mmol/L (136-145); Total Protein 7.5 g/dL (6.4-8.2)
[2022-09-30 13:44] LABS: C-Reactive Protein < 0.05 mg/dL (0.0-0.3)
[2022-10-01] MEDS: ERTAPENEM 1 GM in Normal Saline 50 ML IVPB (12:52)
[2022-10-01] MEDS: Normal Saline Flush 10 ML SYR IVP (12:52)
[2022-10-02] MEDS: Normal Saline Flush 10 ML SYR IVP (13:02)
[2022-10-02] MEDS: ERTAPENEM 1 GM in Normal Saline 50 ML IVPB (13:02)
[2022-10-03] MEDS: ERTAPENEM 1 GM in Normal Saline 50 ML IVPB (12:58)
[2022-10-03] MEDS: Normal Saline Flush 10 ML SYR IVP (13:01)
[2022-10-04] MEDS: ERTAPENEM 1 GM in Normal Saline 50 ML IVPB (12:52)
[2022-10-04] MEDS: Normal Saline Flush 10 ML SYR IVP (12:52)
== END 2022-10-05 23:59 | disposition home or self-care (01) ==
LOC: INF 00:08
PROVIDERS: PCP Nurse Practitioner Adult Health; Visit Provider Nurse Practitioner Family
DX: M86.171 Other acute osteomyelitis, right ankle and foot (principal)
CPT/HCPCS: 36592; 80053; 85652; 96365; 85025; 86140; J1335

== ENCOUNTER 2022-10-10 02:50 | Outpatient (RCR) | payer MEDICARE, MEDICAID, SELFPAY ==
[2022-10-05] MEDS: ERTAPENEM 1 GM in Normal Saline 50 ML IVPB (13:07)
[2022-10-06] MEDS: ERTAPENEM 1 GM in Normal Saline 50 ML IVPB (13:00)
[2022-10-06] MEDS: Normal Saline Flush 10 ML SYR IVP (13:09)
[2022-10-07] MEDS: ERTAPENEM 1 GM in Normal Saline 50 ML IVPB (13:02)
[2022-10-07] MEDS: Normal Saline Flush 10 ML SYR IVP (13:02)
[2022-10-07 13:08] LABS: Abs Immature Grans 0.03 10^3/uL (0.0-0.06); Absolute Eosinophil Count 0.45 10^3/uL (0.0-0.7); Absolute Lymphocyte Count 2.15 10^3/uL (1.2-3.4); Absolute Monocyte Count 0.71 10^3/uL (0.1-0.8); Absolute Neutrophil Count 5.29 10^3/uL (1.2-6.7); Basophils % 1.1; Eosinophils % 5.2; HGB 12.5 g/dL (13.5-17.5); Immature Grans % 0.3; Lymphocytes % 24.6; MCHC 32.9 % (32.0-36.0); MCV 94 fL (80-95); MPV 11.4 fL (8.0-11.0); Monocytes % 8.1; Neutrophils % 60.7; Platelet Count 271 10^3/uL (130-400); RBC 4.03 10^6/uL (4.36-5.78); RDW 12.6 % (11.8-14.1); WBC 8.73 10^3/uL (4.4-10.8)
[2022-10-07 13:11] LABS: ESR 19 mm/hr (0-20)
[2022-10-07 13:24] LABS: ALT 84 U/L (16-63); AST 42 U/L (15-37); Albumin 2.9 g/dL (3.4-5.0); Alkaline Phosphatase 341 U/L (46-116); Anion Gap 5.6 mmol/L (3-11); BUN 17 mg/dL (7-18); Bilirubin, Total 0.4 mg/dL (0.2-1.0); C-Reactive Protein 0.11 mg/dL (0.0-0.3); CO2 27.4 mmol/L (21.0-32.0); CREATININE 0.8 mg/dL (0.70-1.30); Calcium 8.3 mg/dL (8.5-10.1); Chloride 105 mmol/L (98-107); Glucose 214 mg/dL (74-106); Potassium 3.8 mmol/L (3.5-5.1); Sodium 138 mmol/L (136-145); Total Protein 6.8 g/dL (6.4-8.2)
[2022-10-08] MEDS: Normal Saline Flush 10 ML SYR IVP (12:59)
[2022-10-08] MEDS: ERTAPENEM 1 GM in Normal Saline 50 ML IVPB (12:59)
[2022-10-09] MEDS: ERTAPENEM 1 GM in Normal Saline 50 ML IVPB (13:04)
[2022-10-10] MEDS: Normal Saline Flush 10 ML SYR IVP (13:15)
[2022-10-10] MEDS: ERTAPENEM 1 GM in Normal Saline 50 ML IVPB (13:50)
== END 2022-11-03 23:59 | disposition home or self-care (01) ==
LOC: INF 02:50
PROVIDERS: PCP Nurse Practitioner Adult Health; Visit Provider Nurse Practitioner Family
DX: M86.171 Other acute osteomyelitis, right ankle and foot (principal)
CPT/HCPCS: 36592; 80053; 85652; 96365; 85025; 86140; J1335

== ENCOUNTER 2022-10-24 03:25 | Outpatient (CLI) | payer MEDICARE, MEDICAID, SELFPAY ==
[2022-10-24 08:30] LABS: Hemoglobin A1C 8.1 % (<5.7)
[2022-10-24 08:44] LABS: Anion Gap 4.5 mmol/L (3-11); BUN 13 mg/dL (7-18); CO2 32.5 mmol/L (21.0-32.0); Calcium 9.3 mg/dL (8.5-10.1); Calculated LDL 64 mg/dL (<100); Chloride 104 mmol/L (98-107); Cholesterol 160 mg/dL (<200); Estimated GFR 81.98 (mL/min/1.73m2); Glucose 157 mg/dL (74-106); HDL Cholesterol 88 mg/dL (40-60); Potassium 4.2 mmol/L (3.5-5.1); Sodium 141 mmol/L (136-145); Triglyceride 43 mg/dL (<150)
[2022-10-24 10:08] LABS: COMMENT (LAB VIEW ONLY) 32.23 mg/dL; Microalb ug/mg Crea 16.8 ug/mg Cr
== END 2022-10-24 03:26 | disposition home or self-care (01) ==
LOC: LBO 03:25
PROVIDERS: PCP Nurse Practitioner Adult Health; Visit Provider Nurse Practitioner Adult Health
DX: E10.319 Type 1 diabetes mellitus with unspecified diabetic retinopathy without macular edema (principal); E11.9 Type 2 diabetes mellitus without complications; Z79.4 Long term (current) use of insulin; Z13.220 Encounter for screening for lipoid disorders
CPT/HCPCS: 36415; 80048; 80061; 82043; 82570; 83036

== ENCOUNTER → 2022-11-25 10:33 | Outpatient (BNVA) | payer MEDICARE, MEDICAID, SELFPAY | PROVIDERS: PCP Nurse Practitioner Adult Health; Referring Provider Podiatrist Foot & Ankle Surgery; Visit Provider Surgery | DX: Z51.89 Encounter for other specified aftercare (principal); M86.9 Osteomyelitis, unspecified | CPT/HCPCS: 99212; 99213 ==

== ENCOUNTER → 2023-01-09 11:06 | Outpatient (BNVA) | payer MEDICARE, MEDICAID, SELFPAY | PROVIDERS: PCP Nurse Practitioner Adult Health; Referring Provider Nurse Practitioner Adult Health; Visit Provider Physical Therapy Assistant | DX: Z12.11 Encounter for screening for malignant neoplasm of colon (principal) ==

== ENCOUNTER 2023-01-14 08:22 | Day surgery (SDC) | payer MEDICARE, MEDICAID, SELFPAY ==
--- NOTE | 2023-01-13 22:25 | PDOC.DSDIS_ITS ---
Date of service: 01/14/23 Time of Service: 09:58 Discharge Plan Disposition Patient Disposition: Home Discharge Details Attending Provider: Kamla Garcia Primary Care Provider: Hien Keith Home Meds and New Rx's Prescriptions: Continued Lac-Hydrin Five 5 % lotion 1 applic TP BID PRN (Reason: diabetic foot care) Qty: 226 5RF Rx Instructions: Apply thin film to affected areas of feet twice a day as needed. Novolin N NPH U-100 Insulin 100 unit/mL suspension See Rx Instructions subcut .COMPLEX Qty: 6 4RF Dose Instruction: 26 units in AM; 30 units in PM subcut BID; 26 units in AM; 30 units in PM Rx Instructions: 26 units in AM; 36 units in PM subcut; Novolin R Regular U-100 Insuln 100 unit/mL solution See Rx Instructions Sub-Q .COMPLEX Qty: 6 4RF Rx Instructions: 24 units subcut 4x/day (with meals and at midnight) (DME) BD Insulin Syringe 1 mL 26 x 1/2 syringe 1 syr Sub-Q 5x/day Qty: 300 4RF Rx Instructions: use one 5 times a day for type 1 diabetes. Request BD Ultra-Fine 1cc syringe w/ 31G 5/16inch (8 mm) needle. dx: E10.39 famotidine 20 mg tablet 20 mg PO DAILY PRN (Reason: GERD/heartburn) Qty: 90 3RF Rx Instructions: Stop Pantoprazole & replace with Famotidine (this RX) for heartburn mupirocin 2 % ointment 1 applic topical TID Qty: 15 0RF (DME) Dexcom G6 Sensor Device See Rx Instructions .ROUTE .MEDSUPPLY Qty: 3 0RF Rx Instructions: As directed (DME) Dexcom G6 Glass Washer Misc See Rx Instructions .Route Qty: 1 0RF Rx Instructions: As directed (DME) Dexcom G6 Transmitter Device See Rx Instructions .ROUTE .MEDSUPPLY Qty: 1 0RF Rx Instructions: As directed aspirin [Ecotrin Low Strength] 81 MG tablet,delayed release (DR/EC) 81 mg PO DAILY multivitamin [Daily Vitamin] 1 EACH tablet 1 ea PO DAILY dorzolamide-timolol [Cosopt] 22.3-6.8 mg/mL drops 1 drp ophthalmic (eye) BID Rx Instructions: OU PER [facility] [place] DATED 3/31/23 CC Mavyret 100-40 mg tablet 3 tab PO DAILY Rx Instructions: must administer with a meal/food Discontinued polyethylene glycol 3350 [Miralax] 17 gram/dose powder 17 g PO DAILY PRN (Reason: constipation) Qty: 1700 3RF bisacodyl [Dulcolax (bisacodyl)] 5 mg tablet,delayed release (DR/EC) 5 mg PO ONCE Qty: 4 0RF Rx Instructions: Take per colonoscopy instructions provided by ordering providers office polyethylene glycol 3350 17 gram/dose powder 17 g PO ONCE Qty: 238 0RF Rx Instructions: Take per colonoscopy instructions provided by ordering providers office Discharge Instructions Additional Instructions: DSU Colonoscopy Post- Op Instructions Instructions for Everyone who is given Anesthesia: For your safety, please do the following for the next twenty-four (24) hours: *Do Not operate a motor vehicle (car, truck, motorcycle, etc.) *Do Not drink alcoholic beverages or use any recreational drugs for the first 24 hours or while taking pain medications. The medications in your body may have a reaction that can be dangerous. *Do Not make any important decisions or sign any important papers. Findings: prep was incomplete and could not visualize the colon. Would need to do repeat scope or cologuard Follow up: 01/16 1pm 1. No lifting over 20 pounds or strenuous activity for the first 24 hours after your procedure. After 24 hours there are no restrictions on your activity but you may feel fatigued for a few days. 2. After you arrive home you may have a light meal and return to your normal diet as you can tolerate it without feeling sick to your stomach. 3. You may have a bloated, gaseous feeling in your belly (abdomen) after a colonoscopy. Passing gas and belching will help. Walking or lying down on your left side with your knees flexed may relieve the discomfort. Call the office at [phone] (Office) or [phone] (Hospital) right away if you notice any of the following: a.Vomiting of blood or ?coffee ground stools?. b.Rectal bleeding 1Tbsp, blood clots or continuous bleeding. c.Severe belly (abdominal) pain. d.A hard distended belly (abdomen) and an inability to pass gas. 4. Please don?t expect to have a normal BM (bowel movement) for 2-3 days after your procedure. 5. If there are questions regarding the findings of your procedure, please contact your doctor 6. If you are unable to contact your doctor with a problem, contact the hospital at [phone]. 7. Continue all your regular medications unless directed otherwise. I understand the above instructions and have no questions. Signature of Patient or Adult Escort Name of Responsible Adult Escort Signature of Nurse Date/Time Activity:: see above Diet:: As Tolerated Discharge Orders Discharge Orders: Discharge Order (Routine); Ordered 01/14/23 Ordered By: Kamla Garcia
--- NOTE | 2023-01-13 22:27 | W.COLOREPORT ---
Date of service: 01/14/23 Time of Service: 09:53 Colonoscopy Report Date of procedure: 01/14/23 Pre-op diagnosis general: CRC screening Post-op diagnosis procedure note: other (Incomplete prep) Surgeon: Kamla Garcia Anesthesia Type: General:No Airway Estimated blood loss (mL): 0 Pathology: none sent Complications: None Disposition: same day Prep: Miralax/Dulcolax Findings: incomplete prep Procedure Description: After informed consent was obtained the patient was taken to the procedure room and placed in a left decubitous position. Monitors were applied and a time out was done. The patients name, date of , procedure, allergies to medications and metal in their body was reviewed. The patient was then sedated. Once sedated and comfortable a rectal exam was done. External exam was normal, except for a few external hemorrhoidal tags. Internal exam revealed a normal sphincter tone and no palpable masses. The scope was then introduced and retrofelexed. internal hemorrhoids were identified. The scope was then advanced to the cecum without difficulty. The Prep was incomplete; there was thick stool lining the hansen of the colon and clogged the scope. Lesions less than 1 cm would not be identified. He should have the procedure repeated in 1 years time difficulty. The TI and appendiceal orifice were identified. The scope was removed and the patient was woken up and taken back to Same day surgery in stable condition. The patient tolerated the procedure well and there were no immediate complications. Follow up: The patient should follow up in 1 years unless they develop changes in bowel habits or other new gastrointestinal complaints. The patient will follow-up in my office in 1 week's time to discuss alternatives to colon cancer screening.
[2023-01-14 08:45] VITALS: BP 154/97; PULSE 83; RESP 16; TEMP 36.2; O2SAT 98
--- NOTE | 2023-01-14 09:03 | ANES.PREOP_ITS ---
General Info Date of Service Date Performed: 01/14/23 Height: 5 ft 11 in Weight: 97.069 kg Body Mass Index (BMI): 29.8 Surgical Procedure: Operation Date: 01/14/23 09:35 Proposed Procedure Side Surgeon jarad Garcia, Meds Allergies and Home Medications Allergies Allergy/AdvReac Type Severity Reaction Status Date / Time codeine Allergy Mild ITCHING Verified 01/13/23 11:58 lisinopril AdvReac Unknown HEADACHE Verified 01/13/23 11:58 SEXUAL DYS moexipril AdvReac Unknown FELT FUNNY Verified 01/13/23 11:58 amoxicillin potassium Allergy Severe Uncoded 01/13/23 11:58 Home Medication Medication Instructions Recorded aspirin 81 mg tablet,delayed 81 mg PO DAILY 09/21/12 release (Ecotrin Low Strength) multivitamin (Daily Vitamin tablet) 1 ea PO DAILY 09/22/12 blood-glucose meter,continuous #1 ea 03/18/22 (Dexcom G6 Analysis Tester) blood-glucose sensor (Dexcom G6 #3 ea 03/18/22 Sensor device) blood-glucose transmitter (Dexcom #1 ea 03/18/22 G6 Transmitter device) mupirocin 2 % topical ointment 1 applic topical TID #15 grams 10/03/22 dorzolamide 22.3 mg-timolol 6.8 1 drp ophthalmic (eye) BID 10/09/22 mg/mL eye drops (Cosopt) ammonium lactate 5 % lotion 1 applic topical BID PRN diabetic 10/31/22 (Lac-Hydrin Five) foot care #226 grams famotidine 20 mg tablet 20 mg PO DAILY PRN GERD/heartburn 10/31/22 #90 tabs insulin NPH isoph U-100 human 100 See Rx Instructions subcut 10/31/22 unit/mL subcutaneous suspension .COMPLEX #6 vials (Novolin N NPH U-100 Insulin isophane) insulin regular human 100 unit/mL See Rx Instructions subcut 10/31/22 injection solution (Novolin R .COMPLEX #6 vials Regular U-100 Insulin) insulin syringe-needle U-100 1 mL #300 SYRGS 10/31/22 26 x 1/2 (BD Insulin Syringe) polyethylene glycol 3350 17 17 g PO DAILY PRN constipation 10/31/22 gram/dose oral powder (Miralax) #1,700 grams bisacodyl 5 mg tablet,delayed 5 mg PO ONCE #4 tabs 01/09/23 release (Dulcolax (bisacodyl)) polyethylene glycol 3350 17 17 g PO ONCE #238 grams 01/09/23 gram/dose oral powder glecaprevir 100 mg-pibrentasvir 40 3 tab PO DAILY 01/10/23 mg tablet (Mavyret) Current Visit Medications: Current Medications Generic Name Dose Route Start Last Admin Trade Name Irajq PRN Reason Stop Dose Admin Hyoscyamine Sulfate 0.125 mg 01/14/23 10:23 Hyoscyamine 0.125 Mg Sl/Oral/Chew SL 02/13/23 10:22 DIRECTED PRN Hyoscyamine Sulfate 0.125 mg 01/14/23 10:25 Hyoscyamine 0.125 Mg Sl/Oral/Chew SL 02/13/23 10:24 DIRECTED PRN Ringer's Solution 1,000 mls @ 80 mls/hr 01/14/23 06:00 IV 01/14/23 23:59 [facility] IV Miscellaneous Supplies 1 each 01/14/23 06:00 Iv Access IV 01/14/23 23:59 DIRECTED JOO Ondansetron HCl 4 mg 01/14/23 10:23 Ondansetron 4 Mg/2 Ml Vial IVP 02/13/23 10:22 Q4H PRN PRN Nausea / Vomiting Ondansetron HCl 4 mg 01/14/23 10:25 Ondansetron 4 Mg/2 Ml Vial IVP 02/13/23 10:24 Q4H PRN PRN Nausea / Vomiting Sodium Chloride 0 ml 01/14/23 06:00 Normal Saline Flush 10 Ml Syr IV 01/14/23 23:59 PRN PRN Sodium Chloride 0 ml 01/14/23 06:00 Normal Saline 10 Ml Vial IJ 01/14/23 23:59 DIRECTED PRN Sterile Water 0 ml 01/14/23 06:00 Water,Injection,Sterile 10 Ml Vial IJ 01/14/23 23:59 DIRECTED PRN PFSH Active Problems Active Problems: Problem Status Onset Code Hepatitis C virus infection without hepatic coma B19.20 Foot infection L08.9 GERD (gastroesophageal reflux disease) K21.9 Diabetic foot ulcer E11.621, L97.509 Infected blister of third toe of right foot S90.424A, L08.9 Osteomyelitis of third toe of right foot M86.9 PAD (peripheral artery disease) I73.9 Hyperglycemia due to type 1 diabetes mellitus E10.65 Other specified diabetes mellitus with other circulatory complications E13.59 Peripheral vascular disease due to secondary diabetes E13.51 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 E10.49 Type 1 diabetes mellitus with ophthalmic manifestation 12/23/12 E10.39 Bilateral diabetic retinopathy 09/10/11 E11.319 Essential hypertension 01/19/13 I10 Primary open angle glaucoma (POAG) of both eyes ~03/2015 H40.1130 Diabetic neuropathy 08/17/13 E11.40 Medical History Medical History Glaucoma suspect of left eye (03/21/15) Nocturia more than twice per night Osteomyelitis of second toe of right foot SARS-CoV-2 positive (~02/13/22) Visit for suture removal Medical History Comments:: DEXCOMM on L stomach Surgical History Surgical History S/P cataract extraction and insertion of intraocular lens (02/03/21) Status post amputation of toe of right foot (~2020) s/p amputation of distal phalanx of right 2nd toe d/t osteomyelitis 09/2022-s/p amputation third toe R foot d/t osteomyelitis-Dr Ragland Status post glaucoma surgery b/l stents Vasectomy Tobacco Smoking/Tobacco Use Status: Former Tobacco Use Alcohol Alcohol Intake: current Alcohol intake frequency: holidays/special occasions only Alcohol type: beer Substance Use Substance use: Daily Substance use type: marijuana Vital Signs and Lab Results Lab Results Blood Type / Crossmatch: No Data to Display Complete Blood Count: No Data to Display Complete Metabolic Panel: No Data to Display Liver Function Panel: No Data to Display Coagulation Panel: No Data to Display Cardiac Panel: No Data to Display Arterial Blood Gas: No Data to Display Venous Blood Gas: No Data to Display Pancreas Panel: No Data to Display Thyroid Panel: No Data to Display Infectious Disease: No Data to Display Blood Cultures: No Data to Display Toxicology Panel: No Data to Display Anesthesia Assessment and Plan Anesthesia History Personal History: No History of Anesthesia Complications Family History: No Family History of Anesthesia Complications Exercise Tolerance Exercise Tolerance: Metabolic Equivalents>4 Pertinent Negatives Pertinent Negatives: No Symptoms of GERD, No Major Cardiovascular Symptoms or Complaints, No Major Pulmonary Symptoms or Complaints and No History of CVA/TIA Cardiac & Pulmonary Exam Cardiac Exam: Normal S1/S2 Heart Sounds Pulmonary Exam: Clear Bilateral Breath Sounds Implantable Cardiac Device Does patient have a Pacemaker or an ICD?: No Airway Exam Known Difficult Airway: No Mallampati Class: 2 Mouth Opening: Normal (> 3cm) Thyromental Distance: Greater than 3 cm Neck Range of Motion: Full ROM Neck Circumference: Normal Teeth Condition: Edentulous ASA Classification ASA Score: ASA 3 Emergency Case?: No NPO Status NPO Status: NPO Clears >2 hours, Solids >8 hours Anesthesia Plan Resuscitation Status: Full Code Anesthesia Technique: General Anesthesia Airway Planned: Natural Airway Monitors Used: Standard Monitors Preoperative Comments:: 67 yo male for colo. Sig PMHx: HTN, DM, GERD, PVD, hep c, former smoker. Gluc check 176 Previous Anes: - toe amp, midaz, prop, natural airway, no issues. -
[2023-01-14] MEDS: Lactated Ringers 1,000 ML 80 ML IV (09:15)
[2023-01-14 09:28] VITALS: BMI 29.8
[2023-01-14 09:58] VITALS: BP 126/73; PULSE 74; RESP 16; TEMP 36.2; O2SAT 97
[2023-01-14 10:25] VITALS: BP 134/74; PULSE 82; RESP 18; TEMP 36.3; O2SAT 97
--- NOTE | 2023-01-14 10:42 | W.ANESPOSTOP ---
Postoperative Evaluation Date, Time and Location Date Performed: 01/14/23 Time Performed: 10:42 Patient Location: Day Surgery Unit Vital Signs Most Recent Imported Vital Signs: Most Recent Vital Signs Temp Pulse Resp BP Pulse Ox 36.2 C L 74 16 126/73 97 01/14/23 09:58 01/14/23 09:58 01/14/23 09:58 01/14/23 09:58 01/14/23 09:58 Pain Score Most Recent Pain Score: Most Recent Pain Score Pain Level 0 01/14/23 09:58 Assessment Mental Status: Awake (Alert & Oriented to Patient Baseline) Airway and Respiratory Function: Patent airway with normal (patient baseline) respiratory exam Cardiovascular Function: Hemodynamically Stable Hydration Status: Adequately Hydrated Nausea & Vomiting: No Nausea or Vomiting Pain: Pt. Denies Any Pain Peripheral Nerve Block: Patient did not receive a nerve block
--- NOTE | 2023-01-14 11:06 | PDOC.DSDIS_ITS ---
Date of service: 01/14/23 Time of Service: 09:30 Discharge Plan Disposition Patient Disposition: Home Discharge Details Attending Provider: Kamla Garcia Primary Care Provider: Hien Keith Home Meds and New Rx's Prescriptions: Continued Lac-Hydrin Five 5 % lotion 1 applic TP BID PRN (Reason: diabetic foot care) Qty: 226 5RF Rx Instructions: Apply thin film to affected areas of feet twice a day as needed. Novolin N NPH U-100 Insulin 100 unit/mL suspension See Rx Instructions subcut .COMPLEX Qty: 6 4RF Dose Instruction: 26 units in AM; 30 units in PM subcut BID; 26 units in AM; 30 units in PM Rx Instructions: 26 units in AM; 36 units in PM subcut; Novolin R Regular U-100 Insuln 100 unit/mL solution See Rx Instructions Sub-Q .COMPLEX Qty: 6 4RF Rx Instructions: 24 units subcut 4x/day (with meals and at midnight) (DME) BD Insulin Syringe 1 mL 26 x 1/2 syringe 1 syr Sub-Q 5x/day Qty: 300 4RF Rx Instructions: use one 5 times a day for type 1 diabetes. Request BD Ultra-Fine 1cc syringe w/ 31G 5/16inch (8 mm) needle. dx: E10.39 famotidine 20 mg tablet 20 mg PO DAILY PRN (Reason: GERD/heartburn) Qty: 90 3RF Rx Instructions: Stop Pantoprazole & replace with Famotidine (this RX) for heartburn mupirocin 2 % ointment 1 applic topical TID Qty: 15 0RF (DME) Dexcom G6 Sensor Device See Rx Instructions .ROUTE .MEDSUPPLY Qty: 3 0RF Rx Instructions: As directed (DME) Dexcom G6 Linux Solar[employer] Administrator Misc See Rx Instructions .Route Qty: 1 0RF Rx Instructions: As directed (DME) Dexcom G6 Transmitter Device See Rx Instructions .ROUTE .MEDSUPPLY Qty: 1 0RF Rx Instructions: As directed aspirin [Ecotrin Low Strength] 81 MG tablet,delayed release (DR/EC) 81 mg PO DAILY multivitamin [Daily Vitamin] 1 EACH tablet 1 ea PO DAILY dorzolamide-timolol [Cosopt] 22.3-6.8 mg/mL drops 1 drp ophthalmic (eye) BID Rx Instructions: [place] [facility] [place]23 CC Mavyret 100-40 mg tablet 3 tab PO DAILY Rx Instructions: must administer with a meal/food Discontinued polyethylene glycol 3350 [Miralax] 17 gram/dose powder 17 g PO DAILY PRN (Reason: constipation) Qty: 1700 3RF bisacodyl [Dulcolax (bisacodyl)] 5 mg tablet,delayed release (DR/EC) 5 mg PO ONCE Qty: 4 0RF Rx Instructions: Take per colonoscopy instructions provided by ordering providers office polyethylene glycol 3350 17 gram/dose powder 17 g PO ONCE Qty: 238 0RF Rx Instructions: Take per colonoscopy instructions provided by ordering providers office Discharge Instructions Additional Instructions: DSU Colonoscopy Post- Op Instructions Instructions for Everyone who is given Anesthesia: For your safety, please do the following for the next twenty-four (24) hours: *Do Not operate a motor vehicle (car, truck, motorcycle, etc.) *Do Not drink alcoholic beverages or use any recreational drugs for the first 24 hours or while taking pain medications. The medications in your body may have a reaction that can be dangerous. *Do Not make any important decisions or sign any important papers. Findings: prep was incomplete and could not visualize the colon. Would need to do repeat scope or cologuard Follow up: 01/16 1pm 1. No lifting over 20 pounds or strenuous activity for the first 24 hours after your procedure. After 24 hours there are no restrictions on your activity but you may feel fatigued for a few days. 2. After you arrive home you may have a light meal and return to your normal diet as you can tolerate it without feeling sick to your stomach. 3. You may have a bloated, gaseous feeling in your belly (abdomen) after a colonoscopy. Passing gas and belching will help. Walking or lying down on your left side with your knees flexed may relieve the discomfort. Call the office at [phone] (Office) or [phone] (Hospital) right away if you notice any of the following: a.Vomiting of blood or ?coffee ground stools?. b.Rectal bleeding 1Tbsp, blood clots or continuous bleeding. c.Severe belly (abdominal) pain. d.A hard distended belly (abdomen) and an inability to pass gas. 4. Please don?t expect to have a normal BM (bowel movement) for 2-3 days after your procedure. 5. If there are questions regarding the findings of your procedure, please contact your doctor 6. If you are unable to contact your doctor with a problem, contact the hospital at [phone]. 7. Continue all your regular medications unless directed otherwise. I understand the above instructions and have no questions. Signature of Patient or Adult Escort Name of Responsible Adult Escort Signature of Nurse Date/Time Activity:: see above Diet:: As Tolerated Discharge Orders Discharge Orders: Discharge Order (Routine); Ordered 01/14/23 Ordered By: Kamla Garcia Discharge Data Discharge Date/Time-TO BE ENTERED AT DEPARTURE: 01/14/23 10:50 DS: Diagnosis Discharge Diagnosis (1) S/P colonoscopy: Status: Acute Asessment and Plan: The patient is seen and examined after their colonoscopy.? The patient has been able to pass gas.? They are not having abdominal pain.? They have been able to tolerate liquids and a snack.? They do not have any nausea or vomiting.? They are not having any chest pain or shortness of breath.??? They are not having any rectal bleeding. Their vital signs have been stable-see nursing notes. We discussed findings during their colonoscopy, and any biopsies that were done/polyps that were removed. The patient will be sent a letter with any biopsy results, and when to repeat the colonoscopy.-see discharge instructions. Patient was given explicit instructions to follow-up regarding colonoscopy-refer to discharge instructions.? We reviewed resumption of medications. Patient verbalized understanding and discharged in stable and satisfactory condition- See nursing notes.
== END 2023-01-14 10:50 | disposition home or self-care (01) ==
LOC: SUR 08:23
PROVIDERS: PCP Nurse Practitioner Adult Health; Visit Provider Surgery
PROC: 0DJD8ZZ Inspection of Lower Intestinal Tract, Via Natural or Artificial Opening Endoscopic (ICD-10-PCS; CPT 45378; principal; 2023-01-14 09:30)
DX: Z12.11 Encounter for screening for malignant neoplasm of colon (principal); K64.8 Other hemorrhoids
CPT/HCPCS: G0121; J2001

== ENCOUNTER → 2023-01-16 12:54 | Outpatient (BNVA) | payer MEDICARE, MEDICAID, SELFPAY | PROVIDERS: PCP Nurse Practitioner Adult Health; Referring Provider Nurse Practitioner Adult Health; Visit Provider Surgery | DX: K21.9 Gastro-esophageal reflux disease without esophagitis (principal); B19.20 Unspecified viral hepatitis C without hepatic coma | CPT/HCPCS: 99212 ==

== ENCOUNTER 2023-04-28 14:07 | Outpatient (CLI) | payer MEDICARE, MEDICAID, SELFPAY ==
[2023-04-29 12:02] LABS: HBs Antibody, Qual Negative (See Note); HBs Antibody, Quant <3.1 mIU/mL (See Note); Hepatitis B Core Antibody Positive (Negative); Hepatitis B surface Ag Negative (Negative); Hepatitis C Ab w Rflx HCV PCR Reactive (Negative)
[2023-04-30 12:13] LABS: HCV RNA Qualitative Undetected (Undetected)
== END 2023-04-28 14:08 | disposition home or self-care (01) ==
LOC: LBO 14:07
PROVIDERS: PCP Nurse Practitioner Adult Health; Visit Provider Family Medicine
DX: R74.01 Elevation of levels of liver transaminase levels (principal); B18.2 Chronic viral hepatitis C
CPT/HCPCS: 36415; 86704; 86706; 86803; 87340; 87522

== ENCOUNTER 2024-03-22 04:20 | Outpatient (CLI) | payer MEDICARE, SELFPAY ==
[2024-03-22 07:31] LABS: Hemoglobin A1C 8.6 % (<5.7)
[2024-03-22 07:34] LABS: Anion Gap 8.4 mmol/L (3-11); BUN 14 mg/dL (7-18); CO2 29.6 mmol/L (21.0-32.0); CREATININE 1.1 mg/dL (0.70-1.30); Calcium 9.6 mg/dL (8.5-10.1); Calculated LDL 58 mg/dL (<100); Chloride 102 mmol/L (98-107); Cholesterol 140 mg/dL (<200); Estimated GFR 72.67 (mL/min/1.73m2); Glucose 231 mg/dL (74-106); HDL Cholesterol 69 mg/dL (40-60); Potassium 4.5 mmol/L (3.5-5.1); Sodium 140 mmol/L (136-145); Triglyceride 67 mg/dL (<150)
[2024-03-22 08:52] LABS: COMMENT (LAB VIEW ONLY) 57.28 mg/dL; Microalb ug/mg Crea 14.3 ug/mg Cr
== END 2024-03-22 04:21 | disposition home or self-care (01) ==
LOC: LBO 04:20
PROVIDERS: Absent Provider Nurse Practitioner Adult Health; PCP Nurse Practitioner Adult Health; Referring Provider Nurse Practitioner Adult Health; Visit Provider Nurse Practitioner Adult Health
DX: I10 Essential (primary) hypertension (principal); E10.319 Type 1 diabetes mellitus with unspecified diabetic retinopathy without macular edema; E10.42 Type 1 diabetes mellitus with diabetic polyneuropathy; E11.319 Type 2 diabetes mellitus with unspecified diabetic retinopathy without macular edema; K21.9 Gastro-esophageal reflux disease without esophagitis; E10.65 Type 1 diabetes mellitus with hyperglycemia
CPT/HCPCS: 36415; 80048; 80061; 82043; 82570; 83036

== ENCOUNTER → 2024-07-21 08:21 | Outpatient (BNVA) | payer MEDICARE, SELFPAY | PROVIDERS: PCP Nurse Practitioner Adult Health; Referring Provider Nurse Practitioner Adult Health; Visit Provider Podiatrist ==

== ENCOUNTER → 2024-08-04 10:56 | Outpatient (BNVA) | payer MEDICARE, SELFPAY | PROVIDERS: PCP Nurse Practitioner Adult Health; Referring Provider Nurse Practitioner Adult Health; Visit Provider Podiatrist | DX: M79.672 Pain in left foot (principal); L84 Corns and callosities; G62.9 Polyneuropathy, unspecified; E13.51 Other specified diabetes mellitus with diabetic peripheral angiopathy without gangrene; Z89.421 Acquired absence of other right toe(s); L65.9 Nonscarring hair loss, unspecified; R20.8 Other disturbances of skin sensation; R60.0 Localized edema; R23.8 Other skin changes; L85.8 Other specified epidermal thickening; L60.2 Onychogryphosis | CPT/HCPCS: 11055; 11721 ==

== ENCOUNTER 2024-08-09 00:19 | Outpatient (CLI) | payer MEDICARE, SELFPAY ==
--- NOTE | 2024-08-09 07:45 | DI.RAD_ITS ---
Exam(s) XR FOOT LT COMPLETE EXAM: XR FOOT LT COMPLETE CLINICAL HISTORY: baseline,pain lt foot,m79.672. TECHNIQUE: 2D digital imaging was performed of the left foot. Three images were obtained. AP, obli que and lateral views were obtained. COMPARISON: CR XR FOOT RT COMPLETE from 08/09/2024 FINDINGS: BONES: No acute fracture is present. No bony destructive lesion is seen. A tiny enthesophyte at the p osterior calcaneus. JOINTS: No dislocation present. SOFT TISSUE: Atherosclerotic calcification is seen. There is soft tissue swelling 2 gas is seen. IMPRESSION: Soft tissue swelling of the foot but no radiopaque foreign body, fracture, dislocation or soft tissue gas. DATA REPOSITORY: RADIATION DOSE DELIVERED:
--- NOTE | 2024-08-09 07:45 | DI.RAD_ITS ---
Exam(s) XR FOOT RT COMPLETE EXAM: XR FOOT RT COMPLETE CLINICAL HISTORY: Establish baseline,s/p amputation toe rt foot, z89.421. TECHNIQUE: 2D digital imaging was performed of the right foot. Three images were obtained. AP, obl ique and lateral views were obtained. COMPARISON: CR,XR XR FOOT RT COMPLETE from 09/05/2022 FINDINGS: BONES: No acute fracture is present. No bony destructive lesion is seen. Since the prior examination there has been resection of the 2nd and 3rd toes to the level of the mid metatarsals. JOINTS: No dislocation present. Joint spaces are well maintained. SOFT TISSUE: There are atherosclerotic calcification present. IMPRESSION: 1. Interval amputation of the 2nd and 3rd toes. 2. No evidence of active osteomyelitis. DATA REPOSITORY: RADIATION DOSE DELIVERED:
== END 2024-08-09 00:39 ==
LOC: DI 00:19
PROVIDERS: PCP Nurse Practitioner Adult Health; Visit Provider Podiatrist
DX: M79.672 Pain in left foot (principal); Z89.421 Acquired absence of other right toe(s)
CPT/HCPCS: 73630